=== PATIENT | male | born 1935 | race Caucasian/White ===

== ENCOUNTER → 2017-10-02 15:36 | Outpatient (CLI) | payer MEDICARE, BC, SELFPAY ==
[2017-10-02 16:16] LABS: Basophils # 0.1 K/mm3 (0-0.2); Basophils % 0.9 % (0.1-2.0); Eosinophils # 0.2 K/mm3 (0.0-0.4); Eosinophils % 2.6 % (0.1-12.0); Hematocrit 37.6 % (42.0-52.0); Hemoglobin 11.9 g/dL (14.1-18.0); Lymphocytes % 23.9 K/mm3 (10-50); Mean Corpuscular HGB Conc 31.6 g/dL (31.8-35.4); Mean Corpuscular Hemoglobin 29.7 pg (27.0-31.2); Mean Corpuscular Volume 94.1 fl (80-94); Mean Platelet Volume 7.2 fl (7.4-10.4); Monocytes # 0.5 K/mm3 (0.1-1.0); Monocytes % 6.1 % (1.7-9.3); Neutrophils # 5.5 K/mm3 (1.8-7.8); Neutrophils % 66.5 % (37.0-80.0); Platelet Count 372 K/mm3 (142-424); White Blood Count 8.3 K/mm3 (4.8-10.8)
[2017-10-02 17:17] LABS: Alanine Aminotransferase 16 U/L (12-78); Albumin Level 3.4 gm/dL (3.4-5.0); Albumin/Globulin Ratio 0.9 (1.1-1.8); Alkaline Phosphatase 58 U/L (46-116); Anion Gap 13.6 mEq/L (5-15); Aspartate Amino Transferase 18 U/L (15-37); Bilirubin,Total 0.3 mg/dL (0.2-1.0); Blood Urea Nitrogen 13 mg/dL (7-18); Calcium 8.7 mg/dL (8.5-10.1); Carbon Dioxide 26 mmol/L (21.0-32.0); Chloride 108 mmol/L (98-107); Chol/HDL Ratio 4.5 (1-3.5); Cholesterol 197 mg/dL (140-200); Creatinine,Serum 1.09 mg/dL (0.70-1.30); Estimated Glomerular Filt Rate 65 ml/min (>60); GFR (African American) 79 ML/MIN (>60); Globulin 3.7 gm/dl (1.3-3.2); Glucose 94 mg/dL (74-106); HDL Cholesterol 44 mg/dL (27-67); LDL Cholesterol 138 mg/dL (0-130); Potassium 4.6 mmoL/L (3.5-5.1); Sodium 143 mmol/L (136-145); Thyroid Stimulating Hormone 21.11 uIU/ml (0.358-3.740); Total Protein,Serum 7.1 gm/dL (6.4-8.2); Triglycerides 76 mg/dL (30-200); VLDL Cholesterol 15 mg/dL (0-40); Valproic Acid, (Depakene) 24.3 ug/mL (50-100)
== END ==
PROVIDERS: PCP Nurse Practitioner Family; Visit Provider Nurse Practitioner Family
DX: I10 Essential (primary) hypertension (principal); E78.5 Hyperlipidemia, unspecified; E03.9 Hypothyroidism, unspecified; J41.1 Mucopurulent chronic bronchitis; R51 Headache
CPT/HCPCS: 36415; 80053; 80061; 80164; 84443; 85025

== ENCOUNTER 2017-10-11 20:04 | Emergency (ER) | payer MEDICARE, BC, SELFPAY ==
[2017-10-11 20:11] VITALS: BP 148/75; PULSE 71; RESP 12; TEMP 36.9; O2SAT 95; BMI 30.9
--- NOTE | 2017-10-11 20:25 | CT_ITS ---
CT head/brain wo con Ordering Physician: Orlin Parks MD Patient Age: 82 years: Male HISTORY: ITS.REASON: altered mental status change in mental status since last night 82 TECHNIQUE: Routine CT head without contrast. Brain and bone windows performed and submitted to PACS. COMPARISON : Previous September 05, [address] & March 2015 FINDINGS No acute intracranial findings. No hemorrhage. No mass. No territorial infarct Chronic small vessel deep white matter ischemic changes are again noted and gives rise to the patchy periventricular low-density white matter regions, most evident surrounding the anterior horns of lateral ventricles. Small old appearing routine at right head of caudate nucleus yields small porencephalic defect along the right margin of right anterior fourth axial image 23. This is seen previously . The ventricles appear satisfactory and basal cisterns clear. Posterior fossa is unremarkable and stable. Near complete opacification of the left maxillary sinus. With lifting of the left maxillary sinus. This likely reflects long-standing inflammatory mucosal thickening but seems to progressed over time since 2012 MR. May benefit from a sinus CT study particularly if symptoms here. Mild mucosal thickening ethmoid air cells bilaterally. Frontal & sphenoid sinus clear. Right maxillary sinus clear . IMPRESSION .. No acute intracranial findings Diffuse cerebral atrophy. Chronic small vessel deep white matter ischemic changes again seen bilateral cerebral hemispheres & similar to previous studies. It Near complete opacification left maxillary sinus. With bony wall thickening-these features suggesting long-standing chronic inflammation here.
--- NOTE | 2017-10-11 20:25 | XR_ITS ---
XR chest 2V Ordering Physician: Orlin Parks MD Patient Age: 82 years: Male HISTORY: ITS.REASON: cough, wheeze, recent bronchitis TECHNIQUE: PA and lateral chest COMPARISON : 12/20/2015 CXR & 12/19/2015 & 08/24/2015 CXR FINDINGS Focal small focal patchy area of density right midlung just lateral to the right suprahilar region. Roughly 18 mm transverse x 12 mm height in This setting this may reflect a small inflammatory focus, patchy infiltrate but will benefit from follow-up to exclude any other pathology. Given the slightly nodular character. Lateral film also suggests slight additional markings towards the inferior right lower lobe. Most likely this reflects infiltrate at the medial right lung base Left lung clear. No focal pneumonia. Pelvis the central airways upper normal thickness could reflect mild central airway inflammation/bronchitis.. Heart mildly enlarged but stable with left ventricular configuration. Diffuse calcification aortic knob similar to previous studies. The mediastinal structures appear stable. Mild elevation right hemidiaphragm again noted. Chest unremarkable. T-spine. Mild kyphosis mild degenerative changes. Stable. IMPRESSION: ========= 1. Focal density just lateral to the right hilum. In this setting it could reflect a small patchy area of infiltrate although follow-up studies would be important to exclude developing nodular density here 2. Also question minimal infiltrate medial right lung base, posterior to the right heart border . 3. Mild cardiomegaly Normal pulmonary vascularity Shanita/Zulma Please fax or sent this report to ER
[2017-10-11 20:57] LABS: Basophils # 0.1 K/mm3 (0-0.2); Basophils % 1.4 % (0.1-2.0); Eosinophils # 0.4 K/mm3 (0.0-0.4); Eosinophils % 4.6 % (0.1-12.0); Hematocrit 39.3 % (42.0-52.0); Lymphocytes % 26.3 K/mm3 (10-50); Mean Corpuscular HGB Conc 30.7 g/dL (31.8-35.4); Mean Corpuscular Hemoglobin 29.7 pg (27.0-31.2); Mean Corpuscular Volume 96.8 fl (80-94); Mean Platelet Volume 7.1 fl (7.4-10.4); Monocytes # 0.7 K/mm3 (0.1-1.0); Monocytes % 8.7 % (1.7-9.3); Neutrophils # 4.6 K/mm3 (1.8-7.8); Neutrophils % 59.1 % (37.0-80.0); Platelet Count 341 K/mm3 (142-424); Red Blood Count 4.05 M/mm3 (4.60-6.20); White Blood Count 7.8 K/mm3 (4.8-10.8)
[2017-10-11 21:17] LABS: Alanine Aminotransferase 16 U/L (12-78); Albumin Level 3.4 gm/dL (3.4-5.0); Albumin/Globulin Ratio 0.8 (1.1-1.8); Alkaline Phosphatase 63 U/L (46-116); Anion Gap 9.3 mEq/L (5-15); Aspartate Amino Transferase 16 U/L (15-37); Bilirubin,Total 0.2 mg/dL (0.2-1.0); Blood Urea Nitrogen 16 mg/dL (7-18); Calcium 8.6 mg/dL (8.5-10.1); Carbon Dioxide 29 mmol/L (21.0-32.0); Chloride 105 mmol/L (98-107); Creatinine Clearance Estimated 56 mL/min (0-300); Creatinine,Serum 1.24 mg/dL (0.70-1.30); Estimated Glomerular Filt Rate 56 ml/min (>60); Free T4 (Free Thyroxine) 0.89 ng/dl (0.76-1.46); GFR (African American) 68 ML/MIN (>60); Globulin 4.5 gm/dl (1.3-3.2); Glucose 101 mg/dL (74-106); Potassium 4.3 mmoL/L (3.5-5.1); Sodium 139 mmol/L (136-145); Thyroid Stimulating Hormone 6.14 uIU/ml (0.358-3.740); Total Protein,Serum 7.9 gm/dL (6.4-8.2)
[2017-10-11 21:19] LABS: Microscopic, Urine URINE MICROSCOPIC (MICROSCOPIC)
[2017-10-11 21:22] LABS: Appearance,Urine CLEAR (Clear); Bilirubin,Urine Negative (Negative); Blood, Urine Negative (Negative); Color,Urine YELLOW (Yellow); Glucose,Urine (UA) Negative (Negative); Ketones,Urine Negative (Negative); Leukocyte Esterase,Urine Negative (Negative); Nitrate,Urine Negative (Negative); Protein,Urine Negative (Negative); Specific Gravity, Urine 1.025 (1.005-1.030); Urobilinogen,Urine 0.2 EU/dl (0.2)
--- NOTE | 2017-10-11 21:24 | HMH.EDGENADL ---
ED Disposition Clinical Impression: Behavioral change Dementia Qualifiers: Dementia type: unspecified type Dementia behavioral disturbance: with behavioral disturbance Qualified Code(s): F03.91 - Unspecified dementia with behavioral disturbance Disposition: Home, Self-Care Condition on Discharge: Fair Instructions: DI for Altered Mental Status Additional Instructions: See Dr. Schulz in the office, call Friday for appointment. Additional instructions for CONTROLLED SUBSTANCES: You have been prescribed a medication that is a controlled substance. Controlled substances include pain medications known as opiates and sedative nerve medications known as benzodiazepines. Some common opiates include: Codeine (such as Tylenol #3) Hydrocodone (Vicodin, Lortab, Lorcet, [place]) Oxycodone (Percocet, Percodan, Oxycodone, Oxy IR) Some common benzodiazepines include: Diazepam (Valium) Lorazepam (Ativan) Alprazolam (Xanax) Clonazepam (Klonopin) Oxazepam (Serax) All of these controlled substances are highly addictive and frequently abused. Misuse can and frequently does lead to addiction as well as overdose and . Medication should be stored in a locked cabinet or other secure storage unit. Do not store the medication in a motor vehicle. Short term supplies, 3 days or less, are prescribed because of the highly addictive nature of the medication. Any of the controlled substance medication NOT taken should be disposed of properly and NOT SAVED. The recommended method of disposing of unused medications is: Place the medicines in a sealable plastic bag. If the medicine is a solid, crush it or add water to dissolve it. Add something undesirable (cat litter, coffee grounds, etc.) Dispose of sealed bag in household trash Do not flush or pour unused medicines down a sink or drain. Controlled substances should not be shared, given away or sold. Because of the addictive nature and frequent abuse, these medications are sometimes stolen. These medications should be kept in a safe place where they cannot be stolen. Do not keep them in your car or purse. Lost or stolen prescriptions for controlled substances WILL NOT BE REFILLED in this emergency department, regardless of whether a police report was filed. Prescriptions: diazePAM [Valium] 5 mg PO HSP PRN #4 tab PRN Reason: Sleep Referrals: Anastasiia Murillo APRN [Primary Care Provider] - - Critical Care Critical Care Time: No Attestation: On 10/11/17, the high probability of a clinically significant, sudden or life threatening deterioration of the following system(s) required my full and direct attention, intervention and personal management. The time I documented below is in addition to time spent performing reported procedures but includes the following listed in this critical care notation. Medical Decision Making Vital Signs: 10/11/17 20:11 Temperature 98.5 F Temperature Source Oral Pulse Rate [Right Radial] 71 Respiratory Rate 12 Blood Pressure [Right Arm] 148/75 Blood Pressure Mean [Right Arm] 99 Blood Pressure Source [Right Arm] Automatic Cuff Blood Pressure Position [Right Arm] Supine 02 Sat by Pulse Oximetry 95 Oxygen Delivery Method Room Air - Lab Data Lab Results 10/11/17 20:30: WBC 7.8, RBC 4.05 L, Hgb 12.0 L, Hct 39.3 L, MCV 96.8 H, MCH 29.7, MCHC 30.7 L, RDW 14.0, Plt Count 341, MPV 7.1 L, Neut % (Auto) 59.1, Lymph % (Auto) 26.3, [place] % (Auto) 8.7, Eos % (Auto) 4.6, Baso % (Auto) 1.4, Neut # (Auto) 4.6, Lymph # (Auto) 2.0, [place] # (Auto) 0.7, Eos # (Auto) 0.4, Baso # (Auto) 0.1 10/11/17 20:30: Sodium 139, Potassium 4.3, Chloride 105, Carbon Dioxide 29, Anion Gap 9.3, BUN 16, Creatinine 1.24, Estimated Creat Clear 56, Estimated GFR 56 L, Est GFR ( Amer) 68, Glucose 101, Calcium 8.6, Total Bilirubin 0.2, AST 16, ALT 16, Alkaline Phosphatase 63, Total Protein 7.9, Albumin 3.4, Globulin 4.5 H, Albumin/Globulin Ratio 0.8 L, TSH 6.14 H D, Eyal
[2017-10-11 22:06] LABS: Valproic Acid, (Depakene) 19.2 ug/mL (50-100)
[2017-10-11 22:10] LABS: Ammonia 14 umol/L (19-54)
--- NOTE | 2017-10-11 22:42 | PC.NURSE ---
CASE DISCUSSED WITH DR ARANGO.
[2017-10-12 00:09] VITALS: BP 157/78; PULSE 72; RESP 16; TEMP 37.1
== END 2017-10-12 00:12 | disposition home or self-care (01) ==
PROVIDERS: Emergency Provider Emergency Medicine; Family Provider Internal Medicine Adolescent Medicine; PCP Nurse Practitioner Family
DX: F03.91 Unspecified dementia, unspecified severity, with behavioral disturbance (principal); Z87.891 Personal history of nicotine dependence
CPT/HCPCS: 70450; 71046; 80053; 80164; 81001; 82140; 84439; 84443; 85025; 87040; 99284

== ENCOUNTER 2017-10-13 16:29 | Inpatient (IN) | payer MEDICARE, BC, SELFPAY ==
[2017-10-13 16:38] VITALS: BMI 30.6
[2017-10-13 17:03] VITALS: BMI 30.6
[2017-10-13 17:11] VITALS: BP 152/62; PULSE 72; RESP 18; TEMP 36.7; O2SAT 91
[2017-10-13 17:27] VITALS: O2SAT 86
[2017-10-13 18:14] LABS: ABG Base Excess -0.5 mmol/L (-2.4-2.3); ABG HCO3 25.3 mmhg (22.0-26.0); ABG Oxygen Saturation 86 % (90-100); ABG PCO2 47.7 mmhg (35.0-45.0); ABG PH 7.34 mmol/L (7.35-7.45); ABG PO2 54.3 mmhg (80-100); ABG TCO2 26.7 mmhg (23-27)
[2017-10-13 18:35] VITALS: PULSE 67; PULSE 68
[2017-10-13 18:51] LABS: Alanine Aminotransferase 18 U/L (12-78); Albumin Level 3.2 gm/dL (3.4-5.0); Albumin/Globulin Ratio 0.7 (1.1-1.8); Alkaline Phosphatase 64 U/L (46-116); Anion Gap 10.9 mEq/L (5-15); Aspartate Amino Transferase 23 U/L (15-37); Bilirubin,Total 0.4 mg/dL (0.2-1.0); Blood Urea Nitrogen 14 mg/dL (7-18); Calcium 8.7 mg/dL (8.5-10.1); Carbon Dioxide 29 mmol/L (21.0-32.0); Chloride 103 mmol/L (98-107); Creatinine Clearance Estimated 58 mL/min (0-300); Creatinine,Serum 1.14 mg/dL (0.70-1.30); Estimated Glomerular Filt Rate 62 ml/min (>60); GFR (African American) 75 ML/MIN (>60); Globulin 4.5 gm/dl (1.3-3.2); Glucose 97 mg/dL (74-106); Potassium 3.9 mmoL/L (3.5-5.1); Sodium 139 mmol/L (136-145); Total Protein,Serum 7.7 gm/dL (6.4-8.2)
--- NOTE | 2017-10-13 19:10 | PC.NURSE ---
REPORT HANDED OFF TO NARA RAZO RN
--- NOTE | 2017-10-13 19:11 | PC.NURSE ---
AT 1800 RAMILA IN PHARMACY NOTIFIED OVER [facility] CONSULT. LOADING DOSE ORDERED OF 1500MG IN 250 NS BAG. TO RUN AT 125ML/HR. VERIFIED AND MIXED.
[2017-10-13 20:00] VITALS: O2SAT 99
[2017-10-13 20:20] VITALS: BP 141/56; PULSE 66; RESP 20; TEMP 36.8; O2SAT 99
--- NOTE | 2017-10-13 21:50 | HMH.HP ---
*Admission Date: 10/13/17 *Chief complaint: Confusion, falls *History of present illness: 82 yr old male presented today with his daughter to FU on recent ED visit. He has a history of asthma/COPD, past tobacco use, and dementia and was seen in the ED over the past weekend due to recurring falls at home and confusion above baseline. Daughter reports that she has noticed poor PO intake over several days, weakness with walking and he suffered the falls while trying to ambulate at home. He has a had a cough for several months, not responding to multiple anti-infectives, anti-allergy interventions or stopping ACEI. ED did labs and imaging but did not change any treatment. Today in clinic he appears rather disheveled and is much less interactive than usual. ED records revealed no change in CT head imaging but possible infiltrate right lung base and right hilar lesion. His weight is down 6 pounds over the past 10 days, was felt to be dehydrated on exam and was admitted for hydration, further chest imaging and IV antibiotics. He does have a history of MRSA pneumonia so coverage with vancomycin will be added. [facility] History I have reviewed the patient's past medical history: Yes Medical History: Reports:: Anxiety, Chronic Obstructive Pulmonary Disease (COPD), Dementia, Depression, Gastroesophageal Reflux Disease(GERD), Hyperlipidemia, Hypertension, MRSA Denies:: Cancer, Diabetes Mellitus Type 1, Diabetes Mellitus Type 2 Other Medical History: Reports: Hypothyroidism Comment: chronic headaches, sinus disease, dementia with behavior disturbance Other Surgeries: Yes: Sinus Surgery, Other (cholecystemctomy) Amputation: No Fractures: Yes (arm and wrist) - *Social History Smoking Status: Former smoker Smoking End Date: 35 years Alcohol Intake: former Occupational Status: retired, disabled Housing: house Household Members: children - Psychiatric History Expresses thoughts of harming self/others: None Suicide Plan Description: No Plan *Family Hx:: No significant family history Review of Systems - Review of Systems Review of systems:: pertinent systems reviewed and negative unless documented below - Constitutional Reports anorexia, Reports daytime sleepiness, Reports fatigue, Reports weakness - ENT Reports poor balance, Reports dry mouth, Reports headache(s), Reports nasal discharge, Reports post nasal drip - *Cardiovascular Reports shortness of breath with activity, Denies chest pain - *Respiratory Reports cough - *Gastrointestinal Denies abdominal pain - *Genitourinary Denies difficulty urinating - *Musculoskeletal Reports back pain - *Neurologic Reports behavioral changes, Reports confusion, Reports unsteadiness, Reports headache(s), Reports memory loss Meds Home Medications Medication Instructions Recorded Confirmed Type Benzonatate [Benzonatate 100mg 100 mg PO TIDP PRN 10/11/17 10/13/17 History cap] Desvenlafaxine [Desvenlafaxine ER] 50 mg PO DAILY 10/11/17 10/13/17 History Divalproex Sodium 250 mg PO BID 10/11/17 10/13/17 History Donepezil HCl [Aricept 10mg tablet] 10 mg PO HS 10/11/17 10/13/17 History Doxazosin Mesylate [Doxazosin 8mg 4 mg PO DAILY 10/11/17 10/13/17 History Tab] Esomeprazole Magnesium 40 mg PO DAILY 10/11/17 10/13/17 History Furosemide [Furosemide 20mg Tab] 20 mg PO DAILYP PRN 10/11/17 10/13/17 History Levocetirizine Dihydrochloride 5 mg PO HS 10/11/17 10/13/17 History Levothyroxine Sodium 88 mcg PO DAILY 10/11/17 10/13/17 History [Levothyroxine 88mcg (0.088mg) Tab] Lisinopril [Lisinopril 10mg Tab] 10 mg PO DAILY 10/11/17 10/13/17 History Montelukast Sodium [Montelukast 10 mg PO HS 10/11/17 10/13/17 History 10mg Tab] Quetiapine Fumarate [Seroquel] 200 mg PO HS 10/11/17 10/13/17 History Trazodone HCl [Desyrel 50mg tablet] 200 mg PO HS 10/11/17 10/13/17 History Allergies Allergy/AdvReac Type Severity Reaction Status Date / Time erythromycin base Allergy Severe I-HIVES, Verified
--- NOTE | 2017-10-13 21:59 | P.HP_ITS ---
*Admission Date: 10/13/17 *Chief complaint: Confusion, falls *History of present illness: 82 yr old male presented today with his daughter to FU on recent ED visit. He has a history of asthma/COPD, past tobacco use, and dementia and was seen in the ED over the past weekend due to recurring falls at home and confusion above baseline. Daughter reports that she has noticed poor PO intake over several days , weakness with walking and he suffered the falls while trying to ambulate at home. He has a had a cough for several months, not responding to multiple anti- infectives, anti-allergy interventions or stopping ACEI. ED did labs and imaging but did not change any treatment. Today in clinic he appears rather disheveled and is much less interactive than usual. ED records revealed no change in CT head imaging but possible infiltrate right lung base and right hilar lesion. His weight is down 6 pounds over the past 10 days, was felt to be dehydrated on exam and was admitted for hydration, further chest imaging and IV antibiotics. He does have a history of MRSA pneumonia so coverage with vancomycin will be added. [facility] History I have reviewed the patient's past medical history: Yes Medical History: Reports:: Anxiety, Chronic Obstructive Pulmonary Disease (COPD) , Dementia, Depression, Gastroesophageal Reflux Disease(GERD), Hyperlipidemia, Hypertension, MRSA Denies:: Cancer, Diabetes Mellitus Type 1, Diabetes Mellitus Type 2 Other Medical History: Reports: Hypothyroidism Comment: chronic headaches, sinus disease, dementia with behavior disturbance Other Surgeries: Yes: Sinus Surgery, Other (cholecystemctomy) Amputation: No Fractures: Yes (arm and wrist) - *Social History Smoking Status: Former smoker Smoking End Date: 35 years Alcohol Intake: former Occupational Status: retired, disabled Housing: house Household Members: children - Psychiatric History Expresses thoughts of harming self/others: None Suicide Plan Description: No Plan *Family Hx:: No significant family history Review of Systems - Review of Systems Review of systems:: pertinent systems reviewed and negative unless documented below - Constitutional Reports anorexia, Reports daytime sleepiness, Reports fatigue, Reports weakness - ENT Reports poor balance, Reports dry mouth, Reports headache(s), Reports nasal discharge, Reports post nasal drip - *Cardiovascular Reports shortness of breath with activity, Denies chest pain - *Respiratory Reports cough - *Gastrointestinal Denies abdominal pain - *Genitourinary Denies difficulty urinating - *Musculoskeletal Reports back pain - *Neurologic Reports behavioral changes, Reports confusion, Reports unsteadiness, Reports headache(s), Reports memory loss Meds Home Medications Medication Instructions Recorded Confirmed Type Benzonatate [Benzonatate 100mg 100 mg PO TIDP PRN 10/11/17 10/13/17 History cap] Desvenlafaxine [Desvenlafaxine ER] 50 mg PO DAILY 10/11/17 10/13/17 History Divalproex Sodium 250 mg PO BID 10/11/17 10/13/17 History Donepezil HCl [Aricept 10mg tablet] 10 mg PO HS 10/11/17 10/13/17 History Doxazosin Mesylate [Doxazosin 8mg 4 mg PO DAILY 10/11/17 10/13/17 History Tab] Esomeprazole Magnesium 40 mg PO DAILY 10/11/17 10/13/17 History Furosemide [Furosemide 20mg Tab] 20 mg PO DAILYP PRN 10/11/17 10/13/17 History Levocetirizine Dihydrochloride 5 mg PO HS 10/11/17 10/13/17 History Levothyroxine Sodium 88 mcg PO DAILY 10/11/17 10/13/17 History [Levothy
[2017-10-13 22:33] LABS: Mycoplasma Pneumo IGM (Rapid) Non-Reactive (Non-Reactiv)
[2017-10-13 23:22] VITALS: PULSE 67; PULSE 68
[2017-10-14] VITALS (12 sets, daily range): BP systolic 129–166; BP diastolic 50–76; PULSE 68–83; RESP 18; TEMP 36.2–37.4; O2SAT 93–99
--- NOTE | 2017-10-14 04:45 | CT_ITS ---
CT chest wo con HISTORY: Cough, wheezing, abnormal chest x-ray, pulmonary nodule ITS.REASON: ABNORMAL CXR ORDERING PHYSICIAN: Lc Mcginnis MD PATIENT AGE: 82 years TECHNIQUE: Axial images obtained. Sagittal and coronal reformatted images are also generated and reviewed. CONTRAST: None COMPARISON: Radiograph of 10/11/2017, CT scan 06/20/2014 FINDINGS: Atherosclerotic calcification involving the aorta and coronary arteries. There are few small lymph nodes in the mediastinum measuring up to 1.3 x 1.2 cm in the precarinal area. There are atelectatic changes in the right upper lobe. A 5 mm nodular opacity is present in the right upper lobe medially probably unchanged. Granulomas are present in the right upper lobe. There is a subpleural 5 mm nodular density in the right middle lobe laterally. There are mild atelectatic changes in the lung bases. There is trace right pleural effusion. Upper abdominal images are unremarkable. No acute bony anomalies IMPRESSION: 1. Bibasilar subsegmental atelectatic changes and/or scarring. 2. Atelectasis versus consolidation/scarring in the posterior right upper lobe likely candidate for the radiographic abdomen only. 3. Small right-sided pulmonary nodules which appear stable
--- NOTE | 2017-10-14 06:48 | PC.NURSE ---
PATIENT IS OFF CENSUS. ADMITTED FOR PNA AND DEHYDRATION.VITAL SIGNS AND O2 SATS HAVE REMAINED STABLE. SOME CRACKLES HEARD T/O AND DIMINISHED IN BASES, NONPRODUCTIVE COUGH. HAS BEEN TOLERATING IV ATB TREATMENT WELL AND DRINKS ADEQUATE FLUIDS. PATIENT IS CONFUSED AND PLEASANT. O2 @2L PER NC. NO ACUTE CHANGES. CALL LIGHT IN REACH. WILL CONTINUE TO MONITOR.
[2017-10-14 07:27] LABS: Basophils # 0.1 K/mm3 (0-0.2); Basophils % 0.8 % (0.1-2.0); Eosinophils # 0.2 K/mm3 (0.0-0.4); Eosinophils % 3.7 % (0.1-12.0); Hematocrit 36.5 % (42.0-52.0); Hemoglobin 11.5 g/dL (14.1-18.0); Lymphocytes # 2.1 K/mm3 (0.7-4.5); Lymphocytes % 32.5 K/mm3 (10-50); Mean Corpuscular HGB Conc 31.6 g/dL (31.8-35.4); Mean Corpuscular Volume 94.9 fl (80-94); Mean Platelet Volume 7.2 fl (7.4-10.4); Monocytes # 0.6 K/mm3 (0.1-1.0); Monocytes % 8.6 % (1.7-9.3); Neutrophils # 3.5 K/mm3 (1.8-7.8); Neutrophils % 54.4 % (37.0-80.0); Platelet Count 292 K/mm3 (142-424); Red Blood Count 3.85 M/mm3 (4.60-6.20); Red Cell Distribution Width 13.9 % (11.5-17.5); White Blood Count 6.4 K/mm3 (4.8-10.8)
[2017-10-14 07:35] LABS: Blood Urea Nitrogen 12 mg/dL (7-18); Carbon Dioxide 29 mmol/L (21.0-32.0); Chloride 106 mmol/L (98-107); Creatinine Clearance Estimated 65 mL/min (0-300); Creatinine,Serum 1.02 mg/dL (0.70-1.30); Estimated Glomerular Filt Rate 70 ml/min (>60); GFR (African American) 85 ML/MIN (>60); Glucose 122 mg/dL (74-106); Sodium 142 mmol/L (136-145); Valproic Acid, (Depakene) 8.5 ug/mL (50-100)
--- NOTE | 2017-10-14 08:06 | HMH.PHAVTE ---
[facility] Pharmacy VTE Monitoring - Patient Demographics Admission date: 10/13/17 Report Date: 10/14/17 Time: 08:06 Allergies/Adverse Reactions: Patient Allergies erythromycin base Allergy (Severe, Verified 10/11/17 20:24) I-HIVES, RASH Cephalosporins Allergy (Intermediate, Verified 10/11/17 20:24) I-RASH doxycycline Allergy (Intermediate, Verified 10/11/17 20:24) I-RASH Penicillins Allergy (Intermediate, Verified 10/11/17 20:24) T-EEIJCO-AKPI/THROAT Sulfa (Sulfonamide Antibiotics) Allergy (Intermediate, Verified 10/11/17 20:24) I-RASH clindamycin Allergy (Unknown, Verified 10/11/17 20:24) niacin Allergy (Unknown, Verified 10/11/17 20:24) I-RASH Height: 1.63 m Weight: 80.96 kg Patient Problems: Current Active Problems Behavioral change (Acute) CAP (community acquired pneumonia) (Acute) History of MRSA infection of lungs (Acute) Dehydration (Acute) Abnormal CXR (Acute) - VTE Risk Labs: VTE Related Lab Results Hgb 11.5 g/dL (14.1-18.0) L 10/14/17 06:49 Hct 36.5 % (42.0-52.0) L 10/14/17 06:49 Plt Count 292 K/mm3 (142-424) 10/14/17 06:49 BUN 12 mg/dL (7-18) 10/14/17 06:49 Creatinine 1.02 mg/dL (0.70-1.30) 10/14/17 06:49 Estimated Creat Clear 65 mL/min (0-300) 10/14/17 06:49 Was VTE Risk Assessment Performed: Yes VTE Score: 4 VTE Risk Level: Low Risk Clinical Trial Participant: No - Prophylaxis VTE Prophylaxis Ordered?: Yes Types of VTE Prophylaxis: TEDS Knee High Location of Applied Device: Bilateral Lower Extremeties
--- NOTE | 2017-10-14 09:09 | P.PN_ITS ---
Internal Medicine - PN: Subj *Date: 10/14/17 *Time: 09:07 Interval history: Patient states he feels weak. Mental status has improved; however he continues to have some hallucinations. Exam Vital signs and Labs for Last 24 Hours: Temp Pulse Resp BP Pulse Ox 98.0 F 81 18 148/58 95 10/14/17 07:57 10/14/17 07:57 10/14/17 07:57 10/14/17 07:57 10/14/17 07:57 Laboratory Results - last 24 hr 10/13/17 17:54: ABG pH 7.34 L, ABG pCO2 47.7 H, ABG pO2 54.3 L, ABG HCO3 25.3, ABG Total CO2 26.7, ABG O2 Saturation 86 L*, ABG Base Excess -0.5 10/13/17 18:20: Sodium 139, Potassium 3.9, Chloride 103, Carbon Dioxide 29, Anion Gap 10.9, BUN 14, Creatinine 1.14, Estimated Creat Clear 58, Estimated GFR 62, Est GFR ( Amer) 75, Glucose 97, Calcium 8.7, Total Bilirubin 0.4 , AST 23 D, ALT 18, Alkaline Phosphatase 64, Total Protein 7.7, Albumin 3.2 L, Globulin 4.5 H, Albumin/Globulin Ratio 0.7 L 10/13/17 18:20: Mycoplasma pneumon IgM Non-reactive 10/14/17 06:49: WBC 6.4, RBC 3.85 L, Hgb 11.5 L, Hct 36.5 L, MCV 94.9 H, MCH 30.0, MCHC 31.6 L, RDW 13.9, Plt Count 292, MPV 7.2 L, Neut % (Auto) 54.4, Lymph % (Auto) 32.5, [place] % (Auto) 8.6, Eos % (Auto) 3.7, Baso % (Auto) 0.8, Neut # (Auto) 3.5, Lymph # (Auto) 2.1, [place] # (Auto) 0.6, Eos # (Auto) 0.2, Baso # (Auto) 0.1 10/14/17 06:49: Sodium 142, Potassium 4.0, Chloride 106, Carbon Dioxide 29, Anion Gap 11.0, BUN 12, Creatinine 1.02, Estimated Creat Clear 65, Estimated GFR 70, Est GFR ( Amer) 85, Glucose 122 H D, Total Valproic Acid 8.5 L I & O for Last 24 hours: Intake & Output 10/11/17 10/12/17 10/13/17 10/14/17 11:59 11:59 11:59 11:59 Intake Total 903 / 903 Balance 903 / 903 Weight 178 lb 7.78 oz Narrative: Alert and oriented x2. Rate and rhythm regular. Trace LE edema. Lung sounds with rhonchi/crackles RUL. Abdomen soft and nontender. Normoactive Bowel sounds. Assessment and Plan (1) CAP (community acquired pneumonia) Current visit: Yes Status: Acute Category: Medical Code(s): J18.9 - Pneumonia, unspecified organism (2) History of MRSA infection of lungs Current visit: Yes Status: Acute Category: Medical Code(s): Z86.14 - Personal history of Methicillin resistant Staphylococcus aureus infection (3) Dehydration Current visit: Yes Status: Acute Category: Medical Code(s): E86.0 - Dehydration (4) Abnormal CXR Current visit: Yes Status: Acute Category: Medical Code(s): R93.8 - Abnormal findings on diagnostic imaging of other specified body structures (5) Behavioral change Current visit: Yes Status: Acute Category: Medical Code(s): R46.89 - Other symptoms and signs involving appearance and behavior - Assessment and plan all Dx Assessment and Plan for all problems:: Continue IV antibiotics. PT consult today.
--- NOTE | 2017-10-14 11:30 | HMH.PHACONS ---
- Pharmacy Consult Date: 10/14/17 Time: 11:30 Referring provider: DR. ARANGO Reason for Consult:: VANCOMYCIN DOSING Allergies and ADEs:: Allergies Allergy/AdvReac Type Severity Reaction Status Date / Time erythromycin base Allergy Severe I-HIVES, Verified 10/11/17 20:24 RASH Cephalosporins Allergy Intermediate I-RASH Verified 10/11/17 20:24 doxycycline Allergy Intermediate I-RASH Verified 10/11/17 20:24 Penicillins Allergy Intermediate S-SWELLS-OR Verified 10/11/17 20:24 AL/THROAT Sulfa (Sulfonamide Allergy Intermediate I-RASH Verified 10/11/17 20:24 Antibiotics) clindamycin Allergy Unknown Verified 10/11/17 20:24 niacin Allergy Unknown I-RASH Verified 10/11/17 20:24 Home Medications:: Home Medications Medication Instructions Recorded Confirmed Type Benzonatate [Benzonatate 100mg 100 mg PO TIDP PRN 10/11/17 10/13/17 History cap] Desvenlafaxine [Desvenlafaxine ER] 50 mg PO DAILY 10/11/17 10/13/17 History Divalproex Sodium 250 mg PO BID 10/11/17 10/13/17 History Donepezil HCl [Aricept 10mg tablet] 10 mg PO HS 10/11/17 10/13/17 History Doxazosin Mesylate [Doxazosin 8mg 4 mg PO DAILY 10/11/17 10/13/17 History Tab] Esomeprazole Magnesium 40 mg PO DAILY 10/11/17 10/13/17 History Furosemide [Furosemide 20mg Tab] 20 mg PO DAILYP PRN 10/11/17 10/13/17 History Levocetirizine Dihydrochloride 5 mg PO HS 10/11/17 10/13/17 History Levothyroxine Sodium 88 mcg PO DAILY 10/11/17 10/13/17 History [Levothyroxine 88mcg (0.088mg) Tab] Lisinopril [Lisinopril 10mg Tab] 10 mg PO DAILY 10/11/17 10/13/17 History Montelukast Sodium [Montelukast 10 mg PO HS 10/11/17 10/13/17 History 10mg Tab] Quetiapine Fumarate [Seroquel] 200 mg PO HS 10/11/17 10/13/17 History Trazodone HCl [Desyrel 50mg tablet] 200 mg PO HS 10/11/17 10/13/17 History Height: 1.63 m Weight: 80.96 kg Laboratory Results:: Laboratory Results - last 24 hr 10/13/17 17:54: ABG pH 7.34 L, ABG pCO2 47.7 H, ABG pO2 54.3 L, ABG HCO3 25.3, ABG Total CO2 26.7, ABG O2 Saturation 86 L*, ABG Base Excess -0.5 10/13/17 18:20: Sodium 139, Potassium 3.9, Chloride 103, Carbon Dioxide 29, Anion Gap 10.9, BUN 14, Creatinine 1.14, Estimated Creat Clear 58, Estimated GFR 62, Est GFR ( Amer) 75, Glucose 97, Calcium 8.7, Total Bilirubin 0.4, AST 23 D, ALT 18, Alkaline Phosphatase 64, Total Protein 7.7, Albumin 3.2 L, Globulin 4.5 H, Albumin/Globulin Ratio 0.7 L 10/13/17 18:20: Mycoplasma pneumon IgM Non-reactive 10/14/17 06:49: WBC 6.4, RBC 3.85 L, Hgb 11.5 L, Hct 36.5 L, MCV 94.9 H, MCH 30.0, MCHC 31.6 L, RDW 13.9, Plt Count 292, MPV 7.2 L, Neut % (Auto) 54.4, Lymph % (Auto) 32.5, [place] % (Auto) 8.6, Eos % (Auto) 3.7, Baso % (Auto) 0.8, Neut # (Auto) 3.5, Lymph # (Auto) 2.1, [place] # (Auto) 0.6, Eos # (Auto) 0.2, Baso # (Auto) 0.1 10/14/17 06:49: Sodium 142, Potassium 4.0, Chloride 106, Carbon Dioxide 29, Anion Gap 11.0, BUN 12, Creatinine 1.02, Estimated Creat Clear 65, Estimated GFR 70, Est GFR ( Amer) 85, Glucose 122 H D, Total Valproic Acid 8.5 L Medical History: Reports:: Anxiety, Chronic Obstructive Pulmonary Disease (COPD), Dementia, Depression, Gastroesophageal Reflux Disease(GERD), Hyperlipidemia, Hypertension, MRSA Denies:: Cancer, Diabetes Mellitus Type 1, Diabetes Mellitus Type 2 Assessment and Plan (1) CAP (community acquired pneumonia) Current visit: Yes Status: Acute Category: Medical Code(s): J18.9 - Pneumonia, unspecified organism (2) History of MRSA infection of lungs Current visit: Yes Status: Acute Category: Medical Code(s): Z86.14 - Personal history of Methicillin resistant Staphylococcus aureus infection (3) Dehydration Current visit: Yes Status: Acute Category: Medical Code(s): E86.0 - Dehydration (4) Abnormal CXR Current visit: Yes Status: Acute Category: Medical Code(s): R93.8 - Abnormal findings on diagnostic imaging of other specified body structures (5) Behavioral change Current visit: Yes
--- NOTE | 2017-10-14 11:37 | P.CONPHA_ITS ---
- Pharmacy Consult Date: 10/14/17 Time: 11:30 Referring provider: DR. ARANGO Reason for Consult:: VANCOMYCIN DOSING Allergies and ADEs:: Allergies Allergy/AdvReac Type Severity Reaction Status Date / Time erythromycin base Allergy Severe I-HIVES, Verified 10/11/17 20:24 RASH Cephalosporins Allergy Intermediate I-RASH Verified 10/11/17 20:24 doxycycline Allergy Intermediate I-RASH Verified 10/11/17 20:24 Penicillins Allergy Intermediate S-SWELLS-OR Verified 10/11/17 20:24 AL/THROAT Sulfa (Sulfonamide Allergy Intermediate I-RASH Verified 10/11/17 20:24 Antibiotics) clindamycin Allergy Unknown Verified 10/11/17 20:24 niacin Allergy Unknown I-RASH Verified 10/11/17 20:24 Home Medications:: Home Medications Medication Instructions Recorded Confirmed Type Benzonatate [Benzonatate 100mg 100 mg PO TIDP PRN 10/11/17 10/13/17 History cap] Desvenlafaxine [Desvenlafaxine ER] 50 mg PO DAILY 10/11/17 10/13/17 History Divalproex Sodium 250 mg PO BID 10/11/17 10/13/17 History Donepezil HCl [Aricept 10mg tablet] 10 mg PO HS 10/11/17 10/13/17 History Doxazosin Mesylate [Doxazosin 8mg 4 mg PO DAILY 10/11/17 10/13/17 History Tab] Esomeprazole Magnesium 40 mg PO DAILY 10/11/17 10/13/17 History Furosemide [Furosemide 20mg Tab] 20 mg PO DAILYP PRN 10/11/17 10/13/17 History Levocetirizine Dihydrochloride 5 mg PO HS 10/11/17 10/13/17 History Levothyroxine Sodium 88 mcg PO DAILY 10/11/17 10/13/17 History [Levothyroxine 88mcg (0.088mg) Tab] Lisinopril [Lisinopril 10mg Tab] 10 mg PO DAILY 10/11/17 10/13/17 History Montelukast Sodium [Montelukast 10 mg PO HS 10/11/17 10/13/17 History 10mg Tab] Quetiapine Fumarate [Seroquel] 200 mg PO HS 10/11/17 10/13/17 History Trazodone HCl [Desyrel 50mg tablet] 200 mg PO HS 10/11/17 10/13/17 History Height: 1.63 m Weight: 80.96 kg Laboratory Results:: Laboratory Results - last 24 hr 10/13/17 17:54: ABG pH 7.34 L, ABG pCO2 47.7 H, ABG pO2 54.3 L, ABG HCO3 25.3, ABG Total CO2 26.7, ABG O2 Saturation 86 L*, ABG Base Excess -0.5 10/13/17 18:20: Sodium 139, Potassium 3.9, Chloride 103, Carbon Dioxide 29, Anion Gap 10.9, BUN 14, Creatinine 1.14, Estimated Creat Clear 58, Estimated GFR 62, Est GFR ( Amer) 75, Glucose 97, Calcium 8.7, Total Bilirubin 0.4 , AST 23 D, ALT 18, Alkaline Phosphatase 64, Total Protein 7.7, Albumin 3.2 L, Globulin 4.5 H, Albumin/Globulin Ratio 0.7 L 10/13/17 18:20: Mycoplasma pneumon IgM Non-reactive 10/14/17 06:49: WBC 6.4, RBC 3.85 L, Hgb 11.5 L, Hct 36.5 L, MCV 94.9 H, MCH 30.0, MCHC 31.6 L, RDW 13.9, Plt Count 292, MPV 7.2 L, Neut % (Auto) 54.4, Lymph % (Auto) 32.5, [place] % (Auto) 8.6, Eos % (Auto) 3.7, Baso % (Auto) 0.8, Neut # (Auto) 3.5, Lymph # (Auto) 2.1, [place] # (Auto) 0.6, Eos # (Auto) 0.2, Baso # (Auto) 0.1 10/14/17 06:49: Sodium 142, Potassium 4.0, Chloride 106, Carbon Dioxide 29, Anion Gap 11.0, BUN 12, Creatinine 1.02, Estimated Creat Clear 65, Estimated GFR 70, Est GFR ( Amer) 85, Glucose 122 H D, Total Valproic Acid 8.5 L Medical History: Reports:: Anxiety, Chronic Obstructive Pulmonary Disease (COPD) , Dementia, Depression, Gastroesophageal Reflux Disease(GERD), Hyperlipidemia, Hypertension, MRSA Denies:: Cancer, Diabetes Mellitus Type 1, Diabetes Mellitus Type 2 Assessment and Plan (1) CAP (community acquired pneumonia) Current visit: Yes Status: Acute Category: Medical Code(s): J18.9 - Pneumonia, unspecified orga
--- NOTE | 2017-10-14 16:26 | SW/DCPLANNER ---
NOBODY WAS IN THE ROOM WITH MR DEAN THIS AFTERNOON SO I MADE A CALL TO HIS DAUGHTER, FLORA AND HAD TO LEAVE A VOICE MESSAGE ASKING HER WHAT THE PLAN WAS FOR HER FATHER POST HOSPITAL DISCHARGE: I TOLD HER THAT OUT PHYSICALTHERAPIST DID NOT THINK HE WAS SKILLABLE ENOUGH TO PICK HIM UP WHILE HE WAS IN THE HOSPITAL STATING HE IS WEAK BUT BASICALLY AT BASELINE.. STATING HE PROBABLY NEEDS PLACEMENT BUT DIDN'T KNOW IF SKILLED CARE WAS COMPLETELY NECESSARY MORE [facility] CARE. I HAVE ASKED HER TO CALL ME AND LET HER KNOW MY HOURS. WAITING ON A CALL TO DECIDE WHAT PLAN I NEED TO WORK TOWARD PRIOR TO HIS DISCHARGE FROM [facility].
--- NOTE | 2017-10-14 19:13 | PC.NURSE ---
Pt resting in bed with no complaints, was without o2 t/o shift and tolerated while in chair, pt c/o of feeling soa while in bed and 02 put back on nc for discomfort. patient remains at baseline. bed safety in place, call light in reach. will continue to monitor
[2017-10-15] VITALS (10 sets, daily range): BP systolic 123–180; BP diastolic 65–86; PULSE 78–100; RESP 18–22; TEMP 36.1–37.1; O2SAT 90–98
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
--- NOTE | 2017-10-15 08:33 | HMH.ACPN2 ---
Internal Medicine - PN: Subj *Date: 10/15/17 *Time: 08:33 Interval history: Overnight patient improved, eating well, his daughter continues to be concerned about ongoing insomnia. Exam Vital signs and Labs for Last 24 Hours: Temp Pulse Resp BP Pulse Ox 98.1 F 82 18 168/71 98 10/15/17 03:59 10/15/17 06:09 10/15/17 03:59 10/15/17 03:59 10/15/17 06:09 I & O for Last 24 hours: Intake & Output 10/12/17 10/13/17 10/14/17 10/15/17 11:59 11:59 11:59 11:59 Intake Total 1023 / 1023 840 / 840 Output Total 1300 / 1300 Balance 1023 / 1023 -460 / -460 Weight 178 lb 7.78 oz 180 lb 8 oz Microbiology Reports for the Last 24 Hours: Microbiology 10/13/17 18:20 Blood Blood Culture - Preliminary NO GROWTH AFTER 24 HOURS 10/13/17 18:20 Blood Blood Culture - Preliminary NO GROWTH AFTER 24 HOURS Narrative: Lungs have rhonchi bilaterally, improved air movement. Heart rate regular. Abdomen soft. Patient continues to be weak and unstable. CT were reviewed and PT evaluation noted. Assessment and Plan (1) CAP (community acquired pneumonia) Current visit: Yes Status: Acute Category: Medical Code(s): J18.9 - Pneumonia, unspecified organism (2) History of MRSA infection of lungs Current visit: Yes Status: Acute Category: Medical Code(s): Z86.14 - Personal history of Methicillin resistant Staphylococcus aureus infection (3) Dehydration Current visit: Yes Status: Acute Category: Medical Code(s): E86.0 - Dehydration (4) Abnormal CXR Current visit: Yes Status: Acute Category: Medical Code(s): R93.8 - Abnormal findings on diagnostic imaging of other specified body structures (5) Behavioral change Current visit: Yes Status: Acute Category: Medical Code(s): R46.89 - Other symptoms and signs involving appearance and behavior - Assessment and plan all Dx Assessment and Plan for all problems:: Overall patient improving. Continue current antibiotics. Patient needs skilled care evaluation for PT and continued antibiotics.
--- NOTE | 2017-10-15 10:10 | SW/DCPLANNER ---
RECEIVED REFERRAL FOR THIS PATIENT FOR SKILLED CARE FOR THIS PATIENT: MR DEAN PRESENTED INTO THE HOSPITAL WITH PNEUMONIA: HE HAS BEEN AT HOME WITH DAUGHTER CARING FOR HIM AND SHE FEELS HE NEEDS TO GO SOMEWHERE FOR SHORT TERM REHAB AND USE HIS MEDICARE BENEFIT, SHE HAS REQUESTED I SENT IT TO [facility]... WAITING ON [facility] TO CALL ME TO WHETHER THEY CAN ACCEPT HIM OR NOT..IF ACCEPTED HE WILL BE READY FOR A DISPOSITION ON ..
--- NOTE | 2017-10-15 10:47 | HMH.PTEV ---
Physical Therapy Evaluation Rehab PT IP Evaluation Start: 10/14/17 07:59 Freq: ONCE Status: Complete Protocol: Document 10/14/17 10:24 FAMILIA (Rec: 10/14/17 10:44 PHORTIANNA [id number]) Subjective/History History History 82 yom adm to [facility] with weakness and CAP. Pt has dementia at baseline. Subjective Subjective Pt reports no c/o pain or discomfort this am. Rehab PT IP Eval Objective Appearance Patient Behavior Cooperative Confused Patient Baseline Patient Orientation Person Place Difficulty following instructions none Speech Pattern Clear Appropriate Ambulation Patient Able to Ambulate Yes Ambulation Observation IP General Gait Pattern Observation Wide Based Gait Ambulation Distance (feet) 200 Ambulation Assistive Device None Balance Ability to Arise Able, w/o using arms Sitting Balance Steady, safe Standing Balance Steady, wide stance Dynamic Sitting Balance Ability Normal Dynamic Standing Balance Ability Good Transfers Bed Transfer Ability Supervision/Stand by Chair Transfer Ability Supervision/Stand by Sit to Stand Bed Transfer Ability Supervision/Stand by Sit to Stand Chair Transfer Ability Supervision/Stand by ROM All Extremities PT ROM Status WFL MMT All Extremities PT MMT WFL Rehab PT IP prob,goals,plan Problems Date of Evaluation: 10/14/17 Rehab Potential Rehab Potential Good Equipment Needs Assistive Devices None / NA Discharge Plan PT Discharge Plan Pt is appropriate to return home once medically stable with assist due to dementia. G -code Required Yes Eval Complexity Eval Charge Codes 22494 - Moderate Complexity G Codes PT Current Status Mobility PT Current Status Modifier CI-At least 1% but less than 20% impaired, limited or restricted PT Goal Status Mobility PT Goal Status Modifer CI-At least 1% but less than 20% impaired, limited or restricted PHYSICIAN CERTIFICATION: I certify the specified therapy services for Terell Jimenez are required, authorized, and reviewed every 30 days.
--- NOTE | 2017-10-15 13:53 | PC.NURSE ---
1346 - Pt has removed IV from (L) AC. Found IV on floor. Call Dr Mcginnis and notified that pt repetitively pulls out IV and is a difficult stick. Dr Mcginnis instructed this nurse to leave IV out until just prior to next IV antibiotic dose.
--- NOTE | 2017-10-15 14:38 | HMH.PTEV ---
Physical Therapy Evaluation Rehab PT IP Evaluation Start: 10/14/17 07:59 Freq: ONCE Status: Complete Protocol: Document 10/14/17 10:24 FAMILIA (Rec: 10/14/17 10:44 PHORTIANNA [id number]) Subjective/History History History 82 yom adm to [facility] with weakness and CAP. Pt has dementia at baseline. Subjective Subjective Pt reports no c/o pain or discomfort this am. Rehab PT IP Eval Objective Appearance Patient Behavior Cooperative Confused Patient Baseline Patient Orientation Person Place Difficulty following instructions none Speech Pattern Clear Appropriate Ambulation Patient Able to Ambulate Yes Ambulation Observation IP General Gait Pattern Observation Wide Based Gait Ambulation Distance (feet) 200 Ambulation Assistive Device None Balance Ability to Arise Able, w/o using arms Sitting Balance Steady, safe Standing Balance Steady, wide stance Dynamic Sitting Balance Ability Normal Dynamic Standing Balance Ability Good Transfers Bed Transfer Ability Supervision/Stand by Chair Transfer Ability Supervision/Stand by Sit to Stand Bed Transfer Ability Supervision/Stand by Sit to Stand Chair Transfer Ability Supervision/Stand by ROM All Extremities PT ROM Status WFL MMT All Extremities PT MMT WFL Rehab PT IP prob,goals,plan Problems Date of Evaluation: 10/14/17 Rehab Potential Rehab Potential Good Equipment Needs Assistive Devices None / NA Discharge Plan PT Discharge Plan Pt is appropriate to return home once medically stable with assist due to dementia. G -code Required Yes Eval Complexity Eval Charge Codes 13447 - Moderate Complexity G Codes PT Current Status Mobility PT Current Status Modifier CI-At least 1% but less than 20% impaired, limited or restricted PT Goal Status Mobility PT Goal Status Modifer CI-At least 1% but less than 20% impaired, limited or restricted PHYSICIAN CERTIFICATION: I certify the specified therapy services for Terell Jimenez are required, authorized, and reviewed every 30 days.
--- NOTE | 2017-10-15 15:33 | PC.NURSE ---
Pt is A&Ox2 and pleasantly confused. VSS. Afebrile. Heart rate reg. Crackles noted throughout lung gama bilaterally. Abd soft and nontender /c active bowel sounds x4 quads. Pt ambulates /c standby assistance to BR. No difficulty /c bowel/bladder. Pt has voided qs and had a BM normal color and consistency this shift. BLE knee high ELISSA hose in place. Pt pulled out his IV this shift. Pt has required 1:1 supervision this shift for safety measures. Family has been called and informed that pt cannot stay alone due to increased fall risk and pt pulling out IV multiple times since admission. Family reported to be sending someone in to sit with pt.
--- NOTE | 2017-10-15 16:36 | SW/DCPLANNER ---
RECEIVED A MESSAGE FROM [facility] STATING THEY WERE NOT GOING TO TAKE THIS PATIENT: ALL SHE SAID WAS THEY COULDN'T MEET HIS NEEDS...I CALLED THE DAUGHTER, FLORA AND SHE WANTED INFORMATION SENT TO [facility] BUT THEY DID NOT HAVE ANY BEDS SO I ASKED ABOUT [facility] AND SHE AGREED. I HAVE SENT PATIENT INFORMATION THERE AND SPOKE WITH THE DON, SARA NAVA AND SHE WANTED TO KNOW IF HIS PNEUMONIA WAS MRSA... IT LOOKS LIKE HIS CULTURES ARE STILL PENDING, SHE WANTS ME TO CALL HER ABOUT HIS CULTURES ONCE WE GET THE FINAL..SHE ACTED INTERESTED BUT WE HAVE TO KNOW IF HE HAS AN ACTIVE MRSA...
--- NOTE | 2017-10-15 19:34 | PC.NURSE ---
Bedside report given to Yokasta Samson RN
[2017-10-16] VITALS: BP 190/91; PULSE 83; RESP 18; TEMP 36.8; O2SAT 95
[2017-10-16 00:35] VITALS: PULSE 83; PULSE 85
[2017-10-16 01:11] VITALS: O2SAT 95
[2017-10-16 04:00] VITALS: BP 186/84; PULSE 95; RESP 18; TEMP 36.7; O2SAT 90
--- NOTE | 2017-10-16 05:50 | PC.NURSE ---
teds are off at this time
[2017-10-16 06:26] VITALS: PULSE 88; O2SAT 91
--- NOTE | 2017-10-16 07:36 | PC.NURSE ---
REPORT GIVEN TO Jill COFFMAN W/C
--- NOTE | 2017-10-16 08:14 | PC.NURSE ---
AGITATION NOTED THIS SHIFT, MEDICATED PER NOV. A&OX2. FAMILY AT BEDSIDE WITH PT T/O SHIFT. LUNG SOUNDS CLEAR T/O AUSCULTATION. TOLERATING RA WELL. VSS. WILL CONTINUE TO MONITOR.
--- NOTE | 2017-10-16 08:24 | HMH.DCSUM ---
General - General Admission date: 10/13/17 Discharge date: 10/16/17 HPI HPI: 82 yr old male presented today with his daughter to FU on recent ED visit. He has a history of asthma/COPD, past tobacco use, and dementia and was seen in the ED over the past weekend due to recurring falls at home and confusion above baseline. Daughter reports that she has noticed poor PO intake over several days, weakness with walking and he suffered the falls while trying to ambulate at home. He has a had a cough for several months, not responding to multiple anti-infectives, anti-allergy interventions or stopping ACEI. ED did labs and imaging but did not change any treatment. Today in clinic he appears rather disheveled and is much less interactive than usual. ED records revealed no change in CT head imaging but possible infiltrate right lung base and right hilar lesion. His weight is down 6 pounds over the past 10 days, was felt to be dehydrated on exam and was admitted for hydration, further chest imaging and IV antibiotics. He does have a history of MRSA pneumonia so coverage with vancomycin will be added. Objective Vital signs: Temp Pulse Resp BP Pulse Ox 98.1 F 88 18 186/84 91 L 10/16/17 04:00 10/16/17 06:26 10/16/17 04:00 10/16/17 04:00 10/16/17 06:26 Narrative: This morning patient is somnolent after Valium last night. His lungs are well expanded, minimal rhonchi the right lower lung field. Heart rate regular. Abdomen soft, good distal perfusion. No symmetric deficiencies of facial movement or peripheral motor strength. Hospital Course Hospital Course: Patient was admitted, IV antibiotics were given. Found to have pneumonia on CT scan. This was treated with levofloxacin. Patient was found to be in need of ongoing skilled rehab given his weakness, ataxia and fall risk. Blood cultures are negative. Exam improved. This morning he will be transferred to the [facility] for ongoing PT/OT/speech therapy evaluation. Antibiotics will be continued and medications will be noted on the document below. Results Labs on day of discharge: Preliminary micro results at discharge 10/13/17 18:20 Blood Culture - Preliminary Blood NO GROWTH AFTER 48 HOURS 10/13/17 18:20 Blood Culture - Preliminary Blood NO GROWTH AFTER 48 HOURS DS: Diagnosis - Discharge Diagnosis (1) CAP (community acquired pneumonia) Status: Acute (2) History of MRSA infection of lungs Status: Resolved (3) Dehydration Status: Resolved (4) Abnormal CXR Status: Acute (5) Behavioral change Status: Chronic (6) Ataxia Status: Acute Meds Home Medications Medication Instructions Recorded Confirmed Type Benzonatate [Benzonatate 100mg 100 mg PO TIDP PRN 10/11/17 10/13/17 History cap] Desvenlafaxine [Desvenlafaxine ER] 50 mg PO DAILY 10/11/17 10/13/17 History Divalproex Sodium 250 mg PO BID 10/11/17 10/13/17 History Donepezil HCl [Aricept 10mg tablet] 10 mg PO HS 10/11/17 10/13/17 History Doxazosin Mesylate [Doxazosin 8mg 4 mg PO DAILY 10/11/17 10/13/17 History Tab] Esomeprazole Magnesium 40 mg PO DAILY 10/11/17 10/13/17 History Furosemide [Furosemide 20mg Tab] 20 mg PO DAILYP PRN 10/11/17 10/13/17 History Levocetirizine Dihydrochloride 5 mg PO HS 10/11/17 10/13/17 History Levothyroxine Sodium 88 mcg PO DAILY 10/11/17 10/13/17 History [Levothyroxine 88mcg (0.088mg) Tab] Lisinopril [Lisinopril 10mg Tab] 10 mg PO DAILY 10/11/17 10/13/17 History Montelukast Sodium [Montelukast 10 mg PO HS 10/11/17 10/13/17 History 10mg Tab] Quetiapine Fumarate [Seroquel] 200 mg PO HS 10/11/17 10/13/17 History Trazodone HCl [Desyrel 50mg tablet] 200 mg PO HS 10/11/17 10/13/17 History Allergies Allergy/AdvReac Type Severity Reaction Status Date / Time erythromycin base Allergy Severe I-HIVES, Verified 10/11/17 20:24 RASH Cephalosporins Allergy Intermediate I-RASH
--- NOTE | 2017-10-16 08:27 | P.DS_ITS ---
General - General Admission date: 10/13/17 Discharge date: 10/16/17 HPI HPI: 82 yr old male presented today with his daughter to FU on recent ED visit. He has a history of asthma/COPD, past tobacco use, and dementia and was seen in the ED over the past weekend due to recurring falls at home and confusion above baseline. Daughter reports that she has noticed poor PO intake over several days , weakness with walking and he suffered the falls while trying to ambulate at home. He has a had a cough for several months, not responding to multiple anti- infectives, anti-allergy interventions or stopping ACEI. ED did labs and imaging but did not change any treatment. Today in clinic he appears rather disheveled and is much less interactive than usual. ED records revealed no change in CT head imaging but possible infiltrate right lung base and right hilar lesion. His weight is down 6 pounds over the past 10 days, was felt to be dehydrated on exam and was admitted for hydration, further chest imaging and IV antibiotics. He does have a history of MRSA pneumonia so coverage with vancomycin will be added. Objective Vital signs: Temp Pulse Resp BP Pulse Ox 98.1 F 88 18 186/84 91 L 10/16/17 04:00 10/16/17 06:26 10/16/17 04:00 10/16/17 04:00 10/16/17 06:26 Narrative: This morning patient is somnolent after Valium last night. His lungs are well expanded, minimal rhonchi the right lower lung field. Heart rate regular. Abdomen soft, good distal perfusion. No symmetric deficiencies of facial movement or peripheral motor strength. Hospital Course Hospital Course: Patient was admitted, IV antibiotics were given. Found to have pneumonia on CT scan. This was treated with levofloxacin. Patient was found to be in need of ongoing skilled rehab given his weakness, ataxia and fall risk. Blood cultures are negative. Exam improved. This morning he will be transferred to the [facility] for ongoing PT/OT/speech therapy evaluation. Antibiotics will be continued and medications will be noted on the document below. Results Labs on day of discharge: Preliminary micro results at discharge 10/13/17 18:20 Blood Culture - Preliminary Blood NO GROWTH AFTER 48 HOURS 10/13/17 18:20 Blood Culture - Preliminary Blood NO GROWTH AFTER 48 HOURS DS: Diagnosis - Discharge Diagnosis (1) CAP (community acquired pneumonia) Status: Acute (2) History of MRSA infection of lungs Status: Resolved (3) Dehydration Status: Resolved (4) Abnormal CXR Status: Acute (5) Behavioral change Status: Chronic (6) Ataxia Status: Acute Meds Home Medications Medication Instructions Recorded Confirmed Type Benzonatate [Benzonatate 100mg 100 mg PO TIDP PRN 10/11/17 10/13/17 History cap] Desvenlafaxine [Desvenlafaxine ER] 50 mg PO DAILY 10/11/17 10/13/17 History Divalproex Sodium 250 mg PO BID 10/11/17 10/13/17 History Donepezil HCl [Aricept 10mg tablet] 10 mg PO HS 10/11/17 10/13/17 History Doxazosin Mesylate [Doxazosin 8mg 4 mg PO DAILY 10/11/17 10/13/17 History Tab] Esomeprazole Magnesium 40 mg PO DAILY 10/11/17 10/13/17 History Furosemide [Furosemide 20mg Tab] 20 mg PO DAILYP PRN 10/11/17 10/13/17 History Levocetirizine Dihydrochloride 5 mg PO HS 10/11/17 10/13/17 History Levo
[2017-10-16 08:38] VITALS: BP 158/74; PULSE 80; RESP 20; TEMP 36.6; O2SAT 91
--- NOTE | 2017-10-16 09:46 | SW/DCPLANNER ---
RECEIVED A PHONE CALL FROM [facility] AND STATED BY ARMANDO MR DEAN HAS BEEN ACCEPTED FOR PLACEMENT THERE AND WILL USE HIS MEDICARE SKILLED DAYS..I SPOKE WITH HIS CAREGIVER, FLROA AND SHE IS IN AGREEMENT OF THE PLAN AND WILL TRANSPORT HIM VIA CAR...HE IS DISCHARGING TODAY...
--- NOTE | 2017-10-16 10:46 | PC.NURSE ---
CALLED REPORT TO [facility] AT [id number]
== END 2017-10-16 10:47 | DRG 195 ==
PROVIDERS: Nurse Practitioner Family; Admitting Provider Internal Medicine Adolescent Medicine; PCP Internal Medicine Adolescent Medicine; Visit Provider Internal Medicine Adolescent Medicine
DX: J18.9 Pneumonia, unspecified organism (principal); E86.0 Dehydration; Z86.14 Personal history of Methicillin resistant Staphylococcus aureus infection
CPT/HCPCS: 36415; 70450; 71046; 71250; 80048; 80053; 80164; 81001; 82140; 82803; 84439; 84443; 85025; 86738; 87040; 94640; 94760; 94761; 97162; 99284; J1956; J3370

== ENCOUNTER 2018-01-03 21:08 | Inpatient (IN) ==
--- NOTE | 2018-01-03 21:25 | Emergency Department Note ---
ED Disposition Clinical Impression: Hypoxia Community acquired pneumonia Qualifiers: Laterality: left Lung location: lower lobe of lung Qualified Code(s): J18.1 - Lobar pneumonia, unspecified organism Disposition: Still a Patient Condition on Discharge: Serious - Critical Care Critical Care Time: No Attestation: On 01/03/18, the high probability of a clinically significant, sudden or life threatening deterioration of the following system(s) required my full and direct attention, intervention and personal management. The time I documented below is in addition to time spent performing reported procedures but includes the following listed in this critical care notation. Medical Decision Making - Curtis Inquiry Pt receiving controlled substance: No Vital Signs: 01/03/18 21:11 01/03/18 21:16 01/03/18 22:51 Temperature 101 F H Temperature Source Oral Pulse Rate [Right Brachial] 116 H 115 H Respiratory Rate 16 16 Blood Pressure [Right Arm] 158/73 128/48 Blood Pressure Mean [Right Arm] 101 74 02 Sat by Pulse Oximetry 95 84 L 94 L Oxygen Delivery Method Nasal Cannula Room Air Nasal Cannula Oxygen Flow Rate (LPM) 3 3 - Lab Data Lab Results 01/03/18 21:30: WBC 20.7 H*, RBC 4.09 L, Hgb 12.5 L, Hct 38.8 L, MCV 94.8 H, MCH 30.6, MCHC 32.3, RDW 14.2, Plt Count 300, MPV 8.4, Neut % (Auto) 90.1 H, Lymph % (Auto) 5.8 L, Cross % (Auto) 3.4, Eos % (Auto) 0.3, Baso % (Auto) 0.4, Neut # (Auto) 18.6 H, Lymph # (Auto) 1.2, Cross # (Auto) 0.7, Eos # (Auto) 0.1, Baso # (Auto) 0.1, Total Counted 100, Neutrophils % (Manual) 72, Band Neutrophils % 19.0 H, Lymphocytes % (Manual) 7 L, Monocytes % (Manual) 2, Platelet Estimate Normal, RBC Morphology Not Reportable, Rouleaux 1+ 01/03/18 21:30: Sodium 149 H, Potassium 4.1, Chloride 113 H, Carbon Dioxide 21, Anion Gap 19.1 H, BUN 35 H, Creatinine 1.43 H, Estimated Creat Clear 45, Estimated GFR 47 L, Est GFR ( Amer) 57 L, Glucose 124 H, Calcium 8.9, Total Bilirubin 0.5, AST 32, ALT 22, Alkaline Phosphatase 65, Total Protein 6.7 , Albumin 2.6 L, Globulin 4.1 H, Albumin/Globulin Ratio 0.6 L 01/03/18 21:30: Lactic Acid 3.9 H 01/03/18 21:30: Total Creatine Kinase 277, CK-MB (CK-2) 2.9, CK-MB (CK-2) Rel Index 1.0, Troponin I 0.03 01/03/18 22:00: Influenza Type A Ag Negative, Influenza Type B Ag Negative Result diagrams: 01/03/18 21:30 01/03/18 21:30 Orders (Tests/Meds): ED MEDICATIONS Generic Name Dose Route Start Last Admin Trade Name Freq PRN Reason Stop Dose Admin Levofloxacin/Dextrose 750 mg in 150 mls @ 100 mls/hr 01/03/18 22:45 01/03/18 22:46 Levofloxacin 750mg/150ml Premix IV 01/17/18 22:44 100 mls/hr Q24H GARIMA Administration Protocol Discontinued Medications Generic Name Dose Route Start Last Admin Trade Name Freq PRN Reason Stop Dose Admin Acetaminophen 650 mg 01/03/18 23:07 01/03/18 23:15 Acetaminophen 325mg Tab PO 01/03/18 23:08 650 mg ONCE ONE Administration Sodium Chloride 1,000 ml 01/03/18 22:20 01/03/18 22:46 Sod Chlor 0.9% 1000ml Bag IV 01/03/18 22:21 1,000 ml BOLUS ONE Administration ORDERS Category Date Time Status Chest XR -- portable [XR chest portable] Stat Exams 01/03/18 21:35 Taken Upper Respiratory Panel, PCR Stat Lab 01/03/18 22:02 Ordered Urinalysis and Microscopic Stat Lab 01/03/18 22:52 Ordered Blood Culture Stat Micro 01/03/18 21:30 Received ECG Request by /Edda Stat Y 01/03/18 21:35 Ordered - ECG Data Tracing #1 EKG interpreted by Orlin Parks MD: Rhythm: sinus tachycardia Rate: 117 Campbell: normal Ectopy: none Conduction: normal ST Segment Changes: none T Wave Changes: none Q Waves: Inferior, anterior-septal No evidence of acute ischemia or injury Prior electrocardiagrams reviewed. No change from prior tracings. Medical Decision Narrative: 10:45 PM: I have discussed the case with Dr. Ivory for Dr. Menchaca who agrees to admit the patient to the hospital. We discussed the patient's clinical information, including history, exam, laboratory and radiology results and ED course. Per hospital procedure, I will write temporary bridge inpatient orders on the patient. Specific orders requested by the admitting physician: Levaquin, normal saline at 100 cc/h, nebulizer treatments. General Adult HPI - General Stated complaint: SOB,fever Time Seen by Provider: 01/03/18 21:40 - History of Present Illness HPI narrative: The patient is poor historian. History supplemented by family. He has had fever, trouble breathing, difficulty walking, and twitching for couple of days. Admitted here for pneumonia in September. Currently denies any pain. - Related Data Home Medications Medication Instructions Recorded Confirmed Divalproex Sodium 250 mg PO BID 10/11/17 01/03/18 Donepezil HCl [Aricept 10mg tablet] 10 mg PO HS 10/11/17 01/03/18 Doxazosin Mesylate [Doxazosin 8mg 4 mg PO DAILY 10/11/17 01/03/18 Tab] Esomeprazole Magnesium 40 mg PO DAILY 10/11/17 01/03/18 Furosemide [Furosemide 20mg Tab] 20 mg PO DAILYP PRN 10/11/17 01/03/18 Levothyroxine Sodium 88 mcg PO DAILY 10/11/17 01/03/18 [Levothyroxine 88mcg (0.088mg) Tab] Lisinopril [Lisinopril 10mg Tab] 10 mg PO DAILY 10/11/17 10/13/17 Montelukast Sodium [Montelukast 10 mg PO HS 10/11/17 01/03/18 10mg Tab] Quetiapine Fumarate [Seroquel] 200 mg PO HS 10/11/17 01/03/18 Trazodone HCl [Desyrel 50mg tablet] 200 mg PO HS 10/11/17 01/03/18 Allergies Allergy/AdvReac Type Severity Reaction Status Date / Time erythromycin base Allergy Severe I-HIVES, Verified 01/03/18 22:16 RASH Cephalosporins Allergy Intermediate I-RASH Verified 01/03/18 22:16 doxycycline Allergy Intermediate I-RASH Verified 01/03/18 22:16 Penicillins Allergy Intermediate S-SWELLS-OR Verified 01/03/18 22:16 AL/THROAT Sulfa (Sulfonamide Allergy Intermediate I-RASH Verified 01/03/18 22:16 Antibiotics) clindamycin Allergy Unknown Verified 01/03/18 22:16 niacin Allergy Unknown I-RASH Verified 01/03/18 22:16 [facility] History I have reviewed the patient's past medical history: Yes Medical History: Reports:: Anxiety, Chronic Obstructive Pulmonary Disease (COPD) , Dementia, Depression, Gastroesophageal Reflux Disease(GERD), Hyperlipidemia, Hypertension, MRSA Denies:: Cancer, Diabetes Mellitus Type 1, Diabetes Mellitus Type 2 Other Medical History: Reports: Hypothyroidism Comment: chronic headaches, sinus disease, dementia with behavior disturbance Other Surgeries: Yes: Sinus Surgery, Other (cholecystemctomy) Amputation: No Fractures: Yes (arm and wrist) - Social History Smoking Status: Former smoker Alcohol Intake: former Occupational Status: retired, disabled Housing: house Household Members: children - Psychiatric History Pschychiatric History:: Reports:: Anxiety, Depression Family Hx:: No significant family history ROS Obtained: Yes unobtainable due to mental status (dementia) - Constitutional Constitutional: Reports fever(s) - Respiratory Respiratory: Yes dyspnea - Gastrointestinal Gastrointestingal: Denies: diarrhea, vomiting Physical Exam - General General appearance: alert, in no apparent distress - Head Head exam: atraumatic, normocephalic - Eye Eye exam: Present: normal appearance - ENT ENT exam: Present: normal exam - Neck Neck exam: Present: full ROM - Chest Chest inspection: Present: normal inspection, symmetric chest wall rise - Respiratory Respiratory exam: Present: normal lung sounds bilaterally - Cardiovascular Cardiovascular exam: Present: regular rate, normal rhythm - Abdominal Exam Abdominal exam: Present: soft. Absent: tenderness - Extremities Exam Extremities exam: Absent: tenderness, pedal edema, calf tenderness - Neurological Exam Neurological exam: Present: alert, other (hard of hearing) - Psychiatric Psychiatric exam: Present: normal affect
[2018-01-03 21:58] LABS: Basophils # 0.1 K/mm3 (0-0.2); Basophils % 0.4 % (0.1-2.0); Eosinophils # 0.1 K/mm3 (0.0-0.4); Eosinophils % 0.3 % (0.1-12.0); Hematocrit 38.8 % (42.0-52.0); Hemoglobin 12.5 g/dL (14.1-18.0); Lymphocytes # 1.2 K/mm3 (0.7-4.5); Lymphocytes % 5.8 K/mm3 (10-50); Mean Corpuscular HGB Conc 32.3 g/dL (31.8-35.4); Mean Corpuscular Hemoglobin 30.6 pg (27.0-31.2); Mean Corpuscular Volume 94.8 fl (80-94); Mean Platelet Volume 8.4 fl (7.4-10.4); Monocytes # 0.7 K/mm3 (0.1-1.0); Monocytes % 3.4 % (1.7-9.3); Neutrophils # 18.6 K/mm3 (1.8-7.8); Neutrophils % 90.1 % (37.0-80.0); Platelet Count 300 K/mm3 (142-424); Red Blood Count 4.09 M/mm3 (4.60-6.20); Red Cell Distribution Width 14.2 % (11.5-17.5)
[2018-01-03 22:10] LABS: White Blood Count 20.7 K/mm3 (4.8-10.8)
[2018-01-03 22:12] LABS: Albumin Level 2.6 gm/dL (3.4-5.0); Albumin/Globulin Ratio 0.6 (1.1-1.8); Anion Gap 19.1 mEq/L (5-15); Bilirubin,Total 0.5 mg/dL (0.2-1.0); Calcium 8.9 mg/dL (8.5-10.1); Globulin 4.1 gm/dl (1.3-3.2); Potassium 4.1 mmoL/L (3.5-5.1); Total Protein,Serum 6.7 gm/dL (6.4-8.2)
[2018-01-03 23:09] LABS: Lymphocytes % 7 % (10-50); Monocytes % 2 % (2-9); Neutrophils % 72 % (42-76); Rouleaux 1+; Total Cells Counted 100
[2018-01-04 04:37] LABS: Basophils # 0.1 K/mm3 (0-0.2); Basophils % 0.3 % (0.1-2.0); Eosinophils # 0.2 K/mm3 (0.0-0.4); Eosinophils % 1.2 % (0.1-12.0); Hematocrit 32.9 % (42.0-52.0); Lymphocytes # 1.5 K/mm3 (0.7-4.5); Lymphocytes % 7.4 K/mm3 (10-50); Mean Corpuscular HGB Conc 32.2 g/dL (31.8-35.4); Mean Corpuscular Hemoglobin 30.4 pg (27.0-31.2); Mean Corpuscular Volume 94.5 fl (80-94); Mean Platelet Volume 7.9 fl (7.4-10.4); Monocytes # 0.5 K/mm3 (0.1-1.0); Monocytes % 2.7 % (1.7-9.3); Neutrophils # 17.3 K/mm3 (1.8-7.8); Neutrophils % 88.4 % (37.0-80.0); Platelet Count 242 K/mm3 (142-424); Red Blood Count 3.48 M/mm3 (4.60-6.20); Red Cell Distribution Width 14.1 % (11.5-17.5); White Blood Count 19.6 K/mm3 (4.8-10.8)
[2018-01-04 04:39] LABS: Hemoglobin 10.6 g/dL (14.1-18.0)
[2018-01-04 04:43] LABS: Anion Gap 13.4 mEq/L (5-15); Potassium 4.4 mmoL/L (3.5-5.1)
--- NOTE | 2018-01-04 07:23 | History & Physical Report ---
*Admission Date: 01/03/18 *Chief complaint: Cough and shortness of breath *History of present illness: 82-year-old male brought to the emergency department by family due to several days of fever, cough, shortness of breath. Patient himself this morning cannot provide much additional history due to associated dementia. Patient had previously mentioned symptoms and upon evaluation in the emergency department was diagnosed with pneumonia. Patient has been admitted and placed on Levaquin due to multiple drug allergies. This morning his only complaint is a sore throat. [facility] History I have reviewed the patient's past medical history: Yes Medical History: Reports:: Anxiety, Chronic Obstructive Pulmonary Disease (COPD) , Dementia, Depression, Gastroesophageal Reflux Disease(GERD), Hyperlipidemia, Hypertension, MRSA Denies:: Cancer, Diabetes Mellitus Type 1, Diabetes Mellitus Type 2 Other Medical History: Reports: Hypothyroidism Other Surgeries: Yes: Sinus Surgery, Other (cholecystemctomy) Amputation: No Fractures: Yes (arm and wrist) - *Social History Educational Level: Completed GED/General Educational Development Smoking Status: Former smoker Alcohol Intake: former Occupational Status: retired, disabled Housing: house Household Members: children - Psychiatric History Expresses thoughts of harming self/others: None Suicide Plan Description: No Plan Pschychiatric History:: Reports:: Anxiety, Depression *Family Hx:: No significant family history Review of Systems - Constitutional Reports anorexia - *Cardiovascular Denies chest pain - *Respiratory Reports cough, Denies shortness of breath Meds Home Medications Medication Instructions Recorded Confirmed Type Divalproex Sodium 250 mg PO BID 10/11/17 01/04/18 History Donepezil HCl [Aricept 10mg tablet] 10 mg PO HS 10/11/17 01/04/18 History Doxazosin Mesylate [Doxazosin 8mg 4 mg PO DAILY 10/11/17 01/04/18 History Tab] Esomeprazole Magnesium 40 mg PO DAILY 10/11/17 01/04/18 History Furosemide [Furosemide 20mg Tab] 20 mg PO DAILYP PRN 10/11/17 01/04/18 History Levothyroxine Sodium 88 mcg PO DAILY 10/11/17 01/04/18 History [Levothyroxine 88mcg (0.088mg) Tab] Lisinopril [Lisinopril 10mg Tab] 10 mg PO DAILY 10/11/17 01/04/18 History Quetiapine Fumarate [Seroquel] 200 mg PO HS 10/11/17 01/04/18 History Trazodone HCl [Desyrel 50mg tablet] 200 mg PO HS 10/11/17 01/04/18 History Albuterol Sulfate [Proair Hfa 2 puffs IH BID 01/04/18 01/04/18 History 90mcg/puff Inh] Fluticasone Propionate 2 puffs NOSTRIL-B DAILY 01/04/18 01/04/18 History [Fluticasone Hfa 220mcg Inhaler] Olopatadine HCl [Patanol] 2 drops OP DAILY 01/04/18 01/04/18 History Travoprost [Travatan 0.004% opth 2 drops EYE-BOTH HS 01/04/18 01/04/18 History soln 2.5mL] Allergies Allergy/AdvReac Type Severity Reaction Status Date / Time erythromycin base Allergy Severe I-HIVES, Verified 01/03/18 22:16 RASH Cephalosporins Allergy Intermediate I-RASH Verified 01/03/18 22:16 doxycycline Allergy Intermediate I-RASH Verified 01/03/18 22:16 Penicillins Allergy Intermediate S-SWELLS-OR Verified 01/03/18 22:16 AL/THROAT Sulfa (Sulfonamide Allergy Intermediate I-RASH Verified 01/03/18 22:16 Antibiotics) clindamycin Allergy Unknown Verified 01/03/18 22:16 niacin Allergy Unknown I-RASH Verified 01/03/18 22:16 Exam Vital signs and Labs for Last 24 Hours: Temp Pulse Resp BP Pulse Ox 98.8 F 86 20 122/59 92 L 01/04/18 04:32 01/04/18 06:25 01/04/18 04:32 01/04/18 04:32 01/04/18 06:25 Laboratory Results - last 24 hr 01/04/18 02:00: Lactic Acid Fup @ 4Hr 2.4 H 01/04/18 04:30: WBC 19.6 H, RBC 3.48 L, Hgb 10.6 L D, Hct 32.9 L, MCV 94.5 H, MCH 30.4, MCHC 32.2, RDW 14.1, Plt Count 242, MPV 7.9, Neut % (Auto) 88.4 H, Lymph % (Auto) 7.4 L, Thomas % (Auto) 2.7, Eos % (Auto) 1.2, Baso % (Auto) 0.3, Neut # (Auto) 17.3 H, Lymph # (Auto) 1.5, Thomas # (Auto) 0.5, Eos # (Auto) 0.2, Baso # (Auto) 0.1 01/04/18 04:30: Sodium 146 H, Potassium 4.4, Chloride 113 H, Carbon Dioxide 24, Anion Gap 13.4, BUN 33 H, Creatinine 1.25, Estimated Creat Clear 51, Estimated GFR 55 L, Est GFR ( Amer) 67, Glucose 79 D 01/04/18 04:30: Lactic Acid Fup @ 2Hr 2.4 H I & O for Last 24 hours: Intake & Output 01/01/18 01/02/18 01/03/18 01/04/18 11:59 11:59 11:59 11:59 Intake Total 495 / 495 Balance 495 / 495 Narrative: Patient appears comfortable laying in bed. Nasal cannula is in place. Oropharynx is moist and noninflamed. Neck is without carotid bruits or lymphadenopathy. Lungs have some rales heard in the left anterior chest as well as right posterior base. Heart has a regular rate and rhythm. Abdomen is soft and nontender. Extremities are warm to the touch and without edema. H&P: Result - Labs Labs: Short CBC 01/04/18 Range/Units 04:30 WBC 19.6 H (4.8-10.8) K/mm3 Hgb 10.6 L D (14.1-18.0) g/dL Hct 32.9 L (42.0-52.0) % Plt Count 242 (142-424) K/mm3 [facility] 01/04/18 04:30 Sodium 146 H Potassium 4.4 Chloride 113 H Carbon Dioxide 24 BUN 33 H Creatinine 1.25 Glucose 79 D Assessment and Plan (1) CAP (community acquired pneumonia) Current visit: Yes Status: Acute Qualifiers: Laterality: left Lung location: lower lobe of lung Qualified Code(s): J18.1 - Lobar pneumonia, unspecified organism Category: Medical Code(s): J18.9 - Pneumonia, unspecified organism (2) Hypoxia Current visit: Yes Status: Acute Category: Medical Code(s): R09.02 - Hypoxemia (3) Dementia Current visit: No Status: Acute Category: Medical Code(s): F03.90 - Unspecified dementia without behavioral disturbance - Assessment and plan all Dx Assessment and Plan for all problems:: Patient has been admitted and placed on Levaquin per community-acquired pneumonia protocol. Continue IV fluids. Continue home medications. Repeat CBC in a.m.
--- NOTE | 2018-01-04 11:40 | Pharmacy Consult Notes ---
[facility] Pharmacy VTE Monitoring - Patient Demographics Admission date: 01/03/18 Report Date: 01/04/18 Time: 11:40 Allergies/Adverse Reactions: Patient Allergies erythromycin base Allergy (Severe, Verified 01/03/18 22:16) I-HIVES, RASH Cephalosporins Allergy (Intermediate, Verified 01/03/18 22:16) I-RASH doxycycline Allergy (Intermediate, Verified 01/03/18 22:16) I-RASH Penicillins Allergy (Intermediate, Verified 01/03/18 22:16) [id number]/THROAT Sulfa (Sulfonamide Antibiotics) Allergy (Intermediate, Verified 01/03/18 22:16) I-RASH clindamycin Allergy (Unknown, Verified 01/03/18 22:16) niacin Allergy (Unknown, Verified 01/03/18 22:16) I-RASH Height: 1.65 m Weight: 77.366 kg Patient Problems: Current Active Problems CAP (community acquired pneumonia) (Acute) Hypoxia (Acute) - VTE Risk Labs: VTE Related Lab Results Hgb 10.6 g/dL (14.1-18.0) L D 01/04/18 04:30 Hct 32.9 % (42.0-52.0) L 01/04/18 04:30 Plt Count 242 K/mm3 (142-424) 01/04/18 04:30 BUN 33 mg/dL (7-18) H 01/04/18 04:30 Creatinine 1.25 mg/dL (0.70-1.30) 01/04/18 04:30 Estimated Creat Clear 51 mL/min (0-300) 01/04/18 04:30 Was VTE Risk Assessment Performed: Yes VTE Score: 5 VTE Risk Level: Low Risk - Prophylaxis VTE Prophylaxis Ordered?: Yes Types of VTE Prophylaxis: TEDS Knee High Location of Applied Device: Bilateral Lower Extremeties - VTE Diagnosis Confirmed Treatment or plan recommended: Continue Current Treatment
[2018-01-04 17:50] LABS: Coronavirus 229E Not Detected (NotDetected); Coronavirus NL63 Not Detected (NotDetected); Coronavirus OC43 Not Detected (NotDetected); Coronovirus HKU1,PCR Not Detected (NotDetected)
[2018-01-05 04:50] LABS: Blood Urea Nitrogen 15 mg/dL (7-18); Carbon Dioxide 24 mmol/L (21.0-32.0); Glucose 88 mg/dL (74-106)
[2018-01-05 04:59] LABS: Chloride 108 mmol/L (98-107); Potassium 3.2 mmoL/L (3.5-5.1); Sodium 141 mmol/L (136-145)
[2018-01-05 05:12] LABS: Basophils # 0.1 K/mm3 (0-0.2); Basophils % 0.3 % (0.1-2.0); Eosinophils # 0.4 K/mm3 (0.0-0.4); Eosinophils % 1.8 % (0.1-12.0); Lymphocytes # 1.9 K/mm3 (0.7-4.5); Lymphocytes % 9.6 K/mm3 (10-50); Mean Corpuscular HGB Conc 31.8 g/dL (31.8-35.4); Mean Corpuscular Volume 94.4 fl (80-94); Mean Platelet Volume 8.8 fl (7.4-10.4); Monocytes # 0.6 K/mm3 (0.1-1.0); Monocytes % 3.1 % (1.7-9.3); Neutrophils % 85.1 % (37.0-80.0); Platelet Count 215 K/mm3 (142-424); Red Cell Distribution Width 14.3 % (11.5-17.5)
[2018-01-05 05:14] LABS: Hematocrit 29.3 % (42.0-52.0); Hemoglobin 9.3 g/dL (14.1-18.0)
[2018-01-05 05:35] LABS: Eosinophils % 1 % (0-3); Lymphocytes % 13 % (10-50); Neutrophils % 77 % (42-76); Total Cells Counted 100
[2018-01-05 05:37] LABS: Polychromasia 1+; Rouleaux 2+
--- NOTE | 2018-01-05 08:02 | Progress Note ---
Internal Medicine - PN: Subj *Date: 01/05/18 *Time: 08:01 Interval history: Patient looks pretty good, does not wish to eat breakfast because "I am not hungry." Exam Vital signs and Labs for Last 24 Hours: Temp Pulse Resp BP Pulse Ox 98.7 F 64 20 116/63 96 01/05/18 07:17 01/05/18 07:17 01/05/18 07:17 01/05/18 07:17 01/05/18 07:17 Laboratory Results - last 24 hr 01/04/18 17:40: Chlamy pneumoniae PCR Not detected, Adenovirus (PCR) Not detected, B.parapertussis DNA PCR Not detected, Coronavirus OC43 (PCR) Not detected, Coronavirus HKU1 (PCR) Not detected, Coronavirus 229E (PCR) Not detected, Coronavirus NL63 (PCR) Not detected, Human Metapneumovir PCR Not detected, Influenza A (H1) PCR Not detected, Influ A (H1N1/09) PCR Not detected , Influenza A (H3) PCR Not detected, Influenza Type A (PCR) Not detected, Influenza Type B (PCR) Not detected, M. pneumoniae (PCR) Not detected, Parainfluenza 1 (PCR) Not detected, Parainfluenza 2 (PCR) Not detected, Parainfluenza 3 (PCR) Not detected, Parainfluenza 4 (PCR) Not detected, RSV (PCR ) Not detected, Entero/Rhino (PCR) Not detected 01/05/18 04:30: WBC 20.0 H, RBC 3.10 L, Hgb 9.3 L D, Hct 29.3 L, MCV 94.4 H, MCH 30.0, MCHC 31.8, RDW 14.3, Plt Count 215, MPV 8.8, Neut % (Auto) 85.1 H, Lymph % (Auto) 9.6 L, Eddy % (Auto) 3.1, Eos % (Auto) 1.8, Baso % (Auto) 0.3, Neut # (Auto) 17.0 H, Lymph # (Auto) 1.9, Eddy # (Auto) 0.6, Eos # (Auto) 0.4, Baso # (Auto) 0.1, Total Counted 100, Neutrophils % (Manual) 77 H, Band Neutrophils % 8.0, Lymphocytes % (Manual) 13, Eosinophils % (Manual) 1, Basophils % (Manual) 1.0, Platelet Estimate Normal, Polychromasia 1+, Poikilocytosis 1+, Rouleaux 2+ 01/05/18 04:30: Sodium 141, Potassium 3.2 L D, Chloride 108 H, Carbon Dioxide 24 , Anion Gap Not Reportable, BUN 15 D, Creatinine 0.91 D, Estimated Creat Clear 63, Estimated GFR 80, Est GFR ( Amer) 97 D, Glucose 88 I & O for Last 24 hours: Intake & Output 01/02/18 01/03/18 01/04/18 01/05/18 11:59 11:59 11:59 11:59 Intake Total 735 / 735 1834 / 1834 Output Total 250 / 250 1050 / 1050 Balance 485 / 485 784 / 784 Weight 170 lb 9 oz Narrative: Good air movement in the anterior gama, minimal rhonchi in the bases. Heart rate regular, abdomen soft, no edema, wearing ELISSA hose. Assessment and Plan (1) CAP (community acquired pneumonia) Current visit: Yes Status: Acute Qualifiers: Laterality: left Lung location: lower lobe of lung Qualified Code(s): J18.1 - Lobar pneumonia, unspecified organism Category: Medical Code(s): J18.9 - Pneumonia, unspecified organism (2) Hypoxia Current visit: Yes Status: Acute Category: Medical Code(s): R09.02 - Hypoxemia (3) Dementia Current visit: No Status: Acute Category: Medical Code(s): F03.90 - Unspecified dementia without behavioral disturbance - Assessment and plan all Dx Assessment and Plan for all problems:: Continue current therapy, await cultures, given patient's weakness will get PT evaluation to assess for skilled care needed.
[2018-01-06 06:56] LABS: Basophils # 0.1 K/mm3 (0-0.2); Basophils % 0.4 % (0.1-2.0); Eosinophils # 0.4 K/mm3 (0.0-0.4); Eosinophils % 3.5 % (0.1-12.0); Hematocrit 31.9 % (42.0-52.0); Hemoglobin 10.1 g/dL (14.1-18.0); Lymphocytes # 1.7 K/mm3 (0.7-4.5); Lymphocytes % 14.4 K/mm3 (10-50); Mean Corpuscular HGB Conc 31.6 g/dL (31.8-35.4); Mean Corpuscular Hemoglobin 29.8 pg (27.0-31.2); Mean Corpuscular Volume 94.3 fl (80-94); Mean Platelet Volume 8.1 fl (7.4-10.4); Monocytes # 0.9 K/mm3 (0.1-1.0); Monocytes % 7.2 % (1.7-9.3); Neutrophils # 8.9 K/mm3 (1.8-7.8); Neutrophils % 74.6 % (37.0-80.0); Platelet Count 220 K/mm3 (142-424); Red Blood Count 3.39 M/mm3 (4.60-6.20); Red Cell Distribution Width 14.2 % (11.5-17.5); White Blood Count 11.9 K/mm3 (4.8-10.8)
--- NOTE | 2018-01-06 08:15 | Progress Note ---
Internal Medicine - PN: Subj *Date: 01/06/18 *Time: 07:50 Interval history: Resting in bed without complaints. Alert and oriented at baseline. LS with scattered rhonchi/faint wheezes anteriorly, good air movement. Rate and rhythm regular. Trace LE edema. 1+ BUE edema. Abdomen soft and nontender Exam Vital signs and Labs for Last 24 Hours: Temp Pulse Resp BP Pulse Ox 98.5 F 92 H 20 118/61 92 L 01/06/18 07:54 01/06/18 07:54 01/06/18 07:54 01/06/18 07:54 01/06/18 07:54 Laboratory Results - last 24 hr 01/06/18 06:15: WBC 11.9 H D, RBC 3.39 L, Hgb 10.1 L, Hct 31.9 L, MCV 94.3 H, MCH 29.8, MCHC 31.6 L, RDW 14.2, Plt Count 220, MPV 8.1, Neut % (Auto) 74.6, Lymph % (Auto) 14.4, [place] % (Auto) 7.2, Eos % (Auto) 3.5, Baso % (Auto) 0.4, Neut # (Auto) 8.9 H, Lymph # (Auto) 1.7, [place] # (Auto) 0.9, Eos # (Auto) 0.4, Baso # (Auto) 0.1 I & O for Last 24 hours: Intake & Output 01/03/18 01/04/18 01/05/18 01/06/18 11:59 11:59 11:59 11:59 Intake Total 735 / 735 1983 / 1983 2936 / 2936 Output Total 250 / 250 1050 / 1050 Balance 485 / 485 934 / 934 2936 / 2936 Weight 170 lb 9 oz 170 lb 9.005 oz Microbiology Reports for the Last 24 Hours: Microbiology 01/05/18 18:09 Sputum - Expectorated Sputum Gram Stain - Final 01/05/18 18:09 Sputum - Expectorated Sputum Sputum Culture - Preliminary Assessment and Plan (1) CAP (community acquired pneumonia) Current visit: Yes Status: Acute Qualifiers: Laterality: left Lung location: lower lobe of lung Qualified Code(s): J18.1 - Lobar pneumonia, unspecified organism Category: Medical Code(s): J18.9 - Pneumonia, unspecified organism (2) Hypoxia Current visit: Yes Status: Acute Category: Medical Code(s): R09.02 - Hypoxemia (3) Dementia Current visit: No Status: Acute Category: Medical Code(s): F03.90 - Unspecified dementia without behavioral disturbance - Assessment and plan all Dx Assessment and Plan for all problems:: Continue IV antibiotics and neb treatments. Stop IVF's. Care management consulted for LTC placement for short term rehab.
[2018-01-06 11:19] LABS: Microscopic, Urine URINE MICROSCOPIC (MICROSCOPIC)
[2018-01-06 11:34] LABS: Appearance,Urine CLEAR (Clear); Bilirubin,Urine Negative (Negative); Blood, Urine Negative (Negative); Color,Urine YELLOW (Yellow); Glucose,Urine (UA) Negative (Negative); Ketones,Urine Negative (Negative); Leukocyte Esterase,Urine Negative (Negative); Protein,Urine TRACE (Negative); Specific Gravity, Urine 1.025 (1.005-1.030); Urobilinogen,Urine 0.2 EU/dl (0.2)
[2018-01-06 11:56] LABS: Bacteria,Urine 1+ /lpf; RBC,Urine Occasional #/hpf (0-3)
[2018-01-07 06:41] LABS: Basophils % 0.3 % (0.1-2.0); Eosinophils # 0.4 K/mm3 (0.0-0.4); Eosinophils % 3.7 % (0.1-12.0); Hematocrit 30.5 % (42.0-52.0); Hemoglobin 9.8 g/dL (14.1-18.0); Lymphocytes # 1.8 K/mm3 (0.7-4.5); Lymphocytes % 18.5 K/mm3 (10-50); Mean Corpuscular HGB Conc 32.1 g/dL (31.8-35.4); Mean Corpuscular Hemoglobin 29.9 pg (27.0-31.2); Mean Corpuscular Volume 93.1 fl (80-94); Mean Platelet Volume 8.1 fl (7.4-10.4); Monocytes # 1.1 K/mm3 (0.1-1.0); Monocytes % 10.9 % (1.7-9.3); Neutrophils # 6.4 K/mm3 (1.8-7.8); Neutrophils % 66.7 % (37.0-80.0); Platelet Count 224 K/mm3 (142-424); Red Blood Count 3.28 M/mm3 (4.60-6.20); White Blood Count 9.6 K/mm3 (4.8-10.8)
[2018-01-07 07:21] VITALS: BP 159/70
--- NOTE | 2018-01-07 07:54 | Discharge Summary ---
General - General Admission date: 01/03/18 Discharge date: 01/07/18 HPI HPI: 82-year-old male brought to the emergency department by family due to several days of fever, cough, shortness of breath. Patient himself this morning cannot provide much additional history due to associated dementia. Patient had previously mentioned symptoms and upon evaluation in the emergency department was diagnosed with pneumonia. Patient has been admitted and placed on Levaquin due to multiple drug allergies. This morning his only complaint is a sore throat. Hospital Course Hospital Course: Patient was admitted, chest x-ray did reveal right lower lobe infiltrate. Blood cultures were negative, Gram stain from sputum showed gram-positive diplococci, final culture is pending at the time of this dictation. Patient improved in a stepwise fashion, defervesced, continue to have an oxygen requirement, and continued to require potassium supplementation. This morning he was afebrile. Tolerating p.o. therapy well. Plan will be to transfer him to the [facility], he will need PT/OT for weakness/ataxia/balance issues and frequent falls. He will also need to finish up p.o. antibiotics as noted below. He will also need speech therapy evaluation for recurrent pneumonia and possible aspiration issues. Please note the patient was prescribed diazepam in the hospital for sleep issues. He has a long history of dementia with chronic/recurrent insomnia. Diazepam is been effective for him on a as needed basis. This will be continued for chronic insomnia, 5 mg nightly as needed insomnia. The patient will also need a CBC, BMP and valproic acid level in 1 week. Objective Vital signs: Temp Pulse Resp BP Pulse Ox 98.1 F 84 20 159/70 94 L 01/07/18 07:20 01/07/18 07:20 01/07/18 07:20 01/07/18 07:20 01/07/18 07:20 Narrative: Patient's pleasant, oriented 2, eating breakfast well. Lungs are clear in the anterior gama, minimal rhonchi in the right base. Abdomen soft, no edema noted. Moving all extremities well. Heart rate regular without murmurs. Results Labs on day of discharge: Labs from last 24 hours 01/07/18 01/06/18 06:05 11:05 WBC 9.6 RBC 3.28 L Hgb 9.8 L Hct 30.5 L MCV 93.1 MCH 29.9 MCHC 32.1 RDW 14.0 Plt Count 224 MPV 8.1 Neut % (Auto) 66.7 Lymph % (Auto) 18.5 [place] % (Auto) 10.9 H Eos % (Auto) 3.7 Baso % (Auto) 0.3 Neut # (Auto) 6.4 Lymph # (Auto) 1.8 [place] # (Auto) 1.1 H Eos # (Auto) 0.4 Baso # (Auto) 0.0 Urine Color Yellow Urine Appearance Clear Urine pH 6.0 Ur Specific [place] 1.025 Urine Protein Trace Urine Glucose (UA) Negative Urine Ketones Negative Urine Blood Negative Urine Nitrate Negative Urine Bilirubin Negative Urine Urobilinogen 0.2 Ur Leukocyte Esterase Negative Urine RBC Occasional Urine WBC 3-5 Ur Squamous Epith Cells None Urine Bacteria 1+ Preliminary micro results at discharge 01/05/18 18:09 Sputum Culture - Preliminary Sputum - Expectorated Sputum Gram Negative Rods DS: Diagnosis - Discharge Diagnosis (1) CAP (community acquired pneumonia) Status: Acute (2) Hypoxia Status: Acute (3) Dementia Status: Acute Discharge Plan - Patient Discharge Instructions ACTIVITY: Continue current activity DIET: continue same diet - Follow up Plan Follow up with: Lc Mcginnis MD [Primary Care Provider] - Disposition: Xfer [facility] Home Medications: Home Medications Medication Instructions Recorded Confirmed Type Divalproex Sodium 250 mg PO BID 10/11/17 01/04/18 History Donepezil HCl [Aricept 10mg tablet] 10 mg PO HS 10/11/17 01/04/18 History Doxazosin Mesylate [Doxazosin 8mg 4 mg PO DAILY 10/11/17 01/04/18 History Tab] Esomeprazole Magnesium 40 mg PO DAILY 10/11/17 01/04/18 History Furosemide [Furosemide 20mg Tab] 20 mg PO DAILYP PRN 10/11/17 01/04/18 History Levothyroxine Sodium 88 mcg PO DAILY 10/11/17 01/04/18 History [Levothyroxine 88mcg (0.088mg) Tab] Lisinopril [Lisinopril 10mg Tab] 10 mg PO DAILY 10/11/17 01/04/18 History Quetiapine Fumarate [Seroquel] 200 mg PO HS 10/11/17 01/04/18 History Trazodone HCl [Desyrel 50mg tablet] 200 mg PO HS 10/11/17 01/04/18 History Albuterol Sulfate [Proair Hfa 2 puffs IH BID 01/04/18 01/04/18 History 90mcg/puff Inh] Fluticasone Propionate 2 puffs NOSTRIL-B DAILY 01/04/18 01/04/18 History [Fluticasone Hfa 220mcg Inhaler] Montelukast Sodium [Montelukast 10 mg PO HS 01/04/18 01/04/18 History 10mg Tab] Olopatadine HCl [Patanol] 2 drops OP DAILY 01/04/18 01/04/18 History Travoprost [Travatan 0.004% opth 2 drops EYE-BOTH HS 01/04/18 01/04/18 History soln 2.5mL] Prescriptions/Medication Reconciliation: New levoFLOXacin [Levaquin 500mg tab] 500 mg PO DAILY #7 tab diazePAM [diazePAM 5mg Tablet] 0 mg PO HSP PRN #25 tab PRN Reason: Recurrent insomnia Continue Furosemide [Furosemide 20mg Tab] 20 mg PO DAILYP PRN PRN Reason: fluid Levothyroxine Sodium [Levothyroxine 88mcg (0.088mg) Tab] 88 mcg PO DAILY Lisinopril [Lisinopril 10mg Tab] 10 mg PO DAILY Donepezil HCl [Aricept 10mg tablet] 10 mg PO HS Trazodone HCl [Desyrel 50mg tablet] 200 mg PO HS Quetiapine Fumarate [Seroquel] 200 mg PO HS Esomeprazole Magnesium 40 mg PO DAILY Doxazosin Mesylate [Doxazosin 8mg Tab] 4 mg PO DAILY Travoprost [Travatan 0.004% opth soln 2.5mL] 2 drops EYE-BOTH HS Fluticasone Propionate [Fluticasone Hfa 220mcg Inhaler] 2 puffs NOSTRIL-B DAILY Montelukast Sodium [Montelukast 10mg Tab] 10 mg PO HS Divalproex Sodium 250 mg PO BID Olopatadine HCl [Patanol] 2 drops OP DAILY Albuterol Sulfate [Proair Hfa 90mcg/puff Inh] 2 puffs IH BID
== END 2018-01-07 11:45 ==
LOC: ER 21:08 → 2ND 23:17
PROVIDERS: ADMIT Family Medicine; ATTEND Internal Medicine Adolescent Medicine

== ENCOUNTER → 2018-01-09 13:22 | Outpatient (CLI) | payer MEDICARE, SELFPAY ==
[2018-01-09 13:29] VITALS: BMI 33.9
--- NOTE | 2018-01-09 13:32 | XR_ITS ---
XR chest portable COMPARISON: Portable semiupright chest 01/03/2018 HISTORY: PICC line placement, preop TECHNIQUE: Portable upright chest FINDINGS: This is a somewhat poor inspiration. The PICC line is seen ascending the right axillary vein and the tip is in the SVC well above the right atrium. Coarse bronchovascular markings are again seen in the left perihilar region extending into the left upper lobe. There is minimal similar findings in the right suprahilar region. Cardiac size is borderline. IMPRESSION: 1. Satisfactory position of PICC line, there is no pneumothorax 2. Probable bilateral perihilar pneumonic infiltrates though there could be some degree of underlying post inflammatory scarring as well
== END ==
PROVIDERS: PCP Internal Medicine Adolescent Medicine; Visit Provider Internal Medicine Adolescent Medicine
DX: J18.1 Lobar pneumonia, unspecified organism (principal); R09.02 Hypoxemia
CPT/HCPCS: 36569; 71045; C1751

== ENCOUNTER → 2018-01-11 09:16 | Outpatient (REF) | payer MEDICARE, SELFPAY ==
[2018-01-11 09:35] LABS: Anion Gap 7.1 mEq/L (5-15); Blood Urea Nitrogen 9 mg/dL (7-18); Carbon Dioxide 29 mmol/L (21.0-32.0); Chloride 105 mmol/L (98-107); Creatinine,Serum 0.84 mg/dL (0.70-1.30); Estimated Glomerular Filt Rate 88 ml/min (>60); GFR (African American) 106 ML/MIN (>60); Glucose 100 mg/dL (74-106); Potassium 3.2 mmoL/L (3.5-5.1); Sodium 141 mmol/L (136-145)
[2018-01-11 11:58] LABS: Tobramycin,Peak 3.9 ug/mL (4.0-10.0)
[2018-01-11 12:30] LABS: Tobramycin,Trough 1.1 ug/ml (0-2.0)
== END ==
LOC: LAB 09:16
PROVIDERS: Visit Provider Internal Medicine Adolescent Medicine
DX: J18.9 Pneumonia, unspecified organism (principal)
CPT/HCPCS: 80048; 80200; 80202

== ENCOUNTER → 2018-07-09 16:03 | Outpatient (CLI) | payer MEDICARE, SELFPAY ==
--- NOTE | 2018-07-09 | XR_ITS ---
XR chest 2V HISTORY: Cough, chest pain, injury with pain ORDERING PHYSICIAN: Anastasiia Murillo PATIENT AGE: 82 years COMPARISON: 03/31/2018 FINDINGS: The cardiomediastinal silhouette and pulmonary vascularity are within normal limits. Chronic pleural thickening is present in the left lower chest with fibrotic changes in the left mid and lower lung zone.. There is some increased pleural parenchymal opacity in the left mid to lower lung zone. The right lung is clear. No evidence of pneumothorax. No acute bony anomalies. IMPRESSION: Chronic changes with some increased pleural thickening in the left mid to lower lung zone laterally. No acute finding
--- NOTE | 2018-07-09 | XR_ITS ---
XR ribs LT 2V HISTORY: Left-sided rib pain following injury, cough ORDERING PHYSICIAN: Anastasiia Murillo PATIENT AGE: 82 2 Comparison: None FINDINGS: No displaced fractures are evident. Pleural thickening is noted along the left lower hemithorax. There is mild lumbar scoliosis convex right. IMPRESSION: No acute fracture apparent
[2018-07-09 17:14] LABS: Alanine Aminotransferase 12 U/L (12-78); Albumin/Globulin Ratio 0.7 (1.1-1.8); Alkaline Phosphatase 64 U/L (46-116); Anion Gap 16.3 mEq/L (5-15); Aspartate Amino Transferase 14 U/L (15-37); Bilirubin,Total 0.2 mg/dL (0.2-1.0); Blood Urea Nitrogen 28 mg/dL (7-18); Calcium 8.4 mg/dL (8.5-10.1); Carbon Dioxide 22 mmol/L (21.0-32.0); Chloride 106 mmol/L (98-107); Cholesterol 198 mg/dL (140-200); Creatinine,Serum 1.59 mg/dL (0.70-1.30); Estimated Glomerular Filt Rate 42 ml/min (>60); GFR (African American) 51 ML/MIN (>60); Globulin 4.4 gm/dl (1.3-3.2); Glucose 121 mg/dL (74-106); HDL Cholesterol 33 mg/dL (27-67); LDL Cholesterol 139 mg/dL (0-130); Potassium 5.3 mmoL/L (3.5-5.1); Sodium 139 mmol/L (136-145); Thyroid Stimulating Hormone 18.93 uIU/ml (0.358-3.740); Total Protein,Serum 7.4 gm/dL (6.4-8.2); Triglycerides 128 mg/dL (30-200); VLDL Cholesterol 26 mg/dL (0-40); Valproic Acid, (Depakene) 2.1 ug/mL (50-100)
[2018-07-09 19:20] LABS: Basophils # 0.1 K/mm3 (0-0.2); Basophils % 1.1 % (0.1-2.0); Eosinophils # 0.4 K/mm3 (0.0-0.4); Eosinophils % 6.4 % (0.1-12.0); Hematocrit 35.5 % (42.0-52.0); Lymphocytes # 1.4 K/mm3 (0.7-4.5); Lymphocytes % 21.8 K/mm3 (10-50); Mean Corpuscular HGB Conc 30.8 g/dL (31.8-35.4); Mean Corpuscular Volume 94.3 fl (80-94); Mean Platelet Volume 7.7 fl (7.4-10.4); Monocytes # 0.6 K/mm3 (0.1-1.0); Monocytes % 8.7 % (1.7-9.3); Neutrophils # 3.9 K/mm3 (1.8-7.8); Platelet Count 536 K/mm3 (142-424); Red Blood Count 3.77 M/mm3 (4.60-6.20); Red Cell Distribution Width 14.8 % (11.5-17.5); White Blood Count 6.3 K/mm3 (4.8-10.8)
[2018-07-13 18:29] LABS: Ferritin 58 ng/mL (8-388)
[2018-07-15 09:19] LABS: Iron 52 ug/dL (38-169); UIBC 214 ug/dL (111-343)
[2018-07-15 15:56] LABS: Iron Saturation 20 % (15-55); Vitamin B12 515 pg/mL (232-1245)
== END ==
PROVIDERS: PCP Nurse Practitioner Family; Visit Provider Nurse Practitioner Family
DX: I10 Essential (primary) hypertension (principal); R51 Headache; E03.9 Hypothyroidism, unspecified; Z51.81 Encounter for therapeutic drug level monitoring; D64.9 Anemia, unspecified
CPT/HCPCS: 36415; 71046; 71100; 80053; 80061; 80164; 82607; 82728; 83540; 83550; 84443; 85025

== ENCOUNTER → 2018-07-17 15:13 | Outpatient (CLI) | payer MEDICARE, SELFPAY ==
--- NOTE | 2018-07-17 15:18 | CT_ITS ---
CT chest wo con INDICATION: Persistent cough ITS.REASON: COUGH, ABN CXR ORDERING PHYSICIAN: Tess Zuleta PATIENT AGE: 82 years COMPARISON: CT Chest 10/14/2017 TECHNIQUE: Axial images obtained with sagittal and coronal reformats. All CT scans at the facility use one or more dose reduction, viz: automated exposure control, ma/kV adjustment per patient size (including targeted exams where dose is matched to indication, i.e. head), or iterative reconstruction technique. FINDINGS: The lung gama are well expanded and appear clear of active infiltrate. There is mild chronic pleural scarring left lower hemithorax and left costophrenic angle. There is minimal post inflammatory scarring in the lingula. There are couple normal-sized nodes in the pretracheal space of the screw mediastinum. There are calcified granulomata right middle lobe and a small calcified right hilar node. There is borderline cardiomegaly with left ventricular prominence. There is mild aortic tortuosity. The pulmonary vascularity is normal. IMPRESSION: Chronic pleural-parenchymal scarring left hemithorax as described along with evidence of old granulomatous disease, I see no acute chest pathology.
== END ==
PROVIDERS: PCP Nurse Practitioner Family; Visit Provider Nurse Practitioner Family
DX: R93.89 Abnormal findings on diagnostic imaging of other specified body structures (principal); R05 Cough
CPT/HCPCS: 71250

== ENCOUNTER → 2018-08-26 18:11 | Outpatient (CLI) | payer MEDICARE, SELFPAY ==
[2018-08-26 18:47] LABS: Basophils % 0.8 % (0.1-2.0); Eosinophils # 0.4 K/mm3 (0.0-0.4); Eosinophils % 7.4 % (0.1-12.0); Hematocrit 35.3 % (42.0-52.0); Hemoglobin 10.7 g/dL (14.1-18.0); Lymphocytes # 1.1 K/mm3 (0.7-4.5); Lymphocytes % 19.6 % (10-50); Mean Corpuscular HGB Conc 30.4 g/dL (31.8-35.4); Mean Corpuscular Hemoglobin 28.9 pg (27.0-31.2); Mean Corpuscular Volume 95.2 fl (80-94); Mean Platelet Volume 6.8 fl (7.4-10.4); Monocytes # 0.5 K/mm3 (0.1-1.0); Monocytes % 8.9 % (1.7-9.3); Neutrophils # 3.7 K/mm3 (1.8-7.8); Neutrophils % 63.3 % (37.0-80.0); Platelet Count 433 K/mm3 (142-424); Red Blood Count 3.71 M/mm3 (4.60-6.20); Red Cell Distribution Width 14.8 % (11.5-17.5); White Blood Count 5.8 K/mm3 (4.8-10.8)
[2018-08-26 21:23] LABS: Anion Gap 13.5 mEq/L (5-15); Blood Urea Nitrogen 9 mg/dL (7-18); Calcium 8.3 mg/dL (8.5-10.1); Carbon Dioxide 26 mmol/L (21.0-32.0); Chloride 107 mmol/L (98-107); Creatinine,Serum 1.13 mg/dL (0.70-1.30); Estimated Glomerular Filt Rate 62 ml/min (>60); GFR (African American) 75 ML/MIN (>60); Glucose 123 mg/dL (74-106); Potassium 4.5 mmoL/L (3.5-5.1); Sodium 142 mmol/L (136-145); Thyroid Stimulating Hormone 0.46 uIU/ml (0.358-3.740)
[2018-09-03 15:21] LABS: Folate >20.0 ng/mL (>3.0)
== END ==
PROVIDERS: Internal Medicine Adolescent Medicine; Visit Provider Nurse Practitioner Family
DX: R79.89 Other specified abnormal findings of blood chemistry (principal); E03.9 Hypothyroidism, unspecified; E87.5 Hyperkalemia
CPT/HCPCS: 36415; 80048; 82746; 84443; 85025

== ENCOUNTER → 2019-04-26 09:49 | Outpatient (CLI) | payer MEDICARE, SELFPAY ==
[2019-04-26 11:04] LABS: Basophils # 0.1 K/mm3 (0-0.2); Basophils % 1.4 % (0.1-2.0); Eosinophils # 0.4 K/mm3 (0.0-0.4); Eosinophils % 5.7 % (0.1-12.0); Hematocrit 37.3 % (42.0-52.0); Hemoglobin 11.5 g/dL (14.1-18.0); Lymphocytes # 1.8 K/mm3 (0.7-4.5); Lymphocytes % 29.1 % (10-50); Mean Corpuscular HGB Conc 30.9 g/dL (31.8-35.4); Mean Corpuscular Hemoglobin 29.4 pg (27.0-31.2); Mean Corpuscular Volume 95.2 fl (80-94); Monocytes # 0.5 K/mm3 (0.1-1.0); Monocytes % 8.4 % (1.7-9.3); Neutrophils # 3.4 K/mm3 (1.8-7.8); Neutrophils % 55.4 % (37.0-80.0); Platelet Count 462 K/mm3 (142-424); Red Blood Count 3.92 M/mm3 (4.60-6.20); Red Cell Distribution Width 14.2 % (11.5-17.5); White Blood Count 6.2 K/mm3 (4.8-10.8)
[2019-04-26 11:30] LABS: Alanine Aminotransferase 13 U/L (12-78); Albumin/Globulin Ratio 0.7 (1.1-1.8); Alkaline Phosphatase 71 U/L (46-116); Anion Gap 17.7 mEq/L (5-15); Aspartate Amino Transferase 11 U/L (15-37); Bilirubin,Total 0.2 mg/dL (0.2-1.0); Blood Urea Nitrogen 19 mg/dL (7-18); Calcium 8.8 mg/dL (8.5-10.1); Carbon Dioxide 23 mmol/L (21.0-32.0); Chloride 105 mmol/L (98-107); Chol/HDL Ratio 4.8 (1-3.5); Cholesterol 186 mg/dL (140-200); Creatinine,Serum 1.31 mg/dL (0.70-1.30); Estimated Glomerular Filt Rate 52 ml/min (>60); GFR (African American) 63 ML/MIN (>60); Globulin 4.4 gm/dl (1.3-3.2); Glucose 104 mg/dL (74-106); HDL Cholesterol 39 mg/dL (27-67); LDL Cholesterol 136 mg/dL (0-130); Potassium 3.7 mmoL/L (3.5-5.1); Sodium 142 mmol/L (136-145); Thyroid Stimulating Hormone 11.31 uIU/ml (0.358-3.740); Total Protein,Serum 7.4 gm/dL (6.4-8.2); Triglycerides 54 mg/dL (30-200); VLDL Cholesterol 11 mg/dL (0-40)
[2019-04-26 15:48] LABS: Amphetamine/Metha Screen,Urine Negative ng/mL (<1000); Barbiturates Screen,Urine Negative ng/mL (<200); Benzodiazepines Screen,Urine Negative ng/mL (<200); Cannabinoid Screen,Urine Negative ng/mL (<50); Cocaine Screen,Urine Negative ng/mL (<300); Methadone Screen,Urine Negative ng/mL (<300); Opiate Screen,Urine Negative ng/mL (<300); Phencyclidine Screen,Urine Negative ng/mL (<25)
== END ==
PROVIDERS: Visit Provider Internal Medicine Adolescent Medicine
DX: E78.5 Hyperlipidemia, unspecified (principal); E03.9 Hypothyroidism, unspecified; J44.9 Chronic obstructive pulmonary disease, unspecified; Z51.81 Encounter for therapeutic drug level monitoring
CPT/HCPCS: 36415; 80053; 80061; 80305; 84443; 85025

== ENCOUNTER → 2019-07-22 17:04 | Outpatient (CLI) | payer MEDICARE, SELFPAY ==
[2019-07-22 17:21] LABS: Basophils # 0.2 K/mm3 (0-0.2); Basophils % 1.8 % (0.1-2.0); Eosinophils # 0.4 K/mm3 (0.0-0.4); Eosinophils % 4.4 % (0.1-12.0); Hematocrit 37.3 % (42.0-52.0); Hemoglobin 11.5 g/dL (14.1-18.0); Lymphocytes # 1.8 K/mm3 (0.7-4.5); Lymphocytes % 21.7 % (10-50); Mean Corpuscular HGB Conc 30.7 g/dL (31.8-35.4); Mean Corpuscular Hemoglobin 28.8 pg (27.0-31.2); Mean Corpuscular Volume 93.8 fl (80-94); Mean Platelet Volume 7.4 fl (7.4-10.4); Monocytes # 0.4 K/mm3 (0.1-1.0); Monocytes % 5.1 % (1.7-9.3); Neutrophils # 5.6 K/mm3 (1.8-7.8); Neutrophils % 67.1 % (37.0-80.0); Platelet Count 498 K/mm3 (142-424); Red Blood Count 3.98 M/mm3 (4.60-6.20); Red Cell Distribution Width 14.6 % (11.5-17.5); White Blood Count 8.4 K/mm3 (4.8-10.8)
[2019-07-22 18:21] LABS: Alanine Aminotransferase 12 U/L (12-78); Albumin/Globulin Ratio 0.6 (1.1-1.8); Alkaline Phosphatase 76 U/L (46-116); Anion Gap 14.8 mEq/L (5-15); Aspartate Amino Transferase 12 U/L (15-37); Bilirubin,Total 0.2 mg/dL (0.2-1.0); Blood Urea Nitrogen 16 mg/dL (7-18); Calcium 8.4 mg/dL (8.5-10.1); Carbon Dioxide 21 mmol/L (21.0-32.0); Chloride 106 mmol/L (98-107); Creatinine,Serum 1.38 mg/dL (0.70-1.30); Estimated Glomerular Filt Rate 49 ml/min (>60); GFR (African American) 60 ML/MIN (>60); Globulin 4.7 gm/dl (1.3-3.2); Glucose 83 mg/dL (74-106); Potassium 3.8 mmoL/L (3.5-5.1); Sodium 138 mmol/L (136-145); Thyroid Stimulating Hormone 4.69 uIU/ml (0.358-3.740); Total Protein,Serum 7.7 gm/dL (6.4-8.2)
== END ==
PROVIDERS: Visit Provider Nurse Practitioner Family
DX: E03.9 Hypothyroidism, unspecified (principal); D50.9 Iron deficiency anemia, unspecified
CPT/HCPCS: 36415; 80053; 84443; 85025

== ENCOUNTER 2020-02-03 17:22 | Observation (INO) | payer MEDICARE, SELFPAY ==
--- NOTE | 2020-02-03 17:29 | XR_ITS ---
PROCEDURE: XR CHEST PORTABLE CLINICAL HISTORY: cough, hypoxia COMPARISON: CXR2 XR chest AP from 03/31/2018 CXR2V XR chest 2V from 07/09/[address] chest wo con from 07/17/2018 CXR2V XR chest 2V from 10/25/2018 FINDINGS: The cardiomediastinal silhouette and pulmonary vascularity are within normal limits. There are fibrotic changes in the left mid to lower lung zone. In addition, there is parenchymal opacity in the left lower lobe laterally not readily apparent on the previous exam and could be due to an area of infiltrate, developing fibrosis, or pulmonary nodule. Follow-up suggested to confirm stability or resolution No acute bony abnormalities. IMPRESSION: Parenchymal opacity in the left lower lobe laterally not readily apparent on the previous exam and could be due to an area of infiltrate, developing fibrosis, or pulmonary nodule. Follow-up suggested to confirm stability or resolution Left sided fibrotic changes Dictated by: Ben Omer MD 02/03/2020 18:45 Electronically signed by Ben Omer MD in [place] 02/03/2020 18:45
[2020-02-03 17:33] VITALS: BP 118/42; PULSE 65; RESP 22; TEMP 36.9; O2SAT 96; BMI 32.8
[2020-02-03 17:35] VITALS: O2SAT 91
[2020-02-03 18:02] LABS: Basophils # 0.1 K/mm3 (0-0.2); Basophils % 1.5 % (0.1-2.0); Eosinophils # 0.9 K/mm3 (0.0-0.4); Eosinophils % 10.2 % (0.1-12.0); Hematocrit 36.8 % (42.0-52.0); Hemoglobin 11.4 g/dL (14.1-18.0); Lymphocytes # 1.6 K/mm3 (0.7-4.5); Mean Corpuscular HGB Conc 30.9 g/dL (31.8-35.4); Mean Corpuscular Hemoglobin 30.9 pg (27.0-31.2); Mean Corpuscular Volume 99.8 fl (80-94); Mean Platelet Volume 7.5 fl (7.4-10.4); Monocytes # 0.6 K/mm3 (0.1-1.0); Monocytes % 6.7 % (1.7-9.3); Neutrophils # 5.2 K/mm3 (1.8-7.8); Neutrophils % 62.6 % (37.0-80.0); Platelet Count 404 K/mm3 (142-424); Red Blood Count 3.69 M/mm3 (4.60-6.20); Red Cell Distribution Width 14.8 % (11.5-17.5); White Blood Count 8.3 K/mm3 (4.8-10.8)
[2020-02-03 18:03] LABS: Lactic Acid 0.9 mmol/L (0.7-2.1)
[2020-02-03 18:08] LABS: Chloride 111 mmol/L (98-107); Potassium 4.5 mmoL/L (3.5-5.1); Sodium 139 mmol/L (136-145)
[2020-02-03 18:11] VITALS: PULSE 69; PULSE 70; O2SAT 99
[2020-02-03 18:11] LABS: Anion Gap 12.5 mEq/L (5-15); Blood Urea Nitrogen 17 mg/dl (9-20); Carbon Dioxide 20 mmol/L (22.0-30.0); Creatinine Clearance Estimated 46 mL/min (50-200); Estimated Glomerular Filt Rate 48 ml/min (>60); GFR (African American) 59 ML/MIN (>60)
[2020-02-03 18:12] LABS: Calcium 9.1 mg/dl (8.4-10.2); Glucose 95 mg/dl (74-100)
--- NOTE | 2020-02-03 18:13 | PC.NURSE ---
Pt BBS are clear but diminished t/o all lung gama. Pt does have audible expiratory wheeze in upper airways that clears when pt is instructed to cough. After neb pt is wheezing in all lung gama.
[2020-02-03 19:06] LABS: Mycoplasma Pneumo IGM (Rapid) Reactive (Non-Reactiv)
[2020-02-03 19:23] VITALS: BP 95/53; PULSE 66; RESP 18; TEMP 36.4; O2SAT 99
--- NOTE | 2020-02-03 21:56 | HMH.HP ---
*Admission Date: 02/03/20 <Anastasiia Murillo 02/03/20 22:12> *Chief complaint: cough and wheezing <Anastasiia Murillo 02/03/20 22:12> *History of present illness: 84 yr old male with known COPD and history of MRSA pneumonia presented to outpatient clinic with complaints of wheezing, cough and shortness of breath that started about 7 days ago. Has been using albuterol nebulizer at home with some relief but over the past 24 hours only gets relief of wheezing and shortness of breath for about 30 minutes. No noted fevers. Appetite and fluid intake have decreased some. No body aches, chills, gastrointestinal symptoms or rhinorrhea above baseline. He denies any known exposure to illness, does not drive or otherwise leave his home and has had minimal family in and out of his home over the past several weeks. Exam revealed rales in the left base, diffuse wheezing and pulse ox of 84% on room air and he was admitted for additional evaluation and treatment for suspected community acquired pneumonia and COPD exacerbation. <Anastasiia Murillo 02/03/20 22:12> [facility] History I have reviewed the patient's past medical history: Yes <Anastasiia Murillo 02/03/20 22:12> Medical History: Reports:: Anxiety, Chronic Obstructive Pulmonary Disease (COPD), Dementia, Depression, Gastroesophageal Reflux Disease(GERD), Hyperlipidemia, Hypertension, Renal Insufficiency Denies:: Cancer, Diabetes Mellitus Type 1, Diabetes Mellitus Type 2, MRSA <Anastasiia Murillo 02/03/20 22:12> *Have you ever received a pneumonia vaccine?: Yes <Anastasiia Murillo 02/03/20 22:12> *Have you received a flu vaccine this season?: Yes <Anastasiia Murillo 02/03/20 22:12> Other Medical History: Reports: Hypothyroidism <Anastasiia Murillo 02/03/20 22:12> Laterality Cases: Bilateral: Cataract <LidiaAnastasiia Plummer 02/03/20 22:12> Other Surgeries: Yes: Sinus Surgery, Other (cholecystemctomy) <LidiaAnastasiia Elian 02/03/20 22:12> Amputation: No <LidiaAnastasiia Elian 02/03/20 22:12> Fractures: Yes (arm and wrist) <Anastasiia Murillo 02/03/20 22:12> - *Social History Educational Level: Completed High School <Anastasiia Murillo 02/03/20 22:12> Smoking Status: Former smoker <Anastasiia Murillo 02/03/20 22:12> Alcohol Intake: former <Anastasiia Murillo 02/03/20 22:12> Alcohol Intake Frequency:: 3 or more drinks per day <Anastasiia Murillo 02/03/20 22:12> Substance Use Type: denies use <Anastasiia Murillo 02/03/20 22:12> *Occupational Status:: retired <Anastasiia Murillo 02/03/20 22:12> [facility] 02/03/20 22:12> Household Members: children <Anastasiia Murillo 02/03/20 22:12> *Travel in the last 8 weeks: None <LidiaChristosAnastasiia L 02/03/20 22:12> - Psychiatric History Pschychiatric History:: Reports:: Anxiety, Depression <[facility] 02/03/20 22:12> Family Hx:: Coronary Artery Disease, Alcoholism <Lidia,Anastasiia L 02/03/20 22:12> Review of Systems - Review of Systems Review of systems:: pertinent systems reviewed and negative unless documented below <Anastasiia Murillo 02/03/20 22:12> - Constitutional Reports fatigue, Reports malaise, Reports weakness <LidiaChristosAnastasiia L 02/03/20 22:12> - Eyes Denies change in vision <LidiaChristosAnastasiia L 02/03/20 22:12> - ENT Reports hearing loss (chronic), Reports nasal discharge (chronic rhinitis), Reports sinus pressure <LidiaChristosAnasatsiia L 02/03/20 22:12> - *Cardiovascular Reports shortness of breath, Denies chest pain, Denies leg swelling <LidiaChristosAnastasiia L 02/03/20 22:12> - *Respiratory Reports chest congestion, Reports cough, Reports shortness of breath, Reports wheezing <LidiaChristosAnastasiia L 02/03/20 22:12> - *Gastrointestinal Denies abdominal pain, Denies constipation, Denies nausea, Denies vomiting <Anastasiia Murillo 02/03/20 22:12> - *Genitourinary Denies difficulty urinating <Anastasiia Murillo 02/03/20 22:12> - *Musculoskeletal Reports back pain (chronic), Denies muscle cramps,
[2020-02-03 23:48] VITALS: PULSE 64; O2SAT 96
--- NOTE | 2020-02-03 23:54 | PC.NURSE ---
Pt given a specimen cup and neb tx given. He states he can't cough up any right now but would like to keep the cup in case he does soon.
[2020-02-04] VITALS (11 sets, daily range): BP systolic 121–168; BP diastolic 69–84; PULSE 58–87; RESP 17–20; TEMP 36.4–36.9; O2SAT 81–100; BMI 32.6
--- NOTE | 2020-02-04 04:59 | PC.NURSE ---
PT. EXPRESSES INTERMITTENT EPISODES OF CONFUSION; ON ONE OF THESE EPISODES PT. D/C IV; NEW IV LOCATED IN RFA, PATENT WITH NO S/S OF INFILTRATION. SAFETY MEASURES CONTINUED TO BE APPLIED. PT. HAS NOT C/O PAIN, N/V/D, OR DIZZINESS. PT. EXHIBITS SOA WITH EXPIRATORY WHEEZING ESPECIALLY WITH ACTIVITY.
[2020-02-04 06:25] LABS: Basophils # 0.1 K/mm3 (0-0.2); Basophils % 1.5 % (0.1-2.0); Eosinophils # 1.1 K/mm3 (0.0-0.4); Eosinophils % 12.6 % (0.1-12.0); Hematocrit 35.4 % (42.0-52.0); Hemoglobin 10.7 g/dL (14.1-18.0); Lymphocytes # 1.5 K/mm3 (0.7-4.5); Lymphocytes % 17.6 % (10-50); Mean Corpuscular HGB Conc 30.3 g/dL (31.8-35.4); Mean Corpuscular Hemoglobin 30.1 pg (27.0-31.2); Mean Corpuscular Volume 99.2 fl (80-94); Mean Platelet Volume 8.2 fl (7.4-10.4); Monocytes # 0.8 K/mm3 (0.1-1.0); Monocytes % 8.7 % (1.7-9.3); Neutrophils # 5.1 K/mm3 (1.8-7.8); Neutrophils % 59.5 % (37.0-80.0); Platelet Count 370 K/mm3 (142-424); Red Blood Count 3.57 M/mm3 (4.60-6.20); Red Cell Distribution Width 14.6 % (11.5-17.5); White Blood Count 8.6 K/mm3 (4.8-10.8)
[2020-02-04 06:28] LABS: Chloride 113 mmol/L (98-107)
[2020-02-04 06:29] LABS: Potassium 4.2 mmoL/L (3.5-5.1); Sodium 137 mmol/L (136-145)
[2020-02-04 06:32] LABS: Anion Gap 9.2 mEq/L (5-15); Blood Urea Nitrogen 18 mg/dl (9-20); Calcium 8.4 mg/dl (8.4-10.2); Carbon Dioxide 19 mmol/L (22.0-30.0); Creatinine Clearance Estimated 49 mL/min (50-200); Estimated Glomerular Filt Rate 53 ml/min (>60); GFR (African American) 64 ML/MIN (>60); Glucose 98 mg/dl (74-100)
--- NOTE | 2020-02-04 07:20 | HMH.PHAVTE ---
[facility] [place] Pharmacy VTE Monitoring - Patient Demographics Admission date: 02/03/20 Report Date: 02/04/20 Time: 07:21 Allergies/Adverse Reactions: Patient Allergies erythromycin base Allergy (Severe, Verified 02/03/20 17:27) I-HIVES, RASH Cephalosporins Allergy (Intermediate, Verified 02/03/20 17:27) I-RASH doxycycline Allergy (Intermediate, Verified 02/03/20 17:27) I-RASH Penicillins Allergy (Intermediate, Verified 02/03/20 17:27) [id number]/THROAT Sulfa (Sulfonamide Antibiotics) Allergy (Intermediate, Verified 02/03/20 17:27) I-RASH clindamycin Allergy (Unknown, Verified 02/03/20 17:27) niacin Allergy (Unknown, Verified 02/03/20 17:27) I-RASH Height: 1.57 m Weight: 80.484 kg Patient Problems: Current Active Problems Hypoxia (Acute) Stage 3 chronic kidney disease (Chronic) COPD exacerbation (Acute) - VTE Risk Labs: VTE Related Lab Results Hgb 10.7 g/dL (14.1-18.0) L 02/04/20 05:49 Hct 35.4 % (42.0-52.0) L 02/04/20 05:49 Plt Count 370 K/mm3 (142-424) 02/04/20 05:49 BUN 18 mg/dl (9-20) 02/04/20 05:49 Creatinine 1.30 mg/dl (0.66-1.25) H 02/04/20 05:49 Estimated Creat Clear 49 mL/min (50-200) 02/04/20 05:49 Was VTE Risk Assessment Performed: Yes VTE Score: 4 VTE Risk Level: Low Risk Clinical Trial Participant: No - Prophylaxis VTE Prophylaxis Ordered?: Yes Types of VTE Prophylaxis: TEDS Knee High Location of Applied Device: Bilateral Lower Extremeties
--- NOTE | 2020-02-04 08:21 | HMH.PHACONS ---
- Pharmacy Consult Date: 02/04/20 Time: 08:21 Referring provider: DR. ARANGO Reason for Consult:: VANCOMYCIN DOSING Allergies and ADEs:: Allergies Allergy/AdvReac Type Severity Reaction Status Date / Time erythromycin base Allergy Severe I-HIVES, Verified 02/03/20 17:27 RASH Cephalosporins Allergy Intermediate I-RASH Verified 02/03/20 17:27 doxycycline Allergy Intermediate I-RASH Verified 02/03/20 17:27 Penicillins Allergy Intermediate S-SWELLS-OR Verified 02/03/20 17:27 AL/THROAT Sulfa (Sulfonamide Allergy Intermediate I-RASH Verified 02/03/20 17:27 Antibiotics) clindamycin Allergy Unknown Verified 02/03/20 17:27 niacin Allergy Unknown I-RASH Verified 02/03/20 17:27 Home Medications:: Home Medications Medication Instructions Recorded Confirmed Type Donepezil HCl [Aricept 10mg 10 mg PO HS 10/11/17 02/03/20 History tablet] Doxazosin Mesylate [Doxazosin 8mg 4 mg PO HS 10/11/17 02/04/20 History Tab] Quetiapine Fumarate [Seroquel] 200 mg PO HS 10/11/17 02/03/20 History Trazodone HCl [Desyrel 50mg tablet] 200 mg PO HS 10/11/17 02/03/20 History lisinopriL [Lisinopril 10mg Tab] 10 mg PO DAILY 10/11/17 02/03/20 History Albuterol Sulfate [Proair Hfa 2 puffs IH BID 01/04/18 02/03/20 History 90mcg/puff Inh] Fluticasone Propionate 2 puffs NOSTRIL-B DAILY 01/04/18 02/03/20 History [Fluticasone Hfa 220mcg Inhaler] Montelukast Sodium [Montelukast 10 mg PO HS 01/04/18 02/03/20 History 10mg Tab] Ipratropium/Albuterol Sulfate 1 puff IH BID 02/03/20 02/03/20 History [Combivent Respimat Inh] Divalproex Sodium [Divalproex 250 mg PO BID 02/04/20 02/04/20 History Sodium ER] Levothyroxine Sodium 150 mcg PO DAILY 02/04/20 02/04/20 History [Levothyroxine 150mcg (0.15mg) Tab] Omeprazole [Omeprazole 20mg 20 mg PO HS 02/04/20 02/04/20 History Capsule] Venlafaxine HCl [Venlafaxine HCl 75 mg PO DAILY 02/04/20 02/04/20 History ER] Height: 1.57 m Weight: 80.484 kg Laboratory Results:: Laboratory Results - last 24 hr 02/03/20 17:44: Mycoplasma pneumon IgM Reactive A 02/03/20 17:44: WBC 8.3, RBC 3.69 L, Hgb 11.4 L, Hct 36.8 L, MCV 99.8 H, MCH 30.9, MCHC 30.9 L, RDW 14.8, Plt Count 404, MPV 7.5, Neut % (Auto) 62.6, Lymph % (Auto) 19.0, [place] % (Auto) 6.7, Eos % (Auto) 10.2, Baso % (Auto) 1.5, Neut # (Auto) 5.2, Lymph # (Auto) 1.6, [place] # (Auto) 0.6, Eos # (Auto) 0.9 H, Baso # (Auto) 0.1 02/03/20 17:44: Sodium 139, Potassium 4.5, Chloride 111 H, Carbon Dioxide 20 L, Anion Gap 12.5, BUN 17, Creatinine 1.40 H, Estimated Creat Clear 46, Estimated GFR 48 L, Est GFR ( Amer) 59, Glucose 95, Calcium 9.1 02/03/20 17:44: Lactate 0.9 02/03/20 19:20: Influenza Type A Ag Negative, Influenza Type B Ag Negative 02/04/20 05:49: WBC 8.6, RBC 3.57 L, Hgb 10.7 L, Hct 35.4 L, MCV 99.2 H, MCH 30.1, MCHC 30.3 L, RDW 14.6, Plt Count 370, MPV 8.2, Neut % (Auto) 59.5, Lymph % (Auto) 17.6, [place] % (Auto) 8.7, Eos % (Auto) 12.6 H, Baso % (Auto) 1.5, Neut # (Auto) 5.1, Lymph # (Auto) 1.5, [place] # (Auto) 0.8, Eos # (Auto) 1.1 H, Baso # (Auto) 0.1 02/04/20 05:49: Sodium 137, Potassium 4.2, Chloride 113 H, Carbon Dioxide 19 L, Anion Gap 9.2, BUN 18, Creatinine 1.30 H, Estimated Creat Clear 49, Estimated GFR 53 L, Est GFR ( Amer) 64, Glucose 98, Calcium 8.4 Medical History: Reports:: Anxiety, Chronic Obstructive Pulmonary Disease (COPD), Dementia, Depression, Gastroesophageal Reflux Disease(GERD), Hyperlipidemia, Hypertension, Renal Insufficiency Denies:: Cancer, Diabetes Mellitus Type 1, Diabetes Mellitus Type 2, MRSA Assessment and Plan (1) COPD exacerbation Current visit: Yes Status: Acute Category: Medical Code(s): J44.1 - Chronic obstructive pulmonary disease with (acute) exacerbation (2) CAP (community acquired pneumonia) Current visit: No Status: Acute Qualifiers: Laterality: left Lung location: lower lobe of lung Category: Medical Code(s): J18.9 - Pneumonia, unspecified organi
--- NOTE | 2020-02-04 08:31 | HMH.ACPN2 ---
Internal Medicine - PN: Subj *Date: 02/04/20 *Time: 08:31 Interval history: Overall patient seems to be better, however his affect is unusual as always. Continues to have a mild cough, has eaten 100% of his breakfast. Exam Vital signs and Labs for Last 24 Hours: Temp Pulse Resp BP Pulse Ox 98.4 F 58 L 18 123/71 99 02/04/20 03:35 02/04/20 06:39 02/04/20 03:35 02/04/20 03:35 02/04/20 06:39 Laboratory Results - last 24 hr 02/03/20 17:44: Mycoplasma pneumon IgM Reactive A 02/03/20 17:44: WBC 8.3, RBC 3.69 L, Hgb 11.4 L, Hct 36.8 L, MCV 99.8 H, MCH 30.9, MCHC 30.9 L, RDW 14.8, Plt Count 404, MPV 7.5, Neut % (Auto) 62.6, Lymph % (Auto) 19.0, [place] % (Auto) 6.7, Eos % (Auto) 10.2, Baso % (Auto) 1.5, Neut # (Auto) 5.2, Lymph # (Auto) 1.6, [place] # (Auto) 0.6, Eos # (Auto) 0.9 H, Baso # (Auto) 0.1 02/03/20 17:44: Sodium 139, Potassium 4.5, Chloride 111 H, Carbon Dioxide 20 L, Anion Gap 12.5, BUN 17, Creatinine 1.40 H, Estimated Creat Clear 46, Estimated GFR 48 L, Est GFR ( Amer) 59, Glucose 95, Calcium 9.1 02/03/20 17:44: Lactate 0.9 02/03/20 19:20: Influenza Type A Ag Negative, Influenza Type B Ag Negative 02/04/20 05:49: WBC 8.6, RBC 3.57 L, Hgb 10.7 L, Hct 35.4 L, MCV 99.2 H, MCH 30.1, MCHC 30.3 L, RDW 14.6, Plt Count 370, MPV 8.2, Neut % (Auto) 59.5, Lymph % (Auto) 17.6, [place] % (Auto) 8.7, Eos % (Auto) 12.6 H, Baso % (Auto) 1.5, Neut # (Auto) 5.1, Lymph # (Auto) 1.5, [place] # (Auto) 0.8, Eos # (Auto) 1.1 H, Baso # (Auto) 0.1 02/04/20 05:49: Sodium 137, Potassium 4.2, Chloride 113 H, Carbon Dioxide 19 L, Anion Gap 9.2, BUN 18, Creatinine 1.30 H, Estimated Creat Clear 49, Estimated GFR 53 L, Est GFR ( Amer) 64, Glucose 98, Calcium 8.4 I & O for Last 24 hours: Intake & Output 02/01/20 02/02/20 02/03/20 02/04/20 11:59 11:59 11:59 11:59 Intake Total 989 / 989 Balance 989 / 989 Weight 177 lb 7 oz Narrative: Patient is alert, somewhat disheveled and disoriented at baseline. Coughing but has not had sputum production. Lungs have good air movement but rhonchi in the bases. Abdomen soft. Heart rate regular. No edema noted. Neurologically stable and symmetric exam. ENT exam clear. Assessment and Plan (1) COPD exacerbation Current visit: Yes Status: Acute Category: Medical Code(s): J44.1 - Chronic obstructive pulmonary disease with (acute) exacerbation (2) CAP (community acquired pneumonia) Current visit: No Status: Acute Qualifiers: Laterality: left Lung location: lower lobe of lung Category: Medical Code(s): J18.9 - Pneumonia, unspecified organism (3) Stage 3 chronic kidney disease Current visit: Yes Status: Chronic Category: Medical Code(s): N18.3 - Chronic kidney disease, stage 3 (moderate) (4) Dementia Current visit: No Status: Chronic Qualifiers: Dementia type: vascular dementia Dementia behavioral disturbance: with behavioral disturbance Qualified Code(s): F01.51 - Vascular dementia with behavioral disturbance Category: Medical Code(s): F03.90 - Unspecified dementia without behavioral disturbance (5) Hypertension Current visit: No Status: Chronic Category: Medical Code(s): I10 - Essential (primary) hypertension (6) Hypoxia Current visit: Yes Status: Acute Category: Medical Code(s): R09.02 - Hypoxemia (7) History of MRSA infection of lungs Current visit: No Status: Resolved Category: Medical Code(s): Z86.14 - Personal history of Methicillin resistant Staphylococcus aureus infection - Assessment and plan all Dx Assessment and Plan for all problems:: Plan will be to try to collect a sputum culture today. 1 more day of IV antibiotics. Probable discharge tomorrow.
--- NOTE | 2020-02-04 09:06 | HMH.PHAINT ---
HOME MEDICATION RECONCILIATION COMPLETED USING LIST FROM PHARMACY AND DR GALEAS OFFICE.
--- NOTE | 2020-02-04 10:35 | PC.NURSE ---
pt given neb with saline at 10am. pt given a cup for sputum. Martín is now at bedside.
--- NOTE | 2020-02-04 15:54 | PC.NURSE ---
Lab called to notify me that sputum did not meet required specifications
--- NOTE | 2020-02-04 17:15 | PC.NURSE ---
Pt has been confused this shift. He pulled his IV out this morning and it was unable to be replaced after multiple attempts. Dr Mcginnis was notified and stated its OK to leave out. Pt at one point was in the hallway carrying his personal items and stated he was leaving. I tried to redirect his attention but was unsuccessful. I called his daughter who talked to the patient and eventually convinced him to stay in his room. His lungs have wheezes and rhonchi, he remains on 2L NC with O2 sats running in the 90's. He has had several episodes of diarrhea this shift. Scattered bruising noted to extremities. He is currently resting in his chair, will continue to monitor.
--- NOTE | 2020-02-04 19:06 | PC.NURSE ---
report given to yudy
[2020-02-05] VITALS: BP 154/60; PULSE 67; RESP 18; TEMP 36.8; O2SAT 99
[2020-02-05 04:00] VITALS: BP 132/55; PULSE 90; RESP 20; TEMP 37; O2SAT 95
[2020-02-05 05:00] VITALS: BMI 32.1
[2020-02-05 06:41] VITALS: PULSE 74; O2SAT 96
[2020-02-05 07:50] VITALS: BP 113/46; PULSE 69; RESP 16; TEMP 36.9; O2SAT 97
[2020-02-05 08:09] VITALS: PULSE 69; RESP 16; O2SAT 97
--- NOTE | 2020-02-05 08:19 | HMH.DCSUM ---
General - General Admission date:: 02/03/20 Discharge date: 02/05/20 HPI HPI: 84 yr old male with known COPD and history of MRSA pneumonia presented to outpatient clinic with complaints of wheezing, cough and shortness of breath that started about 7 days ago. Has been using albuterol nebulizer at home with some relief but over the past 24 hours only gets relief of wheezing and shortness of breath for about 30 minutes. No noted fevers. Appetite and fluid intake have decreased some. No body aches, chills, gastrointestinal symptoms or rhinorrhea above baseline. He denies any known exposure to illness, does not drive or otherwise leave his home and has had minimal family in and out of his home over the past several weeks. Exam revealed rales in the left base, diffuse wheezing and pulse ox of 84% on room air and he was admitted for additional evaluation and treatment for suspected community acquired pneumonia and COPD exacerbation. Hospital Course Hospital Course: Patient was started on broad-spectrum IV antibiotics including vancomycin because of his history of MRSA pneumonia. He responded very nicely to enhanced pulmonary toilet and antibiotics and quickly resolved his oxygen requirement. Unfortunately he was not able to produce an adequate sputum culture/sample until this morning, but fortunately had no evidence of leukocytosis, ongoing fever and chest x-ray showed some old fibrotic changes. This morning he is at baseline on room air, breathing comfortably with a mild cough which is his normal. Plan will be to discharge home. He does have a positive mycoplasma IgM titer and we will treat for mycoplasma pneumonia with azithromycin, as well as Bactrim twice daily for his history of MRSA pneumonia as we await formal sputum culture. He will be discharged home in the care of his daughter. We will make follow-up appointment in our office for next week to go over culture results and assess ongoing therapy. Objective Vital signs: Temp Pulse Resp BP Pulse Ox 98.4 F 69 16 113/46 L 97 02/05/20 07:50 02/05/20 08:09 02/05/20 08:09 02/05/20 07:50 02/05/20 08:09 Narrative: Constitutional mild distress, chronically ill appearing, disheveled <LidiaAnastasiia vargas L - 02/03/20 22:12> - *Routine HEENT Exam Head: Present: normocephalic <LidiaAnastasiia L - 05/14/20 22:12> Eye: Present: conjunctivae pink <[facility] 02/03/20 22:12> ENT: Present: mucous membranes dry, external ear normal, TM's clear bilaterally <[facility] 02/03/20 22:12> - *Routine Neck Exam Present: supple. Absent: lymphadenopathy, tenderness <[facility] 02/03/20 22:12> - *Routine Respiratory Exam Present: rales (left base and laterally), wheezes (expiratory, diffuse) but air movement vastly improved over admission <[facility] 02/03/20 22:12> - *Routine Cardiovascular Exam Present: RRR <[facility] 02/03/20 22:12> - *Routine Abdominal Exam Present: soft, normoactive bowel sounds. Absent: tenderness, distended <[facility] 02/03/20 22:12> - *Routine Extremities Exam Present: pulses intact, normal capillary refill. Absent: clubbing, edema <[facility] 02/03/20 22:12> - *Routine Skin Exam Present: intact, warm. Absent: rash <[facility] 02/03/20 22:12> - *Routine Neurological Exam Present: alert (oriented to self, DS: Diagnosis - Discharge Diagnosis (1) COPD exacerbation Status: Acute (2) CAP (community acquired pneumonia) Status: Acute (3) Stage 3 chronic kidney disease Status: Chronic (4) Dementia Status: Chronic (5) Hypertension Status: Chronic (6) Hypoxia Status: Resolved (7) History of MRSA infection of lungs Status: Resolved (8) Mycoplasma pneumonia Status: Acute Discharge Plan - Patient Discharge Instructions ACTIVITY: Continue current activity DIET: continue same diet Patient Instructions: Atypical Pneumo
[2020-02-05 12:00] VITALS: BP 147/66; PULSE 71; RESP 17; TEMP 36.7; O2SAT 98
--- NOTE | 2020-02-05 13:56 | HMH.PHAINT ---
DISCHARGE COUNSELING COMPLETED WITH PATIENT'S DAUGHTER.
== END 2020-02-05 12:48 | disposition home or self-care (01) ==
PROVIDERS: Nurse Practitioner Family; Admitting Provider Internal Medicine Adolescent Medicine; PCP Internal Medicine Adolescent Medicine; Visit Provider Internal Medicine Adolescent Medicine
DX: J44.1 Chronic obstructive pulmonary disease with (acute) exacerbation (principal); J44.0 Chronic obstructive pulmonary disease with (acute) lower respiratory infection; J15.7 Pneumonia due to Mycoplasma pneumoniae; Z87.891 Personal history of nicotine dependence; Z86.14 Personal history of Methicillin resistant Staphylococcus aureus infection; I12.9 Hypertensive chronic kidney disease with stage 1 through stage 4 chronic kidney disease, or unspecified chronic kidney disease; N18.3 Chronic kidney disease, stage 3 (moderate); E03.9 Hypothyroidism, unspecified; Z88.8 Allergy status to other drugs, medicaments and biological substances; Z88.1 Allergy status to other antibiotic agents; Z88.2 Allergy status to sulfonamides; Z79.899 Other long term (current) drug therapy; Z79.51 Long term (current) use of inhaled steroids
CPT/HCPCS: G0379; 36415; 71045; 80048; 83605; 85025; 86738; 87040; 87275; 87276; 94640; 94760; 94761; G0378; J1956; J3370

== ENCOUNTER → 2020-03-18 11:46 | Outpatient (CLI) | payer MEDICARE, SELFPAY ==
--- NOTE | 2020-03-18 11:55 | XR_ITS ---
PROCEDURE: XR CHEST 2V Patient Age:84Y CLINICAL HISTORY: ACUTE PNEUMOMIA Cough the the the the the the great toe about making old state the COMPARISON: CHESTWO CT chest wo con from 07/17/2018 XR CHEST PORTABLE from 02/03/2020 FINDINGS: AP portable upright chest performed today Left mid chest: Again see the linear areas scarring extending peripherally at left mid lung. Fairly diffuse pleural thickening along the lateral left chest noted with more focal area of pleural thickening just beneath the seventh rib but this is stable when compared to 02/03/2020. A scarring is been seen in this area dating back to June 2018 CT chest however it seems that the pleural scarring may be slightly more apparent on plain film versus 2018. Nonetheless I tend to favor this reflects some chronic pleural and parenchymal scarring here at the left chest but There is also upper normal markings at the left infrahilar region again suspect related to some scarring.. On the lateral view diffuse pleural thickening along the posterior aspect the left chest is similar to June 2019. However if anything it may have progressed slightly since June 2018. Patient may benefit from a follow-up CT particularly if progressive respiratory symptoms or left chest pain persist, to exclude any focal pleural lesion Right chest. Stable no significant acute findings. Only questions scant atelectasis just above right hemidiaphragm . Heart upper normal in size/borderline cardiomegaly. Calcified aortic knob. No hilar or mediastinal adenopathy. 2Calcified granulomas seen at the right middle lobe anteriorly, stable since 2018 The ribs and chest wall appear stable no erosive changes. T-spine intact but stable. Gas within loop of large bowel beneath right hemidiaphragm a noted on today's study.. IMPRESSION: Chronic pleural and parenchymal scarring at the left chest again noted . No appreciable change since january 2020 . Diffuse pleural thickening posteriorly and lateral left chest has been present and stable since 2018. Only suggestion slight progression of this pleural thickening when compared back to 2018 Dictated by: Alvin Alvares MD 03/19/2020 13:07 Electronically signed by Alvin Alvares MD in [place] 03/19/2020 13:07
== END ==
PROVIDERS: PCP Internal Medicine Adolescent Medicine; Visit Provider Internal Medicine Adolescent Medicine
DX: J18.9 Pneumonia, unspecified organism (principal)
CPT/HCPCS: 71046

== ENCOUNTER → 2020-04-14 14:06 | Outpatient (CLI) | payer MEDICARE, SELFPAY ==
[2020-04-14 14:34] LABS: Basophils # 0.1 K/mm3 (0-0.2); Basophils % 0.8 % (0.1-2.0); Eosinophils # 0.3 K/mm3 (0.0-0.4); Hematocrit 39.8 % (42.0-52.0); Hemoglobin 12.7 g/dL (14.1-18.0); Lymphocytes # 2.1 K/mm3 (0.7-4.5); Mean Corpuscular Hemoglobin 31.6 pg (27.0-31.2); Mean Platelet Volume 7.4 fl (7.4-10.4); Monocytes # 0.5 K/mm3 (0.1-1.0); Monocytes % 5.6 % (1.7-9.3); Neutrophils # 5.9 K/mm3 (1.8-7.8); Neutrophils % 66.5 % (37.0-80.0); Platelet Count 408 K/mm3 (142-424); Red Blood Count 4.02 M/mm3 (4.60-6.20); Red Cell Distribution Width 13.3 % (11.5-17.5); White Blood Count 8.9 K/mm3 (4.8-10.8)
[2020-04-14 15:15] LABS: Alanine Aminotransferase 10 U/L (12-78); Albumin Level 3.8 g/dl (3.5-5.0); Albumin/Globulin Ratio 1.1 (1.1-1.8); Alkaline Phosphatase 72 U/L (38-126); Anion Gap 15.9 mEq/L (5-15); Aspartate Amino Transferase 20 U/L (17-59); Bilirubin,Total 0.4 mg/dl (0.2-1.3); Blood Urea Nitrogen 16 mg/dl (9-20); Calcium 9.4 mg/dl (8.4-10.2); Carbon Dioxide 21 mmol/L (22.0-30.0); Chloride 107 mmol/L (98-107); Estimated Glomerular Filt Rate 41 ml/min (>60); GFR (African American) 50 ML/MIN (>60); Globulin 3.4 g/dL (1.3-3.2); Glucose 125 mg/dl (74-100); Potassium 3.9 mmoL/L (3.5-5.1); Sodium 140 mmol/L (136-145); Total Protein,Serum 7.2 g/dl (6.3-8.2)
== END ==
PROVIDERS: Visit Provider Internal Medicine Adolescent Medicine
DX: E03.9 Hypothyroidism, unspecified (principal)
CPT/HCPCS: 36415; 80053; 84443; 85025

== ENCOUNTER → 2020-04-17 13:45 | Outpatient (CLI) | payer MEDICARE, SELFPAY ==
--- NOTE | 2020-04-17 13:49 | CT_ITS ---
PROCEDURE: CT CHEST WO CON CLINICAL INDICATION: COUGH x 1 month. COMPARISON: CHESTWO CT chest wo con from 10/14/[address] chest wo con from 07/17/2018 TECHNIQUE: Axial images obtained with sagittal and coronal reformats. All CT scans at the facility use one or more dose reduction, viz: automated exposure control, ma/kV adjustment per patient size (including targeted exams where dose is matched to indication, i.e. head), or iterative reconstruction technique. FINDINGS: HEART AND MEDIASTINAL STRUCTURES: There is a borderline cardiomegaly. No pericardial effusion. Calcification of the coronary arteries. The aorta and great vessels: Atheromatous calcification with plaque formation of the aortic valve annulus, aortic arch, descending aorta and origin of the great vessels. Small calcified subcarinal and right hilar lymph nodes are seen. The trachea and mainstem bronchi are patent. The esophagus is normal in course and caliber. LUNGS AND PLEURAL SPACES: The lungs are somewhat hyperinflated, compatible with COPD/mild emphysema. Thin platelike areas of atelectasis is seen mostly in the lingula and left lower lobe. Small calcified nodules/granulomata in the right mid lung. No worrisome lung nodule, mass or infiltrates identified. Again noted bilateral pleural thickening with trace left pleural effusion, somewhat increased since the prior exam. There is no pneumothorax. BONY STRUCTURES: Moderate degenerative disc/endplate changes are seen of the lower thoracic spine. No acute bony pathology is evident. UPPER ABDOMEN: Scans through the upper abdomen shows diffuse fatty infiltration with mildly decreased attenuation of the liver. Prior cholecystectomy. Multiple tiny calcified granulomata of the spleen ADDITIONAL FINDINGS: Mild/moderate atrophy of the pancreas with decreased glandular tissue. IMPRESSION: 1. Chronic pleural parenchymal fibrotic atelectasis of the left lower hemithorax as described. 2. Calcified mediastinal/right hilar small lymph nodes and right lung nodules, sequela of chronic granulomatous disease. 3. Bilateral pleural thickening. Trace left pleural effusion, minimally increased since the prior exam. 4. No acute pathology is noted in the chest. Dictated by: Noam England 04/17/2020 14:49 Electronically signed by Noam England in [place] 04/17/2020 14:49
== END ==
PROVIDERS: PCP Internal Medicine Adolescent Medicine; Visit Provider Internal Medicine Adolescent Medicine
DX: R05 Cough (principal)
CPT/HCPCS: 71250

== ENCOUNTER → 2020-06-02 17:34 | Outpatient (CLI) | payer MEDICARE, SELFPAY ==
[2020-06-02 19:46] LABS: Alanine Aminotransferase 9 U/L (12-78); Albumin Level 3.6 g/dl (3.5-5.0); Albumin/Globulin Ratio 1.1 (1.1-1.8); Alkaline Phosphatase 93 U/L (38-126); Anion Gap 16.4 mEq/L (5-15); Aspartate Amino Transferase 20 U/L (17-59); Bilirubin,Total 0.3 mg/dl (0.2-1.3); Blood Urea Nitrogen 14 mg/dl (9-20); Calcium 9.2 mg/dl (8.4-10.2); Carbon Dioxide 20 mmol/L (22.0-30.0); Chloride 109 mmol/L (98-107); Estimated Glomerular Filt Rate 64 ml/min (>60); GFR (African American) 77 ML/MIN (>60); Globulin 3.4 g/dL (1.3-3.2); Glucose 93 mg/dl (74-100); Potassium 4.4 mmoL/L (3.5-5.1); Sodium 141 mmol/L (136-145)
[2020-06-02 20:17] LABS: Thyroid Stimulating Hormone < 0.02 uIU/mL (0.465-4.68)
== END ==
PROVIDERS: Visit Provider Internal Medicine Adolescent Medicine
DX: E03.9 Hypothyroidism, unspecified (principal)
CPT/HCPCS: 36415; 80053; 84443

== ENCOUNTER → 2020-07-05 15:51 | Outpatient (CLI) | payer MEDICARE, SELFPAY ==
[2020-07-07 14:03] LABS: Covid-19 Nasal PCR Sendout Lex NOT DETECTED
== END ==
PROVIDERS: PCP Internal Medicine Adolescent Medicine; Visit Provider Physician Assistant
DX: Z03.818 Encounter for observation for suspected exposure to other biological agents ruled out (principal)
CPT/HCPCS: 87581; 87633; 87798; U0004

== ENCOUNTER → 2020-11-17 17:06 | Outpatient (CLI) | payer MEDICARE, SELFPAY ==
[2020-11-17 17:54] LABS: Basophils # 0.1 K/mm3 (0-0.2); Basophils % 1.3 % (0.1-2.0); Eosinophils # 0.8 K/mm3 (0.0-0.4); Eosinophils % 10.1 % (0.1-12.0); Hematocrit 39.9 % (42.0-52.0); Hemoglobin 12.2 g/dL (14.1-18.0); Lymphocytes # 1.8 K/mm3 (0.7-4.5); Lymphocytes % 22.5 % (10-50); Mean Corpuscular HGB Conc 30.5 g/dL (31.8-35.4); Mean Corpuscular Hemoglobin 28.8 pg (27.0-31.2); Mean Corpuscular Volume 94.3 fl (80-94); Mean Platelet Volume 7.1 fl (7.4-10.4); Monocytes # 0.5 K/mm3 (0.1-1.0); Neutrophils # 4.8 K/mm3 (1.8-7.8); Platelet Count 410 K/mm3 (142-424); Red Blood Count 4.23 M/mm3 (4.60-6.20); Red Cell Distribution Width 14.5 % (11.5-17.5)
[2020-11-17 17:59] LABS: Hemoglobin A1C 5.3 % (4.0-6.0)
[2020-11-17 18:20] LABS: Chloride 108 mmol/L (98-107)
[2020-11-17 18:21] LABS: Potassium 4.9 mmoL/L (3.5-5.1); Sodium 139 mmol/L (136-145)
[2020-11-17 18:23] LABS: Alanine Aminotransferase 9 U/L (12-78); Alkaline Phosphatase 82 U/L (38-126); Anion Gap 11.9 mEq/L (5-15); Aspartate Amino Transferase 22 U/L (17-59); Bilirubin,Total 0.3 mg/dl (0.2-1.3); Blood Urea Nitrogen 11 mg/dl (9-20); Carbon Dioxide 24 mmol/L (22.0-30.0); Estimated Glomerular Filt Rate 71 ml/min (>60); GFR (African American) 86 ML/MIN (>60)
[2020-11-17 18:24] LABS: Albumin Level 3.9 g/dl (3.5-5.0); Calcium 9.4 mg/dl (8.4-10.2); Globulin 3.8 g/dL (1.3-3.2); Glucose 104 mg/dl (74-100); Total Protein,Serum 7.7 g/dl (6.3-8.2)
[2020-11-17 18:54] LABS: Thyroid Stimulating Hormone < 0.02 uIU/mL (0.465-4.68)
== END ==
PROVIDERS: Visit Provider Internal Medicine Adolescent Medicine
DX: I10 Essential (primary) hypertension (principal); E03.9 Hypothyroidism, unspecified; Z79.899 Other long term (current) drug therapy
CPT/HCPCS: 36415; 80053; 83036; 84443; 85025

== ENCOUNTER 2021-01-28 17:54 | Observation (INO) | payer MEDICARE, SELFPAY ==
[2021-01-28] VITALS (7 sets, daily range): BP systolic 175–207; BP diastolic 70–89; PULSE 67–86; RESP 13–36; TEMP 36.6–37.2; O2SAT 97–99; BMI 25.0; BMI 27.4
--- NOTE | 2021-01-28 18:21 | ECG_ITS ---
APPROVED REPORT Exam: Resting ECG HR:124 bpm ECG Measurements Heart Rate 124 AXES QRSd 90 QRS -8 QT 309 T 114 QTc 382 Conclusion SUPRAVENTRICULAR TACHYCARDIA POSSIBLE ANTERIOR MYOCARDIAL INFARCTION , OF INDETERMINATE AGE [30 ms Q WAVE IN V3/V4, OR R < 0.2 mV IN V4] INFERIOR MYOCARDIAL INFARCTION , PROBABLY OLD [40+ ms Q WAVE AND/OR ST/T ABNORMALITY IN II/aVF] ABNORMAL ECG UNCONFIRMED REPORT Electronically signed by : Lc Mcginnis MD 11/16/2021 19:24:58
--- NOTE | 2021-01-28 18:21 | XR_ITS ---
PROCEDURE INFORMATION: Exam: XR Chest Exam date and time: 01/28/2021 6:21 PM Age: 85 years old Clinical indication: Chest pain; Type not specified; Patient HX: Former smoker, no known chest surgeries. Severe headache, daughter said he has alzheimer's. ; Additional info: Confusion TECHNIQUE: Imaging protocol: XR of the chest. Views: 1 view. COMPARISON: CT CHEST WO CON 04/17/2020 1:56 PM FINDINGS: Lungs: No acute airspace consolidation. Pleural spaces: Chronic left-sided pleural thickening. Heart/Mediastinum: Unremarkable. No cardiomegaly. Vasculature: Mild atherosclerotic calcification of the thoracic aorta. Bones/joints: Unremarkable. IMPRESSION: No acute findings.
--- NOTE | 2021-01-28 18:21 | HMH.EDGENADL ---
ED Disposition Clinical Impression: Uncontrolled hypertension Altered mental status Qualifiers: Altered mental status type: delirium Qualified Code(s): R41.0 - Disorientation, unspecified Disposition: Admitted as Observation Condition on Discharge: Fair Referrals: Terell Manuel MD [Primary Care Provider] - - Critical Care Critical Care Time: No Attestation: On 01/28/21, the high probability of a clinically significant, sudden or life threatening deterioration of the following system(s) required my full and direct attention, intervention and personal management. The time I documented below is in addition to time spent performing reported procedures but includes the following listed in this critical care notation. Medical Decision Making - Curtis Inquiry Pt receiving controlled substance: No Vital Signs: 01/28/21 17:56 01/28/21 18:45 01/28/21 19:00 Temperature 99 F Temperature Source Oral Pulse Rate 77 67 Pulse Rate [Radial] 86 Respiratory Rate 36 H 27 H 27 H Blood Pressure 194/89 H 191/73 H Blood Pressure [Right Arm] 207/84 H Blood Pressure Mean 123 Blood Pressure Mean [Right Arm] 125 Blood Pressure Position [Right Arm] Sitting 02 Sat by Pulse Oximetry 98 97 99 Oxygen Delivery Method Room Air - Lab Data Lab Results 01/28/21 18:26: Urine Color Yellow, Urine Appearance Clear, Urine pH 6.5, Ur Specific [place] 1.015, Urine Protein Negative, Urine Glucose (UA) Negative, Urine Ketones 2+, Urine Blood Negative, Urine Nitrate Negative, Urine Bilirubin 2+ A, Urine Urobilinogen 2.0, Ur Leukocyte Esterase Negative, Urine RBC None, Urine WBC Occasional, Ur Squamous Epith Cells Occasional, Urine Bacteria Trace 01/28/21 18:44: Total Valproic Acid 17.0 L 01/28/21 18:45: WBC 8.6, RBC 4.10 L, Hgb 12.3 L, Hct 38.0 L, MCV 92.7, MCH 30.0, MCHC 32.4, RDW 14.2, Plt Count 408, MPV 8.0, Neut % (Auto) 64.8, Lymph % (Auto) 20.7, [place] % (Auto) 9.5 H, Eos % (Auto) 3.9, Baso % (Auto) 1.1, Neut # (Auto) 5.6, Lymph # (Auto) 1.8, [place] # (Auto) 0.8, Eos # (Auto) 0.3, Baso # (Auto) 0.1 01/28/21 18:45: Sodium 148 H, Potassium 3.6, Chloride 114 H, Carbon Dioxide 21 L, Anion Gap 16.6 H, BUN 20, Creatinine 1.00, Estimated Creat Clear 56, Estimated GFR 71, Est GFR ( Amer) 86, Glucose 136 H, Calcium 9.6, Total Bilirubin 0.4, AST 52, ALT 18, Alkaline Phosphatase 75, Total Protein 7.9, Albumin 4.2, Globulin 3.7 H, Albumin/Globulin Ratio 1.1 01/28/21 18:45: Lactate 1.2 Result diagrams: 01/28/21 18:45 01/28/21 18:45 Orders (Tests/Meds): ED MEDICATIONS Generic Name Dose Route Start Last Admin Trade Name Freq PRN Reason Stop Dose Admin Sodium Chloride 1,000 mls @ 999 mls/hr 01/28/21 18:30 01/28/21 19:19 Sod Chlor 0.9% 1000ml Bag IV 01/28/21 19:30 999 mls/hr .Q1H1M GARIMA Administration Discontinued Medications Generic Name Dose Route Start Last Admin Trade Name Freq PRN Reason Stop Dose Admin Vancomycin HCl 250 mg 01/28/21 18:30 01/28/21 18:52 Vancomycin 500mg Vial PO 01/28/21 18:31 Not Given ONCE ONE Protocol ORDERS Category Date Time Status Full Resp Panel w/COVID ([facility]) Routine Lab 01/28/21 19:42 Received TSH [Thyroid Stimulating Hormone] Stat Lab 01/28/21 19:45 Received Blood Culture Stat Micro 01/28/21 19:45 Received - Radiology Data #1 Image(s): Chest Image Reviewed: Yes I reviewed the patient's radiology image, Yes I have reviewed radiologist's interpretation PROCEDURE INFORMATION: Exam: XR Chest Exam date and time: 01/28/2021 6:21 PM Age: 85 years old Clinical indication: Chest pain; Type not specified; Patient HX: Former smoker, no known chest surgeries. Severe headache, daughter said he has alzheimer's. ; Additional info: Confusion TECHNIQUE: Imaging protocol: XR of the chest. Views: 1 view. COMPARISON: CT CHEST WO CON 04/17/2020 1:56 PM FINDINGS: Lungs: No acute airspace consolidation. Pleural spaces: Chronic left-sided p
--- NOTE | 2021-01-28 18:22 | CT_ITS ---
PROCEDURE INFORMATION: Exam: CT Head Without Contrast Exam date and time: 01/28/2021 6:22 PM Age: 85 years old Clinical indication: Pain; Headache not specified; Patient HX: Severe headache, history of alzheimer's per his daughter. TECHNIQUE: Imaging protocol: Computed tomography of the head without contrast. Radiation optimization: All CT scans at this facility use at least one of these dose optimization techniques: automated exposure control; mA and/or kV adjustment per patient size (includes targeted exams where dose is matched to clinical indication); or iterative reconstruction. COMPARISON: HEADWO CT head/brain wo con 03/31/2018 8:49 PM FINDINGS: Brain: There is age-appropriate cerebral atrophy. Moderate changes of chronic small vessel ischemia within the cerebral white matter regions bilaterally. No acute infarct or hemorrhage. Cerebral ventricles: No ventriculomegaly. Bones/joints: Unremarkable. No acute fracture. Paranasal sinuses: Chronic mucosal thickening within all visualized paranasal sinuses. Mastoid air cells: Visualized mastoid air cells are well aerated. Soft tissues: Unremarkable. IMPRESSION: 1. No acute intracranial abnormality. 2. Chronic sinus disease.
[2021-01-28 18:34] LABS: Microscopic, Urine URINE MICROSCOPIC (MICROSCOPIC)
[2021-01-28 18:37] LABS: Appearance,Urine CLEAR (Clear); Blood, Urine Negative (Negative); Color,Urine YELLOW (Yellow); Glucose,Urine (UA) Negative (Negative); Ketones,Urine 2+ (Negative); Leukocyte Esterase,Urine Negative (Negative); Nitrate,Urine Negative (Negative); PH,Urine 6.5 (5.0-8.5); Protein,Urine Negative (Negative); Specific Gravity, Urine 1.015 (1.005-1.030)
[2021-01-28 18:56] LABS: Bilirubin,Urine 2+ (Negative)
[2021-01-28 18:58] LABS: WBC,Urine Occasional #/hpf (0-3)
[2021-01-28 18:59] LABS: Bacteria,Urine Trace /lpf; Squamous Epithelial Cell,Urine Occasional #/hpf (0-5)
[2021-01-28 18:59] LABS: Basophils # 0.1 K/mm3 (0-0.2); Basophils % 1.1 % (0.1-2.0); Eosinophils # 0.3 K/mm3 (0.0-0.4); Eosinophils % 3.9 % (0.1-12.0); Hemoglobin 12.3 g/dL (14.1-18.0); Lymphocytes # 1.8 K/mm3 (0.7-4.5); Lymphocytes % 20.7 % (10-50); Mean Corpuscular HGB Conc 32.4 g/dL (31.8-35.4); Mean Corpuscular Volume 92.7 fl (80-94); Monocytes # 0.8 K/mm3 (0.1-1.0); Monocytes % 9.5 % (1.7-9.3); Neutrophils # 5.6 K/mm3 (1.8-7.8); Neutrophils % 64.8 % (37.0-80.0); Platelet Count 408 K/mm3 (142-424); Red Cell Distribution Width 14.2 % (11.5-17.5); White Blood Count 8.6 K/mm3 (4.8-10.8)
[2021-01-28 19:04] LABS: Chloride 114 mmol/L (98-107)
[2021-01-28 19:05] LABS: Potassium 3.6 mmoL/L (3.5-5.1); Sodium 148 mmol/L (136-145)
[2021-01-28 19:07] LABS: Alanine Aminotransferase 18 U/L (12-78); Albumin Level 4.2 g/dl (3.5-5.0); Albumin/Globulin Ratio 1.1 (1.1-1.8); Alkaline Phosphatase 75 U/L (38-126); Anion Gap 16.6 mEq/L (5-15); Aspartate Amino Transferase 52 U/L (17-59); Bilirubin,Total 0.4 mg/dl (0.2-1.3); Blood Urea Nitrogen 20 mg/dl (9-20); Carbon Dioxide 21 mmol/L (22.0-30.0); Creatinine Clearance Estimated 56 mL/min (50-200); Estimated Glomerular Filt Rate 71 ml/min (>60); GFR (African American) 86 ML/MIN (>60); Globulin 3.7 g/dL (1.3-3.2); Lactic Acid 1.2 mmol/L (0.7-2.1); Total Protein,Serum 7.9 g/dl (6.3-8.2)
[2021-01-28 19:08] LABS: Calcium 9.6 mg/dl (8.4-10.2); Glucose 136 mg/dl (74-100)
[2021-01-28 19:56] LABS: Adenovirus,PCR Not Detected (NotDetected); Bordetella Pertussis Not Detected (NotDetected); Chlamydophila Pneumoniae, PCR Not Detected (NotDetected); Coronavirus 19, PCR Not Detected (NotDetected); Coronavirus 229E Not Detected (NotDetected); Coronavirus NL63 Not Detected (NotDetected); Coronavirus OC43 Not Detected (NotDetected); Coronovirus HKU1,PCR Not Detected (NotDetected); Human Metapneumovirus Not Detected (NotDetected); Influenza A, PCR Not Detected (NotDetected); Influenza AH1, 2009 Not Detected (NotDetected); Influenza AH1, PCR Not Detected (NotDetected); Influenza AH3,PCR Not Detected (NotDetected); Influenza B, PCR Not Detected (NotDetected); Mycoplasma Pneumoniae, PCR Not Detected (NotDetected); Parainfluenza 1, PCR Not Detected (NotDetected); Parainfluenza 2, PCR Not Detected (NotDetected); Parainfluenza 3, PCR Not Detected (NotDetected); Parainfluenza 4, PCR Not Detected (NotDetected); Respiratory Syncytial Virus Not Detected (NotDetected); Rhinovirus/Enterovirus Not Detected (NotDetected)
--- NOTE | 2021-01-28 20:42 | PC.NURSE ---
contacted senior housekeeper for bed assignment. info given : kelly, uncontrolled htn, ams, observation. spoke with catia
[2021-01-28 21:25] LABS: Thyroid Stimulating Hormone < 0.02 uIU/mL (0.465-4.68)
--- NOTE | 2021-01-28 22:22 | PC.NURSE ---
pt arrived to floor via wheel chair
[2021-01-28 22:29] LABS: Chloride 116 mmol/L (98-107); Potassium 3.6 mmoL/L (3.5-5.1); Sodium 146 mmol/L (136-145)
[2021-01-28 22:32] LABS: Blood Urea Nitrogen 18 mg/dl (9-20); Creatinine Clearance Estimated 56 mL/min (50-200); Estimated Glomerular Filt Rate 80 ml/min (>60); GFR (African American) 97 ML/MIN (>60)
[2021-01-28 22:33] LABS: Anion Gap 10.6 mEq/L (5-15); Calcium 8.9 mg/dl (8.4-10.2); Carbon Dioxide 23 mmol/L (22.0-30.0); Glucose 114 mg/dl (74-100)
[2021-01-29 04:00] VITALS: BP 157/51; PULSE 63; RESP 19; TEMP 36.6; O2SAT 96
--- NOTE | 2021-01-29 04:00 | PC.NURSE ---
late entry: pt had no complaints. was alert to self, place, and time. bed alarm on. ambulates with standby assist. remains hypertensive. all other vss. call light in reach. will continue to monitor
--- NOTE | 2021-01-29 07:32 | P.CONPHA_ITS ---
[facility] Pharmacy VTE Monitoring - Patient Demographics Admission date: 01/29/21 Report Date: 01/29/21 Time: 07:32 Allergies/Adverse Reactions: Patient Allergies erythromycin base Allergy (Severe, Verified 02/03/20 17:27) I-HIVES, RASH Cephalosporins Allergy (Intermediate, Verified 02/03/20 17:27) I-RASH doxycycline Allergy (Intermediate, Verified 02/03/20 17:27) I-RASH Penicillins Allergy (Intermediate, Verified 02/03/20 17:27) [id number]/THROAT Sulfa (Sulfonamide Antibiotics) Allergy (Intermediate, Verified 02/03/20 17:27) I-RASH clindamycin Allergy (Unknown, Verified 02/03/20 17:) niacin Allergy (Unknown, Verified 02/03/20 17:) I-RASH Height: 1.65 m Weight: 74.928 kg Patient Problems: Current Active Problems Altered mental status (Acute) Uncontrolled hypertension (Acute) - VTE Risk Labs: VTE Related Lab Results Hgb 12.3 g/dL (14.1-18.0) L 01/28/21 18:45 Hct 38.0 % (42.0-52.0) L 01/28/21 18:45 Plt Count 408 K/mm3 (142-424) 01/28/21 18:45 BUN 18 mg/dl (9-20) 01/28/21 22:15 Creatinine 0.90 mg/dl (0.66-1.25) 01/28/21 22:15 Estimated Creat Clear 56 mL/min (50-200) 01/28/21 22:15 Was VTE Risk Assessment Performed: Yes VTE Score: 2 VTE Risk Level: Very Low Risk Clinical Trial Participant: No - Prophylaxis VTE Prophylaxis Ordered?: Yes Types of VTE Prophylaxis: TEDS Knee High
[2021-01-29 08:00] VITALS: BP 135/88; PULSE 72; RESP 18; TEMP 36.6; O2SAT 95
--- NOTE | 2021-01-29 08:10 | HMH.HPDC ---
General - General Admission date:: 01/28/21 Discharge date: 01/29/21 *Admission Date: 01/29/21 *Chief complaint: Dehydration/headache/mental status change *History of present illness: 85-year-old white male with long history of chronic dementia, chronic psychosis and chronic depression with chronic insomnia with history of opiate use in the past who has been off of these for several months, who came to the emergency department with headache, mental status changes and was found to have hypertension, with significant elevation of blood pressure. He has been seen in the office multiple times over the past couple of months and has done well with losartan after lisinopril was found to cause a cough. In talking with his son this morning it sounds like there is been some missed medication, possibly secondary to mild confusion issues and the son notes that this seemed to cause the blood pressure elevation. Patient was admitted overnight for further observation. [facility] History I have reviewed the patient's past medical history: Yes Medical History: Reports:: Anxiety, Chronic Obstructive Pulmonary Disease (COPD), Dementia, Depression, Gastroesophageal Reflux Disease(GERD), Hyperlipidemia, Hypertension, Renal Insufficiency Denies:: Cancer, Diabetes Mellitus Type 1, Diabetes Mellitus Type 2, MRSA *Have you ever received a pneumonia vaccine?: Yes *Have you received a flu vaccine this season?: Yes Other Medical History: Reports: Hypothyroidism Other Surgeries: Yes: Cholecystectomy, Sinus Surgery, Other (cholecystemctomy) Amputation: No Fractures: Yes (arm and wrist) - *Social History Last grade of school completed: GED Smoking Status: Former smoker Alcohol Intake: former Alcohol Intake Frequency:: 3 or more drinks per day Substance Use Type: denies use *Occupational Status:: retired Housing: house Household Members: children *Travel in the last 8 weeks: None - Psychiatric History Pschychiatric History:: Reports:: Anxiety, Depression Family Hx:: Cancer Review of Systems - Review of Systems Review of systems:: unable to obtain, pertinent systems reviewed and negative unless documented below Exam Vital signs and Labs for Last 24 Hours: Temp Pulse Resp BP Pulse Ox 97.9 F 63 19 157/51 H 96 01/29/21 04:00 01/29/21 04:00 01/29/21 04:00 01/29/21 04:00 01/29/21 04:00 Laboratory Results - last 24 hr 01/28/21 18:26: Urine Color Yellow, Urine Appearance Clear, Urine pH 6.5, Ur Specific [place] 1.015, Urine Protein Negative, Urine Glucose (UA) Negative, Urine Ketones 2+, Urine Blood Negative, Urine Nitrate Negative, Urine Bilirubin 2+ A, Urine Urobilinogen 2.0, Ur Leukocyte Esterase Negative, Urine RBC None, Urine WBC Occasional, Ur Squamous Epith Cells Occasional, Urine Bacteria Trace 01/28/21 18:44: Total Valproic Acid 17.0 L 01/28/21 18:45: WBC 8.6, RBC 4.10 L, Hgb 12.3 L, Hct 38.0 L, MCV 92.7, MCH 30.0, MCHC 32.4, RDW 14.2, Plt Count 408, MPV 8.0, Neut % (Auto) 64.8, Lymph % (Auto) 20.7, [place] % (Auto) 9.5 H, Eos % (Auto) 3.9, Baso % (Auto) 1.1, Neut # (Auto) 5.6, Lymph # (Auto) 1.8, [place] # (Auto) 0.8, Eos # (Auto) 0.3, Baso # (Auto) 0.1 01/28/21 18:45: Sodium 148 H, Potassium 3.6, Chloride 114 H, Carbon Dioxide 21 L, Anion Gap 16.6 H, BUN 20, Creatinine 1.00, Estimated Creat Clear 56, Estimated GFR 71, Est GFR ( Amer) 86, Glucose 136 H, Calcium 9.6, Total Bilirubin 0.4, AST 52, ALT 18, Alkaline Phosphatase 75, Total Protein 7.9, Albumin 4.2, Globulin 3.7 H, Albumin/Globulin Ratio 1.1 01/28/21 18:45: Lactate 1.2 01/28/21 19:42: Chlamy pneumoniae PCR Not detected, Adenovirus (PCR) Not detected, B. pertussis DNA (PCR) Not detected, Coronavirus OC43 (PCR) Not detected, Coronavirus HKU1 (PCR) Not detected, Coronavirus 229E (PCR) Not detected, SARS-CoV-2 (PCR) Not detected, Coronavirus NL63 (PCR) Not detected, Human Metapneumovir PCR Not detected, Influenza A (H1) PCR Not detected, Influ A (H1N1/09) PCR Not detected, Influenza A (H3) PCR N
--- NOTE | 2021-01-29 10:40 | HMH.PHAINT ---
DISCHARGE COUNSELING GIVEN TO PT AND HIS SON. INCREASED DOSE OF LOSARTAN COMMUNICATED WITH SON.
== END 2021-01-29 09:50 | disposition home or self-care (01) ==
LOC: ER 20:37 → 2ND 21:01
PROVIDERS: Admitting Provider Internal Medicine Adolescent Medicine; Emergency Provider Emergency Medicine; PCP Internal Medicine Adolescent Medicine; Visit Provider Internal Medicine Adolescent Medicine
DX: I10 Essential (primary) hypertension (principal); F03.90 Unspecified dementia, unspecified severity, without behavioral disturbance, psychotic disturbance, mood disturbance, and anxiety; J44.9 Chronic obstructive pulmonary disease, unspecified; E03.9 Hypothyroidism, unspecified; Z88.0 Allergy status to penicillin; Z88.2 Allergy status to sulfonamides; Z79.899 Other long term (current) drug therapy; Z79.51 Long term (current) use of inhaled steroids; E86.0 Dehydration
CPT/HCPCS: 70450; 71045; 80048; 80053; 80164; 81001; 83605; 84443; 85025; 87040; 87581; 87633; 87798; 93005; 94640; 96365; 99284; G0378

== ENCOUNTER → 2021-08-15 12:04 | Outpatient (CLI) | payer MEDICARE, SELFPAY ==
[2021-08-15 12:32] LABS: Basophils # 0.1 K/mm3 (0-0.2); Basophils % 1.5 % (0.1-2.0); Eosinophils # 0.7 K/mm3 (0.0-0.4); Hematocrit 37.4 % (42.0-52.0); Hemoglobin 11.9 g/dL (14.1-18.0); Lymphocytes # 1.9 K/mm3 (0.7-4.5); Lymphocytes % 23.3 % (10-50); Mean Corpuscular HGB Conc 31.7 g/dL (31.8-35.4); Mean Corpuscular Volume 94.9 fl (80-94); Mean Platelet Volume 8.1 fl (7.4-10.4); Monocytes # 0.5 K/mm3 (0.1-1.0); Monocytes % 6.6 % (1.7-9.3); Neutrophils # 4.8 K/mm3 (1.8-7.8); Neutrophils % 59.6 % (37.0-80.0); Platelet Count 428 K/mm3 (142-424); Red Blood Count 3.95 M/mm3 (4.60-6.20); Red Cell Distribution Width 13.8 % (11.5-17.5); White Blood Count 8.1 K/mm3 (4.8-10.8)
[2021-08-15 13:32] LABS: Alanine Aminotransferase 5 U/L (12-78); Albumin Level 3.7 g/dl (3.5-5.0); Albumin/Globulin Ratio 1.2 (1.1-1.8); Alkaline Phosphatase 64 U/L (38-126); Anion Gap 12.8 mEq/L (5-15); Aspartate Amino Transferase 21 U/L (17-59); Blood Urea Nitrogen 16 mg/dl (9-20); Calcium 8.8 mg/dl (8.4-10.2); Carbon Dioxide 24 mmol/L (22.0-30.0); Chloride 108 mmol/L (98-107); Estimated Glomerular Filt Rate 58 ml/min (>60); GFR (African American) 70 ML/MIN (>60); Globulin 3.2 g/dL (1.3-3.2); Glucose 86 mg/dl (74-100); Potassium 4.8 mmoL/L (3.5-5.1); Sodium 140 mmol/L (136-145); Total Protein,Serum 6.9 g/dl (6.3-8.2)
[2021-08-15 13:38] LABS: Bilirubin,Total 0.1 mg/dl (0.2-1.3); Valproic Acid, (Depakene) 31.8 ug/ml (50-100)
[2021-08-15 14:49] LABS: Thyroid Stimulating Hormone < 0.02 uIU/mL (0.465-4.68)
== END ==
PROVIDERS: Visit Provider Nurse Practitioner Family
DX: I10 Essential (primary) hypertension (principal); E03.9 Hypothyroidism, unspecified; J44.9 Chronic obstructive pulmonary disease, unspecified; Z51.81 Encounter for therapeutic drug level monitoring
CPT/HCPCS: 36415; 80053; 80164; 84443; 85025

== ENCOUNTER → 2022-09-04 12:53 | Outpatient (CLI) | payer MEDICARE, SELFPAY ==
[2022-09-04 13:31] LABS: Basophils # 0.1 K/mm3 (0-0.2); Basophils % 1.1 % (0.1-2.0); Eosinophils # 0.8 K/mm3 (0.0-0.4); Eosinophils % 11.5 % (0.1-12.0); Hematocrit 37.8 % (42.0-52.0); Hemoglobin 11.7 g/dL (14.1-18.0); Lymphocytes # 1.9 K/mm3 (0.7-4.5); Lymphocytes % 27.7 % (10-50); Mean Corpuscular Hemoglobin 29.5 pg (27.0-31.2); Mean Corpuscular Volume 94.9 fl (80-94); Mean Platelet Volume 7.7 fl (7.4-10.4); Monocytes # 0.5 K/mm3 (0.1-1.0); Monocytes % 6.6 % (1.7-9.3); Neutrophils # 3.6 K/mm3 (1.8-7.8); Neutrophils % 53.1 % (37.0-80.0); Platelet Count 388 K/mm3 (142-424); Red Blood Count 3.98 M/mm3 (4.60-6.20); Red Cell Distribution Width 14.7 % (11.5-17.5); White Blood Count 6.8 K/mm3 (4.8-10.8)
[2022-09-04 13:51] LABS: Hemoglobin A1C 5.5 % (4.0-6.0)
[2022-09-04 13:57] LABS: Chloride 113 mmol/L (98-107)
[2022-09-04 13:58] LABS: Sodium 143 mmol/L (136-145)
[2022-09-04 14:00] LABS: Alanine Aminotransferase 11 U/L (12-78); Alkaline Phosphatase 69 U/L (38-126); Aspartate Amino Transferase 20 U/L (17-59); Blood Urea Nitrogen 13 mg/dl (9-20); Estimated Glomerular Filt Rate 64 ml/min (>60); GFR (African American) 77 ML/MIN (>60)
[2022-09-04 14:01] LABS: Albumin Level 3.5 g/dl (3.5-5.0); Albumin/Globulin Ratio 1.3 (1.1-1.8); Bilirubin,Total 0.1 mg/dl (0.2-1.3); Calcium 8.7 mg/dl (8.4-10.2); Carbon Dioxide 19 mmol/L (22.0-30.0); Cholesterol 229 mg/dl (140-200); Globulin 2.8 g/dL (1.3-3.2); Glucose 104 mg/dl (74-100); HDL Cholesterol 38 mg/dl (40-60); Total Protein,Serum 6.3 g/dl (6.3-8.2); Triglycerides 101 mg/dl (30-150); VLDL Cholesterol 20 mg/dL (0-40)
[2022-09-04 14:12] LABS: Direct LDL Cholesterol 140.01 mg/dL (100-129)
[2022-09-04 14:31] LABS: Thyroid Stimulating Hormone < 0.02 uIU/mL (0.465-4.68)
== END ==
PROVIDERS: PCP Internal Medicine Adolescent Medicine; Visit Provider Internal Medicine Adolescent Medicine
DX: Z00.00 Encounter for general adult medical examination without abnormal findings (principal); E03.9 Hypothyroidism, unspecified; E78.5 Hyperlipidemia, unspecified; Z79.899 Other long term (current) drug therapy
CPT/HCPCS: 36415; 80053; 80061; 83036; 84443; 85025

== ENCOUNTER → 2022-12-31 17:06 | Outpatient (CLI) | payer MEDICARE, SELFPAY ==
--- NOTE | 2022-12-31 17:25 | XR_ITS ---
PROCEDURE INFORMATION: Exam: XR Chest Exam date and time: 12/31/2022 5:34 PM Age: 87 years old Clinical indication: Cough and shortness of breath TECHNIQUE: Imaging protocol: Radiologic exam of the chest. Views: 2 views. COMPARISON: CR XR CHEST PORTABLE 01/28/2021 7:17 PM FINDINGS: Lungs: Lingular subsegmental atelectasis. Pleural spaces: Unremarkable. No pleural effusion. No pneumothorax. Heart/Mediastinum: Unremarkable. No cardiomegaly. Bones/joints: Unremarkable. IMPRESSION: Lingular subsegmental atelectasis.
[2022-12-31 17:50] LABS: Basophils # 0.1 K/mm3 (0-0.2); Basophils % 0.9 % (0.1-2.0); Eosinophils # 0.6 K/mm3 (0.0-0.4); Eosinophils % 8.8 % (0.1-12.0); Hemoglobin 11.4 g/dL (14.1-18.0); Lymphocytes # 2.7 K/mm3 (0.7-4.5); Lymphocytes % 39.5 % (10-50); Mean Corpuscular HGB Conc 31.7 g/dL (31.8-35.4); Mean Corpuscular Hemoglobin 30.3 pg (27.0-31.2); Mean Corpuscular Volume 95.5 fl (80-94); Mean Platelet Volume 8.4 fl (7.4-10.4); Monocytes # 0.5 K/mm3 (0.1-1.0); Monocytes % 7.8 % (1.7-9.3); Platelet Count 324 K/mm3 (142-424); Red Blood Count 3.77 M/mm3 (4.60-6.20); Red Cell Distribution Width 15.3 % (11.5-17.5); White Blood Count 6.9 K/mm3 (4.8-10.8)
[2022-12-31 17:56] LABS: Alanine Aminotransferase 11 U/L (12-78); Albumin Level 3.5 g/dl (3.5-5.0); Albumin/Globulin Ratio 1.1 (1.1-1.8); Alkaline Phosphatase 51 U/L (38-126); Anion Gap 11.5 mEq/L (5-15); Aspartate Amino Transferase 25 U/L (17-59); Bilirubin,Total 0.3 mg/dl (0.2-1.3); Blood Urea Nitrogen 17 mg/dl (9-20); Calcium 7.9 mg/dl (8.4-10.2); Carbon Dioxide 17 mmol/L (22.0-30.0); Chloride 110 mmol/L (98-107); Estimated Glomerular Filt Rate 63 ml/min (>60); GFR (African American) 77 ML/MIN (>60); Globulin 3.1 g/dL (1.3-3.2); Glucose 97 mg/dl (74-100); Potassium 3.5 mmoL/L (3.5-5.1); Sodium 135 mmol/L (136-145); Total Protein,Serum 6.6 g/dl (6.3-8.2)
== END ==
PROVIDERS: PCP Internal Medicine Adolescent Medicine; Visit Provider Nurse Practitioner Family
DX: R05.9 Cough, unspecified (principal); E03.9 Hypothyroidism, unspecified; E78.5 Hyperlipidemia, unspecified; R53.83 Other fatigue
CPT/HCPCS: 36415; 71046; 80053; 84443; 85025

== ENCOUNTER → 2023-01-27 16:07 | Outpatient (CLI) | payer MEDICARE, SELFPAY ==
[2023-01-27 17:00] LABS: Microscopic, Urine URINE MICROSCOPIC (MICROSCOPIC)
[2023-01-27 17:41] LABS: Appearance,Urine CLEAR (Clear); Bilirubin,Urine Negative (Negative); Blood, Urine Negative (Negative); Color,Urine YELLOW (Yellow); Glucose,Urine (UA) Negative (Negative); Ketones,Urine Negative (Negative); Leukocyte Esterase,Urine Negative (Negative); Nitrate,Urine Negative (Negative); PH,Urine 6.5 (5.0-8.5); Protein,Urine Negative (Negative); Urobilinogen,Urine 0.2 EU/dl (0.2)
== END ==
PROVIDERS: PCP Internal Medicine Adolescent Medicine; Visit Provider Internal Medicine Adolescent Medicine
DX: R29.6 Repeated falls (principal)
CPT/HCPCS: 81001

== ENCOUNTER 2023-01-28 17:43 | Observation (INO) | payer MEDICARE, SELFPAY ==
[2023-01-28] VITALS (7 sets, daily range): BP systolic 126–185; BP diastolic 57–95; PULSE 60–77; RESP 16–18; TEMP 36.8–36.9; O2SAT 94–100; BMI 29.9
--- NOTE | 2023-01-28 17:54 | ECG_ITS ---
APPROVED REPORT Exam: Resting ECG HR:71 bpm ECG Measurements Heart Rate 71 AXES MT 153 P 36 QRSd 86 QRS -14 QT 376 T 48 QTc 398 Conclusion SINUS RHYTHM LEFT VENTRICULAR HYPERTROPHY AND ST-T CHANGE [VOLTAGE CRITERIA PLUS ST/T ABNORMALITY] ABNORMAL ECG UNCONFIRMED REPORT Electronically signed by : Lc Mcginnis MD 01/29/2023 21:18:27
[2023-01-28 18:28] LABS: Basophils % 0.5 % (0.1-2.0); Eosinophils # 0.3 K/mm3 (0.0-0.4); Eosinophils % 3.6 % (0.1-12.0); Lymphocytes # 1.3 K/mm3 (0.7-4.5); Lymphocytes % 19.8 % (10-50); Mean Corpuscular HGB Conc 30.1 g/dL (31.8-35.4); Mean Corpuscular Hemoglobin 29.2 pg (27.0-31.2); Mean Corpuscular Volume 97.2 fl (80-94); Mean Platelet Volume 7.9 fl (7.4-10.4); Monocytes # 0.5 K/mm3 (0.1-1.0); Monocytes % 7.8 % (1.7-9.3); Neutrophils # 4.6 K/mm3 (1.8-7.8); Neutrophils % 68.2 % (37.0-80.0); Platelet Count 334 K/mm3 (142-424); Red Blood Count 4.12 M/mm3 (4.60-6.20); Red Cell Distribution Width 14.5 % (11.5-17.5); White Blood Count 6.8 K/mm3 (4.8-10.8)
[2023-01-28 18:31] LABS: Chloride 105 mmol/L (98-107); Sodium 140 mmol/L (136-145)
[2023-01-28 18:33] LABS: Blood Urea Nitrogen 9 mg/dl (9-20)
[2023-01-28 18:34] LABS: Alanine Aminotransferase 22 U/L (12-78); Albumin Level 3.7 g/dl (3.5-5.0); Albumin/Globulin Ratio 1.1 (1.1-1.8); Alkaline Phosphatase 50 U/L (38-126); Anion Gap 19.9 mEq/L (5-15); Aspartate Amino Transferase 34 U/L (17-59); Bilirubin,Total 0.3 mg/dl (0.2-1.3); Calcium 8.2 mg/dl (8.4-10.2); Carbon Dioxide 18 mmol/L (22.0-30.0); Creatinine Clearance Estimated 51 mL/min (50-200); Estimated Glomerular Filt Rate 57 ml/min (>60); GFR (African American) 69 ML/MIN (>60); Globulin 3.4 g/dL (1.3-3.2); Glucose 160 mg/dl (74-100); Total Protein,Serum 7.1 g/dl (6.3-8.2)
--- NOTE | 2023-01-28 18:36 | HMH.EDGENADL ---
Discharge Plan Disposition Patient Disposition: Admitted As Inpatient Condition: Good Clinical Impressions Clinical Impression: Acute hypokalemia, General weakness Discharge ED Provider: Citlaly Mauricio General Adult HPI General Chief complaint: Fall Stated complaint: [id number]/28@[id number] fall, weak disorientated Time Seen by Provider: 01/28/23 17:45 Mode of Arrival: Wheelchair Source of Information: Patient and Relative Limitations: No Limitations Description of Symptoms (Recalled from ER Triage Doc. by RN): pt brought in by daughter via wheelchair. pts daughter reports that pts has been having multiple falls over the past few weeks. pt does have hx of dementia. pt was seen by pcp 01/27 and dozasozin, quenriapine were d/c due to low blood pressure. pts daugter reports that pt had urinary test done and pt did not have UTI. History of Present Illness HPI narrative: This patient is an 87-year-old male with a history of dementia, COPD, hypertension, and previous pneumonia presented to the emergency department for evaluation after multiple falls. According to the patient's daughter, he has had multiple medication changes as of late. He has been having multiple falls over the last several weeks, and they felt this could be due to low blood pressure. He saw his primary care provider yesterday and his medications were adjusted again. He has been more confused than usual, and they are having difficulty taking care of him at home given his falls and confusion. No other acute concerns noted, such as fevers, chills, cough, congestion, abdominal pain, nausea, vomiting, changes bowel movements, acute traumatic injuries, or other issues noted. History is limited from patient given his history of dementia. Related Data Home Medications Medication Instructions Recorded Confirmed doxazosin 8 mg tablet 4 mg PO HS urinary symptoms 10/11/17 01/28/21 divalproex 250 mg tablet,extended 250 mg PO BID Tremors 02/04/20 01/28/21 release 24 hr omeprazole 20 mg capsule,delayed 20 mg PO HS acid reflux 02/04/20 01/28/21 release trazodone 100 mg tablet 200 mg PO HS Insomnia 02/04/20 01/29/21 venlafaxine 75 mg tablet,extended 75 mg PO DAILY Depression 02/04/20 01/28/21 release 24 hr memantine 5 mg tablet 5 mg PO BID Dementia 01/28/21 01/29/21 albuterol sulfate 90 mcg/actuation 2 puffs IH Q6HP PRN SOA 01/29/21 01/29/21 aerosol inhaler budesonide 160 mcg-glycopyr 9 2 puffs inhalation BID COPD 01/29/21 01/29/21 mcg-formot 4.8 mcg/actuation HFA inhaler levothyroxine 137 mcg tablet 137 mcg PO DAILY hypothyroidism 01/29/21 01/29/21 montelukast 10 mg tablet 10 mg PO HS ALLERGIES 01/29/21 01/29/21 quetiapine 300 mg tablet 300 mg PO HS mood 01/29/21 01/29/21 tiotropium 2.5 mcg-olodaterol 2.5 2 spr IH DAILY COPD 01/29/21 01/29/21 mcg/actuation mist for inhalation Previous Rx's Medication Instructions Recorded losartan 25 mg tablet 25 mg PO DAILY High blood pressure 01/29/21 #30 tabs Allergies Allergy/AdvReac Type Severity Reaction Status Date / Time erythromycin base Allergy Severe I-HIVES, Verified 02/03/20 17:27 RASH Cephalosporins Allergy Intermediate I-RASH Verified 02/03/20 17:27 doxycycline Allergy Intermediate I-RASH Verified 02/03/20 17:27 Penicillins Allergy Intermediate S-SWELLS-OR Verified 02/03/20 17:27 AL/THROAT Sulfa (Sulfonamide Allergy Intermediate I-RASH Verified 02/03/20 17:27 Antibiotics) clindamycin Allergy Unknown Verified 02/03/20 17:27 niacin Allergy Unknown I-RASH Verified 02/03/20 17:27 PFSH [facility] Disclaimer: The information contained in this section may have been updated after the patient was seen, as this information can be updated by other users. Social History Smoking Status: Former smoker alcohol intake: former substance use type: denies use current occupational status: retired Travel in the last 8 weeks: None household members:
[2023-01-28 18:40] LABS: Potassium 2.9 mmoL/L (3.5-5.1)
--- NOTE | 2023-01-28 18:42 | XR_ITS ---
PROCEDURE INFORMATION: Exam: XR Chest Exam date and time: 01/28/2023 7:01 PM Age: 87 years old Clinical indication: Injury or trauma; Fall; Blunt trauma (contusions or hematomas); Additional info: Falls TECHNIQUE: Imaging protocol: Radiologic exam of the chest. Views: 1 view. COMPARISON: CR XR CHEST 2V 12/31/2022 5:34 PM FINDINGS: Tubes, catheters and devices: Surgical clips overlie the gallbladder fossa. Lungs: Unremarkable. No consolidation. Left lung band atelectasis unchanged from prior exam. Pleural spaces: Unremarkable. No pleural effusion. No pneumothorax. Heart/Mediastinum: Unremarkable. No cardiomegaly. Bones/joints: Cortical irregularity at the anterolateral right 4th rib may represent nondisplaced fracture line. IMPRESSION: Cortical irregularity at the anterolateral right 4th rib may represent nondisplaced fracture line. Correlate with physical exam findings.
--- NOTE | 2023-01-28 18:42 | CT_ITS ---
PROCEDURE INFORMATION: Exam: CT Head Without Contrast Exam date and time: 01/28/2023 6:53 PM Age: 87 years old Clinical indication: Injury or trauma; Fall; Blunt trauma (contusions or hematomas); Additional info: Falls TECHNIQUE: Imaging protocol: Computed tomography of the head without contrast. Radiation optimization: All CT scans at this facility use at least one of these dose optimization techniques: automated exposure control; mA and/or kV adjustment per patient size (includes targeted exams where dose is matched to clinical indication); or iterative reconstruction. REPORTING DATA: Count of CT and Cardiac NM exams in prior 12 months: This patient has received 0 known CTs and 0 known cardiac nuclear medicine studies in the 12 months prior to the current study. COMPARISON: CT HEAD/BRAIN WO CON 01/28/2021 7:24 PM FINDINGS: Brain: There is parenchymal atrophy. Old lacunar infarction within the right caudate head nucleus. No intracranial mass, acute hemorrhage, or acute infarction. Cerebral ventricles: No ventriculomegaly. Paranasal sinuses: Chronic-appearing left maxillary sinus disease. Mastoid air cells: Normal as visualized. Bones/joints: Normal. Soft tissues: Unremarkable. Vasculature: Atherosclerotic vascular disease. IMPRESSION: No acute intracranial abnormality.
--- NOTE | 2023-01-28 18:42 | CT_ITS ---
PROCEDURE INFORMATION: Exam: CT Cervical Spine Without Contrast Exam date and time: 01/28/2023 6:55 PM Age: 87 years old Clinical indication: Injury or trauma; Fall; Blunt trauma; Additional info: Falls TECHNIQUE: Imaging protocol: Computed tomography of the cervical spine without contrast. Radiation optimization: All CT scans at this facility use at least one of these dose optimization techniques: automated exposure control; mA and/or kV adjustment per patient size (includes targeted exams where dose is matched to clinical indication); or iterative reconstruction. REPORTING DATA: Count of CT and Cardiac NM exams in prior 12 months: This patient has received 0 known CTs and 0 known cardiac nuclear medicine studies in the 12 months prior to the current study. COMPARISON: [facility] CT cervical spine wo con 03/31/2018 8:53 PM FINDINGS: Bones/joints: Degenerative changes of the atlantoaxial articulation. Grade 1 degenerative retrolisthesis of C2 on C3. Grade 1 degenerative anterolisthesis of C3 on C4. Moderate C4-C5 and C6-C7 degenerative disc disease, with disc space narrowing and osteophyte formation, causing minimal ventral thecal sac indentation. Mild multilevel bilateral facet and uncovertebral arthropathy, left worse than right. No acute fracture. Left C3-C4, left C4-C5, left C5-C6, and left C6-C7 neural foraminal narrowing. Paranasal sinuses: Chronic-appearing left maxillary sinus disease. Mastoid air cells: Small amount of fluid within the left inferior mastoid air cells. Lungs: Lung apices are normal. Vasculature: Atherosclerotic vascular disease. Soft tissues: Normal. IMPRESSION: No acute fracture.
--- NOTE | 2023-01-28 18:42 | XR_ITS ---
PROCEDURE INFORMATION: Exam: XR Pelvis Exam date and time: 01/28/2023 7:01 PM Age: 87 years old Clinical indication: Injury or trauma; Fall; Blunt trauma (contusions or hematomas); Bilateral; Hip; Additional info: Falls TECHNIQUE: Imaging protocol: Radiologic exam of the pelvis. Views: 1 or 2 view. COMPARISON: CR HIPCMLT XR hip LT 2-3V w/pelvis 03/31/2018 9:08 PM FINDINGS: Bones/joints: Unremarkable. No acute fracture. Soft tissues: Unremarkable. Vasculature: Moderate calcific atherosclerotic disease of the lower extremity arterial structures. IMPRESSION: No acute findings.
[2023-01-28 18:55] LABS: Troponin I < 0.01 ng/ml (0.00-0.034)
--- NOTE | 2023-01-28 20:41 | PC.NURSE ---
paged dr cummings
[2023-01-28 20:49] LABS: Coronavirus 19, PCR Not Detected (NotDetected); Influenza A, PCR Not Detected (NotDetected); Influenza B, PCR Not Detected (NotDetected)
--- NOTE | 2023-01-28 21:46 | PC.NURSE ---
pt arrived to floor at this time
[2023-01-28 21:51] LABS: Troponin I < 0.01 ng/ml (0.00-0.034)
[2023-01-28 23:03] LABS: Microscopic, Urine URINE MICROSCOPIC (MICROSCOPIC)
[2023-01-28 23:16] LABS: Appearance,Urine CLEAR (Clear); Bilirubin,Urine Negative (Negative); Blood, Urine Negative (Negative); Color,Urine YELLOW (Yellow); Glucose,Urine (UA) Negative (Negative); Ketones,Urine TRACE (Negative); Leukocyte Esterase,Urine Negative (Negative); Nitrate,Urine Negative (Negative); PH,Urine 6.5 (5.0-8.5); Protein,Urine TRACE (Negative); Urobilinogen,Urine 0.2 EU/dl (0.2)
[2023-01-28 23:45] LABS: WBC,Urine Occasional #/hpf (0-3)
[2023-01-29] VITALS (11 sets, daily range): BP systolic 148–210; BP diastolic 60–106; PULSE 50–65; RESP 16–18; TEMP 36.4–36.7; O2SAT 93–100; BMI 28.3
--- NOTE | 2023-01-29 00:21 | PC.NURSE ---
MANUAL B/P 210/100. PT IS ASYMPTOMATIC. MD ARANGO NOTIFIED. NEW ORDER RECEIVED.
[2023-01-29 00:44] LABS: Troponin I < 0.01 ng/ml (0.00-0.034)
--- NOTE | 2023-01-29 02:40 | PC.NURSE ---
PT WALKED TO THE BATHROOM WITH X1 ASSISTANCE. PT HAS WALKED TO THE BATHROOM WITH X1 ASSISTANCE MULTIPLE TIMES WITH NO ISSUE. PT WALKING BACK TO BED WITH STAFF AND LEFT SIDE GOT WEAK. PT UNABLE TO STAND, GOT LOWERED TO THE GROUND. STAFF ASSISTED PT OFF GROUND TO BED. LACQUER SPRAYER EQUAL, PT ABLE TO MOVE ALL EXTREMITIES EQUALLY. ABLE TO ANSWER ALL QUESTIONS APPROPRIATELY. VSS. PT IS C/O NO PAIN. MD NOTIFIED. BED ALARM REMAINS IN PLACE. RED STAR PLACED ON OUTSIDE OF DOOR.
[2023-01-29 06:11] LABS: Anion Gap 16.7 mEq/L (5-15); Blood Urea Nitrogen 9 mg/dl (9-20); Calcium 7.8 mg/dl (8.4-10.2); Carbon Dioxide 21 mmol/L (22.0-30.0); Chloride 107 mmol/L (98-107); Creatinine Clearance Estimated 58 mL/min (50-200); Estimated Glomerular Filt Rate 71 ml/min (>60); GFR (African American) 86 ML/MIN (>60); Glucose 95 mg/dl (74-100); Sodium 142 mmol/L (136-145)
--- NOTE | 2023-01-29 06:11 | PC.NURSE ---
A&OX4, BUT HAS INTERMITTENT BOUTS OF CONFUSION. PT HAS DONE WELL AND HAD NO C/O SINCE FALL. PT HAS BEEN AWAKE THIS SHIFT, WATCHING TV. BED SAFETY REMAINS ON. PT HAS HAD NO NEEDS OR C/O NOTED. USING URINAL WITH X2 ASSISTANCE. B/P REMAINS STABLE SINCE MED ADMINISTRATION.
[2023-01-29 06:42] LABS: Potassium 2.7 mmoL/L (3.5-5.1)
--- NOTE | 2023-01-29 07:15 | PC.NURSE ---
A&OX4, BUT IS HOWEVER INTERMITTENTLY CONFUSED. PT HAS BEEN USING URINAL TO VOID WITH X2 ASSIST. HAS BEEN AWAKE WHOLE SHIFT WATCHING TV. NO NEEDS OR C/O NOTED THUS FAR, VSS.
--- NOTE | 2023-01-29 07:35 | HMH.PHAINT1 ---
Pharmacy Intervention Comments: home medication list verified using list from outpatient pharmacy
--- NOTE | 2023-01-29 07:56 | EXP.HP ---
History of Present Illness *Admission Date: 01/28/23 *Reason for visit:: Frequent falls and weakness *History of present illness: 87-year-old white male with history of dementia and chronic debility who has been living at home with his son and [id number] and is doing very well. I saw him Friday because of falls and weakness. He was relatively hypotensive and we checked a urinalysis because of a history of UTI which was clear and stopped doxazosin but unfortunately this did not help the situation and they brought him to the ER late last night. Very weak, electrolytes noted to be abnormal with a potassium less than 3. Admitted to hospital for further evaluation, electrolyte replacement and PT evaluation. [facility] Disclaimer: The information contained in this section may have been updated after the patient was seen, as this information can be updated by other users. Social History Smoking Status: Former smoker alcohol intake: former substance use type: denies use current occupational status: retired Travel in the last 8 weeks: None household members: children housing: house caffeine: No Review of Systems Review of Systems Review of systems:: unable to obtain Meds Home Medications and Allergies Home Medications Medication Instructions Recorded Confirmed Type divalproex 250 mg tablet,extended 250 mg PO BID Tremors 02/04/20 01/28/23 History release 24 hr omeprazole 20 mg capsule,delayed 20 mg PO HS acid reflux 02/04/20 01/28/23 History release trazodone 100 mg tablet 200 mg PO HS Insomnia 02/04/20 01/28/23 History venlafaxine 75 mg tablet,extended 75 mg PO DAILY Depression 02/04/20 01/28/23 History release 24 hr memantine 5 mg tablet 5 mg PO BID Dementia 01/28/21 01/28/23 History albuterol sulfate 90 mcg/actuation 2 puffs IH Q6HP PRN Shortness Of 01/29/21 01/28/23 History aerosol inhaler Breath budesonide 160 mcg-glycopyr 9 2 puffs inhalation BID COPD 01/29/21 01/28/23 History mcg-formot 4.8 mcg/actuation HFA inhaler montelukast 10 mg tablet 10 mg PO HS Allergy symptoms 01/29/21 01/28/23 History tiotropium 2.5 mcg-olodaterol 2.5 2 spr IH DAILY COPD 01/29/21 01/28/23 History mcg/actuation mist for inhalation donepezil 10 mg tablet 10 mg PO HS dementia 01/28/23 01/28/23 History levothyroxine 88 mcg tablet 88 mcg PO DAILY hypothyroidism 01/29/23 01/29/23 History New Prescriptions to Start Prescriptions: Allergies Allergy/AdvReac Type Severity Reaction Status Date / Time erythromycin base Allergy Severe I-HIVES, Verified 02/03/20 17:27 RASH Cephalosporins Allergy Intermediate I-RASH Verified 02/03/20 17:27 doxycycline Allergy Intermediate I-RASH Verified 02/03/20 17:27 Penicillins Allergy Intermediate S-SWELLS-OR Verified 02/03/20 17:27 AL/THROAT Sulfa (Sulfonamide Allergy Intermediate I-RASH Verified 02/03/20 17:27 Antibiotics) clindamycin Allergy Unknown Verified 02/03/20 17:27 niacin Allergy Unknown I-RASH Verified 02/03/20 17:27 Exam Data for Last 24 hours Vital signs and Labs for Last 24 Hours: Temp Pulse Resp BP Pulse Ox 98.1 F 65 18 148/60 H 98 01/29/23 07:46 01/29/23 07:46 01/29/23 07:46 01/29/23 07:46 01/29/23 07:46 Laboratory Results - last 24 hr 01/28/23 17:53: WBC 6.8, RBC 4.12 L, Hgb 12.0 L, Hct 40.0 L, MCV 97.2 H, MCH 29.2, MCHC 30.1 L, RDW 14.5, Plt Count 334, MPV 7.9, Neut % (Auto) 68.2, Lymph % (Auto) 19.8, [place] % (Auto) 7.8, Eos % (Auto) 3.6, Baso % (Auto) 0.5, Neut # (Auto) 4.6, Lymph # (Auto) 1.3, [place] # (Auto) 0.5, Eos # (Auto) 0.3, Baso # (Auto) 0.0 01/28/23 17:53: Sodium 140, Potassium 2.9 L*, Chloride 105, Carbon Dioxide 18 L, Anion Gap 19.9 H, BUN 9, Creatinine 1.20, Estimated Creat Clear 51, Estimated GFR 57 L, Est GFR ( Amer) 69, Glucose 160 H, Calcium 8.2 L, Total Bilirubin 0.3, AST 34, ALT 22, Alkaline Phosphatase 50, Troponin I < 0.01, Total Protein
[2023-01-29 08:28] LABS: Magnesium 1.9 mg/dl (1.6-2.3)
[2023-01-29 08:59] LABS: Thyroid Stimulating Hormone 2.17 uIU/mL (0.465-4.68)
--- NOTE | 2023-01-29 09:59 | HMH.OTEV ---
OT Inpatient Evaluation Rehab OT IP Evaluation Start: 01/29/23 07:55 Freq: ONCE Status: Active Protocol: Document 01/29/23 09:55 NARESH (Rec: 01/29/23 09:59 [id number] Rehab OT IP Assessment Subjective History Pt oriented x 3 on arrival. Pt agreeable to engage in therapy evaluation. Pt was admitted on 01/28/23 due to Frequent falls and weakness. Pt is an 87-year-old white male with history of dementia and chronic debility who has been living at home with his son and [id number] and is doing very well. Pt reports prior to being in the hosptial he was independent with all ADLs. He was dependent upon family to complete all IADLs. Pt does not require any type of AE during functional transfers. Subjective My just a week ago. Objective Patient Orientation Person,Place,Birthday Upper Extremity Gross ROM WFL Bed Mobility bed mobility-scooting,bed mobility - supine/sit,bed mobility - rolling Assist Level Supervision/Stand by Transfer Training Sit/Stand Transfer Assist Level Supervision/Stand by Chair Transfer Ability Supervision/Stand by Chair Transfer Technique Sit to/from Ambulatory Chair Transfer Assistive Devices None Lower Body Dressing Ability Standby Assistance Performing Toilet Hygiene Ability Standby Assistance Overall Commode/Toilet Transfer Ability Standby Assistance Commode/Toilet Transfer Technique Sit to/from Ambulatory Rehab OT IP prob,goals,plan Problems Date of Evaluation: 01/29/23 Rehab Potential Rehab Potential Innapropriate for Skilled Therapy Discharge Plan OT Discharge Plan Pt appears to be at his baseline with all functional transfers and ADL independence . Pt can return home with family once he is medically stable per physician. Eval Complexity Eval Charge Codes 04606 - Low Complexity G Codes G -code Required No PHYSICIAN CERTIFICATION:
--- NOTE | 2023-01-29 10:12 | HMH.PTEV ---
Physical Therapy Evaluation Rehab PT IP Evaluation Start: 01/29/23 07:55 Freq: ONCE Status: Active Protocol: Document 01/29/23 09:00 FAMILIA (Rec: 01/29/23 10:12 PHOAYDE [id number]) Subjective/History History History 87 yowm adm to [facility] with general weakness and hypokalemia, he has hx of dementia. He reports he lives with his son, but he is generally independent with all mobility and gait without an AD. He reports 1 step to enter the home. Subjective Subjective Pt with no c/o this am, pleasant, mildly confused, perseverating on his late 's passing this am. Rehab PT IP Eval Objective Appearance Patient Behavior Appropriate,Confused,Patient Baseline Patient Orientation Person Difficulty following instructions none Speech Pattern Clear,Patient Baseline Ambulation Patient Able to Ambulate Yes Ambulation Observation IP General Gait Pattern Observation No Deviations/Normal Ambulation Distance (feet) 75 Ambulation Assistive Device None Ambulation Ability Independent Balance Ability to Arise Able, uses arms to help Sitting Balance Steady, safe Standing Balance Narrow stance w/o support Dynamic Sitting Balance Ability Good Dynamic Standing Balance Ability Good Transfers Bed Transfer Ability Independent Chair Transfer Ability Independent Sit to Stand Bed Transfer Ability Independent Sit to Stand Chair Transfer Ability Independent ROM All Extremities PT ROM Status WFL MMT All Extremities PT MMT WFL Rehab PT IP prob,goals,plan Problems Date of Evaluation: 01/29/23 Discharge Plan PT Discharge Plan Pt is currently at baseline for all mobility and is appropriate to return home once medically stable for d/c. Recommend Home Health therapy as appropriate. G -code Required No Eval Complexity Eval Charge Codes 34828 - Moderate Complexity PHYSICIAN CERTIFICATION: I certify the specified therapy services for Terell Jimenez are required, authorized, and reviewed every 30 days.
--- NOTE | 2023-01-29 10:41 | SW/DCPLANNER ---
Addendum entered by Roseanna [place] 01/30/23 13:49: Patient is currently established with [facility]: I have called and updated Alison Moser. Patient information/order has been faxed to [facility] to resume home health services. Addendum entered by Roseanna [place] 01/30/23 12:54: Alison Moser stated that information/order is reviewed and services will begin tomorrow. Addendum entered by Roseanna [place] 01/30/23 09:30: Patient information/order has been faxed to [facility]. Patient will discharge home today. Original Note: Patient currently resides at home with his son in [place]. PT/OT evaluated patient this AM and recommended home health services at time of discharge. Per patient's family he does not currently have home health services but they are agreeable. I will set up home health services for this patient at time of discharge. Patient could discharge home later today or tomorrow.
[2023-01-29 16:48] LABS: Chloride 105 mmol/L (98-107); Sodium 141 mmol/L (136-145)
[2023-01-29 16:51] LABS: Blood Urea Nitrogen 10 mg/dl (9-20); Creatinine Clearance Estimated 53 mL/min (50-200); Estimated Glomerular Filt Rate 63 ml/min (>60); GFR (African American) 77 ML/MIN (>60)
[2023-01-29 16:52] LABS: Calcium 8.5 mg/dl (8.4-10.2); Carbon Dioxide 25 mmol/L (22.0-30.0); Glucose 102 mg/dl (74-100)
--- NOTE | 2023-01-29 18:49 | PC.NURSE ---
on initial assessment pt was A&Ox3, shortly after pt became more confused and became inappropriate with staff, tried to get up on on his own, several attempts at redirection attempted but failed, Dr. Mcginnis contact, new orders received and pt was treated per MAR, remains on room air
[2023-01-30] VITALS: BP 180/79; PULSE 68; RESP 18; TEMP 36.6; O2SAT 97
[2023-01-30 04:00] VITALS: BP 154/115; PULSE 79; RESP 18; TEMP 36.8; O2SAT 98; BMI 28.3
--- NOTE | 2023-01-30 05:41 | PC.NURSE ---
pt refused to have morning labs drawn, this RN and laborer [employer] Katia attempted to draw am labs but pt very adamant about not having labs drawn
--- NOTE | 2023-01-30 07:48 | EXP.DC.SUM ---
General Admission date:: 01/28/23 Discharge date: 01/30/23 HPI HPI HPI: 87-year-old white male with history of dementia and chronic debility who has been living at home with his son and [id number] and is doing very well. I saw him Friday because of falls and weakness. He was relatively hypotensive and we checked a urinalysis because of a history of UTI which was clear and stopped doxazosin but unfortunately this did not help the situation and they brought him to the ER late last night. Very weak, electrolytes noted to be abnormal with a potassium less than 3. Admitted to hospital for further evaluation, electrolyte replacement and PT evaluation. Hospital Course Hospital Course Hospital Course: Patient was admitted, potassium was replaced orally and increased to 4.0. He had another urinalysis done which was clear. Family was concerned about his ability to go home again. PT evaluated him and felt that he was basically independent. He did have a couple of weak spells and in talking with his son he was concerned about some spells he has at home where he has a couple of yawning episodes and then passes out. He was concerned about possible seizures. Has never been diagnosis with seizures before. I did an EEG yesterday which is pending in regards to the final report but the patient exhibited none of this activity here in the hospital. Certainly reasonable that with his dementia and associated cerebral atrophy on CT scans this could be a possibility. Discussed case with son this morning. They are willing to go home with home health. Plan will be to start low-dose Keppra, I will see him back in 7 to 10 days in the office. Exam Data for Last 24 hours Vital signs and Labs for Last 24 Hours: Temp Pulse Resp BP Pulse Ox 98.2 F 79 18 154/115 H 98 01/30/23 04:00 01/30/23 04:00 01/30/23 04:00 01/30/23 04:00 01/30/23 04:00 Laboratory Results - last 24 hr 01/29/23 05:35: Magnesium 1.9, TSH 2.17 01/29/23 15:27: Sodium 141, Potassium 4.0 D, Chloride 105, Carbon Dioxide 25, Anion Gap 15.0, BUN 10, Creatinine 1.10, Estimated Creat Clear 53, Estimated GFR 63, Est GFR ( Amer) 77, Glucose 102 H, Calcium 8.5 I & O for Last 24 hours: Intake & Output 01/27/23 01/28/23 01/29/23 01/30/23 11:59 11:59 11:59 11:59 Intake Total 480 / 480 680 / 680 Output Total 300 / 300 800 / 800 Balance 180 / 180 -120 / -120 Weight 170 lb 6.4 oz 170 lb 6.324 oz *Routine Neurological Exam Neurological: Present alert and CN II-XII intact Comments: Oriented x2. Globally weak. Results Data Completed and Pending Labs on day of discharge: Labs from last 24 hours 01/29/23 01/29/23 15:27 05:35 Sodium 141 Potassium 4.0 D Chloride 105 Carbon Dioxide 25 Anion Gap 15.0 BUN 10 Creatinine 1.10 Estimated Creat Clear 53 Estimated GFR 63 Est GFR ( Amer) 77 Glucose 102 H Calcium 8.5 Magnesium 1.9 TSH 2.17 DS: Diagnosis Discharge Diagnosis (1) Ataxia: Status: Acute (2) Hypertension: Status: Chronic (3) Acute hypokalemia: Status: Acute (4) General weakness: Status: Acute (5) Hypothyroidism: Status: Acute (6) Hypocalcemia: Status: Acute Meds Home Medications and Allergies Home Medications Medication Instructions Recorded Confirmed Type divalproex 250 mg tablet,extended 250 mg PO BID Tremors 02/04/20 01/28/23 History release 24 hr omeprazole 20 mg capsule,delayed 20 mg PO HS acid reflux 02/04/20 01/28/23 History release trazodone 100 mg tablet 200 mg PO HS Insomnia 02/04/20 01/28/23 History venlafaxine 75 mg tablet,extended 75 mg PO DAILY Depression 02/04/20 01/28/23 History release 24 hr memantine 5 mg tablet 5 mg PO BID Dementia 01/28/21 01/28/23 History albuterol sulfate 90 mcg/actuation 2 puffs IH Q6HP PRN Shortness Of 01/29/21 01/28/23 History aerosol inhaler Breath montelukast 10 mg tablet 10 mg
[2023-01-30 07:55] VITALS: BP 138/86; PULSE 57; RESP 17; TEMP 36.7; O2SAT 97
--- NOTE | 2023-01-30 08:37 | HMH.PHAINT1 ---
Pharmacy Intervention Comments: DISCHARGE MEDICATION COUNSELING COMPLETED. NEW MEDICATION: LEVETIRACETAM (TOLD PATIENT OF POTENTIAL SIDE EFFECTS INCLUDING DROWSINESS, DIZZINESS, OR MOOD CHANGES AND TO INFORM HIS PHYSICIAN IF ANY OF THESE EFFECTS PERSISTED OR WERE SEVERE). PATIENT NODDED WHEN ASKED IF HE UNDERSTOOD, BUT SEEMED DROWSY THROUGHOUT DISCUSSION AND HAD NO QUESTIONS. LEFT MED LIST IN PATIENT ROOM.
--- NOTE | 2023-01-30 08:54 | PC.NURSE ---
PT REFUSED MEDICATION AND EEG THIS MORNING. DR ARANGO AWARE.
--- NOTE | 2023-01-30 09:13 | PC.NURSE ---
PATIENT BECAME COMBATIVE AND REFUSED TO LET ME DO EEG TESTING.
--- NOTE | 2023-01-30 09:17 | PC.NURSE ---
PT BECAME COMBATIVE THIS MORNING. CALLED SON TO LET HIM KNOW AND LET HIM KNOW HE IS UP FOR DISCHARGE. SON STATED HE WOULD BE HERE SHORTLY. CALL LIGHT WITHIN REACH. BED IN LOWEST POSITION. BED ALARM ON.
--- NOTE | 2023-01-31 12:57 | CARE MANAGER ---
Spoke with patient son. He is doing well and home health started. EDUIN Lozano
== END 2023-01-30 10:23 | disposition home health service (06) ==
LOC: ER 20:48 → 2ND 21:01
PROVIDERS: Admitting Provider Internal Medicine Adolescent Medicine; Emergency Provider Emergency Medicine; PCP Internal Medicine Adolescent Medicine; Visit Provider Internal Medicine Adolescent Medicine
DX: E87.6 Hypokalemia (principal); R29.6 Repeated falls; I10 Essential (primary) hypertension; R27.0 Ataxia, unspecified; R53.1 Weakness; E03.9 Hypothyroidism, unspecified; E83.51 Hypocalcemia; Z79.899 Other long term (current) drug therapy; Z20.822 Contact with and (suspected) exposure to COVID-19
CPT/HCPCS: G0378; 36415; 70450; 71045; 72125; 72170; 80048; 80053; 81001; 83735; 84443; 84484; 85025; 93005; 97162; 97165; 99285; C9803; U0003; U0005

== ENCOUNTER 2023-08-30 18:13 | Observation (INO) | payer MEDICARE, SELFPAY ==
[2023-08-30] VITALS (37 sets, daily range): BP systolic 158–199; BP diastolic 63–78; PULSE 51–67; RESP 12–24; TEMP 36.7; O2SAT 91–100; BMI 26.6
--- NOTE | 2023-08-30 18:25 | HMH.EDGENADL ---
Discharge Plan Disposition Patient Disposition: Admitted Clinical Impressions Clinical Impression: Acute hypokalemia, Generalized weakness, Hyperthyroidism, Elevated troponin, HTN (hypertension) Discharge ED Provider: Austin Andrade General Adult HPI <Austin Andrade MD - Last Filed: 08/30/23 23:05> General Chief complaint: Weakness Stated complaint: weak, possible dehydration Time Seen by Provider: 08/30/23 18:17 History of Present Illness HPI narrative: 87-year-old male, history of dementia, hypertension, CKD, prior UTIs presents with generalized weakness. Family at bedside provides most of the history as patient is hard of hearing and has memory difficulties. They report that he has been generally weak over the last couple weeks and has not been eating or drinking as much. He has also been wetting the bed which has been an indicator of UTIs in the past. He has not had any fever that they are aware of. He has not had any significant weight loss that they are aware of. He does not have any specific complaints. When I asked him if anything was wrong, he said that he feels like he does not have any power but denies specific chest pain abdominal pain shortness of breath etc. Related Data Home Medications Medication Instructions Recorded Confirmed divalproex 250 mg tablet,extended 250 mg PO BID Tremors 02/04/20 08/30/23 release 24 hr omeprazole 20 mg capsule,delayed 20 mg PO HS acid reflux 02/04/20 08/30/23 release trazodone 100 mg tablet 200 mg PO HS Insomnia 02/04/20 08/30/23 venlafaxine 75 mg tablet,extended 75 mg PO DAILY Depression 02/04/20 08/30/23 release 24 hr memantine 5 mg tablet 5 mg PO BID Dementia 01/28/21 08/30/23 albuterol sulfate 90 mcg/actuation 2 puffs IH Q6HP PRN Shortness Of 01/29/21 08/30/23 aerosol inhaler Breath montelukast 10 mg tablet 10 mg PO HS Allergy symptoms 01/29/21 08/30/23 tiotropium 2.5 mcg-olodaterol 2.5 2 spr IH DAILY COPD 01/29/21 08/30/23 mcg/actuation mist for inhalation donepezil 10 mg tablet 10 mg PO HS dementia 01/28/23 08/30/23 levothyroxine 88 mcg tablet 88 mcg PO DAILY hypothyroidism 01/29/23 08/30/23 Previous Rx's Medication Instructions Recorded levetiracetam 500 mg tablet 500 mg PO BID #60 tabs 01/30/23 (Keppra) amlodipine 5 mg tablet 5 mg PO DAILY #30 tabs 08/30/23 Allergies Allergy/AdvReac Type Severity Reaction Status Date / Time erythromycin base Allergy Severe I-HIVES, Verified 02/03/20 17:27 RASH Cephalosporins Allergy Intermediate I-RASH Verified 02/03/20 17:27 doxycycline Allergy Intermediate I-RASH Verified 02/03/20 17:27 Penicillins Allergy Intermediate S-SWELLS-OR Verified 02/03/20 17:27 AL/THROAT Sulfa (Sulfonamide Allergy Intermediate I-RASH Verified 02/03/20 17:27 Antibiotics) clindamycin Allergy Unknown Verified 02/03/20 17:27 niacin Allergy Unknown I-RASH Verified 02/03/20 17:27 PFSH <Austin Andrade MD - Last Filed: 08/30/23 23:05> [facility], [facility] Disclaimer: The information contained in this section may have been updated after the patient was seen, as this information can be updated by other users. Social History Smoking Status: Former smoker alcohol intake: former substance use type: denies use current occupational status: retired Travel in the last 8 weeks: None household members: children housing: house caffeine: No <Austin Andrade MD - Last Filed: 08/30/23 23:05> ROS Obtained: Yes All systems reviewed & no additional complaints except as documented Physical Exam <Austin Andrade MD - Last Filed: 08/30/23 23:05> General General appearance: alert and in no apparent distress Head Head exam: atraumatic and normocephalic Eye Eye exam: Present normal appearance, PERRL and EOMI ENT ENT exam: Present normal oropharynx and normal external ear exam Neck Neck exam: Present normal inspection and full ROM Chest Chest inspection: Present normal ins
--- NOTE | 2023-08-30 18:31 | XR_ITS ---
PROCEDURE INFORMATION: Exam: XR Chest Exam date and time: 08/30/2023 6:39 PM Age: 87 years old Clinical indication: Other: Weakness; Additional info: Generalized weakness TECHNIQUE: Imaging protocol: Radiologic exam of the chest. Views: 1 view. COMPARISON: CR XR CHEST PORTABLE 01/28/2023 7:01 PM FINDINGS: Lungs: Left mid lung subsegmental atelectasis versus scarring. Pleural spaces: Unremarkable. No pleural effusion. No pneumothorax. Heart/Mediastinum: Unremarkable. No cardiomegaly. Bones/joints: Unremarkable. IMPRESSION: Left mid lung subsegmental atelectasis versus scarring.
[2023-08-30 18:48] LABS: Basophils % 0.5 % (0.1-2.0); Eosinophils # 0.5 K/mm3 (0.0-0.4); Eosinophils % 6.2 % (0.1-12.0); Hematocrit 41.7 % (42.0-52.0); Hemoglobin 13.9 g/dL (14.1-18.0); Lymphocytes # 2.3 K/mm3 (0.7-4.5); Lymphocytes % 26.8 % (10-50); Mean Corpuscular HGB Conc 33.3 g/dL (31.8-35.4); Mean Corpuscular Hemoglobin 31.5 pg (27.0-31.2); Mean Corpuscular Volume 94.5 fl (80-94); Mean Platelet Volume 8.7 fl (7.4-10.4); Monocytes # 0.7 K/mm3 (0.1-1.0); Monocytes % 7.9 % (1.7-9.3); Neutrophils # 5.1 K/mm3 (1.8-7.8); Neutrophils % 58.6 % (37.0-80.0); Platelet Count 318 K/mm3 (142-424); Red Blood Count 4.41 M/mm3 (4.60-6.20); Red Cell Distribution Width 14.8 % (11.5-17.5); White Blood Count 8.7 K/mm3 (4.8-10.8)
--- NOTE | 2023-08-30 18:53 | ECG_ITS ---
APPROVED REPORT Exam: Resting ECG HR:65 bpm ECG Measurements Heart Rate 65 AXES IL 188 P 51 QRSd 101 QRS -14 QT 430 T 39 QTc 441 Conclusion SINUS RHYTHM NORMAL ECG UNCONFIRMED REPORT Electronically signed by : Lc Mcginnis MD 08/31/2023 14:17:27
[2023-08-30 18:54] LABS: Alanine Aminotransferase 19 U/L (12-78); Alkaline Phosphatase 43 U/L (38-126); Aspartate Amino Transferase 38 U/L (17-59); Bilirubin,Total 0.6 mg/dl (0.2-1.3); Blood Urea Nitrogen 16 mg/dl (9-20); Calcium 8.2 mg/dl (8.4-10.2); Carbon Dioxide 24 mmol/L (22.0-30.0); Chloride 107 mmol/L (98-107); Creatinine Clearance Estimated 49 mL/min (50-200); Estimated Glomerular Filt Rate 63 ml/min (>60); GFR (African American) 77 ML/MIN (>60); Glucose 97 mg/dl (74-100); Magnesium 1.9 mg/dl (1.6-2.3); Total Protein,Serum 7.7 g/dl (6.3-8.2)
[2023-08-30 19:06] LABS: Albumin Level 3.7 g/dl (3.5-5.0); Albumin/Globulin Ratio 0.9 (1.1-1.8); Anion Gap 10.9 mEq/L (5-15); NT Pro Brain Natriuretic Pep. 2540 pg/mL (0-450); Sodium 139 mmol/L (136-145); Troponin I 0.04 ng/ml (0.00-0.034)
[2023-08-30 19:07] LABS: Potassium 2.9 mmoL/L (3.5-5.1)
[2023-08-30 19:11] LABS: T4 (Thyroxine) 12.7 ug/dl (5.53-11.0)
[2023-08-30 19:11] LABS: VBG Base Excess -2.7 mmol/L (-2.4-2.3); VBG HCO3 23.6 mmol/L (23-30); VBG Oxygen Saturation 72.3 % (50-70); VBG PCO2 48.7 mmol/L (35-51); VBG PO2 40.7 mmol/L (28-40); VBG Total CO2 25.1 mmol/L (23-27)
[2023-08-30 19:24] LABS: Thyroid Stimulating Hormone 0.05 uIU/mL (0.465-4.68)
--- NOTE | 2023-08-30 19:31 | PC.NURSE ---
collected labs from patients L AC and provided patient with warm blanket at 1928
--- NOTE | 2023-08-30 19:32 | PC.NURSE ---
took critical lab phone call from lab @7138hrs
--- NOTE | 2023-08-30 19:37 | PC.NURSE ---
in room talking with patient at this time.
[2023-08-30 19:57] LABS: Microscopic, Urine URINE MICROSCOPIC (MICROSCOPIC)
[2023-08-30 20:02] LABS: Appearance,Urine CLEAR (Clear); Bilirubin,Urine Negative (Negative); Blood, Urine Negative (Negative); Color,Urine YELLOW (Yellow); Glucose,Urine (UA) Negative (Negative); Ketones,Urine Negative (Negative); Leukocyte Esterase,Urine Negative (Negative); Nitrate,Urine Negative (Negative); PH,Urine 6.5 (5.0-8.5); Protein,Urine TRACE (Negative)
[2023-08-30 20:05] LABS: Squamous Epithelial Cell,Urine Occasional #/hpf (0-5)
[2023-08-30 22:18] LABS: Troponin I 0.04 ng/ml (0.00-0.034)
--- NOTE | 2023-08-30 22:46 | PC.NURSE ---
in room talking with patient at this time.
[2023-08-30 23:25] LABS: Potassium 2.7 mmoL/L (3.5-5.1)
--- NOTE | 2023-08-30 23:40 | PC.NURSE ---
on phone with hospitalist
--- NOTE | 2023-08-30 23:45 | PC.NURSE ---
notified warehouse picker of admission
--- NOTE | 2023-08-30 23:48 | PC.NURSE ---
OBSERVATION ADMISSION TO 201 WITH DX OF HYPOKALEMIA AND ELEVATED TROP TO SERVICE OF HOSPITALIST.
[2023-08-30 23:55] LABS: Blood Urea Nitrogen 12 mg/dl (9-20); Calcium 6.2 mg/dl (8.4-10.2); Carbon Dioxide 17 mmol/L (22.0-30.0); Chloride 115 mmol/L (98-107); Creatinine Clearance Estimated 54 mL/min (50-200); Estimated Glomerular Filt Rate 92 ml/min (>60); GFR (African American) 111 ML/MIN (>60); Glucose 84 mg/dl (74-100); Phosphorous 2.1 mg/dl (2.5-4.5); Sodium 138 mmol/L (136-145)
[2023-08-30 23:57] LABS: Anion Gap 8.7 mEq/L (5-15); Potassium 2.7 mmoL/L (3.5-5.1)
[2023-08-31 00:01] VITALS: BP 158/67; PULSE 54; RESP 16; TEMP 36.6; O2SAT 97
--- NOTE | 2023-08-31 00:13 | PC.NURSE ---
pt arrived to floor via stretcher @2016
[2023-08-31 00:30] VITALS: BP 171/66; PULSE 56; RESP 15; TEMP 36.7; O2SAT 98; BMI 25.9
--- NOTE | 2023-08-31 00:58 | EXP.HP ---
History of Present Illness *Admission Date: 08/30/23 *Reason for visit:: Generalized weakness *History of present illness: This is an 87-year-old male with past medical history of hypothyroidism, hypertension, dementia, CKD who presents emergency department today with complaints of generalized malaise and fatigue. Family at bedside provides collateral and states that he has had a downswing and energy over the last several weeks. The patient reports a loss of appetite and states that he is felt generally rundown. Denies any specific complaints. Denies cough, fever, congestion, abdominal pain, chest pain. Family cannot pinpoint any 1 specific thing that seemed to cause the ER visit today other than continued generalized weakness. Son at the bedside states they thought he would snap out of it but it has progressed over the last several weeks. They normally attribute this behavior to urinary tract infection but he has had no dysuria or incontinence. Emergency department workup mostly unremarkable except for hypokalemia. Patient was noted to have a potassium of 2.9 on emergency department evaluation. He was also made the hypertensive. Attempts were made in the emergency department to rectify his hypokalemia and his hypertension. After 40 mill equivalents p.o. potassium and 30 mEq IV repeat potassium still 2.7. Given prolonged ER stay, it was felt the patient would benefit from hospitalization overnight. He is admitted to hospital service for further evaluation management. [facility] Disclaimer: The information contained in this section may have been updated after the patient was seen, as this information can be updated by other users. Social History Smoking Status: Former smoker alcohol intake: former substance use type: denies use current occupational status: retired Travel in the last 8 weeks: None household members: children housing: house caffeine: No Review of Systems Constitutional Constitutional: Reports system reviewed and no additional complaints, except as documented and Reports fatigue Eyes Eyes: Reports system reviewed and no additional complaints, except as documented ENT Ears, Nose, Mouth, and Throat: Reports system reviewed and no additional complaints, except as documented *Cardiovascular Cardiovascular: Reports system reviewed and no additional complaints, except as documented *Respiratory Respiratory: Reports system reviewed and no additional complaints, except as documented *Gastrointestinal Gastrointestinal: Reports system reviewed and no additional complaints, except as documented *Genitourinary Genitourinary: Reports system reviewed and no additional complaints, except as documented *Musculoskeletal Musculoskeletal: Reports system reviewed and no additional complaints, except as documented *Neurologic Neurologic: Reports system reviewed and no additional complaints, except as documented Psychiatric Psychiatric: Reports system reviewed and no additional complaints, except as documented Endocrine Endocrine: Reports fatigue Meds Home Medications and Allergies Home Medications Medication Instructions Recorded Confirmed Type divalproex 250 mg tablet,extended 250 mg PO BID Tremors 02/04/20 08/30/23 History release 24 hr omeprazole 20 mg capsule,delayed 20 mg PO HS acid reflux 02/04/20 08/30/23 History release trazodone 100 mg tablet 200 mg PO HS Insomnia 02/04/20 08/30/23 History venlafaxine 75 mg tablet,extended 75 mg PO DAILY Depression 02/04/20 08/30/23 History release 24 hr memantine 5 mg tablet 5 mg PO BID Dementia 01/28/21 08/30/23 History albuterol sulfate 90 mcg/actuation 2 puffs IH Q6HP PRN Shortness Of 01/29/21 08/30/23 History aerosol inhaler Breath montelukast 10 mg tablet 10 mg PO HS Allergy symptoms 01/29/21 08/30/23 History tiotropium 2.5 mcg-olodaterol 2.5 2 spr IH DAILY COPD 01/29/21 08/30/23 History mcg/actuation m
[2023-08-31 01:21] LABS: Coronavirus 19, PCR Not Detected (NotDetected); Influenza A, PCR Not Detected (NotDetected); Influenza B, PCR Not Detected (NotDetected)
[2023-08-31 04:00] VITALS: BP 134/53; PULSE 60; RESP 16; TEMP 36.6; O2SAT 94; BMI 25.9
[2023-08-31 07:42] VITALS: BP 156/69; PULSE 66; RESP 18; TEMP 36.7; O2SAT 91
[2023-08-31 11:33] LABS: Chloride 114 mmol/L (98-107); Sodium 141 mmol/L (136-145)
[2023-08-31 11:35] LABS: Blood Urea Nitrogen 13 mg/dl (9-20); Creatinine Clearance Estimated 53 mL/min (50-200); Estimated Glomerular Filt Rate 71 ml/min (>60); GFR (African American) 86 ML/MIN (>60)
[2023-08-31 11:36] LABS: Anion Gap 9.6 mEq/L (5-15); Calcium 7.9 mg/dl (8.4-10.2); Carbon Dioxide 20 mmol/L (22.0-30.0); Cholesterol 178 mg/dl (140-200); Glucose 107 mg/dl (74-100); Phosphorous 2.6 mg/dl (2.5-4.5); Triglycerides 86 mg/dl (30-150); VLDL Cholesterol 17 mg/dL (0-40)
[2023-08-31 11:37] LABS: Chol/HDL Ratio 6.4 (1-3.5); HDL Cholesterol 28 mg/dl (40-60); Magnesium 1.8 mg/dl (1.6-2.3)
[2023-08-31 11:42] LABS: Potassium 2.6 mmoL/L (3.5-5.1)
[2023-08-31 11:48] LABS: Direct LDL Cholesterol 113.32 mg/dL (100-129); Troponin I 0.02 ng/ml (0.00-0.034)
--- NOTE | 2023-08-31 18:46 | PC.NURSE ---
PT IS RESTING IN BED. ALERT BUT ONLY ORIENTED TO SELF. PT WILL OCCASIONALLY MAKE INAPPROPRIATE COMMENTS TO STAFF. TOLERATED SITTING UP IN THE CHAIR FOR SEVERAL HOURS THIS SHIFT. EATING AND DRINKING FAIR. LUNG SOUNDS CLEAR. ABDOMEN SOFT/NON TENDER WITH ACTIVE BOWEL SOUNDS. AMBULATED TO THE BATHROOM WITH STAFF. WILL CONTINUE TO MONITOR.
[2023-08-31 20:00] VITALS: BP 179/82; PULSE 60; PULSE 63; RESP 18; TEMP 36.6; O2SAT 98
[2023-09-01] VITALS: BP 169/88; PULSE 61; PULSE 66; RESP 18; TEMP 36.6; O2SAT 98
[2023-09-01 04:00] VITALS: BP 162/79; PULSE 64; PULSE 67; RESP 17; TEMP 36.6; O2SAT 94; BMI 25.9
--- NOTE | 2023-09-01 05:16 | PC.NURSE ---
Patient has had a good night. Patient has been able to rest more than the pervious shift. He took his night medications great. He has been appropriate and made appropriate comments so far through the shift. No issues through the shift were noted
--- NOTE | 2023-09-01 06:49 | PC.NURSE ---
Patient is refusing labs this morning. Stated to get out of the room and to not touch him. RN tried to educated patient the importance for labs, patient kept yelling to get out of the room. This RN will pass along to Dayshift RN to try and attempt morning labs at a later date
[2023-09-01 08:00] VITALS: PULSE 60
[2023-09-01 09:27] VITALS: BMI 25.9
[2023-09-01 11:16] LABS: Basophils % 0.4 % (0.1-2.0); Eosinophils # 0.4 K/mm3 (0.0-0.4); Eosinophils % 5.1 % (0.1-12.0); Hematocrit 37.7 % (42.0-52.0); Hemoglobin 12.3 g/dL (14.1-18.0); Lymphocytes # 1.6 K/mm3 (0.7-4.5); Lymphocytes % 22.4 % (10-50); Mean Corpuscular HGB Conc 32.5 g/dL (31.8-35.4); Mean Corpuscular Hemoglobin 31.7 pg (27.0-31.2); Mean Corpuscular Volume 97.6 fl (80-94); Mean Platelet Volume 8.7 fl (7.4-10.4); Monocytes # 0.4 K/mm3 (0.1-1.0); Monocytes % 5.5 % (1.7-9.3); Neutrophils # 4.7 K/mm3 (1.8-7.8); Neutrophils % 66.7 % (37.0-80.0); Platelet Count 285 K/mm3 (142-424); Red Blood Count 3.86 M/mm3 (4.60-6.20); Red Cell Distribution Width 14.9 % (11.5-17.5); White Blood Count 7.1 K/mm3 (4.8-10.8)
--- NOTE | 2023-09-01 11:20 | EXP.DC.SUM ---
General Admission date:: 08/31/23 Discharge date: 09/01/23 HPI HPI HPI: This is an 87-year-old male with past medical history of hypothyroidism, hypertension, dementia, CKD who presents emergency department today with complaints of generalized malaise and fatigue. Family at bedside provides collateral and states that he has had a downswing and energy over the last several weeks. The patient reports a loss of appetite and states that he is felt generally rundown. Denies any specific complaints. Denies cough, fever, congestion, abdominal pain, chest pain. Family cannot pinpoint any 1 specific thing that seemed to cause the ER visit today other than continued generalized weakness. Son at the bedside states they thought he would snap out of it but it has progressed over the last several weeks. They normally attribute this behavior to urinary tract infection but he has had no dysuria or incontinence. Emergency department workup mostly unremarkable except for hypokalemia. Patient was noted to have a potassium of 2.9 on emergency department evaluation. He was also made the hypertensive. Attempts were made in the emergency department to rectify his hypokalemia and his hypertension. After 40 mill equivalents p.o. potassium and 30 mEq IV repeat potassium still 2.7. Given prolonged ER stay, it was felt the patient would benefit from hospitalization overnight. He is admitted to hospital service for further evaluation management. Hospital Course Hospital Course Hospital Course: Patient was seen and evaluated at the bedside on the day of discharge. Patient is stable for discharge. Patient wishes to be discharged. All patient questions were answered and patient was given time to ask questions. Patient was discharged in stable condition. Patient understands that she can return to ER in case of any sudden changes in health. Total time spent on DC - 38 mins Hypokalemia - improved, however patient has not been compliant with staff during the treatment due to agitational dementia Hypocalcemia - monitor Hyperthyroidism TSH 0.05 with a T4 of 12 History of hypothyroidism with levothyroxine use Patient has had prior episodes of waxing and waning TSH levels with some levels being as low as less than 0.02 and as high as 60 Could be contributing to patient's overall generalized weakness Will hold levothyroxine at this time and instruct patient to hold at discharge and follow-up with Dr. Mcginnis Elevated troponin - no complains of Chest pain Hypertension Received multiple agents in the emergency department with reduction of blood pressure from 190 systolic to 150s Will continue patient's home medication regimen DVT PPx Lovenox Exam Data for Last 24 hours Vital signs and Labs for Last 24 Hours: Temp Pulse Resp BP Pulse Ox O2 Del Method 97.9 F 60 17 162/79 H 94 L Room Air 09/01/23 04:00 09/01/23 08:00 09/01/23 04:00 09/01/23 04:00 09/01/23 04:00 09/01/23 11:00 Laboratory Results - last 24 hr 08/31/23 11:06: Sodium 141, Potassium 2.6 L*, Chloride 114 H, Carbon Dioxide 20 L, Anion Gap 9.6, BUN 13, Creatinine 1.00 D, Estimated Creat Clear 53, Estimated GFR 71, Est GFR ( Amer) 86 D, Glucose 107 H D, Calcium 7.9 L, Phosphorus 2.6, Magnesium 1.8, Troponin I 0.02, Triglycerides 86, Cholesterol 178, LDL Cholesterol Direct 113.32, VLDL Cholesterol 17, HDL Cholesterol 28 L, Cholesterol/HDL Ratio 6.4 H 09/01/23 10:54: WBC 7.1, RBC 3.86 L, Hgb 12.3 L, Hct 37.7 L, MCV 97.6 H, MCH 31.7 H, MCHC 32.5, RDW 14.9, Plt Count 285, MPV 8.7, Neut % (Auto) 66.7, Lymph % (Auto) 22.4, [place] % (Auto) 5.5, Eos % (Auto) 5.1, Baso % (Auto) 0.4, Neut # (Auto) 4.7, Lymph # (Auto) 1.6, [place] # (Auto) 0.4, Eos # (Auto) 0.4, Baso # (Auto) 0.0 I & O for Last 24 hours: Intake & Output 08/29/23 08/30/23 08/31/23 09/01/23 23:59 23:59 23:59 23:59 Intake Total 920 / 920 1476 / 1476 Output Total 0 / 0 100 / 100 Balance 920 / 920 1376 / 1376 W
[2023-09-01 11:27] LABS: Chloride 116 mmol/L (98-107); Potassium 3.6 mmoL/L (3.5-5.1); Sodium 145 mmol/L (136-145)
[2023-09-01 11:30] LABS: Anion Gap 10.6 mEq/L (5-15); Blood Urea Nitrogen 5 mg/dl (9-20); Calcium 8.1 mg/dl (8.4-10.2); Carbon Dioxide 22 mmol/L (22.0-30.0); Creatinine Clearance Estimated 53 mL/min (50-200); Estimated Glomerular Filt Rate 92 ml/min (>60); GFR (African American) 111 ML/MIN (>60); Glucose 106 mg/dl (74-100)
--- NOTE | 2023-09-01 11:35 | SW/DCPLANNER ---
Addendum entered by Roseanna Beard 09/01/23 15:46: Lolis leigh/ [facility] stated that services will begin this week for this patient. Original Note: I spoke w/ this patient's son (Sanket) due to patient being confused regarding discharge plans. Patient did refuse PT/OT evaluation today but MD has suggested that patient discharge home w/ home health services. Patient's son is agreeable to home health and agrees to use [facility]. Patient information/order will be faxed to [facility] today. Patient will discharge home later today.
[2023-09-01 12:00] VITALS: BP 152/71; PULSE 60; PULSE 61; RESP 19; TEMP 37.1; O2SAT 99
[2023-09-02 12:11] LABS: Calcium, Ionized 4.9 mg/dL (4.5-5.6)
--- NOTE | 2023-09-02 14:20 | CARE MANAGER ---
Called and spoke with patient's son, Sanket in regards to recent discharge. He states that patient is doing well, no questions or concerns at time of call. He has started new medication and is aware of scheduled f/u appt.
== END 2023-09-01 12:51 | disposition home health service (06) ==
LOC: ER 23:41 → 2ND 08-31 00:17
PROVIDERS: Emergency Medicine; Nurse Practitioner Acute Care; Admitting Provider Internal Medicine; Emergency Provider Emergency Medicine; PCP Internal Medicine Adolescent Medicine; Visit Provider Internal Medicine
DX: E87.6 Hypokalemia (principal); R53.1 Weakness; E05.90 Thyrotoxicosis, unspecified without thyrotoxic crisis or storm; R79.89 Other specified abnormal findings of blood chemistry; I12.9 Hypertensive chronic kidney disease with stage 1 through stage 4 chronic kidney disease, or unspecified chronic kidney disease; N18.9 Chronic kidney disease, unspecified; Z79.899 Other long term (current) drug therapy; Z87.891 Personal history of nicotine dependence; R06.9 Unspecified abnormalities of breathing
CPT/HCPCS: 36415; 71045; 80048; 80053; 80061; 81001; 82330; 82803; 83735; 83880; 84100; 84132; 84436; 84443; 84484; 85025; 87040; 87636; 93005; 94640; 99291; G0378

== ENCOUNTER 2025-08-21 02:53 | Emergency (ER) | payer MEDICARE, SELFPAY ==
--- OUTSIDE RECORDS SUMMARY | 2024-06-24 07:00 | XMS_ITS ---
Author Organization [facility] Address [address] [facility] [address] [place] [address] Care Team Providers Care Director Of Sustainable Design Name Role Phone Lc Mcginnis Primary Care Provider [phone] REASON FOR VISIT labs Encounters Encounter Location Date Provider Diagnosis [facility] [address] [place] [address] 06/24/2024 Lc Mcginnis Plan Of Treatment Next Appt Details Provider Name:Lc Mcginnis, 09/08/2025 03:30:00 PM, [address] [place] [address], [phone], Progress Notes * Terell JIMENEZ WDOB: 6 (89 yo M)Acc No.[id number]:06/24/2024 LABS Patient: Yoav WORTHYTerell Provider: Susanne Mcginnis MD :1935 A ge:88 Y S ex:Male Date:06/24/2024 Address:[id number] Subjective: * Chief Complaints: * 1 . Labs. * Medical History: Objective: * Vitals: Assessment: Plan: * Treatment: * * Electronic signature of Kevin Mcginnis MD FAAP on 08/21/2025 at 03:16 AM EST Sign off status: Pending * Provider: Susanne Mcginnis MD Date: Generated for Lola atkinson/Tia/Perla on: 10/21/2024 03:16 AM EST
--- OUTSIDE RECORDS SUMMARY | 2024-09-28 11:30 | XMS_ITS ---
Author Organization [facility] D ADA Address [address] [place] [address] Care Team Providers Care Horse Race Starter Name Role Phone Lc Mcginnis Primary Care Provider REASON FOR VISIT med ck Encounters Encounter Location Date Provider Diagnosis [address] [address] 09/28/2024 Lc Mcginnis Plan Of Treatment Next Appt Details Provider Name:Lc Mcginnis, 09/08/2025 03:30:00 PM, [address] [place] [address], [phone], Progress Notes * Terell JIMENEZ WDOB: (89 yo M)Acc No.[id number]:09/28/2024 Progress Notes Patient: Terell CHAPPELL Provider: Susanne Mcginnis MD :1935 A ge:89 Y S ex:Male Date:09/28/2024 Address:[id number] Subjective: * Chief Complaints: * 1 . Med ck. * Medical History: Objective: * Vitals: Assessment: Plan: * Treatment: * * Electronic signature of Kevin Mcginnis MD FAAP on 08/21/2025 at 03:14 AM EST Sign off status: Pending * Provider: Susanne Mcginnis MD Date: 0 09/28/2024 Generated for Lola atkinson/Tia/Perla on: 1 10/21/2024 03:14 AM EST
--- OUTSIDE RECORDS SUMMARY | 2024-11-24 11:15 | XMS_ITS ---
Author Organization [facility] Address [address] [place] [address] Care Team Providers Care Agricultural Economist Name Role Phone Lc Mcginnis Primary Care Provider Anastasiia Murillo Unavailable [phone] REASON FOR VISIT follow up Encounters Encounter Location Date Provider Diagnosis [place] [address] [address] 11/24/2024 Anastasiia Murillo Plan Of Treatment Next Appt Details Provider Name:Lc Mcginnis, 09/08/2025 03:30:00 PM, [address] [place] [address], [address], Progress Notes * Terell JIMENEZ WDOB: [birth year] (89 yo M)Acc No.[id number]:11/24/2024 Progress Notes Patient: Yoav WORTHY Terell Walls Provider: CORINNA Diaz :1935 A ge:89 Y S ex:Male Date:11/24/2024 Address:[id number] Pcp:Lc Mcginnis Subjective: * Chief Complaints: * 1 . Follow up. * Medical History: Objective: * Vitals: Assessment: Plan: * Treatment: * * Electronic signature of Gaye Murillo APRN on 08/21/2025 at 03:14 AM EST Sign off status: Pending * Provider: CORINNA Diaz Date: 0 11/24/2024 Generated for Lola atkinson/Tia/Perla on: 1 10/21/2024 03:14 AM EST
--- OUTSIDE RECORDS SUMMARY | 2024-12-25 16:30 | XMS_ITS ---
Author Organization [facility] Address [address] [place] [address] Care Team Providers Care Director Of Public Relations Name Role Phone Lc Mcginnis Primary Care Provider Migration, Provider Unavailable Unavailable Allergies Allergen (clinical drug ingredient) Drug/Non Drug Allergy documented on EMR Reaction Allergy Type Onset Date Status Information temporarily unavailable NIASPAN (uncoded) Unknown Allergy Active Information temporarily unavailable SULFA (uncoded) Unknown Allergy Active Information temporarily unavailable Doxycycline Unknown Drug Allergy Active Information temporarily unavailable Cephalosporins Unknown Drug Allergy Active Information temporarily unavailable Penicillin Unknown Drug Allergy Active Information temporarily unavailable Streptomycin Unknown Drug Allergy Active [facility] Conversion Encounter Medications Medication SIG (Take, Route, [...] review and pick correct strength-formulati on from [facility] options. If intended option is not shown, [...] review and pick correct strength-formulati on from [employer]Care options. If intended option is not shown, [...] Active Encounters Encounter Location Date Provider Diagnosis [facility] [address] [facility] [address] [place] [address] 12/25/2024 Provider Migration Plan Of Treatment Medication [...] ti mes a day; Duration: 90 days Next Appt Details Provider Name:Lc Mcginnis, 09/08/2025 03:30:00 PM, [address] [facility] [address], [place], [address], Progress Notes * Terell JIMENEZ WDOB: [birth year] (89 yo M)Acc No.[id number]:12/25/2024 Patient: Terell CHAPPELL Provider: Cathy manzano Migration :1935 A ge:89 Y S ex:Male Date:12/25/2024 Address:[facility] [place], [id number] Pcp:Lc Mcginnis Subjective: * Chief Complaints: * [...] *Please review and pick correct strength-formulation from Tizarospan options. If intended option is not shown, [...] Electronic signature of Prov ider Migration on 08/21/2025 at 03:15 AM EST Sign off status: Pending * Provider: Cathy manzano Migration Date: 0 12/25/2024 Generated for Lola atkinson/Tia/Perla on: 1 10/21/2024 03:15 AM EST
--- OUTSIDE RECORDS SUMMARY | 2025-07-21 11:30 | XMS_ITS ---
Author Organization [facility] Address [address] [place] [address] Care Team Providers Care Educational Administrator Name Role Phone Lc Mcginnis Primary Care [...] Unknown Drug Allergy Active REASON FOR VISIT F/U and Labs, swelling [...] 07/21/2025 Encounters Encounter Location Date Provider Diagnosis [address] [address] 07/21/2025 Lc Mcginnis HTN (hypertension), benign I10 [...] Reason: Provider Name:Lc Mcginnis, 09/08/2025 03:30:00 PM, [address] [place] [address], [address], Progress Notes * TONY Terell WDOB: [birth year] (89 yo M)Acc No.[id number]:07/21/2025 Progress Notes Patient: Terell CHAPPELL Provider: Susanne Mcginnis MD :1935 A ge:89 Y S ex:Male Date:07/21/2025 Address[id number] Subjective: * Chief Complaints: * 1 . [...] stones , pneumonia 10/2014, psychological reasons 09/2015, [facility] 12/2017, [facility]- AMS and dehydration 01/2021, H 01/2023, Low potassium 08/2023. * Family History: F ather: , [place]. M other: . P aternal Grand Father: . P aternal Grand Mother: . M aternal Grand Father: , [place]. M aternal Grand Mother: . P aternal [...] no. Travel outside [place]: no. 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 * Medications: T aking AERO CHAMBER DIRECTED [...] Susanne Mcginnis MD Date: Generated for Lola atkinson/Tia/eTterrancesmitting on: 10/21/2024 03:15 AM EST History and Physical Notes * HPI [...]
--- OUTSIDE RECORDS SUMMARY | 2025-08-04 11:00 | XMS_ITS ---
Author Organization [facility] Address [address] [place] [address] Care Team Providers Care Hairspring Studder Name Role Phone Lc Mcginnis Primary Care Provider [phone] Allergies Allergen (clinical drug ingredient) Drug/Non Drug [...] temporarily unavailable Streptomycin Unknown Drug Allergy Active Results Component Value Reference Range Notes Urinalysis Reviewed date:08/07/2025 07:38:59 PM Interpretation: Performing Lab: Notes/Report: Color/Clarity yellow Leuk neg Nitrite neg Urobili 2.0 Protein trace pH 7.0 Blood neg Sp. Gr. 1.020 Ketone trace Bili neg Glucose neg COMPREHENSIVE METABOLIC PANE L ([id number]) Reviewed date:08/05/2025 12:08:47 PM Interpretation: Performing Lab:CB, [facility] [address], [place] [place] Notes/Report: NON-FASTING; NON-FASTING; NON-FASTING PATIENT [...] Reviewed date:08/05/2025 12:08:47 PM Interpretation: Performing Lab:KHUSHI, [facility] [facility], [facility] CenterHurqAK[address] [place] Notes/Report: NON-FASTING; NON-FASTING; NON-FASTING PATIENT [...] MPV 10.0 7.5-12.5 fL ABSOLUTE NEUTROPHILS 2844 8855-9225 cells/uL ABSOLUTE LYMPHOCYTES 4052 922-3844 cells/uL ABSOLUTE MONOCYTES 677 200-950 cells/uL ABSOLUTE [...] Problem Status W/U Status Risk Notes Problem Information temporarily unavailable Falls frequently (R29.6) Active confirmed Problem Information temporarily unavailable Urinary incontinence, unspecified type (R32) Active confirmed Vital Signs Temperature 97.3 degrees Fahrenheit 08/04/20 25 Blood pressure systolic 130 mm Hg 08/04/20 25 Blood pressure diastolic 82 mm Hg 025 Heart Rate 78 /min 08/04/2025 Height 65 in 08/04/2025 Weight 160 lbs 08/04/2025 BMI 26.62 kg/m2 08/04/2025 Encounters Encounter Location Date Provider Diagnosis Cristine Mcnally [facility] [address] [facility] [address] [place] [address] 08/04/2025 Lc Mcginnis Falls frequently R29.6 ; Weakness R53.1 and Urinary incontinence, unspecified type R32 Assessments Encounter Date Diagnosis (ICD Code) Assessment Notes Treatment Notes Treatment Clinical Notes Section Notes 08/04/2025 Falls frequently (ICD-10 - R29.6) Labs ordered. Anticipate that they will not be actionable, and I had a long discussion with son, yblhssrh-lc-zmq and daughter about options. He is not [...] I had a long discussion with son, qjtlhavo-yj-cxg and daughter about options. He is not [...] Reason: Provider Name:Lc Mcginnis, 09/08/2025 03:30:00 PM, [address] [facility] [address], [place], [address], Progress Notes * Terell DEAN WDOB: [birth year] (89 yo M)Acc No.[id number]:08/04/2025 Progress Notes Patient: Terell CHAPPELL Provider: Susanne Mcginnis MD :1935 A ge:89 Y S ex:Male Date:08/04/2025 Address:[facility] [address] [place], [id number] Subjective: * Chief Complaints: * 1 . Fell 6-8 times. 2. Bilateral leg swelling. 3. Incontinence with urine and bowels. 4. Would like to check on lab work. * HPI: g en: Presents with an urgent visit with his son and bbhnmqzn-yi-nmn, and his daughter joined us later in [...] He and his family have been discussing care home placement. * Medical History: H ypercholestrolemia, Reflux, [...] URINE, ROUTINE (395) ?LAB: COMPREHENSIVE METABOLIC PANEL (51135) (Collection Date & Time - 08/04/2025 04:38 PM)* Value Reference Range G LUCOSE 97 65-99 - mg/dL * U SHADI NITROGEN (BUN) 8 7-25 - mg/dL * C REATININE 0.95 0.70-1.22 - mg/dL * B UN/CREATININE RATIO SEE NOTE: 03-13 - (calc) * S ODIUM 141 135-146 [...] - mL/min/1 .73m2 ?LAB: CBC (INCLUDES DIFF/PLT) (1924) (Collection Date & Time - 08/04/2025 04:38 [...] - % * A BSOLUTE NEUTROPHILS 2844 1904-1979 - cells/uL * L YMPHOCYTES 26.9 - % * A BSOLUTE LYMPHOCYTES 8280 431-4771 - cells/uL * M ONOCYTES 12.3 - [...] I had a long discussion with son, guaegsau-lm-iwe and daughter about options. He is not [...] URINE, ROUTINE (395) ?LAB: COMPREHENSIVE METABOLIC PANEL (93087) (Collection Date & Time - 08/04/2025 04:38 PM)* Value Reference Range G LUCOSE 97 65-99 - mg/dL * U SHADI NITROGEN (BUN) 8 7-25 - mg/dL * C REATININE 0.95 0.70-1.22 - mg/dL * B UN/CREATININE RATIO SEE NOTE: 03-13 - (calc) * S ODIUM 141 135-146 [...] - % * A BSOLUTE NEUTROPHILS 2844 8533-0120 - cells/uL * L YMPHOCYTES 26.9 - % * A BSOLUTE LYMPHOCYTES [phone] - cells/uL * M ONOCYTES 12.3 - [...] URINE, ROUTINE (395) ?LAB: COMPREHENSIVE METABOLIC PANEL ([id number]) (Collection Date & Time - 08/04/2025 04:38 [...] - % * A BSOLUTE NEUTROPHILS 2844 3131-6334 - cells/uL * L YMPHOCYTES 26.9 - % * A BSOLUTE LYMPHOCYTES 2120 601-2848 - cells/uL * M ONOCYTES 12.3 - [...] Susanne Mcginnis MD Date: 10/04/2024 Generated for Lola atkinson/Tia/eTterrancesmitting on: 10/21/2024 03:16 AM EST History and Physical Notes * HPI (History of Present Illness) Category Sub-Category Detail Notes Category Not es gen Presents with an urgent visit with his son and lviimine-hz-mhu, and his daughter joined us later in [...] He and his family have been discussing care home placement. Examination Category Sub-Category Detail Notes Category [...]
[2025-08-21 03:04] VITALS: BP 163/74; PULSE 69; RESP 16; TEMP 36.6; O2SAT 96; BMI 25.8
[2025-08-21 03:10] LABS: Microscopic, Urine URINE MICROSCOPIC (MICROSCOPIC)
[2025-08-21 03:11] LABS: Color,Urine YELLOW (Yellow); Glucose,Urine (UA) Negative (Negative); Hematocrit 37.9 % (42.0-52.0); Hemoglobin 12.2 g/dL (14.1-18.0); Immature Granulocytes % 0.1 %; Ketones,Urine 2+ (Negative); Leukocyte Esterase,Urine 2+ (Negative); Mean Corpuscular HGB Conc 32.2 g/dL (31.8-35.4); Mean Corpuscular Hemoglobin 30.7 pg (27.0-31.2); Mean Corpuscular Volume 95.5 fl (80-94); Nucleated Red Blood Cells % 0 %; PH,Urine 7.0 (5.0-8.5); Platelet Count 219 K/mm3 (142-424); Protein,Urine Negative (Negative); Red Blood Count 3.97 M/mm3 (4.60-6.20); Red Cell Distribution Width-SD 45.7 fL; Specific Gravity, Urine 1.020 (1.005-1.030); Urobilinogen,Urine 4.0 EU/dl (0.2); White Blood Count 7.0 K/mm3 (4.8-10.8)
--- NOTE | 2025-08-21 03:15 | ED_ITS ---
Discharge Plan Disposition Patient Disposition: Xfer [facility] Hospital Prescriptions Prescriptions: New levofloxacin 750 mg tablet 750 mg PO DAILY 7 Days Qty: 7 0RF No Action memantine 5 MG tablet 5 mg PO BID tiotropium-olodaterol 4 GM mist 2 spr IH DAILY montelukast 10 MG tablet 10 mg PO HS albuterol sulfate 8.5 GM HFA aerosol inhaler 2 puffs IH Q6HP PRN (Reason: Shortness Of Breath) donepezil 10 mg tablet 10 mg PO HS levothyroxine 88 mcg tablet 88 mcg PO DAILY omeprazole 20 MG capsule,delayed release(DR/EC) 20 mg PO HS divalproex 250 MG tablet extended release 24 hr 250 mg PO BID venlafaxine 75 MG tablet extended release 24hr 75 mg PO DAILY trazodone 100 MG tablet 200 mg PO HS cholecalciferol (vitamin D3) 1,250 mcg (50,000 unit) capsule 50,000 unit PO WEEKLY levetiracetam 500 mg tablet 500 mg PO BID Referrals Follow up/Referrals: Lc Mcginnis MD [Primary Care Provider, Internal Medicine] - See instructions Activity Restrictions/Add. Instructions Additional Instructions/Restrictions: Please take antibiotics as prescribed for treatment of urinary tract infection. The labs also showed mild hypokalemia. We gave him 1 dose of oral replacement. Consider recheck. Please follow-up with your primary care provider. Please return to the emergency department if you develop any new or worsening symptoms or become concerned for your health. Clinical Impressions Clinical Impression: Dementia, Acute UTI, Hypokalemia Instructions Patient Instructions: DI for Altered Mental Status Print Language Print Language: Albanian Discharge ED Provider: Austin Andrade General Adult HPI General Chief complaint: Altered Mental Status Stated complaint: Pysch Eval Time Seen by Provider: 08/21/25 03:00 Mode of Arrival: EMS Source of Information: EMS Description of Symptoms (Recalled from ER Triage Doc. by RN): Pt brought from [facility] via EMS with complaints of increased altered mental status and being combative with their staff. Pt is a/o to self and time, confused about current situation of being brought to hospital. Pt has no concerns or complaints of pain at this time, has agreed to allow us to do a medical workup at this time. History of Present Illness HPI narrative: 89-year-old male with history of Alzheimer's dementia, recently placed in [facility] 1 week ago, presents for combativeness. Patient is oriented to self. He is confused why he is at the hospital. Nursing facility reports that he has been more physically and verbally aggressive including grabbing women's press and scratching people. Patient denies any chest pain abdominal pain shortness of breath or any other symptoms. He denies acting aggressively towards anyone, though he was speaking quite aggressively as he said that. Related Data Home Medications ?Medication ?Instructions ?Recorded ?Confirmed divalproex 250 mg tablet,extended 250 mg PO BID Tremor s 02/04/20 08/30/23 release 24 hr omeprazole 20 mg capsule,delayed 20 mg PO HS acid refl ux 02/04/20 08/30/23 release trazodone 100 mg tablet 200 mg PO HS Insomnia 08/30/23 venlafaxine 75 mg tablet,extended 75 mg PO DAILY Depre ssion 02/04/20 08/30/23 release 24 hr memantine 5 mg tablet 5 mg PO BID Dementia 1 08/30/23 albuterol sulfate 90 mcg/actuation 2 puffs IH Q6HP PRN Shortness Of 01/29/21 08/30/23 aerosol inhaler Breath montelukast 10 mg tablet 10 mg PO HS Allergy symptoms 01/29/21 08/30/23 tiotropium 2.5 mcg-olodaterol 2.5 2 spr IH DAILY COPD 01/29/21 08/30/23 mcg/actuation mist for inhalation donepezil 10 mg tablet 10 mg PO HS dementia 3 08/30/23 levothyroxine 88 mcg tablet 88 mcg PO DAILY hypothyroi dism 01/29/23 08/30/23 cholecalciferol (vitamin D3) 1,250 50,000 unit PO WEEK LY VITAMIN D 08/31/23 08/31/23 mcg (50,000 unit) capsule SUPPLEMENT levetiracetam 500 mg tablet 500 mg PO BID SEIZURES 07/1408/31/23 Previous Rx's ?Medication ?Instructions ?Recorded levofloxacin 750 mg tablet 750 mg PO DAILY 7 days #7 t abs 08/21/25 Allergies Allergy/AdvReac Type Severity Reaction Status Date / Time erythromycin base Allergy Severe I-HIVES, Verified 02/03/20 17:27 RASH Cephalosporins Allergy Intermediate I-RASH Verified 02/03/20 17:27 doxycycline Allergy Intermediate I-RASH Verified 02/03/20 17:27 Penicillins Allergy Intermediate S-SWELLS-OR Verified 02/03/20 17:27 AL/THROAT Sulfa (Sulfonamide Allergy Intermediate I-RASH Verified 02/03/20 17:27 Antibiotics) clindamycin Allergy Unknown Verified 02/03/20 17:27 niacin Allergy Unknown I-RASH Verified 02/03/20 17:27 [facility] Disclaimer: The information contained in this section may have been updated after the patient was seen, as this information can be updated by other users. Medical History (Updated 08/21/25 @ 03:44 by Austin Andrade MD) HTN (hypertension) Elevated troponin Hyperthyroidism Generalized weakness Acute hypokalemia General weakness Altered mental status Stage 3 chronic kidney disease Hypertension Ataxia Dementia Behavioral change Social History Smoking Status: Never smoker alcohol intake: former substance use type: denies use current occupational status: retired Travel in the last 8 weeks?: None household members: children housing: house caffeine: No Other Medical History Have you received the Flu Vaccine for this season: No Have you received the Pneumonia Vaccine: No ROS Obtained: Yes All systems reviewed & no additional complaints except as documented Physical Exam General General appearance: alert Comment: Interactive, mildly confused Head Head exam: atraumatic and normocephalic Eye Eye exam: Present normal appearance, PERRL and EOMI ENT ENT exam: Present normal oropharynx and normal external ear exam Neck Neck exam: Present normal inspection and full ROM Chest Chest inspection: Present normal inspection and symmetric chest wall rise; Absent tenderness Respiratory Respiratory exam: Present normal lung sounds bilaterally; Absent respiratory distress Cardiovascular Cardiovascular exam: Present regular rate and normal rhythm Abdominal Exam Abdominal exam: Present soft; Absent distention, tenderness or guarding Extremities Exam Extremities exam: Present normal inspection; Absent edema or joint swelling Back Exam Back exam: Present normal inspection; Absent tenderness Neurological Exam Neurological exam: Present alert; Absent oriented X3 (Oriented x 1) or motor sensory deficit Psychiatric Psychiatric exam: Present agitated Skin Skin exam: Present warm, dry and normal color Lymphatic Lymphatic Findings: no adenopathy Medical Decision Making Medical Records Medical records reviewed: Yes I reviewed the patient's medical records. Screening: Per USPSTF and CDC recommendations, given the prevalence of disease in our region, it is our hospital?s policy to screen for HIV and viral Hepatitis for all patients aged 18 and over and those with ongoing risk factors. Curtis Inquiry Pt receiving controlled substance: No Curtis was queried for this patient: No Vital Signs: 08/21/25 03:04 08/21/25 03:56 Temperature 98 F 98 F Temperature Source Oral Oral Pulse Rate 71 Pulse Rate [Left] 69 Respiratory Rate 16 16 Blood Pressure 131/84 Blood Pressure [Right Arm] 163/74 H Blood Pressure Mean [Right Arm] 103 Blood Pressure Source Automatic Cuff Blood Pressure Source [Right Arm] Automatic Cuff Blood Pressure Position Supine Blood Pressure Position [Right Arm] Supine 02 Sat by Pulse Oximetry 96 Oxygen Delivery Method Room Air Room Air Lab Data Lab results reviewed: Yes I reviewed the patient's lab results. Lab Results 08/21/25 03:00: WBC 7.0, RBC 3.97 L, Hgb 12.2 L, Hct 37.9 L, MCV 95.5 H, MCH 30.7, MCHC 32.2, RDW 12.9, Plt Count 219, MPV 9.2, Neut % (Auto) 54.9, Lymph % (Auto) 28.0, [place] % (Auto) 13.7 H, Eos % (Auto) 2.3, Baso % (Auto) 1.0, Neut # (Auto) 3.8, Lymph # (Auto) 2.0, [place] # (Auto) 1.0, Eos # (Auto) 0.2, Baso # (Auto) 0.1, Sodium 149 H, Potassium 3.0 L, Chloride 105, Carbon Dioxide 34 H, Anion Gap 13.0, BUN 10, Creatinine 1.00, Estimated Creat Clear 52, Estimated GFR 71, Est GFR ( Amer) 85, Glucose 94, Calcium 8.2 L, Total Bilirubin 0.4, AST 31, ALT 18, Alkaline Phosphatase 66, Total Protein 6.7, Albumin 3.1 L, G lobulin 3.6 H, Albumin/Globulin Ratio 0.9 L, Urine Color Yellow, Urine Appearance Clear, Urine pH 7.0, Ur Specific [place] 1.020, Urine Protein Negative, Urine Glucose (UA) Negative, Urine Ketones 2+, Urine Blood Negative, Urine Nitrate Negative, Urine Bilirubin 1+ A, Urine Urobilinogen 4.0, Ur Leukocyte Esterase 2+ A, Urine RBC None, Urine WBC 20-50, Ur Squamous Epith Cells None, Urine Bacteria 1+ 08/21/25 03:00 08/21/25 03:00 Orders (Tests/Meds): ED MEDICATIONS Discontinued Medications Generic Name Dose Route Start Last Admin Trade Name Eyalq PRN Reason Stop Dose Admin Levofloxacin 750 mg 08/21/25 03:41 08/21/25 03:46 Levofloxacin 750 Mg Tablet PO 08/21/25 03:42 750 mg ONCE ONE Administration Potassium Chloride 40 meq 08/21/25 03:36 08/21/25 03:46 Potassium Chloride 10meq Capsule.Er PO 08/21/25 03:37 40 meq ONCE ONE Administration ORDERS Category Date Time Status CBC w/Auto Diff [Complete Blood Count Auto Diff] Stat Lab 08/21/25 03:00 Completed CMP [Comprehensive Metabolic Panel] Stat Lab 08/21/25 03:00 Completed UA [Urinalysis and Microscopic] Stat Lab 08/21/25 03:00 Completed Urine Culture Stat Micro 08/21/25 03:00 Received Medical Decision Narrative: 81-year-old male with history of dementia, COPD, [facility], presents from the penitentiary for increased combativeness, being verbally and physically aggressive. History was obtained via interactive discussion with patient, EMS, daughter, chart review. On arrival, patient is [afebrile, hemodynamically stable, satting appropriately, alert, oriented x2, GCS 15], moving all extremities spontaneously. Full physical exam performed and significant for no significant physical exam abnormalities. Differential includes but is not limited to dementia, delirium, UTI, electrolyte. Workup initiated including CBC CMP UA. On re-evaluation, patient [remains afebrile, HD stable.] Laboratory workup independently interpreted by me and significant for urinalysis consistent with UTI. No significant leukocytosis, mild hypokalemia noted.. Given patient history, exam and workup, patient's presentation most likely represents UTI and mild hypokalemia in the setting of dementia. His behavioral changes have likely worsened due to his recent change in living arrangements as well. These findings were communicated with patient's daughter and he was discharged back to the nursing facility. Procedures Risk/Benefits of Procedure(s) Were Explained: Yes Critical Care Critical Care Time Critical Care Time: No
--- OUTSIDE RECORDS SUMMARY | 2025-08-21 03:16 | XMS_ITS ---
Author Organization [facility] Care Team Providers Care Can Reconditioner Name Role Phone Lc Mcginnis Unavailable Unavailable Care Team Name Role Address Phone Organization Dates Lc Mcginnis PCP [address] , [place], [address], [place] (Office): : [facility] 10/16/2017 - 11/01/2017 Mental Status Section Date Assessment Total Score Description 11/01/2017 BIMS 15 cognitively int act CAM 0 No delirium ind icated PHQ-9 01 minimal depress ion 10/30/2017 BIMS 15 cognitively int act CAM 0 No delirium ind icated PHQ-9 01 minimal depress ion Insurance Providers Coverage Status Coverage Type Relationship to Subscriber Member Identifier Subscriber Identifier Group Identifier Payer Identifier and Other information 2017 Code: 51 Code System OID:[id number] .[id number]. 5 Code System Name: Source of Payment Typology (PHDSC) Display: Managed Care (Private) Translation: Code: HM Code System: OID:[id number] .[id number]. 1336 Code System Name: Insurance Type Code ([id number]) Display Name: Health Maintenance Organization (HMO) Plan Code: SELF Code System Name: HL7 RoleCode Code System OID:[id number] .[id number] Display Name: Self [id number] Root: [id number] Payer Identifier: Root: [id number] Extension: [id number] Address: [address] [place] [address] City: [place] State: [place] Country: [place] Code: 81 Code System OID:[id number] .[id number]. 5 Code System Name: Source of Payment Typology (PHDSC) Display: Self Pay Translation: Code: 09 Code System: OID:[id number] .[id number]. 1336 Code System Name: Insurance Type Code ([id number]) Display Name: Self-pay Problems Problem # Description Date of onset Resolved Date Code CodeSystem Concern Status 1 ANXIETY DISORDER, UNSPECIFIED [address] active 2 ATAXIA, UNSPECIFIED [address] active 3 ESSENTIAL (PRIMARY) HYPERTENSION [address] active 4 GASTRO-ESOPHAGEAL REFLUX DISEASE WITHOUT ESOPHAGITIS [address] active 5 HALLUCINATIONS, UNSPECIFIED [address] active 6 HISTORY OF FALLING [address] active 7 HYPOTHYROIDISM, UNSPECIFIED [address] active 8 INSOMNIA DUE TO OTHER MENTAL DISORDER [address] active 9 OTHER CHRONIC ALLERGIC CONJUNCTIVITIS [address] active 10 OTHER RECURRENT DEPRESSIVE DISORDERS [address] active 11 PNEUMONIA, UNSPECIFIED ORGANISM [address] active 12 UNSPECIFIED DEMENTIA WITH BEHAVIORAL DISTURBANCE [address] active Reason for Referral No Reasons for Referral Entered Social History Social History Observation Description Start Date End Date Code Code System Current Smoking Status Tobacco smoking consumption unknown 181994279 SNOMED CT Sex Assigned At Male 1935 00097-3 [facility] Gender Identity Sexual Orientation Vital Signs Code Code System Vitals Name Values and Units Timing Information 90457-3 INC Weight [place]=232.6 Units=Lbs 03/2018
[2025-08-21 03:19] LABS: Albumin Level 3.1 g/dl (3.5-5.0); Bacteria,Urine 1+ /lpf; Bilirubin,Urine 1+ (Negative); Chloride 105 mmol/L (98-107); WBC,Urine 20-50 #/hpf (0-3)
[2025-08-21 03:20] LABS: Sodium 149 mmol/L (136-145)
[2025-08-21 03:22] LABS: Alanine Aminotransferase 18 U/L (12-78); Blood Urea Nitrogen 10 mg/dl (9-20); Creatinine Clearance Estimated 52 mL/min (50-200); Creatinine,Serum 1.00 mg/dl (0.66-1.25); Estimated Glomerular Filt Rate 71 ml/min (>60); GFR (African American) 85 ML/MIN (>60)
[2025-08-21 03:23] LABS: Alkaline Phosphatase 66 U/L (38-126); Aspartate Amino Transferase 31 U/L (17-59); Bilirubin,Total 0.4 mg/dl (0.2-1.3); Calcium 8.2 mg/dl (8.4-10.2); Carbon Dioxide 34 mmol/L (22.0-30.0); Glucose 94 mg/dl (74-100); Total Protein,Serum 6.7 g/dl (6.3-8.2)
[2025-08-21 03:35] LABS: Albumin/Globulin Ratio 0.9 (1.1-1.8); Anion Gap 13.0 mEq/L (5-15); Globulin 3.6 g/dL (1.3-3.2); Potassium 3.0 mmoL/L (3.5-5.1)
[2025-08-21] MEDS: POTASSIUM CHLORIDE 10MEQ CAPSULE.ER 40 MEQ PO (03:46)
[2025-08-21 03:56] VITALS: BP 131/84; PULSE 71; RESP 16; TEMP 36.6; O2SAT 97
== END 2025-08-21 04:14 ==
PROVIDERS: Emergency Provider Emergency Medicine; PCP Internal Medicine Adolescent Medicine
DX: R45.6 Violent behavior (principal); F02.818 Dementia in other diseases classified elsewhere, unspecified severity, with other behavioral disturbance; E87.0 Hyperosmolality and hypernatremia; E87.6 Hypokalemia; N39.0 Urinary tract infection, site not specified; G30.9 Alzheimer's disease, unspecified
CPT/HCPCS: 80053; 81001; 85025; 87086; 99283

== ENCOUNTER 2025-09-06 14:51 | Observation (INO) | payer MEDICARE, SELFPAY ==
--- OUTSIDE RECORDS SUMMARY | 2024-06-24 07:00 | XMS_ITS ---
Author Organization [facility] Address [address] [facility] [address] [place] [address] Care Team Providers Care Reactor Operator Name Role Phone Lc Mcginnis Primary Care Provider REASON FOR VISIT labs Encounters Encounter Location Date Provider Diagnosis [facility] [place] [facility] [address] [place] [address] 06/24/2024 cL Mcginnis Plan Of Treatment Next Appt Details Provider Name:Lc Mcginnis, 09/08/2025 03:30:00 PM, [address] [place] [address], [phone], Progress Notes * Terell JIMENEZ WDOB: 6 (89 yo M)Acc No.[id number]:06/24/2024 LABS Patient: Yoav WORTHYTerell Provider: Susanne Mcginnis MD :1935 A ge:88 Y S ex:Male Date:06/24/2024 Address:[address] [id number] Subjective: * Chief Complaints: * 1 . Labs. * Medical History: Objective: * Vitals: Assessment: Plan: * Treatment: * * Electronic signature of Kevin Mcginnis MD FAAP on 09/06/2025 at 03:12 PM EST Sign off status: Pending * Provider: Susanne Mcginnis MD Date: 1 Generated for Lola atkinson/Tia/Perla on: 1 11/07/2024 03:12 PM EST
--- OUTSIDE RECORDS SUMMARY | 2024-09-28 11:30 | XMS_ITS ---
Author Organization [facility] D ADA Address [address] [place] [address] Care Team Providers Care Supreme Court Justice Name Role Phone Lc Mcginnis Primary Care Provider [phone] REASON FOR VISIT med ck Encounters Encounter Location Date Provider Diagnosis [address] [address] 09/28/2024 Lc Mcginnis Plan Of Treatment Next Appt Details Provider Name:Lc Mcginnis, 09/08/2025 03:30:00 PM, [address] [place] [address], [phone], Progress Notes * Terell JIMENEZ WDOB: (89 yo M)Acc No.[id number]:09/28/2024 Progress Notes Patient: Terell CHAPPELL Provider: Susanne Mcginnis MD :1935 A ge:89 Y S ex:Male Date:09/28/2024 Address:[id number] Subjective: * Chief Complaints: * 1 . Med ck. * Medical History: Objective: * Vitals: Assessment: Plan: * Treatment: * * Electronic signature of Kevin Mcginnis MD FAAP on 09/06/2025 at 03:10 PM EST Sign off status: Pending * Provider: Susanne Mcginnis MD Date: 0 09/28/2024 Generated for Lola atkinson/Tia/Perla on: 1 11/07/2024 03:10 PM EST
--- OUTSIDE RECORDS SUMMARY | 2024-11-24 11:15 | XMS_ITS ---
Author Organization [facility] Address [address] [place] [address] Care Team Providers Care Outreach Clinician Name Role Phone Lc Mcginnis Primary Care Provider Anastasiia Murillo Unavailable [phone] REASON FOR VISIT follow up Encounters Encounter Location Date Provider Diagnosis [facility] [address] [address] 11/24/2024 Anastasiia Murillo Plan Of Treatment Next Appt Details Provider Name:Lc Mcginnis, 09/08/2025 03:30:00 PM, [address] [place] [address], [address], Progress Notes * Terell JIMENEZ WDOB: 6 (89 yo M)Acc No.[id number]:11/24/2024 Progress Notes Patient: Yoav WORTHY Terell Walls Provider: CORINNA Diaz :1935 A ge:89 Y S ex:Male Date:11/24/2024 Address:[id number] Pcp:Lc Mcginnis Subjective: * Chief Complaints: * 1 . Follow up. * Medical History: Objective: * Vitals: Assessment: Plan: * Treatment: * * Electronic signature of Gaye Murillo APRN on 09/06/2025 at 03:10 PM EST Sign off status: Pending * Provider: CORINNA Diaz Date: 0 11/24/2024 Generated for Lola atkinson/Tia/Perla on: 1 11/07/2024 03:10 PM EST
--- OUTSIDE RECORDS SUMMARY | 2024-12-25 16:30 | XMS_ITS ---
Author Organization [facility] Address [address] [place] [address] Care Team Providers Care Telephone Lineworker Name Role Phone Lc Mcginnis Primary Care Provider [phone] Migration, Provider Unavailable Unavailable Allergies Allergen (clinical [...] Drug Allergy A ctive REASON FOR VISIT [facility] To [facility] Conversion Encounter Medications Medication SIG (Take, [...] review and pick correct strength-formulati on from JumpStart options. If intended option is not shown, [...] Active Encounters Encounter Location Date Provider Diagnosis [facility] [address] [facility] [address] [place] [address] 12/25/2024 Provider Migration Plan Of Treatment Medication [...] Provider Name:Lc Mcginnis, 09/08/2025 03:30:00 PM, [address] [address], [place], [address], Progress Notes * Terell JIMENEZ WDOB: [birth year] (89 yo M)Acc No.[id number]:12/25/2024 Patient: Terell CHAPPELL Provider: Cathy manzano Migration :1935 A ge:89 Y S ex:Male Date:12/25/2024 Address:[address] [place] [address], [place], [id number] Pcp:Lc Mcginnis Subjective: * Chief Complaints: * [...] Electronic signature of Prov ider Migration on 09/06/2025 at 03:12 PM EST Sign off status: Pending * Provider: Cathy manzano Migration Date: 0 12/25/2024 Generated for Lola atkinson/Tia/Perla on: 1 11/07/2024 03:12 PM EST
--- OUTSIDE RECORDS SUMMARY | 2025-07-21 11:30 | XMS_ITS ---
Author Organization [facility] Address [address] [place] [address] Care Team Providers Care Point Of Sale Associate Name Role Phone Lc Mcginnis Primary Care Provider Allergies Allergen (clinical drug ingredient) Drug/Non Drug [...] 07/21/2025 Encounters Encounter Location Date Provider Diagnosis [address] [address] 07/21/2025 Lc Mcginnis HTN (hypertension), benign I10 [...] Next Appt Details Follow Up: prn, Reason: Provider Name:Lc Mcginnis, 09/08/2025 03:30:00 PM, [address] [place] [address], [address], Progress Notes * TONY Terell WDOB: [birth year] (89 yo M)Acc No.[id number]:07/21/2025 Progress Notes Patient: Terell CHAPPELL Provider: Susanne Mcginnis MD :1935 A ge:89 Y S ex:Male Date:07/21/2025 [id number] Subjective: * Chief Complaints: * 1 . [...] pneumonia 10/2014, psychological reasons 09/2015, [facility] 12/2017, [facility]- AMS and dehydration 01/2021, H 01/2023, Low potassium 08/2023. * Family History: F ather: , [place]. M other: . P aternal Grand Father: . P aternal Grand Mother: . M aternal Grand Father: , [place]. M aternal Grand Mother: . P aternal [...] no. Travel outside [place]: no. 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 * Medications: T aking AERO CHAMBER DIRECTED [...] MD Date: Generated for Lola atkinson/Tia/Leahitting on: 11/07/2024 03:11 PM EST History and Physical Notes * [...]
--- OUTSIDE RECORDS SUMMARY | 2025-08-04 11:00 | XMS_ITS ---
Author Organization [facility] Address [address] [place] [address] Care Team Providers Care Elevator Serviceman Name Role Phone Lc Mcginnis Primary Care [...] neg Glucose neg COMPREHENSIVE METABOLIC PANE L (71097) Reviewed date:08/05/2025 12:08:47 PM Interpretation: Performing Lab:[facility], [facility] [place], [place] [place] Notes/Report: NON-FASTING; NON-FASTING; NON-FASTING PATIENT [...] Reviewed date:08/05/2025 12:08:47 PM Interpretation: Performing Lab:KHUSHI, [facility] Gkvx[address] [facility], [facility] [place] Notes/Report: NON-FASTING; NON-FASTING; NON-FASTING PATIENT [...] MPV 10.0 7.5-12.5 fL ABSOLUTE NEUTROPHILS 2844 [phone] cells/uL ABSOLUTE LYMPHOCYTES [phone] cells/uL ABSOLUTE MONOCYTES 677 200-950 cells/uL ABSOLUTE [...] W/U Status Risk Notes Problem Recurrent falls (864699044) Falls frequently (R29.6) Active confirmed Problem Urinary incontinence (042169053) Urinary incontinence, unspecified type (R32) Active confirmed Vital Signs Temperature 97.3 degrees Fahrenheit 08/04/20 25 Blood pressure systolic 130 mm Hg 08/04/20 25 Blood pressure diastolic 82 mm Hg 025 Heart Rate 78 /min 08/04/2025 Height 65 in 08/04/2025 Weight 160 lbs 08/04/2025 BMI 26.62 kg/m2 08/04/2025 Encounters Encounter Location Date Provider Diagnosis [facility] [address] [facility] [address] [place] [address] 08/04/2025 Lc Mcginnis Falls frequently R29.6 ; Weakness R53.1 and Urinary incontinence, unspecified type R32 Assessments Encounter Date Diagnosis (ICD Code) Assessment Notes Treatment Notes Treatment Clinical Notes Section Notes 08/04/2025 Falls frequently (ICD-10 - R29.6) Labs ordered. Anticipate that they will not be actionable, and I had a long discussion with son, nfplddlr-yp-ehx and daughter about options. He is not [...] I had a long discussion with son, ozgqftbe-sh-iev and daughter about options. He is not [...] Provider Name:Lc Mcginnis, 09/08/2025 03:30:00 PM, [address] [facility], [place], [address], Progress Notes * Terell DEAN WDOB: [birth year] (89 yo M)Acc No.[id number]:08/04/2025 Progress Notes Patient: Terell CHAPPELL Provider: Susanne Mcginnis MD :[id number] A ge:89 Y S ex:Male Date:08/04/2025 Address:[facility] [address] [place], [id number] Subjective: * Chief Complaints: * 1 . Fell 6-8 times. 2. Bilateral leg swelling. 3. Incontinence with urine and bowels. 4. Would like to check on lab work. * HPI: marce en: Presents with an urgent visit with his son and ajyfppxs-uq-bge, and his daughter joined us later in [...] He and his family have been discussing assisted placement. * Medical History: H ypercholestrolemia, Reflux, [...] * G lucose neg * Nohelia Friedman 08/05/20 25 03:44:21 PM EST >This lab was reviewed by Lc Mcginnis on 08/07/2025 at 19:38 PM EST ?LAB: CULTURE, URINE, ROUTINE (395) ?LAB: COMPREHENSIVE METABOLIC PANEL (74180) (Collection Date & Time - 08/04/2025 04:38 PM)* Value Reference Range G LUCOSE 97 65-99 - mg/dL * U SHADI NITROGEN (BUN) 8 7-25 - mg/dL * C REATININE 0.95 0.70-1.22 - mg/dL * B UN/CREATININE RATIO SEE NOTE: 6 - (calc) * S ODIUM 141 135-146 [...] - mL/min/1 .73m2 ?LAB: CBC (INCLUDES DIFF/PLT) (2463) (Collection Date & Time - 08/04/2025 04:38 [...] - % * A BSOLUTE NEUTROPHILS 2844 5275-3262 - cells/uL * L YMPHOCYTES 26.9 - % * A BSOLUTE LYMPHOCYTES 8244 850-0256 - cells/uL * M ONOCYTES 12.3 - [...] I had a long discussion with son, xvtpibqz-ex-lau and daughter about options. He is not [...] URINE, ROUTINE (395) ?LAB: COMPREHENSIVE METABOLIC PANEL (70248) (Collection Date & Time - 08/04/2025 04:38 [...] - mL/min/1 .73m2 ?LAB: CBC (INCLUDES DIFF/PLT) (9699) (Collection Date & Time - 08/04/2025 04:38 [...] - % * A BSOLUTE NEUTROPHILS 2844 9207-2930 - cells/uL * L YMPHOCYTES 26.9 - % * A BSOLUTE LYMPHOCYTES [phone] - cells/uL * M ONOCYTES 12.3 - [...] URINE, ROUTINE (395) ?LAB: COMPREHENSIVE METABOLIC PANEL (22261) (Collection Date & Time - 08/04/2025 04:38 [...] - % * A BSOLUTE NEUTROPHILS 2844 1638-7068 - cells/uL * L YMPHOCYTES 26.9 - % * A BSOLUTE LYMPHOCYTES 3723 339-1966 - cells/uL * M ONOCYTES 12.3 - [...] Mcginnis MD Date: 10/04/2024 Generated for Lola atkinson/Tia/eTransmitting on: 11/07/2024 03:12 PM EST History and Physical Notes * HPI (History of Present Illness) Category Sub-Category Detail Notes Category Not es gen Presents with an urgent visit with his son and szmbmtet-iw-hvn, and his daughter joined us later in [...] He and his family have been discussing assisted placement. Examination Category Sub-Category Detail Notes Category [...]
--- OUTSIDE RECORDS SUMMARY | 2025-08-23 12:00 | XMS_ITS ---
Author Organization [facility] Address [address] [place] [address] Care Team Providers Care Bulk Plant Agent Name Role Phone Lc Mcginnis Primary Care Provider Anastasiia Murillo [phone] Allergies Allergen (clinical drug ingredient) Drug/Non Drug [...] Drug Allergy A ctive REASON FOR VISIT [facility] Medications Medication SIG (Take, Route, Frequency, Duration) Notes Start Date End Date Status ALBUTEROL (EQV-PROAIR HFA) 9 0 MCG/INH INHALE 2 PUFFS BY MOUTH FOUR TIMES A DAY (EVERY 6 HOURS) NEEDED INHALED EVERY 6 HOURS; Duration: 30 DAYS Active Keppra 500 MG 1 tab(s) orally 2 ti mes a day; Duration: 90 days Active Divalproex Sodium 250 MG 1 tab(s) orally twice daily; Duration: 90 days Active Omeprazole 20 MG 1 cap(s) orally once a day; Duration: 90 days Active Synthroid 88 MCG 1 tab(s) orally once a day; Duration: 90 days Active Venlafaxine HCl ER 75 MG 1 cap(s) orally once a day; Duration: 90 days Active Donepezil HCl 10 MG 1 tab(s) orally once a day (at bedtime); Duration: 90 days Active Memantine HCl 10 MG 1 tab(s) orally 2 ti mes a day; Duration: 90 days Active Stiolto Respimat 2.5 MCG-2.5 MCG/INH INHALE 2 PUFFS BY MOUTH ONCE A DAY Active Cholecalciferol 250 MCG 1 CAP(S) ORALLY ONCE A WEEK; Duration: 90 DAYS 04/29/2023 Active Social History Tobacco Use: Social History Observation Description Date Details (start date - stop date) Never Smoker NA - NA Smoking: Question Answer Notes Are you a: nonsmoker Additional Findings: Tobacco Non-User Current no n-smoker Section Notes: history of alcohol abuse Problems Problem Type SNOMED Code ICD Code Onset Dates Problem Status W/U Status Risk Notes Problem Dementia with behavioral disturbance (0977424988777) Dementia with behavioral disturbance (F03.918) Active confirmed Problem Senile debility (11339313) Senile debility (R54) Active confirmed Problem Functional urinary incontinence (314071148) Urinary incontinence due to cognitive impairment (R39.81) Active confirmed Problem Insomnia (955097020) Other insomnia (G47.09) Active confirmed Vital Signs Temperature 98.7 degrees Fahrenheit 08/23/20 25 Blood pressure systolic 142 mm Hg 08/23/20 25 Blood pressure diastolic 61 mm Hg 025 Heart Rate 81 /min 08/23/2025 Height 65 in 08/23/2025 Weight 147.6 lbs 08/23/2025 BMI 24.56 kg/m2 08/23/2025 Encounters Encounter Location Date Provider Diagnosis [address] [address] 08/23/2025 Anastasiia Murillo Dementia with behavi oral disturbance F03.918 ; COPD (chronic obstructive pulmonary disease) J44.9 ; Senile debility R54 ; Hypothyroidism E03.9 ; Gastro-esophageal reflux disease without esophagitis K21.9 ; Vitamin D deficiency E55.9 ; Chronic respiratory failure with hypoxia J96.11 ; Falls frequently R29.6 ; Urinary incontinence due to cognitive impairment R39.81 and Other insomnia G47.09 Assessments Encounter Date Diagnosis (ICD Code) Assessment Notes Treatment Notes Treatment Clinical Notes Section Notes 08/23/2025 Dementia with behavioral disturbance (ICD-10 - F03.918) advancing...cont inue seroquel. risks/benefits and goals of therapy discussed with family and they are agreeable. depakote may benefit mood as well pharmacy has also recommended stopping singulair in case this is contributing to his mood symptoms 08/23/2025 COPD (chronic obstructive pulmonary disease) (ICD-10 - J44.9) Continue stiolto, albuterol as needed 08/23/2025 Senile debility (ICD-10 - R54) advanced, therapies as indicated if family desires 08/23/2025 Hypothyroidism (ICD-10 - E03.9) continue oral replacement 08/23/2025 Gastro-esophageal reflux disease without esophagitis (ICD-10 - K21.9) continue PPI 08/23/2025 Vitamin D deficiency (ICD-10 - E55.9) continue oral replacement 08/23/2025 Chronic respiratory failure with hypoxia (ICD-10 - J96.11) has required supplemental O2 previously but tubing/equipment seem to be exacerbating some of his agitation at time. discontinue use and monitor respiratory symptoms 08/23/2025 Falls frequently (ICD-10 - R29.6) high risk for falls due to age related weakness and poor safety awareness, therapies if desired 08/23/2025 Urinary incontinence due to cognitive impairment (ICD-10 - R39.81) nursing care as needed 08/23/2025 Other insomnia (ICD-10 - G47.09) trazodone stopped when quetiapine was initiated, monitor 08/23/2025 Other Plan Of Treatment Next Appt Details Follow Up: 1-2 weeks, Reason : Provider Name:Lc Mcginnis, 09/08/2025 03:30:00 PM, [address] [place] [address], [phone], Progress Notes * Terell DEAN WDOB: [birth year] (89 yo M)Acc No.[id number]:08/23/2025 Patient: Terell CHAPPELL Provider: CORINNA Diaz :1935 A ge:89 Y S ex:Male Date:08/23/2025 Address:[facility] [place], [id number] Pcp:Lc Mcginnis Subjective: * Chief Complaints: * 1 . [facility] Admission. * HPI: marce en: 89 yr old male seen today at [facility] for admission to facility. Admitted from home where he was living with family but with increasing physical debility and several falls over the past few weeks. Also with continued cognitive decline and some resistance to care but no aggressive behaviors in the home. He has a long history of dementia, chronic pain/headache syndrome treated with depakote and seizure-like episodes which resolved with keppra. Has also had decreased appetite and lost weight in the past several weeks. Since admission has had several issues with behavior including wandering, hyper-sexual verbalizations and some significant aggression with staff. Initially started on Rexulti which has indication for demetia with agitation but due to escalating nature of behaviors and aggression this was transitioned to quetiapine BID which he has just started. He also has sitters around the clock for his safety and that of other residents pending medication adjustments. He was sent to the ED for eval as well, diagnosed with possible UTI and discharged back here on oral antibiotics but final culture has since been negative for bacterial growth. * ROS: R ESPIRATORY: no S hortness of breath. n o C hest congestion.?no C ough. C ARDIOLOGY: no L eg edema. n o S hortness of breath. C ONSTITUTIONAL: Loss of appetite y es. n o F ever. W eakness?yes. D ERMATOLOGY: no R dennis. E NDOCRINOLOGY: no P olydypsia. n o P olyuria. G ASTROENTEROLOGY: no V omiting. n o D iarrhea. M USCULOSKELETAL: no b ack pain. N EUROLOGY: See HPI Y es. P SYCHOLOGY: See HPI Y es. U ROLOGY: no D ifficulty urinating. n o B lood in urine. * Medical History: H ypercholestrolemia, Reflux, CATARACTS, COPD, Past tobacco use, Hypertension, Spinal stenosis, Chronic headaches, chronic narcotic use in the past but now controlled on depakote, Sinus surgeries x2, MRSA, Hypothyroidism, Dementia with behavior disturbance, Seizure-like episodes. * Surgical History: c ataract removal 09/2005, cholecystectomy 10/2007, sinus surgeries . * Hospitalization/Major Diagno stic Procedure: G all stones , pneumonia 10/2014, psychological reasons 09/2015, H 12/2017, [facility]- AMS and dehydration 01/2021, H 01/2023, Low potassium 08/2023. * Family History: F ather: , [place]. M other: . P aternal Grand Father: . P aternal Grand Mother: . M aternal Grand Father: , [place]. M aternal Grand Mother: . P aternal uncle: . P aternal aunt: . M aternal uncle: .?Maternal aunt: alive, daughter . S iblings: , 1 brother mva, 1 Alzheimer. C hildren: alive, 1 daughter . 2 brother(s) , 1 sister(s) . 1 son(s) , 2 daughter(s) . . N on-Contributory. * Social History: S moking: no A re you a: n onsmoker, A dditional Findings: Tobacco Non-User C urrent non-smoker. R ecreational drug use: no. Exercise: no. Home smoke detector use: yes. Caffeine: yes, 2 diet coke daily. Living Will: Yes. Alcohol: no. Sexually active: no. Travel outside [place]: no. 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 history of alcohol abuse. * Medications: T aking Cholecalciferol 250 MCG CAPSULE 1 CAP(S) ORALLY ONCE A WEEK , Taking Stiolto Respimat 2.5 MCG-2.5 MCG/INH AEROSOL INHALE 2 PUFFS BY MOUTH ONCE A DAY , Taking Memantine HCl 10 MG Tablet [...] orally 2 times a day , Taking ALBUTEROL (EQV-PROAIR HFA) 90 MCG/INH AEROSOL INHALE 2 PUFFS BY MOUTH FOUR TIMES A DAY (EVERY 6 HOURS) NEEDED INHALED EVERY 6 HOURS , Discontinued AERO CHAMBER DIRECTED INHALED DIRECTED , Discontinued OXYGEN 2 LITERS NASAL CANNULA DIRECTED DAILY , Notes to Pharmacist: prn, Discontinued Aricept 10 MG Tablet TAKE ONE TABLET BY MOUTH EVERY EVENING AT BEDTIME orally , Discontinued Montelukast Sodium 10 mg Tablet TAKE ONE TABLET BY MOUTH AT BEDTIME , Discontinued traZODone HCl 100 mg Tablet TAKE 2 TABLETS BY MOUTH AT BEDTIME , Medication List reviewed and reconciled with the patient * Allergies: S ULFA, Streptomycin, Penicillin, NIASPAN, Cephalosporins, Doxycycline. Objective: * Vitals: P ain: 0, Temp: 98.7, RR: 20, HR: 81, BP: 142/61, Ht: 65, Wt: 147.6, BMI:24.56. * Examination: G eneral Examination: General a lert, frail appearing but conversant and being assisted with evening meal. Oral cavity: M oist membranes. Heart: R egular Rate and Rhythm,. Lungs: c lear to auscultation,. Abdomen: s oft, NT/ND, BS present. Neurologic Exam: A lert and oriented to person, partially to place. Skin: w ithout acute rashes. Peripheral pulses: n ormal (2+) bilaterally. Extremities: n o clubbing, no edema,. neck s upple,. Psych p leasant but also somewhat hyperactive. ? Assessment: * Assessment: 1. C OPD (chronic obstructive pulmonary disease) - J44.9 (Primary) 2 . D ementia with behavioral disturbance - F03.918 3 . S enile debility - R54 ? 4 . H ypothyroidism - E03.9 5 . G hattie-esophageal reflux disease without esophagitis - K21.9 6 . V itamin D deficiency - E55.9 7 .?Chronic respiratory failure with hypoxia - J96.11 8 . F alls frequently - R29.6 9 . U rinary incontinence due to cognitive impairment - R39.81 ?10. O ther insomnia - G47.09 Plan: * Treatment: 2. D ementia with behavioral disturbance Clinical Notes: advancing...continue seroquel. risks/benefits and goals of therapy discussed with family and they are agreeable. depakote may benefit mood as well pharmacy has also recommended stopping singulair in case this is contributing to his mood symptoms? 3. S enile debility Clinical Notes: advanced, therapies as indicated if family desires 4. H ypothyroidism Clinical Notes: continue oral replacement 5. G hattie-esophageal reflux disease without esophagitis Clinical Notes: continue PPI 6. V itamin D deficiency Clinical Notes: continue oral replacement 7. C hronic respiratory failure with hypoxia Clinical Notes: has required supplemental O2 previously but tubing/equipment seem to be exacerbating some of his agitation at time. discontinue use and monitor respiratory symptoms 8. F alls frequently Clinical Notes: high risk for falls due to age related weakness and poor safety awareness, therapies if desired 9. U rinary incontinence due to cognitive impairment Clinical Notes: nursing care as needed 10. O ther insomnia Clinical Notes: trazodone stopped when quetiapine was initiated, monitor * Follow Up: 1 -2 weeks * * Sign off status: Completed Addendum: * true * Provider: CORINNA Diaz Date: 10/24/2024 Generated for Lola atkinson/Tia/Leahitting on: 11/07/2024 03:11 PM EST History and Physical Notes * Examination Category Sub-Category Detail Notes Category Not es General Examination Heart: Regular Rate and Rhyt hm, Lungs: clear to auscultatio n, Abdomen: soft, NT/ND, BS pres ent Extremities: no clubbing, no david a, Skin: without acute rashes Neurologic Exam: Alert and oriented t o person, partially to place Oral cavity: Moist membranes Peripheral pulses: normal (2+) bilatera lly neck supple, General alert, frail appeari ng but conversant and being assisted with evening meal Psych pleasant but also so mewhat hyperactive
[2025-09-06] VITALS (18 sets, daily range): BP systolic 114–192; BP diastolic 54–84; PULSE 50–80; RESP 16; TEMP 36.7–37.1; O2SAT 91–100; BMI 24.2; BMI 23.6
--- NOTE | 2025-09-06 14:37 | CT_ITS ---
PROCEDURE INFORMATION: Exam: CT Head Without Contrast Exam date and time: 09/06/2025 2:52 PM Age: 89 years old Clinical indication: Altered mental status/memory loss; Additional info: Abnormal aggressive behavior TECHNIQUE: Imaging protocol: Computed tomography of the head without contrast. Radiation optimization: All CT scans at this facility use at least one of these dose optimization techniques: automated exposure control; mA and/or kV adjustment per patient size (includes targeted exams where dose is matched to clinical indication); or iterative reconstruction. COMPARISON: CT HEAD/BRAIN WO CON 01/28/2023 6:53 PM FINDINGS: Brain: There is moderate atrophy and extensive chronic white matter microangiopathic changes substantially more prominent than on the comparison study. Cerebral ventricles: There is compensatory ventricular dilation. The right temporal horn is more prominent than the left. 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 Paranasal sinuses: There is opacification of the contracted left maxillary sinus with thickened cole suggesting chronic inflammatory disease. There has been creation of a medial antrostomy. There is mucosal thickening of the left frontoethmoid recess and anterior right ethmoid air cells. There is mucosal thickening and mucoid debris in the small right sphenoid sinus and minimal fluid in the dependent larger left sphenoid sinus. Mastoid air cells: Visualized mastoid air cells are well aerated. Bones: Unremarkable. No acute fracture. Soft tissues: Unremarkable. Vasculature: The vasculature demonstrates diffuse moderate atherosclerotic calcification. IMPRESSION: 1. There is opacification of the contracted left maxillary sinus with thickened cole suggesting chronic inflammatory disease. There has been creation of a medial antrostomy. There is mucosal thickening of the left frontoethmoid recess and anterior right ethmoid air cells. There is mucosal thickening and mucoid debris in the small right sphenoid sinus and minimal fluid in the dependent larger left sphenoid sinus. 2. There is moderate atrophy and extensive chronic white matter microangiopathic changes substantially more prominent than on the comparison study. 3. There is compensatory ventricular dilation. The right temporal horn is more prominent than the left.
--- NOTE | 2025-09-06 14:37 | XR_ITS ---
PROCEDURE INFORMATION: Exam: XR Chest Exam date and time: 09/06/2025 2:54 PM Age: 89 years old Clinical indication: Other: AMS; Additional info: Abnormal aggressive behavior, pneumonia? TECHNIQUE: Imaging protocol: Radiologic exam of the chest. Views: 1 view. COMPARISON: CR XR CHEST PORTABLE 08/30/2023 6:39 PM FINDINGS: Lungs: Unremarkable. No consolidation. Pleural spaces: Unremarkable. No pleural effusion. No pneumothorax. Heart/Mediastinum: Unremarkable. No cardiomegaly. Vasculature: The vasculature demonstrates diffuse moderate atherosclerotic calcification. Bones/joints: Unremarkable. IMPRESSION: No evidence of an acute chest abnormality.
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
--- NOTE | 2025-09-06 15:08 | ECG_ITS ---
APPROVED REPORT Exam: Resting ECG HR:72 bpm ECG Measurements Heart Rate 72 AXES MO 189 P 246 QRSd 90 QRS 2 QT 411 T 43 QTc 435 Conclusion SINUS RHYTHM ANTEROSEPTAL MYOCARDIAL INFARCTION , PROBABLY OLD [40+ ms Q WAVE IN V1-V4] ABNORMAL ECG UNCONFIRMED REPORT Normal sinus rhythm. No STEMI Electronically signed by : JORDAN OSUNA, 09/07/2025 07:20:35
--- OUTSIDE RECORDS SUMMARY | 2025-09-06 15:11 | XMS_ITS | Clinical Summary ---
Author Organization [facility] Address [facility] [place] [address] Phone Care Team Providers Care Assembler Mechanical Ordnance Name Role Phone Lc Mcginnis MD Primary Care Provider [phone] Allergies Active Allergy Reactions Criticality Noted Date Comments Clindamycin 10/20/2015 Erythromycin 10/20/2015 Penicillins 10/20/2015 Sulfa (Sulfonamide Antibiotics) 09/23 Medications olopatadine (PATANOL) 0.1 % Opht Drops Place 1 Drop into both eyes daily. Active travoprost, benzalkonium, (TRAVATAN) 0.004 % Opht Drops Place 1 Drop into both eyes nightly. Active ezetimibe-simvas tatin (VYTORIN) 10-10 mg Oral Tablet Take by mouth every evening. Active QUEtiapine (SEROQUEL) 200 mg Oral Tablet Take 200 mg by mouth nightly. Active fUROsemide (LASIX) 20 mg Oral Tablet Take 20 mg by mouth daily. Active bisacodyl (DULCOLAX) 5 mg Oral Tablet, Delayed Release (E.C.) Take 5 mg by mouth daily as needed for Constipatio n. Active docusate sodium (COLACE) 250 mg Oral Capsule Take 250 mg by mouth 2 times daily. Active donepezil (ARICEPT) 10 mg Oral Tablet Take 10 mg by mouth nightly. Active doxazosin (CARDURA) 4 mg Oral Tablet Take 4 mg by mouth daily. Active esomeprazole (NEXIUM) 40 mg Oral Capsule, Delayed Release(E.C.) Take 40 mg by mouth daily. Active fluticasone (FLONASE) 50 mcg/actuation Nasl [place], Suspension 2 Sprays by Nasal route 2 times daily. Active levothyroxine (SYNTHROID) 100 mcg Oral Tablet Take 100 mcg by mouth daily. Active HYDROcodone-acet aminophen (NORCO) 5-325 mg Oral Tablet Take 1 Tab by mouth every 6 hours as needed. 30 Tab 0 11/10/2015 Active lisinopril (PRINIVIL;ZESTRI L) 10 mg Oral Tablet Take 1 Tab by mouth daily. 30 Tab 0 11/10/2015 Active docusate calcium (SURFAK) 240 mg Oral Capsule Take 1 Cap by mouth 2 times daily. 60 Cap 0 11/10/2015 Active estradiol (CLIMARA) 0.025 mg/[address] 1 Patch onto the skin once a week. 10 Patch 0 11/10/2015 Active desvenlafaxine succinate (PRISTIQ) 50 mg Oral Tablet Sustained Release 24 hr Take 1 Tab by mouth daily. 30 Tab 0 11/10/2015 Active haloperidol lactate (HALDOL) 5 mg/mL Inj Solution Inject 1 mL into the muscle every 6 hours as needed for Agitation. 10 mL 0 11/10/2015 Active QUEtiapine (SEROQUEL) 200 mg Oral TabletIndication s:am Take 1 Tab by mouth daily. Indications : am 30 Tab 11/10/2015 Active lisinopril (PRINIVIL;ZESTRI L) 40 mg Oral Tablet Take 1 Tab by mouth daily. 30 Tab 0 11/15/2015 Active Active Problems Problem Noted Date Diagnosed Date COPD (chronic obstructive pulmonary disease) Essential hypertension 10/22/2015 Primary hypothyroidism 10/22/2015 Metabolic encephalopathy 10/22/2015 Agitation 10/21/2015 Surgical History Surgery Date Site/Laterality Comments CHOLECYSTECTOMY EYE SURGERY cataracts SINUS SURGERY Medical History Medical History Date Comments COPD (chronic obstructive pulmonary disease) (HC C) CHF (congestive heart failure) (HCC) Hypothyroid HTN (hypertension) MRSA (methicillin resistant staph aureus) cultur e positive Pneumonia Aspiration of blood with pneumonia silent Alzheimer's dementia (HCC) Social History Tobacco Use Types Packs/Day Years Used Date Smoking Tobacco: Former Cigarettes Q uit: 10/21/1984 Smokeless Tobacco: Never Quit: 10/21/1984 Alcohol Use Standard Drinks/Week Comments No 0 (1 standard drink = 0.6 oz pur e alcohol) years ago, drank beer,liquor Sex and Gender Information Value Date Recorded Sex Assigned at Not on file Legal Sex Male 7:32 PM EST Gender Identity Not on file Sexual Orientation Not on file Last Filed Vital Signs Vital Sign Reading Time Taken Comments Blood Pressure 114/65 11/15/2015 9:24 AM EST Pulse 82 11/15/2015 9:24 AM EST Temperature 36.6 C (97.9 F) 11/15/2015 9:24 AM EST Respiratory Rate 18 11/15/2015 9:24 AM EST Oxygen Saturation 99% 11/15/2015 9:24 AM EST Inhaled Oxygen Concentration - - Weight 89.7 kg (197 lb 12.8 oz) 11/11/2015 8:47 AM EST Height 160 cm (5' 3 ) 10/20/2015 7:59 PM EST Body Mass Index 35.04 10/20/2015 7:59 PM EST Plan of Treatment Health Maintenance Due Date Last Done Comments Wellness Exam Medicare 1938 DTaP/TDaP/Td (1 - Tdap) 1955 Pneumococcal Vaccine 50+ (1 of 2 - PCV) 1955 Zoster (1 of 2) 1986 RSV or 60+ (1 - 1-d ose 75+ series) 2011 COVID-19 Vaccine ( - 2024-2 6 season) 2025 Influenza Vaccine (#1) 2025 Hepatitis B Vaccine Aged Out No longe r eligible based on patient's age to complete this topic Meningococcal B Vaccine Aged Out No l onger eligible based on patient's age to complete this topic Insurance [place]ARE [place] MEDICARE [place] PART A AND B ANTHEM Advance Directives For more information, please contact: [phone] Documents on File Type Date Recorded Patient Superintendent Overhead Distribution Expl anation Power of Mohs Surgeon 11/18/2015 5:11 PM Advance Directives/DNR 11/18/2015 5:11 PM * Full Code (Latest Code Status on File) Date Activated Date Inactivated Comments 10/21/2015 1:52 AM 11/15/2015 6:30 PM Care Teams Assembler Mechanical Ordnance Relationship Specialty Start Date End Date Lc Mcginnis MD [address] [place] [id number] PCP - General Internal Medicine-Adolescent Medicine 10/20/15
--- OUTSIDE RECORDS SUMMARY | 2025-09-06 15:13 | XMS_ITS ---
Author Organization [facility] Care Team Providers Care Computer Artist Name Role Phone Lc Mcginnis Unavailable Unavailable Care Team Name Role Address Phone Organization Dates Lc Mcginnis PCP [address] , [place], [address], [place] (Office): : [facility] 10/16/2017 - [...] information 2017 Code: 51 Code System OID:[id number] .[id number]. 5 Code System Name: Source of Payment Typology (PHDSC) Display: Managed Care (Private) Translation: Code: HM Code System: OID:2.16.840.1 .065688.6.255. 1336 Code System Name: Insurance Type Code ([id number]) Display Name: Health Maintenance Organization (HMO) Plan Code: SELF Code System Name: HL7 RoleCode Code System OID:[id number] .356490.5.111 Display Name: Self [id number] Root: [id number] Payer Identifier: Root: [id number] Extension: [id number] Address: [address] [place] [address] City: [place] State: [place] Country: [place] Code: 81 Code System OID:2.16.840.1 .[id number]. 5 Code System Name: Source of Payment Typology (PHDSC) Display: Self Pay Translation: Code: 09 Code System: OID:[id number] .[id number]. 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 [address] active 5 HALLUCINATIONS, UNSPECIFIED [address] active 6 HISTORY OF FALLING [address] active 7 HYPOTHYROIDISM, UNSPECIFIED [address] active 8 INSOMNIA DUE TO OTHER MENTAL DISORDER [address] active 9 OTHER CHRONIC ALLERGIC CONJUNCTIVITIS [address] active 10 OTHER RECURRENT DEPRESSIVE DISORDERS [address] active 11 PNEUMONIA, UNSPECIFIED ORGANISM [address] active 12 UNSPECIFIED DEMENTIA WITH BEHAVIORAL DISTURBANCE [address] active Reason for Referral No Reasons for Referral Entered Social History Social History Observation Description Start Date End Date Code Code System Current Smoking Status Tobacco smoking consumption unknown 080395125 SNOMED CT Sex Assigned At Male 1935 [address]-6 [facility] Gender Identity Sexual Orientation Vital Signs Code Code System Vitals Name Values and Units Timing Information 30496-3 INC Weight Ulbvv=430.6 Units=Lbs 03/2018
[2025-09-06 15:17] LABS: Coronavirus 19, PCR Not Detected (NotDetected); Influenza A, PCR Not Detected (NotDetected); Influenza B, PCR Not Detected (NotDetected)
[2025-09-06 15:27] LABS: VBG HCO3 23.0 mmol/L (23-30); VBG PCO2 41.2 mmol/L (35-51); VBG PH 7.36 mmol/L (7.31-7.41); VBG PO2 27.9 mmol/L (28-40)
[2025-09-06 15:29] LABS: Lactate Venous 3.1 mmol/L (0.4-2.0)
[2025-09-06 15:31] LABS: Hematocrit 38.2 % (42.0-52.0); Hemoglobin 12.2 g/dL (14.1-18.0); Immature Granulocytes % 0.3 %; Mean Corpuscular HGB Conc 31.9 g/dL (31.8-35.4); Mean Corpuscular Hemoglobin 30.6 pg (27.0-31.2); Mean Corpuscular Volume 95.7 fl (80-94); Nucleated Red Blood Cells % 0 %; Platelet Count 269 K/mm3 (142-424); Red Blood Count 3.99 M/mm3 (4.60-6.20); Red Cell Distribution Width-SD 48.3 fL; White Blood Count 6.6 K/mm3 (4.8-10.8)
[2025-09-06 15:46] LABS: INR 1.01 (0.9-1.1); Prothrombin Time 11.2 seconds (10.1-12.5)
[2025-09-06 16:13] LABS: Alanine Aminotransferase 16 U/L (12-78); Albumin Level 3.5 g/dl (3.5-5.0); Albumin/Globulin Ratio 0.9 (1.1-1.8); Alkaline Phosphatase 83 U/L (38-126); Anion Gap 16.9 mEq/L (5-15); Aspartate Amino Transferase 29 U/L (17-59); Bilirubin,Total 0.8 mg/dl (0.2-1.3); Blood Urea Nitrogen 16 mg/dl (9-20); Calcium 8.9 mg/dl (8.4-10.2); Carbon Dioxide 24 mmol/L (22.0-30.0); Chloride 111 mmol/L (98-107); Creatinine Clearance Estimated 45 mL/min (50-200); Creatinine,Serum 1.10 mg/dl (0.66-1.25); Estimated Glomerular Filt Rate 63 ml/min (>60); GFR (African American) 76 ML/MIN (>60); Globulin 4.0 g/dL (1.3-3.2); Glucose 93 mg/dl (74-100); Potassium 3.9 mmoL/L (3.5-5.1); Sodium 148 mmol/L (136-145); Total Protein,Serum 7.5 g/dl (6.3-8.2)
--- NOTE | 2025-09-06 16:25 | PC.NURSE ---
dr cummings called to let charge nurse and MD know that [facility] not going to take pt back at their facility. pt needs to be sent to a [facility] facility for possible treatment. due to aggressive behaviors, and hypersexual activity
[2025-09-06 16:30] LABS: Free T4 (Free Thyroxine) 3.36 ng/dl (0.78-2.19)
[2025-09-06 16:37] LABS: Microscopic, Urine URINE MICROSCOPIC (MICROSCOPIC)
[2025-09-06 16:46] LABS: Thyroid Stimulating Hormone < 0.02 uIU/mL (0.465-4.68)
[2025-09-06 16:47] LABS: Color,Urine YELLOW (Yellow); Glucose,Urine (UA) Negative (Negative); Ketones,Urine 1+ (Negative); Leukocyte Esterase,Urine Negative (Negative); PH,Urine 6.5 (5.0-8.5); Protein,Urine Negative (Negative); Specific Gravity, Urine 1.025 (1.005-1.030); Urobilinogen,Urine 1.0 EU/dl (0.2)
[2025-09-06 16:56] LABS: Bilirubin,Urine Negative (Negative)
[2025-09-06 17:01] LABS: Hepatitis C Ab Qual. W/ RFX NEGATIVE (Negative)
[2025-09-06 17:03] LABS: Troponin I 0.26 ng/ml (0.00-0.034)
[2025-09-06 18:58] LABS: Troponin I 0.20 ng/ml (0.00-0.034)
--- NOTE | 2025-09-06 19:02 | PC.NURSE ---
Lab called critical Trop of 0.[address] Ramon was notified.
--- NOTE | 2025-09-06 19:25 | PC.NURSE ---
Pt educated to keep central monitoring equipment on at this time. Pt keeps ripping monitoring equipment off. MD notified at this time. Plan of care ongoing
[2025-09-06 19:28] LABS: Reflex Lactic Add Lactic Reflex
--- NOTE | 2025-09-06 20:04 | PC.NURSE ---
Report called to Whit DENNY on [facility]
--- OUTSIDE RECORDS SUMMARY | 2025-09-06 20:35 | XMS_ITS | Clinical Summary ---
Author Organization [facility] Address [facility] [place] [address] Phone Care Team Providers Care Hat Block Bench Hand Name Role Phone Lc Mcginnis MD Primary Care Provider Allergies Active Allergy Reactions Criticality Noted Date [...] daily. Active fluticasone (FLONASE) 50 mcg/actuation Nasl [place], Suspension 2 Sprays by Nasal route 2 [...] age to complete this topic Insurance MEDICARE [place] PART A AND B ANTHE[place] MEDICARE [place] PART A AND B ANTHEM Advance Directives For more information, please contact: [phone] Documents on File Type Date Recorded Patient Records Analysis Manager Expl anation Power of Asp Net C Developer 11/18/2015 5:11 PM Advance Directives/DNR 11/18/2015 5:11 PM * Full Code (Latest Code Status on File) Date Activated Date Inactivated Comments 10/21/2015 1:52 AM 11/15/2015 6:30 PM Care Teams Hat Block Bench Hand Relationship Specialty Start Date End Date Lc Mcginnis MD [address] [place] [id number] PCP - General Internal Medicine-Adolescent Medicine 10/20/15
--- OUTSIDE RECORDS SUMMARY | 2025-09-06 20:35 | XMS_ITS | Patient Health Record ---
Author Organization [facility] Address [address] [place] [address] Care Team Providers Care Computer Project Manager Name Role Phone Lc Mcginnis Primary Care Provider Anastasiia Murillo Unavailable [phone] Migration, Provider Unavailable Unavailable Allergies Allergen (clinical [...] ctive Results Component Value Reference Range Notes CBC (INCLUDES DIFF/PLT) (639 9) Reviewed date:08/05/2025 12:08:47 PM Interpretation: Performing Lab:[facility], [facility], [facility] HospitalFwizAA[address] [place] Notes/Report: NON-FASTING; NON-FASTING; NON-FASTING PATIENT [...] MPV 10.0 7.5-12.5 fL ABSOLUTE NEUTROPHILS 2844 7812-2158 cells/uL ABSOLUTE LYMPHOCYTES 1601 323-5920 cells/uL ABSOLUTE MONOCYTES 677 200-950 cells/uL ABSOLUTE EOSINOPHILS 402 15-500 cells/uL ABSOLUTE BASOPHILS 99 0-200 cells/uL NEUTROPHILS 51.7 LYMPHOCYTES 26.9 MONOCYTES 12.3 EOSINOPHILS 7.3 BASOPHILS 1.8 COMPREHENSIVE METABOLIC PANE L (28390) Reviewed date:08/05/2025 12:08:47 PM Interpretation: Performing Lab:CB, [place] [address], [facility] CenterLekaSC[address] [place] Notes/Report: NON-FASTING; NON-FASTING; NON-FASTING PATIENT [...] 16 10-35 U/L ALT 9 9-46 U/L Urinalysis Reviewed date:08/07/2025 07:38:59 PM Interpretation: Performing Lab: Notes/Report: Color/Clarity yellow Leuk neg Nitrite neg Urobili 2.0 Protein trace pH 7.0 Blood neg Sp. Gr. 1.020 Ketone trace Bili neg Glucose neg CBC (INCLUDES DIFF/PLT) (639 9) Reviewed date:11/26/2024 02:42:52 PM Interpretation: Performing Lab:KHUSHI [place] [address] [facility], [facility] HospitalAwcrPM[address] [place] Notes/Report: NON-FASTING; NON-FASTING; NON-FASTING; NON-FASTING WHITE BLOOD CELL COUNT 6.9 3.8-10.8 Thousand/ uL RED BLOOD CELL COUNT 4.46 4.20-5.80 Million/uL HEMOGLOBIN 13.6 13.2-17.1 g/dL HEMATOCRIT 41.8 38.5-50.0 % MCV 93.7 80.0-100.0 fL MCH 30.5 27.0-33.0 pg MCHC 32.5 32.0-36.0 g/dL For adults, a slight decrease in the calculated MCHC value (in the range of 30 to 32 g/dL) is most likely not clinically significant; however, it should be interpreted with caution in correlation with other red cell parameters and the patient's clinical condition. RDW 12.2 11.0-15.0 % PLATELET COUNT 329 140-400 Thousand/uL MPV 10.0 7.5-12.5 fL ABSOLUTE NEUTROPHILS 3436 3024-8414 cells/uL ABSOLUTE LYMPHOCYTES 2215 850-3900 cells/uL ABSOLUTE MONOCYTES 856 200-950 cells/uL ABSOLUTE EOSINOPHILS 290 15-500 cells/uL ABSOLUTE BASOPHILS 104 0-200 cells/uL NEUTROPHILS 49.8 LYMPHOCYTES 32.1 MONOCYTES 12.4 EOSINOPHILS 4.2 BASOPHILS 1.5 MAGNESIUM (622) Reviewed date:11/26/2024 02:42:52 PM Interpretation: Performing Lab:KHUSHI [place] [address] [facility], [facility] Care HospitalBqgvSN[address] [place] Notes/Report: NON-FASTING; NON-FASTING; NON-FASTING; NON-FASTING MAGNESIUM 2.1 1.5-2.5 mg/dL COMPREHENSIVE METABOLIC PANE L (70737) Reviewed date:11/26/2024 02:42:52 PM Interpretation: Performing Lab:KHUSHI [place] [address] [facility], [facility] HospitalHfjhOC[address] [place] Notes/Report: NON-FASTING; NON-FASTING; NON-FASTING; NON-FASTING GLUCOSE 74 65-99 mg/dL Fasting reference interval UREA NITROGEN (BUN) 12 7-25 mg/dL CREATININE 1.10 0.70-1.22 mg/dL EGFR 65 > OR = 60 mL/min/1.73m2 BUN/CREATININE RATIO SEE NOTE: 6-22 (calc) Not Reported: BUN and Creatinine are within reference range. SODIUM 143 135-146 mmol/L POTASSIUM 3.5 3.5-5.3 mmol/L CHLORIDE 104 98-110 mmol/L CARBON DIOXIDE 25 20-32 mmol/L CALCIUM 8.9 8.6-10.3 mg/dL PROTEIN, TOTAL 7.2 6.1-8.1 g/dL ALBUMIN 3.7 3.6-5.1 g/dL GLOBULIN 3.5 1.9-3.7 g/dL (calc) ALBUMIN/GLOBULIN RATIO 1.1 1.0-2.5 (calc) BILIRUBIN, TOTAL 0.3 0.2-1.2 mg/dL ALKALINE PHOSPHATASE 64 35-144 U/L AST 14 10-35 U/L ALT 8 9-46 U/L THYROID PANEL WITH TSH (7444 ) Reviewed date:11/26/2024 02:42:52 PM Interpretation: Performing Lab:KHUSHI [place] [id number] [facility], [facility] HospitalTragME[address] [place] Notes/Report: NON-FASTING; NON-FASTING; NON-FASTING; NON-FASTING T3 UPTAKE 33 22-35 % T4 (THYROXINE), TOTAL 10.0 4.9-10.5 mcg/dL FREE T4 INDEX (T7) 3.3 1.4-3.8 TSH 0.29 0.40-4.50 mIU/L Medications Medication SIG (Take, Route, Frequency, Duration) Notes Start Date End Date Status Divalproex Sodium 250 MG 1 tab(s) orally twice daily; Duration: 90 days Active Memantine HCl 10 [...] mes a day; Duration: 90 days Active Omeprazole 20 MG 1 cap(s) orally once a day; Duration: 90 days Active Synthroid 88 MCG 1 tab(s) orally once a day; Duration: 90 days Active Venlafaxine HCl ER 75 MG 1 cap(s) orally once a day; Duration: 90 days Active Donepezil HCl 10 MG 1 tab(s) orally once a day (at bedtime); Duration: 90 days Active Immunizations Vaccine Route Administration Date Status Comme nts Prevnar PCV-20 (Pneumococcal conjugate 20) IM Intramuscular 06/22/2024 Administered Prevnar PCV-13 (Pneumococcal conjugate 13) IM Intramuscular 08/21/2017 Administered Pneumococcal Vaccine Unknown 11/09/2007 Administered Influenza (Fluzone)--Medicare only IM Intramuscular 06/28/2013 Administered Influenza (Fluzone)--Medicare only IM Intramuscular 08/21/2017 Administered Fluzone High Dose IM Intramuscular 06/15/2018 Administered Fluzone High Dose IM Intramuscular 07/22/2019 Administered Fluzone High Dose IM Intramuscular 08/15/2021 Administered Fluzone High Dose IM Intramuscular 07/07/2023 Administered Fluzone High Dose IM Intramuscular 06/22/2024 Administered Fluzone High Dose IM Intramuscular 07/21/2025 Administered Fluvirin--Influenza vaccine 3+ year Unknown 08/04/2007 Administered Fluvirin--Influenza vaccine 3+ year IM Intramuscular 09/01/2008 Administered Fluvirin--Influenza vaccine 3+ year IM Intramuscular 08/31/2009 Administered Fluvirin--Influenza vaccine 3+ year IM Intramuscular 07/19/2010 Administered Fluvirin (MEDICARE ONLY) IM Intramuscular 06/22/2015 Admin istered Arexvy ID Intradermal 10/08/2023 Administered Adacel (Tdap) IM Intramuscular 04/15/2016 Administered Social History Tobacco Use: Social History Observation Description Date Details (start date - stop date) Never Smoker NA - NA Smoking: Question Answer Notes Are you a: nonsmoker Additional Findings: Tobacco Non-User Current no n-smoker Section Notes: history of alcohol abuse Problems Problem Type SNOMED Code ICD Code Onset Dates Problem Status W/U Status Risk Notes Problem Hypocalcemia (5601491) Hypocalcemia (E83.51) Active confirmed Problem Anxiety disorder (985300699) Anxiety disorder, unspecified (F41.9) Active confirmed Problem Alzheimer's disease (28649064) Alzheimer's disease, unspecified (G30.9) Active confirmed Problem Insomnia (421087276) Other insomnia (G47.09) Active confirmed Problem Chronic respiratory failure (85091193) Chronic respiratory failure with hypoxia (J96.11) Active confirmed Problem Gastro-esophageal reflux disease without esophagitis (764125497) Gastro-esophageal reflux disease without esophagitis (K21.9) Active confirmed Problem Allergy to penicillin (90555626) Allergy status to penicillin (Z88.0) Active confirmed Problem Hyperlipidaemia (31413123) HLD (hyperlipidemia) (E78.5) Active confirmed Problem COPD - Chronic obstructive pulmonary disease (49941410) COPD (chronic obstructive pulmonary disease) (J44.9) Active confirmed Problem Hypothyroidism (61428339) Hypothyroidism (E03.9) Active confirmed Problem Vitamin D deficiency (76396402) Vitamin D deficiency (E55.9) Active confirmed Problem Essential hypertension (52147384) HTN (hypertension), benign (I10) Active confirmed Problem BMI 30+ - obesity (990077339) BMI 32.0-32.9,adult (Z68.32) Active confirmed Problem Senile debility (45128583) Senile debility (R54) Active confirmed Problem Recurrent falls (976858919) Falls frequently (R29.6) Active confirmed Problem Functional urinary incontinence (116429682) Urinary incontinence due to cognitive impairment (R39.81) Active confirmed Problem Urinary incontinence (502985592) Urinary incontinence, unspecified type (R32) Active confirmed Problem Allergy to sulfa drugs (61045063) Allergy to sulfa drugs (Z88.2) Active confirmed Problem Dementia with behavioral disturbance (7776304809755) Dementia with behavioral disturbance (F03.918) Active confirmed Vital Signs Heart Rate 81 /min 08/23/2025 Temperature 98.7 degrees Fahrenheit 08/23/2025 Blood pressure diastolic 61 mm Hg 08/23/2025 Height 65 in 08/23/2025 Blood pressure systolic 142 mm Hg 08/23/2025 Weight 147.6 lbs 08/23/2025 BMI 24.56 kg/m2 08/23/2025 Encounters Encounter Location Date [facility] [address] [address] 12/25/2024 Provider Migration [facility] [address] [address] 11/25/2024 Lcpamela Mcginnis HTN (hypertension), benign I10 ; Hypothyroidism E03.9 and Chronic renal failure, stage 3b N18.32 [facility] [address] [place] [facility] [address] [address] 04/27/2025 Lc Besson HTN (hypertension), benign I10 ; Hypothyroidism E03.9 ; HLD (hyperlipidemia) E78.5 ; Gastro-esophageal reflux disease without esophagitis K21.9 ; COPD (chronic obstructive pulmonary disease) J44.9 ; Chronic kidney disease (CKD), stage 2 N18.2 and Routine medical exam Z00.00 [facility] [address] [address] 07/21/2025 Lcpamela Mcginnis HTN (hypertension), benign I10 ; Alzheimer's disease, unspecified G30.9 ; Lower extremity edema R60.0 and Immunization(s) administered Z23 [facility] [address] [address] 08/04/2025 Lc Mcginnis Falls frequently R29 .6 ; Weakness R53.1 and Urinary incontinence, unspecified type R32 [address] [address] 08/23/2025 Anastasiia Lidia Dementia with behavioral disturbance F03.918 ; COPD (chronic obstructive pulmonary disease) J44.9 ; Senile debility R54 ; Hypothyroidism E03.9 ; Gastro-esophageal reflux disease without esophagitis K21.9 ; Vitamin D deficiency E55.9 ; Chronic respiratory failure with hypoxia J96.11 ; Falls frequently R29.6 ; Urinary incontinence due to cognitive impairment R39.81 and Other insomnia G47.09 [facility] [address] [place] [address] 03/31/2025 Lc Besson [facility] [address] [address] [place] [address] 08/10/2025 Lc Besson [facility] [address] [facility] [address] [place] [address] 08/15/2025 Lc Besson [facility] [address] [place] [address] [place] [address] 08/23/2025 Lcpamela Mcginnis Assessments Encounter Date Diagnosis (ICD Code) Assessment Notes Treatment Notes Treatment Clinical Notes Section Notes 11/25/2024 Hypothyroidism (ICD-10 - E03.9) 11/25/2024 HTN (hypertension), benign (ICD-10 - I10) 04/27/2025 Hypothyroidism (ICD-10 - E03.9) Clinically euthyroid. Labs reviewed from last visit. Will schedule flu shot in June and do labs at that visit 04/27/2025 HTN (hypertension), benign (ICD-10 - I10) Blood pressure under excellent control. No changes in plan 07/21/2025 Alzheimer's disease, unspecified (ICD-10 - G30.9) Stable home environment, no changes in plan 07/21/2025 HTN (hypertension), benign (ICD-10 - I10) Blood pressure well-controlled , no changes in plan. See notes below about edema. Follow-up in August for labs. Will get a flu shot today 08/04/2025 Weakness (ICD-10 - R53.1) See notes above, will check labs to make sure we do not have actionable issues. 08/04/2025 Falls frequently (ICD-10 - R29.6) Labs ordered. Anticipate that they will not be actionable, and I had a long discussion with son, [id number] and daughter about options. He is not really a candidate for hospital admission. They understand those and they were checked out private pay options for skilled care. I do think he is at this stage where he will need 24/ care. 08/23/2025 COPD (chronic obstructive pulmonary disease) (ICD-10 - J44.9) Continue stiolto, albuterol as needed 08/23/2025 Dementia with behavioral disturbance (ICD-10 - F03.918) advancing...con tinue seroquel. risks/benefits and goals of therapy discussed with family and they are agreeable. depakote may benefit mood as well pharmacy has also recommended stopping singulair in case this is contributing to his mood symptoms 08/23/2025 Senile debility (ICD-10 - R54) advanced, therapies as indicated if family desires 07/21/2025 Lower extremity edema (ICD-10 - R60.0) Edema does not seem to be pathologic, seems to be positional. Recommended elevation and continued watchful diet 08/04/2025 Urinary incontinence, unspecified type (ICD-10 - R32) Check UA. Patient unable to urinate in the office 04/27/2025 HLD (hyperlipidemia) (ICD-10 - E78.5) Tolerating meds well, no need for labs at this point, see lab schedule above 11/25/2024 Chronic renal failure, stage 3b (ICD-10 - N18.32) 04/27/2025 Gastro-esophageal reflux disease without esophagitis (ICD-10 - K21.9) Stable on PPI, eating well. 07/21/2025 Immunization(s) administered (ICD-10 - Z23) 08/23/2025 Hypothyroidism (ICD-10 - E03.9) continue oral replacement 08/23/2025 Gastro-esophageal reflux disease without esophagitis (ICD-10 - K21.9) continue PPI 04/27/2025 COPD (chronic obstructive pulmonary disease) (ICD-10 - J44.9) Uses inhalers. Does not use oxygen any longer. Has improved 04/27/2025 Chronic kidney disease (CKD), stage 2 (ICD-10 - N18.2) With better blood pressure control nutrition CKD has improved, previously stage IIIb now stage II. Continue good hydration and current medication 08/23/2025 Vitamin D deficiency (ICD-10 - E55.9) continue oral replacement 08/23/2025 Chronic respiratory failure with hypoxia (ICD-10 - J96.11) has required supplemental O2 previously but tubing/equipmen t seem to be exacerbating some of his agitation at time. discontinue use and monitor respiratory symptoms 04/27/2025 Routine medical exam (ICD-10 - Z00.00) HRA reviewed. Up-to-date with vaccines. Aged out of cancer screening. Normal non-smoker. No recent falls. Diminished functional status, family aware. Functional status plan in place. Son and his daughter are healthcare surrogates. Depression screening negative. Given his diagnosis of dementia, cognitive impairment not done 08/23/2025 Falls frequently (ICD-10 - R29.6) high risk for falls due to age related weakness and poor safety awareness, therapies if desired 08/23/2025 Urinary incontinence due to cognitive impairment (ICD-10 - R39.81) nursing care as needed 08/23/2025 Other insomnia (ICD-10 - G47.09) trazodone stopped when quetiapine was initiated, monitor 11/25/2024 Other Nutritional status seems good, weight is stable. Apparently he is not enjoying some of his food lately because he thinks it is too salty. He does seem to eat a lot of salty fast food but if he enjoys this time certainly not going to restrict his diet at this stage in his life. Will check labs to monitor renal function and his thyroid status. No recent falls. Up-to-date with healthcare maintenance, and a safe home environment. Continues to have significant cognitive impairment but is doing very nicely and seems to be stable 08/23/2025 Other Plan Of Treatment Pending Test Test Name Order Date N-CBC 03/16/2008 MRI : Lumbosacral Spine 03/26/2011 CT Scan : Head, without contrast 012 CT Scan : Head, without contrast 011 N-CMP 03/16/2008 N-Lipid Panel 03/16/2008 MRI : Head, With and Without Contrast Physical Therapy 12/11/2015 Physical Therapy 03/05/2012 Physical Therapy 11/16/2008 CT Scan : Chest with Contrast 04/04/2020 N-PSA Screening 03/16/2008 H-CBC with AUTO DIFF 10/02/2017 H-CBC with AUTO DIFF 11/14/2010 H-CBC with AUTO DIFF 04/29/2011 H-CBC with AUTO DIFF 05/30/2009 H-VITAMIN B12 06/05/2009 H-VITAMIN B12 11/15/2010 H-BMP 11/14/2010 H-BMP 04/29/2011 H-CMP 11/17/2013 H-CMP 05/30/2009 H-CMP 10/02/2017 H-LIPID PANEL 10/02/2017 H-LIPID PANEL 11/17/2013 H-LIPID PANEL 05/30/2009 H-PSA SCREEN 05/30/2009 H-TSH 11/17/2013 H-TSH 10/02/2017 H-VALPROIC ACID (DEPAKENE) 10/02/2017 H-SED RATE 11/14/2010 C-THYROGLOBULIN ANTIBODIES 01/01/2012 C-CBC 12/14/2012 C-CBC 08/29/2016 C-CMP 08/29/2016 C-CMP 06/22/2015 C-CMP 12/14/2012 C-CMP 01/22/2012 C-LIPID PANEL 12/14/2012 C-LIPID PANEL 06/22/2015 C-LIPID PANEL 08/29/2016 C-TSH 08/29/2016 C-TSH 06/22/2015 C-TSH 12/14/2012 C-TSH 01/22/2012 C-THYROID PEROXIDASE AB 01/01/2012 C-DEPAKOTE 12/14/2012 spirometry 07/19/2010 M-Complete Blood Count Auto Diff 020 M-Complete Blood Count Auto Diff 022 M-Complete Blood Count Auto Diff 018 M-Comprehensive Metabolic Panel 08/26/20 22 M-Comprehensive Metabolic Panel 04/04/20 M-Comprehensive Metabolic Panel 06/15/20 18 M-Hemoglobin A1C 08/26/2022 M-Ferritin 07/13/2018 M-Lipid Panel 06/15/2018 M-Lipid Panel 08/26/2022 M-Thyroid Stimulating Hormone 06/15/2018 M-Thyroid Stimulating Hormone 08/26/2022 M-Vitamin B12 07/13/2018 M-Vitamin B12 11/17/2020 M-Folate 09/02/2018 M-Valproic Acid Total 08/15/2021 M-Valproic Acid, (Depakene) 06/15/2018 M-Iron and TIBC 07/13/2018 CULTURE, URINE, ROUTINE (395) 08/04/2025 Next Appt Details Provider Name:Lc Mcginnis, 09/08/2025 03:30:00 PM, [address] [place] [address], [phone], Insurance Providers Payer Name Payer Address Payer Phone Subscriber Number Group Number Insured Name Patient Relationship to Insured Coverage Start Date Coverage End Date [employer] [address] [address] [place] [address] [id number] Terell Jimenez Self - patient is the insured Medications Administered Medication Instructions Date of Administration Dosage Notes Kenalog 12/28/2014 1 mL Kenalog 07/25/2015 1 mL Kenalog 06/10/2016 1 mL Medical (General) History Medical History History ICD Code hypercholestrolemia reflux CATARACTS COPD Past tobacco use Hypertension spinal stenosis chronic headaches, chronic n arcotic use in the past but now controlled on depakote sinus surgeries x2 MRSA Hypothyroidism Dementia with behavior disturbance Seizure-like episodes Surgical History Surgery Date(Month/Year) cataract removal 09/2005 cholecystectomy 10/2007 sinus surgeries Hospitalization History Reason Date(Month/Year) Low potassium 08/2023 [facility] 01/2023 [facility]- AMS and dehydration 01/2021 [facility] 12/2017 psychological reasons 09/2015 pneumonia 10/2014 Gall stones
--- OUTSIDE RECORDS SUMMARY | 2025-09-06 20:35 | XMS_ITS ---
Author Organization [facility] Care Team Providers Care Centrex Radio Operator Name Role Phone Lc Mcginnis Unavailable Unavailable Care Team Name Role Address Phone Organization Dates Lc Mcginnis PCP [address] , [place], [address], [place] (Office): : [facility] 10/16/2017 - [...] information 2017 Code: 51 Code System OID:[id number] .[id number]. 5 Code System Name: Source of Payment Typology (PHDSC) Display: Managed Care (Private) Translation: Code: HM Code System: OID:2.16.840.1 .[id number]. 1336 Code System Name: Insurance Type Code ([id number]) Display Name: Health Maintenance Organization (HMO) Plan Code: SELF Code System Name: HL7 RoleCode Code System OID:[id number] .[id number] Display Name: Self [id number] Root: [id number] Payer Identifier: Root: [id number] Extension: [id number] Address: [address] [place] [address] City: [place] State: [place] Country: [place] Code: 81 Code System OID:[id number] .[id number]. 5 Code System Name: Source of Payment Typology (PHDSC) Display: Self Pay Translation: Code: 09 Code System: OID:[id number] .[id number]. 1336 Code System Name: Insurance Type Code ([id number]) Display Name: Self-pay Problems Problem # Description Date of onset Resolved Date Code CodeSystem Concern Status 1 ANXIETY DISORDER, UNSPECIFIED [address] active 2 ATAXIA, UNSPECIFIED [address] active 3 ESSENTIAL (PRIMARY) HYPERTENSION [address] active 4 GASTRO-ESOPHAGEAL REFLUX DISEASE WITHOUT ESOPHAGITIS [address] active 5 HALLUCINATIONS, UNSPECIFIED [address] active 6 HISTORY OF FALLING [address] active 7 HYPOTHYROIDISM, UNSPECIFIED [address] active 8 INSOMNIA DUE TO OTHER MENTAL DISORDER [address] active 9 OTHER CHRONIC ALLERGIC CONJUNCTIVITIS [address] active 10 OTHER RECURRENT DEPRESSIVE DISORDERS [address] active 11 PNEUMONIA, UNSPECIFIED ORGANISM [address] active 12 UNSPECIFIED DEMENTIA WITH BEHAVIORAL DISTURBANCE [address] active Reason for Referral No Reasons for Referral Entered Social History Social History Observation Description Start Date End Date Code Code System Current Smoking Status Tobacco smoking consumption unknown 751031296 SNOMED CT Sex Assigned At Male 1935 [address]2 [facility] Gender Identity Sexual Orientation Vital Signs Code Code System Vitals Name Values and Units Timing Information 34577-6 INC Weight Ykeni=639.6 Units=Lbs 03/2018
[2025-09-06 21:22] LABS: Lactic Acid Follow Up (RFLX 1) 1.7 mmol/L (0.7-2.1)
[2025-09-06 21:35] LABS: Troponin I 0.18 ng/ml (0.00-0.034)
[2025-09-06] MEDS: QUETIAPINE 100MG TABLET 100 MG PO (22:22)
[2025-09-06] MEDS: DIVALPROEX 250MG (EXTENDED-RELEASE) TABLET 250 MG PO (22:24)
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
[2025-09-07] VITALS: BP 105/53; PULSE 71; PULSE 80; RESP 16; TEMP 36.7; O2SAT 92
[2025-09-07 00:01] LABS: Troponin I 0.17 ng/ml (0.00-0.034)
[2025-09-07 04:00] VITALS: PULSE 60; BMI 23.6
--- NOTE | 2025-09-07 07:42 | SW/DCPLANNER ---
Addendum entered by Roseanna Beard 09/07/25 10:50: Patient is currently I[facility] level of care at [facility]. Per MD patient is medically stable to return today. I have updated Albert w/ [facility]. Original Note: I did verify w/ Nidhi Admin at [facility] that patient could return to [facility] once medically stable for discharge. I did update patient's family last night regarding situation and being able to return. I did have several conversation w/ Cherie (Anai) last night regarding situation. Anai stated that there is a Care Plan meeting set up for tomorrow morning at [facility] w/ patient's family, Nidhi, Arden and Cherie. CM will continue to follow up. Discharge date is unknown at this time.
[2025-09-07 08:00] VITALS: PULSE 70
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
--- NOTE | 2025-09-07 10:13 | PC.NURSE ---
Patient refuses to take morning medications at this time.
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
[2025-09-07 12:00] VITALS: PULSE 60
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
== END 2025-09-07 16:50 ==
LOC: ER 15:17 → 2ND 20:10 → ER 20:33
PROVIDERS: Nurse Practitioner Acute Care; Admitting Provider Student in an Organized Health Care Education/Training Program; Emergency Provider Student in an Organized Health Care Education/Training Program; PCP Internal Medicine Adolescent Medicine; Visit Provider Student in an Organized Health Care Education/Training Program
DX: R79.89 Other specified abnormal findings of blood chemistry (principal); G30.9 Alzheimer's disease, unspecified; F02.80 Dementia in other diseases classified elsewhere, unspecified severity, without behavioral disturbance, psychotic disturbance, mood disturbance, and anxiety; E05.90 Thyrotoxicosis, unspecified without thyrotoxic crisis or storm; I12.9 Hypertensive chronic kidney disease with stage 1 through stage 4 chronic kidney disease, or unspecified chronic kidney disease; N18.30 Chronic kidney disease, stage 3 unspecified; F17.200 Nicotine dependence, unspecified, uncomplicated; Z88.1 Allergy status to other antibiotic agents; Z88.0 Allergy status to penicillin; Z88.2 Allergy status to sulfonamides; Z79.899 Other long term (current) drug therapy; Z79.890 Hormone replacement therapy; Z79.82 Long term (current) use of aspirin; R94.31 Abnormal electrocardiogram [ECG] [EKG]; J34.89 Other specified disorders of nose and nasal sinuses
CPT/HCPCS: 36415; 70450; 71045; 80053; 81001; 82803; 83605; 84439; 84443; 84484; 85025; 85610; 86803; 87389; 87636; 93005; 93306; 97163; 97165; 99285; G0378

== ENCOUNTER 2025-09-10 19:40 | Emergency (ER) | payer MEDICARE, SELFPAY ==
--- OUTSIDE RECORDS SUMMARY | 2024-06-24 07:00 | XMS_ITS ---
Author Organization [facility] Address [address] [place] [address] Care Team Providers Care Cloth Designer Name Role Phone Lc Mcginnis Primary Care Provider REASON FOR VISIT labs Encounters Encounter Location Date Provider Diagnosis [facility] [address] [place] [address] 06/24/2024 Lc Mcginnis Plan Of Treatment No Information Progress Notes * Terell JIMENEZ WDOB: [birth year] (89 yo M)Acc No.[id number]:06/24/2024 LABS Patient: Terell CHAPPELL Provider: Susanne Mcginnis MD :1935 A ge:88 Y S ex:Male Date:06/24/2024 Address:[address] [id number] Subjective: * Chief Complaints: * 1 . Labs. * Medical History: Objective: * Vitals: Assessment: Plan: * Treatment: * * Electronic signature of Kevin Mcginnis MD FAAP on 09/10/2025 at 07:47 PM EST Sign off status: Pending * Provider: Susanne Mcginnis MD Date: Generated for Printi ng/Faxing/eTransmitting on: 11/11/2024 07:47 PM EST
--- OUTSIDE RECORDS SUMMARY | 2024-09-28 11:30 | XMS_ITS ---
Author Organization [facility] D ADA Address [address] [place] [address] Care Team Providers Care Pipeline Welder Name Role Phone Lc Mcginnis Primary Care Provider REASON FOR VISIT med ck Encounters Encounter Location Date Provider Diagnosis [address] [address] 09/28/2024 Lc Mcginnis Plan Of Treatment No Information Progress Notes * Terell JIMENEZ WDOB: [birth year] (89 yo M)Acc No.[id number]:09/28/2024 Progress Notes Patient: Terell CHAPPELL Provider: Susanne Mcginnis MD :1935 A ge:89 Y S ex:Male Date:09/28/2024 Address[id number] Subjective: * Chief Complaints: * 1 . Med ck. * Medical History: Objective: * Vitals: Assessment: Plan: * Treatment: * * Electronic signature of Kevin Mcginnis MD FAAP on 09/10/2025 at 07:46 PM EST Sign off status: Pending * Provider: Susanne Mcginnis MD Date: 0 09/28/2024 Generated for Printi ng/Faxing/eTransmitting on: 1 11/11/2024 07:46 PM EST
--- OUTSIDE RECORDS SUMMARY | 2024-11-24 11:15 | XMS_ITS ---
Author Organization [facility] D ADA Address [address] [place] [address] Care Team Providers Care Procurement Representative Name Role Phone Lc Mcginnis Primary Care Provider [phone] Anastasiia Murillo Unavailable [phone] REASON FOR VISIT follow up Encounters Encounter Location Date Provider Diagnosis [facility] [address] [address] 11/24/2024 Anastasiia Murillo Plan Of Treatment No Information Progress Notes * Terell DEAN WDOB: 6 (89 yo M)Acc No.[id number]:11/24/2024 Progress Notes Patient: Terell CHAPPELL Provider: CORINNA Diaz :1935 A ge:89 Y S ex:Male Date:11/24/2024 Address[id number] Pcp:Lc Mcginnis Subjective: * Chief Complaints: * 1 . Follow up. * Medical History: Objective: * Vitals: Assessment: Plan: * Treatment: * * Electronic signature of Gaye Murillo APRN on 09/10/2025 at 07:46 PM EST Sign off status: Pending * Provider: CORINNA Diaz Date: 0 11/24/2024 Generated for Printi ng/Fasiva/eTransmitting on: 1 11/11/2024 07:46 PM EST
--- OUTSIDE RECORDS SUMMARY | 2024-12-25 16:30 | XMS_ITS ---
Author Organization [facility] Address [address] [place] [address] Care Team Providers Care Grounds Manager Name Role Phone Lc Mcginnis Primary Care Provider [phone] Migration, Provider Unavailable Unavailable Allergies Allergen (clinical drug ingredient) Drug/Non Drug Allergy documented on EMR Reaction Allergy Type Onset Date Status NIASPAN (uncoded) Unknown Allergy Ac tive SULFA (uncoded) Unknown Allergy Acti ve doxycycline Doxycycline Unknown Drug Allergy Act natalio Medicinal cephalosporin and acting as antibacterial agent (FN) Cephalosporins Unknown Drug Allergy Active Penicillin Unknown Drug Allergy Active streptomycin Streptomycin Unknown Drug Allergy A ctive REASON FOR VISIT [facility] To [facility] Conversion Encounter Medications Medication SIG (Take, Route, Frequency, Duration) Notes Start Date End Date Status Memantine HCl 10 MG 1 tab(s) orally 2 times a day; Duration: 90 days Active Divalproex Sodium 250 MG 1 tab(s) orally twice daily; Duration: 90 days Active Venlafaxine HCl ER 75 MG 1 cap(s) orally once a day; Duration: 90 days Active Donepezil HCl 10 MG 1 tab(s) orally once a day (at bedtime); Duration: 90 days Active Montelukast Sodium 10 MG TAKE ONE TABLET BY MOUTH AT BEDTIME; Duration: 30 days Active traZODone HCl 100 MG 2 tablets orally at bedtime; Duration: 30 days Active Cholecalciferol 250 MCG 1 CAP(S) ORALLY ONCE A WEEK; Duration: 90 DAYS *Please review and pick correct strength-formulati on from Medispan options. If intended option is not shown, discontinue and re-order from Quick Search* 04/29/2023 Active Omeprazole 20 MG 1 cap(s) orally once a day; Duration: 90 days Active Aricept 10 MG TAKE ONE TABLET BY MOUTH EVERY EVENING AT BEDTIME orally; Duration: 90 days Active Stiolto Respimat 2.5 MCG-2.5 MCG/INH INHALE 2 PUFFS BY MOUTH ONCE A DAY *Please review and pick correct strength-formulati on from Nerdies options. If intended option is not shown, discontinue and re-order from Quick Search* Active Synthroid 88 MCG 1 tab(s) orally once a day; Duration: 90 days Active OXYGEN 2 LITERS DIRECTED DAILY prn *Please re view for potential replacement for e-prescription and drug interaction check* 10/23/2022 Active ALBUTEROL (EQV-PROAIR HFA) 90 MCG/INH INHALE 2 PUFFS BY MOUTH FOUR TIMES A DAY (EVERY 6 HOURS) NEEDED INHALED EVERY 6 HOURS; Duration: 30 DAYS *Please review for potential replacement for e-prescription and drug interaction check* Active Keppra 500 MG 1 tab(s) orally 2 times a day; Duration: 90 days Active AERO CHAMBER DIRECTED INHALED DIRECTED; Duration: 1 DAY *Please review for potential replacement for e-prescription and drug interaction check* 11/17/2020 Active Encounters Encounter Location Date Provider Diagnosis [facility] [address] [facility] [address] [place] [address] 12/25/2024 Provider Migration Plan Of Treatment Medication Medication Name Sig Start Date Stop Date Notes Memantine HCl 10 MG 1 tab(s) orally 2 ti mes a day; Duration: 90 days Divalproex Sodium 250 MG 1 tab(s) orally twice daily; Duration: 90 days Venlafaxine HCl ER 75 MG 1 cap(s) orally once a day; Duration: 90 days Donepezil HCl 10 MG 1 tab(s) orally once a day (at bedtime); Duration: 90 days traZODone HCl 100 MG 2 tablets orally at bedtime; Duration: 30 days Omeprazole 20 MG 1 cap(s) orally once a day; Duration: 90 days Synthroid 88 MCG 1 tab(s) orally once a day; Duration: 90 days Keppra 500 MG 1 tab(s) orally 2 ti mes a day; Duration: 90 days Progress Notes * Terell JIMENEZ WDOB: 6 (89 yo M)Acc No.[id number]:12/25/2024 Patient: Terell CHAPPELL Provider: Cathy Lincoln :1935 A ge:89 Y S ex:Male Date:12/25/2024 Address:[facility] [id number] Pcp:Lc Mcginnis Subjective: * Chief Complaints: * 1 . [facility] To Medispan Conversion Encounter. * Medical History: * Medications: T aking AERO CHAMBER DIRECTED INHALED DIRECTED , Notes to Pharmacist: *Please review for potential replacement for e-prescription and drug interaction check*, Taking ALBUTEROL (EQV-PROAIR HFA) 90 MCG/INH AEROSOL INHALE 2 PUFFS BY MOUTH FOUR TIMES A DAY (EVERY 6 HOURS) NEEDED INHALED EVERY 6 HOURS , Notes to Pharmacist: *Please review for potential replacement for e-prescription and drug interaction check*, Taking OXYGEN 2 LITERS NASAL CANNULA DIRECTED DAILY , Notes to Pharmacist: prn *Please review for potential replacement for e-prescription and drug interaction check*, Taking Cholecalciferol 250 MCG CAPSULE 1 CAP(S) ORALLY ONCE A WEEK , Notes to Pharmacist: *Please review and pick correct strength-formulation from Medispan options. If intended option is not shown, discontinue and re-order from Quick Search*, Taking Stiolto Respimat 2.5 MCG-2.5 MCG/INH AEROSOL INHALE 2 PUFFS BY MOUTH ONCE A DAY , Notes to Pharmacist: *Please review and pick correct strength-formulation from Medispan options. If intended option is not shown, discontinue and re-order from Quick Search*, Taking Aricept 10 MG Tablet TAKE ONE TABLET BY MOUTH EVERY EVENING AT BEDTIME orally , Taking Montelukast Sodium 10 MG Tablet TAKE ONE TABLET BY MOUTH AT BEDTIME * Allergies: S ULFA, Streptomycin, Penicillin, NIASPAN, Cephalosporins, Doxycycline. Objective: * Vitals: Assessment: Plan: * Treatment: * * Electronic signature of Prov ider Migration on 09/10/2025 at 07:47 PM EST Sign off status: Pending * Provider: Cathy Lincoln Date: 0 12/25/2024 Generated for Lola atkinson/Tia/Leahitting on: 1 11/11/2024 07:47 PM EST
--- OUTSIDE RECORDS SUMMARY | 2025-07-21 11:30 | XMS_ITS ---
Author Organization [facility] Address [address] [place] [address] Care Team Providers Care Acquisitions Analyst Name Role Phone Lc Mcginnis Primary Care Provider [phone] Allergies Allergen (clinical drug ingredient) Drug/Non Drug [...] Drug Allergy A ctive REASON FOR VISIT F/U and Labs, swelling legs Medications Medication SIG (Take, Route, Frequency, Duration) Notes Start Date End Date Status Synthroid 88 MCG 1 tab(s) orally once a day; Duration: 90 days Active Omeprazole 20 MG 1 cap(s) orally once a day; Duration: 90 days Active Donepezil HCl 10 MG 1 tab(s) orally once a day (at bedtime); Duration: 90 days Active Venlafaxine HCl ER 75 MG 1 cap(s) orally once a day; Duration: 90 days Active Keppra 500 MG 1 tab(s) orally 2 ti mes a day; Duration: 90 days Active Memantine HCl 10 MG 1 tab(s) orally 2 ti mes a day; Duration: 90 days Active Divalproex Sodium 250 MG 1 tab(s) orally twice daily; Duration: 90 days Active Montelukast Sodium 10 mg TAKE ONE TABLET BY MOUTH AT BEDTIME; Duration: 30 Active traZODone HCl 100 mg TAKE 2 TABLETS BY M OUTH AT BEDTIME; Duration: 30 Active Aricept 10 MG TAKE ONE TABLET BY MOUTH EVERY EVENING AT BEDTIME orally; Duration: 90 days Active Cholecalciferol 250 MCG 1 CAP(S) ORALLY ONCE A WEEK; Duration: 90 DAYS 04/29/2023 Active ALBUTEROL (EQV-PROAIR HFA) 9 0 MCG/INH INHALE 2 PUFFS BY MOUTH FOUR TIMES A DAY (EVERY 6 HOURS) NEEDED INHALED EVERY 6 HOURS; Duration: 30 DAYS Active OXYGEN 2 LITERS DIRECTED DAILY prn 10/23/2022 Active AERO CHAMBER DIRECTED INHALED DIRECTED; Duration: 1 DAY 11/17/2020 Active Stiolto Respimat 2.5 MCG-2.5 MCG/INH INHALE 2 PUFFS BY MOUTH ONCE A DAY Active Immunizations Vaccine Route Administration Date Status Comme nts Fluzone High Dose IM Intramuscular 07/21/2025 Administered Social History Tobacco Use: Social History Observation Description Date Details (start date - stop date) Never Smoker NA - NA Smoking: Question Answer Notes Are you a: nonsmoker Additional Findings: Tobacco Non-User Current no n-smoker Vital Signs Temperature 98 degrees Fahrenheit 07/21/2025 Blood pressure systolic 125 mm Hg 07/21/20 25 Blood pressure diastolic 80 mm Hg 025 Heart Rate 80 /min 07/21/2025 Height 65 in 07/21/2025 Weight 168 lbs 07/21/2025 BMI 27.95 kg/m2 07/21/2025 Encounters Encounter Location Date Provider Diagnosis [address] [address] 07/21/2025 Lc Mcginnis HTN (hypertension), benign I10 ; Alzheimer's disease, unspecified G30.9 ; Lower extremity edema R60.0 and Immunization(s) administered Z23 Assessments Encounter Date Diagnosis (ICD Code) Assessment Notes Treatment Notes Treatment Clinical Notes Section Notes 07/21/2025 HTN (hypertension), benign (ICD-10 - I10) Blood pressure well-controlle d, no changes in plan. See notes below about edema. Follow-up in August for labs. Will get a flu shot today 07/21/2025 Alzheimer's disease, unspecified (ICD-10 - G30.9) Stable home environment, no changes in plan 07/21/2025 Lower extremity edema (ICD-10 - R60.0) Edema does not seem to be pathologic, seems to be positional. Recommended elevation and continued watchful diet 07/21/2025 Immunization(s) administered (ICD-10 - Z23) Plan Of Treatment Treatment Notes Assessment Notes HTN (hypertension), benign Blood pressure well-controlled, no changes in plan. See notes below about edema. Follow-up in August for labs. Will get a flu shot today Alzheimer's disease, unspecified Stable home environment, no changes in plan Lower extremity edema Edema does not seem to be pathologic, seems to be positional. Recommended elevation and continued watchful diet Next Appt Details Follow Up: prn, Reason: Progress Notes * TONY Terell WDOB: (89 yo M)Acc No.[id number]:07/21/2025 Progress Notes Patient: Terell CHAPPELL Provider: Susanne Mcginnis MD :1935 A ge:89 Y S ex:Male Date:07/21/2025 Address:[facility] [place], [id number] Subjective: * Chief Complaints: * 1 . F/U and Labs. 2. Swelling legs. * HPI: g en: Overall patient is doing well, continues to be in a fairly good social situation, son and other rest the family check on him time to time, he has good access to food, they noticed that his legs minimal swelling because he been sitting in his chair more often. He has no complaints. 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 * Surgical History: c ataract removal 09/2005, cholecystectomy 10/2007, sinus surgeries . * Hospitalization/Major Diagno stic Procedure: G all stones , pneumonia 10/2014, psychological reasons 09/2015, [facility] 12/2017, [facility]- AMS and dehydration 01/2021, [facility] 01/2023, Low potassium 08/2023. * Family History: F ather: , [place]. M other: . P aternal Grand Father: . P aternal Grand Mother: . M aternal Grand Father: , [place]. M aternal Grand Mother: . P aternal uncle: . P aternal aunt: . M aternal uncle: .?Maternal aunt: alive, daughter . S iblings: , 1 brother mva, 1 Alzheimer. C hildren: alive, 1 daughter . 2 brother(s) , 1 sister(s) . 1 son(s) , 2 daughter(s) - healthy. . * Social History: S moking: no A re you a: n onsmoker, A dditional Findings: Tobacco Non-User C urrent non-smoker. R ecreational drug use: no. Exercise: no. Home smoke detector use: yes. Caffeine: yes, 2 diet coke daily. Living Will: Yes. Alcohol: no. Sexually active: no. Travel outside [place]: no. 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 * Medications: T aking AERO CHAMBER DIRECTED INHALED DIRECTED , Taking ALBUTEROL (EQV- PROAIR HFA) 90 MCG/INH AEROSOL INHALE 2 PUFFS BY MOUTH FOUR TIMES A DAY (EVERY 6 HOURS) NEEDED INHALED EVERY 6 HOURS , Taking OXYGEN 2 LITERS NASAL CANNULA DIRECTED DAILY , Notes to Pharmacist: prn, Taking Cholecalciferol 250 MCG CAPSULE 1 CAP(S) ORALLY ONCE A WEEK , Taking Stiolto Respimat 2.5 MCG-2.5 MCG/INH AEROSOL INHALE 2 PUFFS BY MOUTH ONCE A DAY , Taking Aricept 10 MG Tablet TAKE ONE TABLET BY MOUTH EVERY EVENING AT BEDTIME orally , Taking Montelukast Sodium 10 mg Tablet TAKE ONE TABLET BY MOUTH AT BEDTIME , Taking traZODone HCl 100 mg Tablet TAKE 2 TABLETS BY MOUTH AT BEDTIME , Taking Memantine HCl 10 MG Tablet 1 tab(s) orally 2 times a day , Taking Divalproex Sodium 250 MG Tablet Delayed Release 1 tab(s) orally twice daily , Taking Donepezil HCl 10 MG Tablet 1 tab(s) orally once a day (at bedtime) , Taking Venlafaxine HCl ER 75 MG Capsule Extended Release 24 Hour 1 cap(s) orally once a day , Taking Synthroid 88 MCG Tablet 1 tab(s) orally once a day , Taking Omeprazole 20 MG Capsule Delayed Release 1 cap(s) orally once a day , Taking Keppra 500 MG Tablet 1 tab(s) orally 2 times a day , Medication List reviewed and reconciled with the patient * Allergies: S ULFA, Streptomycin, Penicillin, NIASPAN, Cephalosporins, Doxycycline. Objective: * Vitals: N urse: dw, Pain: 0, Temp: 98, RR: 20, HR: 80, BP: 125/80, Ht: 65 , Wt: 168, BMI:27.95. * Examination: G eneral Examination: T race ankle edema, lungs clear. No skin breakdown. Heart rate regular. Abdomen soft and nontender. Pleasant, demented. Responds to conversation and is able to walk well with his walker. Assessment: * Assessment: 1. H TN (hypertension), benign - I10 (Primary) 2 . A lzheimer's disease, unspecified - G30.9 3 . L ower extremity edema - R60.0 4 . I mmunization(s) administered - Z23 Plan: * Treatment: 2. A lzheimer's disease, unspecified Notes: Stable home environment, no changes in plan 3. L ower extremity edema Notes: Edema does not seem to be pathologic, seems to be positional. Recommended elevation and continued watchful diet * Immunizations: Fluzone High Dose : 0.7 mL (Route: Intramuscular) given by LORENZO Walker on Right Deltoid (Immunization(s) administered) * Procedure Codes: 9 0662 Influenza High Dose Vaccine >65 Years Old, Units: 1.40 , G0008 ADMINISTRATION-FLU VACCINE MEDICARE ONLY * Follow Up: p rn * * Sign off status: Completed true * Provider: Susanne Mcginnis MD Date: Generated for Lola atkinson/Tia/Leahitting on: 11/11/2024 07:46 PM EST History and Physical Notes * HPI (History of Present Illness) Category Sub-Category Detail Notes Category Not es gen Overall patient is doing well, continues to be in a fairly good social situation, son and other rest the family check on him time to time, he has good access to food, they noticed that his legs minimal swelling because he been sitting in his chair more often. He has no complaints. Examination Category Sub-Category Detail Notes Category Not es General Examination Trace ankle edema, lungs clear. No skin breakdown. Heart rate regular. Abdomen soft and nontender. Pleasant, demented. Responds to conversation and is able to walk well with his walker.
--- OUTSIDE RECORDS SUMMARY | 2025-08-04 11:00 | XMS_ITS ---
Author Organization [facility] Address [address] [place] [address] Care Team Providers Care Barrel Turner Name Role Phone Lc Mcginnis Primary Care [...] streptomycin Streptomycin Unknown Drug Allergy A ctive Results Component Value Reference Range Notes Urinalysis Reviewed date:08/07/2025 07:38:59 PM Interpretation: Performing Lab: Notes/Report: Color/Clarity yellow Leuk neg Nitrite neg Urobili 2.0 Protein trace pH 7.0 Blood neg Sp. Gr. 1.020 Ketone trace Bili neg Glucose neg COMPREHENSIVE METABOLIC PANE L (63737) Reviewed date:08/05/2025 12:08:47 PM Interpretation: Performing Lab:CB, [facility] [place], [place] [place] Notes/Report: NON-FASTING; NON-FASTING; NON-FASTING PATIENT UNABLE TO VOID; ADVISED TO RETURN FOR COLLECTION. GLUCOSE 97 65-99 mg/dL Fasting reference interval UREA NITROGEN (BUN) 8 7-25 mg/dL CREATININE 0.95 0.70-1.22 mg/dL EGFR 77 > OR = 60 mL/min/1.73m2 BUN/CREATININE RATIO SEE NOTE: 6-22 (calc) Not Reported: BUN and Creatinine are within reference range. SODIUM 141 135-146 mmol/L POTASSIUM 3.5 3.5-5.3 mmol/L CHLORIDE 103 98-110 mmol/L CARBON DIOXIDE 28 20-32 mmol/L CALCIUM 8.7 8.6-10.3 mg/dL PROTEIN, TOTAL 7.0 6.1-8.1 g/dL ALBUMIN 3.4 3.6-5.1 g/dL GLOBULIN 3.6 1.9-3.7 g/dL (calc) ALBUMIN/GLOBULIN RATIO 0.9 1.0-2.5 (calc) BILIRUBIN, TOTAL 0.3 0.2-1.2 mg/dL ALKALINE PHOSPHATASE 66 35-144 U/L AST 16 10-35 U/L ALT 9 9-46 U/L CBC (INCLUDES DIFF/PLT) (639 9) Reviewed date:08/05/2025 12:08:47 PM Interpretation: Performing Lab:KHUSHI, [facility] [address] [facility], [facility] InstituteIoawDB[address] [place] Notes/Report: NON-FASTING; NON-FASTING; NON-FASTING PATIENT UNABLE TO VOID; ADVISED TO RETURN FOR COLLECTION. WHITE BLOOD CELL COUNT 5.5 3.8-10.8 Thousand/ uL RED BLOOD CELL COUNT 4.23 4.20-5.80 Million/uL HEMOGLOBIN 13.1 13.2-17.1 g/dL HEMATOCRIT 39.9 38.5-50.0 % MCV 94.3 80.0-100.0 fL MCH 31.0 27.0-33.0 pg MCHC 32.8 32.0-36.0 g/dL For adults, a slight decrease in the calculated MCHC value (in the range of 30 to 32 g/dL) is most likely not clinically significant; however, it should be interpreted with caution in correlation with other red cell parameters and the patient's clinical condition. RDW 12.3 11.0-15.0 % PLATELET COUNT 271 140-400 Thousand/uL MPV 10.0 7.5-12.5 fL ABSOLUTE NEUTROPHILS 2844 3290-3050 cells/uL ABSOLUTE LYMPHOCYTES 9731 344-4210 cells/uL ABSOLUTE MONOCYTES 677 200-950 cells/uL ABSOLUTE EOSINOPHILS 402 15-500 cells/uL ABSOLUTE BASOPHILS 99 0-200 cells/uL NEUTROPHILS 51.7 LYMPHOCYTES 26.9 MONOCYTES 12.3 EOSINOPHILS 7.3 BASOPHILS 1.8 REASON FOR VISIT fell 6-8 times, bilateral leg swelling, incontinence with urine and bowels, would like to check on lab work Medications Medication SIG (Take, Route, Frequency, Duration) Notes Start Date End Date Status Divalproex Sodium 250 MG 1 tab(s) orally twice daily; Duration: 90 days Active Venlafaxine HCl ER 75 MG 1 cap(s) orally once a day; Duration: 90 days Active Donepezil HCl 10 MG 1 tab(s) orally once a day (at bedtime); Duration: 90 days Active Omeprazole 20 MG 1 cap(s) orally once a day; Duration: 90 days Active Synthroid 88 MCG 1 tab(s) orally once a day; Duration: 90 days Active traZODone HCl 100 mg TAKE 2 TABLETS BY M OUTH AT BEDTIME; Duration: 30 Active Montelukast Sodium 10 mg TAKE ONE TABLET BY MOUTH AT BEDTIME; Duration: 30 Active Memantine HCl 10 MG 1 tab(s) orally 2 ti mes a day; Duration: 90 days Active Stiolto Respimat 2.5 MCG-2.5 MCG/INH INHALE 2 PUFFS BY MOUTH ONCE A DAY Active Aricept 10 MG TAKE ONE TABLET BY MOUTH EVERY EVENING AT BEDTIME orally; Duration: 90 days Active Cholecalciferol 250 MCG 1 CAP(S) ORALLY ONCE A WEEK; Duration: 90 DAYS 04/29/2023 Active Keppra 500 MG 1 tab(s) orally 2 ti mes a day; Duration: 90 days Active AERO CHAMBER DIRECTED INHALED DIRECTED; Duration: 1 DAY 11/17/2020 Active OXYGEN 2 LITERS DIRECTED DAILY prn 10/23/2022 Active ALBUTEROL (EQV-PROAIR HFA) 9 0 MCG/INH INHALE 2 PUFFS BY MOUTH FOUR TIMES A DAY (EVERY 6 HOURS) NEEDED INHALED EVERY 6 HOURS; Duration: 30 DAYS Active Problems Problem Type SNOMED Code ICD Code Onset Dates Problem Status W/U Status Risk Notes Problem Recurrent falls (949425865) Falls frequently (R29.6) Active confirmed Problem Urinary incontinence (441775538) Urinary incontinence, unspecified type (R32) Active confirmed Vital Signs Temperature 97.3 degrees Fahrenheit 08/04/20 25 Blood pressure systolic 130 mm Hg 08/04/20 25 Blood pressure diastolic 82 mm Hg 025 Heart Rate 78 /min 08/04/2025 Height 65 in 08/04/2025 Weight 160 lbs 08/04/2025 BMI 26.62 kg/m2 08/04/2025 Encounters Encounter Location Date Provider Diagnosis [address] [address] 08/04/2025 Lc Mcginnis Falls frequently R29.6 ; Weakness R53.1 and Urinary incontinence, unspecified type R32 Assessments Encounter Date Diagnosis (ICD Code) Assessment Notes Treatment Notes Treatment Clinical Notes Section Notes 08/04/2025 Falls frequently (ICD-10 - R29.6) Labs ordered. Anticipate that they will not be actionable, and I had a long discussion with son, ezjwrqwa-ar-nff and daughter about options. He is not really a candidate for hospital admission. They understand those and they were checked out private pay options for skilled care. I do think he is at this stage where he will need 24/7 care. 08/04/2025 Weakness (ICD-10 - R53.1) See notes above, will check labs to make sure we do not have actionable issues. 08/04/2025 Urinary incontinence, unspecified type (ICD-10 - R32) Check UA. Patient unable to urinate in the office Plan Of Treatment Treatment Notes Assessment Notes Falls frequently Labs ordered. Antici hooker that they will not be actionable, and I had a long discussion with son, iujxqglw-bo-qal and daughter about options. He is not really a candidate for hospital admission. They understand those and they were checked out private pay options for skilled care. I do think he is at this stage where he will need 24/7 care. Weakness See notes above, constance l check labs to make sure we do not have actionable issues. Urinary incontinence, unspecified type C heck UA. Patient unable to urinate in the office Pending Test Test Name Order Date CULTURE, URINE, ROUTINE (395) 08/04/2025 Next Appt Details Follow Up: prn, Reason: Progress Notes * Terell DEAN WDOB: [birth year] (89 yo M)Acc No.[id number]:08/04/2025 Progress Notes Patient: Terell CHAPPELL Provider: Susanne Mcginnis MD :1935 A ge:89 Y S ex:Male Date:08/04/2025 Address:[place], [id number] Subjective: * Chief Complaints: * 1 . Fell 6-8 times. 2. Bilateral leg swelling. 3. Incontinence with urine and bowels. 4. Would like to check on lab work. * HPI: g en: Presents with an urgent visit with his son and zumbxnvo-eg-clk, and his daughter joined us later in the visit. Significant problems with walking, has really declined in regards to mental status, has been a little bit noncooperative with family members. No aggressive behaviors but has been very hard to move around, extremely weak, cannot walk on his own, frequent falls, takes a long time to get up. He and his family have been discussing chcf placement. 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 * Medications: T aking AERO CHAMBER DIRECTED [...] Cephalosporins, Doxycycline. Objective: * Vitals: N urse: sw, Pain: 0, Temp: 97.3, RR: 20, HR: 78, BP: 130/82, Ht: 65 , Wt: 160, BMI:26.62. * Examination: G eneral Examination: P atient is pleasant. He is clearly more weak than previous exams. He is able to walk with his walker and a lot of assistance. He is incontinent of urine. His lungs are clear, his heart rate is regular, previously noted murmur noted. Abdomen soft. He appears well-hydrated. He does not appear pale and has no jaundice or other stigmata of liver disease. Ankle edema is at baseline. Assessment: * Assessment: 1. F alls frequently - R29.6 (Primary) 2 . W eakness - R53.1 ?3. U rinary incontinence, unspecified type - R32 Plan: * Treatment: Value Reference Range C olor/Clarity yellow * L euk neg * N itrite neg * U robili 2.0 * P rotein trace * p H 7.0 * B lood neg * S p. Gr. 1.020 * K etone trace * B liza neg * G lucose neg * Nohelia Friedman N 08/05/20 25 03:44:21 PM EST >This lab was reviewed by Lc Mcginnis on 08/07/2025 at 19:38 PM EST ?LAB: CULTURE, URINE, ROUTINE (395) ?LAB: COMPREHENSIVE METABOLIC PANEL ([id number]) (Collection Date & Time - 08/04/2025 04:38 PM)* Value Reference Range G LUCOSE 97 65-99 - mg/dL * U SHADI NITROGEN (BUN) 8 7-25 - mg/dL * C REATININE 0.95 0.70-1.22 - mg/dL * B UN/CREATININE RATIO SEE NOTE: 6-22 - (calc) * S ODIUM 141 135-146 - mmol/L * P OTASSIUM 3.5 3.5-5.3 - mmol/L * C HLORIDE 103 98-110 - mmol/L * C ARBON DIOXIDE 28 20-32 - mmol/L * C ALCIUM 8.7 8.6-10.3 - mg/dL * P ROTEIN, TOTAL 7.0 6.1-8.1 - g/dL * A LBUMIN 3.4 L 3.6-5.1 - g/dL * G LOBULIN 3.6 1.9-3.7 - g/dL (calc ) * A LBUMIN/GLOBULIN RATIO 0.9 L 1.0-2.5 - (calc) * B ILIRUBIN, TOTAL 0.3 0.2-1.2 - mg/dL * A LKALINE PHOSPHATASE 66 35-144 - U/L * A ST 16 10-35 - U/L * A LT 9 9-46 - U/L * E GFR 77 > OR = 60 - mL/min/1 .73m2 ?LAB: CBC (INCLUDES DIFF/PLT) (6399) (Collection Date & Time - 08/04/2025 04:38 PM)* Value Reference Range W ALBERTO BLOOD CELL COUNT 5.5 3.8-10.8 - Thousan d/uL * R ED BLOOD CELL COUNT 4.23 4.20-5.80 - Million/ uL * H EMOGLOBIN 13.1 L 13.2-17.1 - g/dL * H EMATOCRIT 39.9 38.5-50.0 - % * M CV 94.3 80.0-100.0 - fL * M CH 31.0 27.0-33.0 - pg * M CHC 32.8 32.0-36.0 - g/dL * R DW 12.3 11.0-15.0 - % * P LATELET COUNT 271 140-400 - Thousand/u L * N EUTROPHILS 51.7 - % * A BSOLUTE NEUTROPHILS 2844 2393-5713 - cells/uL * L YMPHOCYTES 26.9 - % * A BSOLUTE LYMPHOCYTES 5392 854-6548 - cells/uL * M ONOCYTES 12.3 - % * A BSOLUTE MONOCYTES 677 200-950 - cells/uL * E OSINOPHILS 7.3 - % * A BSOLUTE EOSINOPHILS 402 15-500 - cells/uL * B ASOPHILS 1.8 - % * A BSOLUTE BASOPHILS 99 0-200 - cells/uL * M PV 10.0 7.5-12.5 - fL Notes: Labs ordered. Anticipate that they will not be actionable, and I had a long discussion with son, nmgojbgf-hs-knk and daughter about options. He is not really a candidate for hospital admission. They understand those and they were checked out private pay options for skilled care. I do think he is at this stage where he will need 24/7 care.??2.?Weakness?LAB: Urinalysis* Value Reference Range C olor/Clarity yellow * L euk neg * N itrite neg * U robili 2.0 * P rotein trace * p H 7.0 * B lood neg * S p. Gr. 1.020 * K etone trace * B liza neg * G lucose neg * RenitaChilo olverai N 08/05/20 03:44:21 PM EST >This lab was reviewed by Lc Mcginnis on 08/07/2025 at 19:38 PM EST ?LAB: CULTURE, URINE, ROUTINE (395) ?LAB: COMPREHENSIVE METABOLIC PANEL ([id number]) (Collection Date & Time - 08/04/2025 04:38 PM)* Value Reference Range G LUCOSE 97 65-99 - mg/dL * U SHADI NITROGEN (BUN) 8 7-25 - mg/dL * C REATININE 0.95 0.70-1.22 - mg/dL * B UN/CREATININE RATIO SEE NOTE: 6-22 - (calc) * S ODIUM 141 135-146 - mmol/L * P OTASSIUM 3.5 3.5-5.3 - mmol/L * C HLORIDE 103 98-110 - mmol/L * C ARBON DIOXIDE 28 20-32 - mmol/L * C ALCIUM 8.7 8.6-10.3 - mg/dL * P ROTEIN, TOTAL 7.0 6.1-8.1 - g/dL * A LBUMIN 3.4 L 3.6-5.1 - g/dL * G LOBULIN 3.6 1.9-3.7 - g/dL (calc ) * A LBUMIN/GLOBULIN RATIO 0.9 L 1.0-2.5 - (calc) * B ILIRUBIN, TOTAL 0.3 0.2-1.2 - mg/dL * A LKALINE PHOSPHATASE 66 35-144 - U/L * A ST 16 10-35 - U/L * A LT 9 9-46 - U/L * E GFR 77 > OR = 60 - mL/min/1 .73m2 ?LAB: CBC (INCLUDES DIFF/PLT) (6399) (Collection Date & Time - 08/04/2025 04:38 PM)* Value Reference Range W ALBERTO BLOOD CELL COUNT 5.5 3.8-10.8 - Thousan d/uL * R ED BLOOD CELL COUNT 4.23 4.20-5.80 - Million/ uL * H EMOGLOBIN 13.1 L 13.2-17.1 - g/dL * H EMATOCRIT 39.9 38.5-50.0 - % * M CV 94.3 80.0-100.0 - fL * M CH 31.0 27.0-33.0 - pg * M CHC 32.8 32.0-36.0 - g/dL * R DW 12.3 11.0-15.0 - % * P LATELET COUNT 271 140-400 - Thousand/u L * N EUTROPHILS 51.7 - % * A BSOLUTE NEUTROPHILS 2844 4311-4387 - cells/uL * L YMPHOCYTES 26.9 - % * A BSOLUTE LYMPHOCYTES 3612 177-7131 - cells/uL * M ONOCYTES 12.3 - % * A BSOLUTE MONOCYTES 677 200-950 - cells/uL * E OSINOPHILS 7.3 - % * A BSOLUTE EOSINOPHILS 402 15-500 - cells/uL * B ASOPHILS 1.8 - % * A BSOLUTE BASOPHILS 99 0-200 - cells/uL * M PV 10.0 7.5-12.5 - fL Notes: See notes above, will check labs to make sure we do not have actionable issues.??3.?Urinary incontinence, unspecified type?LAB: Urinalysis* Value Reference Range C olor/Clarity yellow * L euk neg * N itrite neg * U robili 2.0 * P rotein trace * p H 7.0 * B lood neg * S p. Gr. 1.020 * K etone trace * B liza neg * G lucose neg * Nohelia Friedman N 08/05/20 03:44:21 PM EST >This lab was reviewed by Lc Mcginnis on 08/07/2025 at 19:38 PM EST ?LAB: CULTURE, URINE, ROUTINE (395) ?LAB: COMPREHENSIVE METABOLIC PANEL ([id number]) (Collection Date & Time - 08/04/2025 04:38 PM)* Value Reference Range G LUCOSE 97 65-99 - mg/dL * U SHADI NITROGEN (BUN) 8 7-25 - mg/dL * C REATININE 0.95 0.70-1.22 - mg/dL * B UN/CREATININE RATIO SEE NOTE: 6-22 - (calc) * S ODIUM 141 135-146 - mmol/L * P OTASSIUM 3.5 3.5-5.3 - mmol/L * C HLORIDE 103 98-110 - mmol/L * C ARBON DIOXIDE 28 20-32 - mmol/L * C ALCIUM 8.7 8.6-10.3 - mg/dL * P ROTEIN, TOTAL 7.0 6.1-8.1 - g/dL * A LBUMIN 3.4 L 3.6-5.1 - g/dL * G LOBULIN 3.6 1.9-3.7 - g/dL (calc ) * A LBUMIN/GLOBULIN RATIO 0.9 L 1.0-2.5 - (calc) * B ILIRUBIN, TOTAL 0.3 0.2-1.2 - mg/dL * A LKALINE PHOSPHATASE 66 35-144 - U/L * A ST 16 10-35 - U/L * A LT 9 9-46 - U/L * E GFR 77 > OR = 60 - mL/min/1 .73m2 ?LAB: CBC (INCLUDES DIFF/PLT) (3493) (Collection Date & Time - 08/04/2025 04:38 PM)* Value Reference Range W ALBERTO BLOOD CELL COUNT 5.5 3.8-10.8 - Thousan d/uL * R ED BLOOD CELL COUNT 4.23 4.20-5.80 - Million/ uL * H EMOGLOBIN 13.1 L 13.2-17.1 - g/dL * H EMATOCRIT 39.9 38.5-50.0 - % * M CV 94.3 80.0-100.0 - fL * M CH 31.0 27.0-33.0 - pg * M CHC 32.8 32.0-36.0 - g/dL * R DW 12.3 11.0-15.0 - % * P LATELET COUNT 271 140-400 - Thousand/u L * N EUTROPHILS 51.7 - % * A BSOLUTE NEUTROPHILS 2844 5672-1649 - cells/uL * L YMPHOCYTES 26.9 - % * A BSOLUTE LYMPHOCYTES 2933 303-4131 - cells/uL * M ONOCYTES 12.3 - % * A BSOLUTE MONOCYTES 677 200-950 - cells/uL * E OSINOPHILS 7.3 - % * A BSOLUTE EOSINOPHILS 402 15-500 - cells/uL * B ASOPHILS 1.8 - % * A BSOLUTE BASOPHILS 99 0-200 - cells/uL * M PV 10.0 7.5-12.5 - fL Notes: Check UA. Patient unable to urinate in the office?? * Procedure Codes: 8 1002 URINALYSIS, Modifiers: QW , G2211 Complex e/m visit add on * Follow Up: p rn * * Sign off status: Completed Addendum: * true * Provider: Susanne Mcginnis MD Date: 10/04/2024 Generated for Halii ng/Tia/eTransmitting on: 11/11/2024 07:47 PM EST History and Physical Notes * HPI (History of Present Illness) Category Sub-Category Detail Notes Category Not es gen Presents with an urgent visit with his son and eitpdgte-oi-ugr, and his daughter joined us later in the visit. Significant problems with walking, has really declined in regards to mental status, has been a little bit noncooperative with family members. No aggressive behaviors but has been very hard to move around, extremely weak, cannot walk on his own, frequent falls, takes a long time to get up. He and his family have been discussing chcf placement. Examination Category Sub-Category Detail Notes Category Not es General Examination Patient is pleasant. He is clearly more weak than previous exams. He is able to walk with his walker and a lot of assistance. He is incontinent of urine. His lungs are clear, his heart rate is regular, previously noted murmur noted. Abdomen soft. He appears well-hydrated. He does not appear pale and has no jaundice or other stigmata of liver disease. Ankle edema is at baseline.
--- OUTSIDE RECORDS SUMMARY | 2025-08-23 12:00 | XMS_ITS ---
Author Organization [facility] Address [address] [place] [address] Care Team Providers Care Retail Field Supervisor Name Role Phone Lc Mcginnis Primary Care Provider Anastasiia Murillo [phone] Allergies Allergen (clinical drug ingredient) Drug/Non Drug [...] Drug Allergy A ctive REASON FOR VISIT [facility] Medications Medication SIG (Take, Route, Frequency, [...] Risk Notes Problem Dementia with behavioral disturbance (9373749616998) Dementia with behavioral disturbance (F03.918) Active confirmed Problem Senile debility (42327249) Senile debility (R54) Active confirmed Problem Functional urinary incontinence (615199542) Urinary incontinence due to cognitive impairment (R39.81) Active confirmed Problem Insomnia (113053995) Other insomnia (G47.09) Active confirmed Vital Signs Temperature 98.7 degrees Fahrenheit 08/23/20 25 Blood pressure systolic 142 mm Hg 08/23/20 25 Blood pressure diastolic 61 mm Hg 025 Heart Rate 81 /min 08/23/2025 Height 65 in 08/23/2025 Weight 147.6 lbs 08/23/2025 BMI 24.56 kg/m2 08/23/2025 Encounters Encounter Location Date Provider Diagnosis [address] [address] 08/23/2025 Anastasiia Murillo Dementia with behavi oral [...] Details Follow Up: 1-2 weeks, Reason : Progress Notes * Terell DEAN WDOB: [birth year] (89 yo M)Acc No.[id number]:08/23/2025 Patient: Terell CHAPPELL Provider: CORINNA Diaz :1935 A ge:89 Y S ex:Male Date:08/23/2025 Address:[place], [id number] Pcp:Lc Mcginnis Subjective: * Chief Complaints: * 1 . [facility] Admission. * HPI: g en: 89 yr old male seen today at [facility] for admission to facility. Admitted from home [...] pneumonia 10/2014, psychological reasons 09/2015, H 12/2017, [facility]- AMS and dehydration 01/2021, [facility] 01/2023, Low potassium 08/2023. * Family History: F ather: , [place]. M other: . P aternal Grand Father: . P aternal Grand Mother: . M aternal Grand Father: , [place]. M aternal Grand Mother: . P aternal [...] no. Travel outside [place]: no. 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 history of alcohol abuse. * Medications: T [...] CORINNA Diaz Date: 10/24/2024 Generated for Lola atkinson/Tia/Maria Luzsmitting on: 11/11/2024 07:46 PM EST History and [...]
--- OUTSIDE RECORDS SUMMARY | 2025-09-08 10:30 | XMS_ITS ---
Author Organization [facility] Address [address] [place] [address] Care Team Providers Care Environmental Health And Safety Intern Name Role Phone Lc Mcginnis Primary Care Provider REASON FOR VISIT med ck, [employer] PAF Encounters Encounter Location Date Provider Diagnosis [address] [address] 09/08/2025 Lc Mcginnis Plan Of Treatment No Information Progress Notes * TONY Terell WDOB: [birth year] (89 yo M)Acc No.[id number]:09/08/2025 Progress Notes Patient: Terell CHAPPELL Provider: Susanne Mcginnis MD :[id number] A ge:89 Y S ex:Male Date:09/08/2025 Address:[id number] Subjective: * Chief Complaints: * 1 . Med ck. 2. [employer] PAF. * Medical History: Objective: * Vitals: Assessment: Plan: * Treatment: * * Electronic signature of Kevin Mcginnis MD FAAP on 09/10/2025 at 07:47 PM EST Sign off status: Pending * Provider: Susanne Mcginnis MD Date: 11/09/2024 Generated for Printi ng/Faxing/eTransmitting on: 11/11/2024 07:47 PM EST
[2025-09-10 19:44] VITALS: BP 135/78; PULSE 84; RESP 18; TEMP 36.6; O2SAT 98; BMI 24.2
--- NOTE | 2025-09-10 19:44 | XR_ITS ---
PROCEDURE INFORMATION: Exam: XR Chest Exam date and time: 09/10/2025 8:00 PM Age: 89 years old Clinical indication: Shortness of breath; Additional info: Short of breath TECHNIQUE: Imaging protocol: Radiologic exam of the chest. Views: 1 view. COMPARISON: CR XR CHEST PORTABLE 09/06/2025 2:54 PM FINDINGS: Lungs: Unremarkable. No consolidation. Pleural spaces: Unremarkable. No pleural effusion. No pneumothorax. Heart/Mediastinum: Unremarkable. No cardiomegaly. Bones/joints: Unremarkable. IMPRESSION: No acute findings.
--- NOTE | 2025-09-10 19:44 | ECG_ITS ---
APPROVED REPORT Exam: Resting ECG HR:74 bpm ECG Measurements Heart Rate 74 AXES MI 194 P -77 QRSd 88 QRS -29 QT 409 T 51 QTc 437 Conclusion SINUS RHYTHM VOLTAGE CRITERIA FOR LVH [MEETS CRITERIA IN ONE OF: R(aVL), S(V1), R(V5), R(V5/V6)+S(V1)] POSSIBLE SEPTAL MYOCARDIAL INFARCTION , PROBABLY OLD [30 ms Q WAVE IN V1/V2] ABNORMAL ECG INTERPRETATION BASED ON A DEFAULT AGE OF 41 YEARS UNCONFIRMED REPORT Electronically signed by : KEYSHAWN WU, 09/11/2025 05:40:45
--- OUTSIDE RECORDS SUMMARY | 2025-09-10 19:47 | XMS_ITS | Patient Health Record ---
Author Organization [facility] Address [address] [place] [address] Care Team Providers Care District Administrative Assistant Name Role Phone Lc Mcginnis Primary Care Provider Anastasiia Murillo Unavailable [phone] Migration, Provider Unavailable Unavailable Allergies Allergen (clinical [...] Notes CBC (INCLUDES DIFF/PLT) (639 9) Reviewed date:11/26/2024 02:42:52 PM Interpretation: Performing Lab:[facility], [facility], [facility] HospitalDncfSX[address] [place] Notes/Report: NON-FASTING; NON-FASTING; NON-FASTING; NON-FASTING [...] MPV 10.0 7.5-12.5 fL ABSOLUTE NEUTROPHILS [phone] cells/uL ABSOLUTE LYMPHOCYTES 2215 850-3900 cells/uL ABSOLUTE MONOCYTES 856 200-950 cells/uL ABSOLUTE EOSINOPHILS 290 15-500 cells/uL ABSOLUTE BASOPHILS 104 0-200 cells/uL NEUTROPHILS 49.8 LYMPHOCYTES 32.1 MONOCYTES 12.4 EOSINOPHILS 4.2 BASOPHILS 1.5 MAGNESIUM (622) Reviewed date:11/26/2024 02:42:52 PM Interpretation: Performing Lab:[facility] [id number] [facility] [employer], EmboMedicsTlabTF[address] [place] Notes/Report: NON-FASTING; NON-FASTING; NON-FASTING; NON-FASTING MAGNESIUM 2.1 1.5-2.5 mg/dL [facility] METABOLIC [facility] (42419) Reviewed date:11/26/2024 02:42:52 PM Interpretation: Performing Lab:[facility] [id number] [facility] [employer], EmboMedicsKtlgFE[address] [place] Notes/Report: NON-FASTING; NON-FASTING; NON-FASTING; NON-FASTING [...] ) Reviewed date:11/26/2024 02:42:52 PM Interpretation: Performing Lab:KHUSHI, [facility] [id number] [facility] [employer] [facility], mInfo TpjrYS[address] [place] Notes/Report: NON-FASTING; NON-FASTING; NON-FASTING; NON-FASTING T3 UPTAKE 33 22-35 % T4 (THYROXINE), TOTAL 10.0 4.9-10.5 mcg/dL FREE T4 INDEX (T7) 3.3 1.4-3.8 TSH 0.29 0.40-4.50 mIU/L Urinalysis Reviewed date:08/07/2025 07:38:59 PM Interpretation: Performing Lab: Notes/Report: Color/Clarity yellow Leuk neg Nitrite neg Urobili 2.0 Protein trace pH 7.0 Blood neg Sp. Gr. 1.020 Ketone trace Bili neg Glucose neg COMPREHENSIVE METABOLIC PANE L (42265) Reviewed date:08/05/2025 12:08:47 PM Interpretation: Performing Lab:[facility] [id number] [employer], [facility] HospitalHxtjEK[address] [place] Notes/Report: NON-FASTING; NON-FASTING; NON-FASTING PATIENT [...] date:08/05/2025 12:08:47 PM Interpretation: Performing Lab:CB, [facility], [facility] HospitalSzurBE[address] [place] Notes/Report: NON-FASTING; NON-FASTING; NON-FASTING PATIENT [...] MPV 10.0 7.5-12.5 fL ABSOLUTE NEUTROPHILS 2844 8156-1193 cells/uL ABSOLUTE LYMPHOCYTES 1805 833-2648 cells/uL ABSOLUTE MONOCYTES 677 200-950 cells/uL ABSOLUTE EOSINOPHILS 402 15-500 cells/uL ABSOLUTE BASOPHILS 99 0-200 cells/uL NEUTROPHILS 51.7 LYMPHOCYTES 26.9 MONOCYTES 12.3 EOSINOPHILS 7.3 BASOPHILS 1.8 Medications Medication SIG (Take, Route, Frequency, Duration) [...] Vaccine Route Administration Date Status Comme nts Adacel (Tdap) IM Intramuscular 04/15/2016 Administered Arexvy ID Intradermal 10/08/2023 Administered Fluvirin (MEDICARE ONLY) IM Intramuscular 06/22/2015 Admin istered Fluvirin--Influenza vaccine 3+ year Unknown 08/04/2007 Administered Fluvirin--Influenza vaccine 3+ year IM Intramuscular 09/01/2008 Administered Fluvirin--Influenza vaccine 3+ year IM Intramuscular 08/31/2009 Administered Fluvirin--Influenza vaccine 3+ year IM Intramuscular 07/19/2010 Administered Fluzone High Dose IM Intramuscular 06/15/2018 Administered Fluzone High Dose IM Intramuscular 07/22/2019 Administered Fluzone High Dose IM Intramuscular 08/15/2021 Administered Fluzone High Dose IM Intramuscular 07/07/2023 Administered Fluzone High Dose IM Intramuscular 06/22/2024 Administered Fluzone High Dose IM Intramuscular 07/21/2025 Administered Influenza (Fluzone)--Medicare only IM Intramuscular 06/28/2013 Administered Influenza (Fluzone)--Medicare only IM Intramuscular 08/21/2017 Administered Pneumococcal Vaccine Unknown 11/09/2007 Administered Prevnar PCV-13 (Pneumococcal conjugate 13) IM Intramuscular 08/21/2017 Administered Prevnar PCV-20 (Pneumococcal conjugate 20) IM Intramuscular 06/22/2024 Administered Social History Tobacco Use: Social History Observation Description Date Details (start date - stop date) Never Smoker NA - NA Smoking: Question Answer Notes Are you a: nonsmoker Additional Findings: Tobacco Non-User Current no n-smoker Section Notes: history of alcohol abuse Problems Problem Type SNOMED Code ICD Code Onset Dates Problem Status W/U Status Risk Notes Problem Hypocalcemia (6393937) Hypocalcemia (E83.51) Active confirmed Problem Anxiety disorder (155869676) Anxiety disorder, unspecified (F41.9) Active confirmed Problem Alzheimer's disease (53016299) Alzheimer's disease, unspecified (G30.9) Active confirmed Problem Insomnia (370996243) Other insomnia (G47.09) Active confirmed Problem Chronic respiratory failure (52045228) Chronic respiratory failure with hypoxia (J96.11) Active confirmed Problem Gastro-esophageal reflux disease without esophagitis (440684886) Gastro-esophageal reflux disease without esophagitis (K21.9) Active confirmed Problem Allergy to penicillin (05695034) Allergy status to penicillin (Z88.0) Active confirmed Problem Hyperlipidaemia (34348463) HLD (hyperlipidemia) (E78.5) Active confirmed Problem COPD - Chronic obstructive pulmonary disease (28940779) COPD (chronic obstructive pulmonary disease) (J44.9) Active confirmed Problem Hypothyroidism (98122176) Hypothyroidism (E03.9) Active confirmed Problem Vitamin D deficiency (21443397) Vitamin D deficiency (E55.9) Active confirmed Problem Essential hypertension (00118021) HTN (hypertension), benign (I10) Active confirmed Problem BMI 30+ - obesity (574563128) BMI 32.0-32.9,adult (Z68.32) Active confirmed Problem Senile debility (49636745) Senile debility (R54) Active confirmed Problem Recurrent falls (196384387) Falls frequently (R29.6) Active confirmed Problem Functional urinary incontinence (146724387) Urinary incontinence due to cognitive impairment (R39.81) Active confirmed Problem Urinary incontinence (996513119) Urinary incontinence, unspecified type (R32) Active confirmed Problem Allergy to sulfa drugs (64307567) Allergy to sulfa drugs (Z88.2) Active confirmed Problem Dementia with behavioral disturbance (4990996411827) Dementia with behavioral disturbance (F03.918) Active confirmed Vital Signs Heart Rate 81 /min 08/23/2025 Temperature 98.7 degrees Fahrenheit 08/23/2025 Blood pressure diastolic 61 mm Hg 08/23/2025 Height 65 in 08/23/2025 Blood pressure systolic 142 mm Hg 08/23/2025 Weight 147.6 lbs 08/23/2025 BMI 24.56 kg/m2 08/23/2025 Encounters Encounter Location Date Provider Diagnosis Crist[facility] [address] [address] [address] 12/25/2024 Provider Migration [facility] [address] [address] 11/25/2024 Lcpamela Mcginnis HTN (hypertension), benign I10 ; Hypothyroidism E03.9 and Chronic renal failure, stage 3b N18.32 [facility] [address] [place] [facility] [address] [address] 04/27/2025 Lc Besson HTN (hypertension), benign I10 ; Hypothyroidism E03.9 ; HLD (hyperlipidemia) E78.5 ; Gastro-esophageal reflux disease without esophagitis K21.9 ; COPD (chronic obstructive pulmonary disease) J44.9 ; Chronic kidney disease (CKD), stage 2 N18.2 and Routine medical exam Z00.00 [facility] [address] [address] 07/21/2025 Lcpamela Mcginnis HTN (hypertension), benign I10 ; Alzheimer's disease, unspecified G30.9 ; Lower extremity edema R60.0 and Immunization(s) administered Z23 [facility] [address] [address] 08/04/2025 Lc Mcginnis Falls frequently R29 .6 ; Weakness R53.1 and Urinary incontinence, unspecified type R32 [address] [address] 08/23/2025 Anastasiia Lidia Dementia with behavioral disturbance F03.918 ; COPD (chronic obstructive pulmonary disease) J44.9 ; Senile debility R54 ; Hypothyroidism E03.9 ; Gastro-esophageal reflux disease without esophagitis K21.9 ; Vitamin D deficiency E55.9 ; Chronic respiratory failure with hypoxia J96.11 ; Falls frequently R29.6 ; Urinary incontinence due to cognitive impairment R39.81 and Other insomnia G47.09 [facility] [address] [place] [address] 03/31/2025 Lc Besson [facility] [address] [place] [address] [place] [address] 08/10/2025 Lc Besson [facility] [address] [facility] [address] [place] [address] 08/15/2025 Lc Besson [facility] [address] [place] [address] [place] [address] 08/23/2025 Lcpamela Mcginnis Assessments Encounter Date Diagnosis [...] I had a long discussion with son, [id number] and daughter about options. He is not [...] not use oxygen any longer. Has improved 08/23/2025 Vitamin D deficiency (ICD-10 - E55.9) continue oral replacement 04/27/2025 Chronic kidney disease (CKD), stage 2 (ICD-10 - N18.2) With better blood pressure control nutrition CKD has improved, previously stage IIIb now stage II. Continue good hydration and current medication 08/23/2025 Chronic respiratory failure with hypoxia (ICD-10 [...] Without Contrast Physical Therapy 12/11/2015 Physical Therapy 11/16/2008 Physical Therapy 03/05/2012 CT Scan : Chest with Contrast 04/04/2020 N-PSA Screening 03/16/2008 H-CBC with AUTO DIFF 11/14/2010 H-CBC with AUTO DIFF 04/29/2011 H-CBC with AUTO DIFF 05/30/2009 H-CBC with AUTO DIFF 10/02/2017 H-VITAMIN B12 06/05/2009 H-VITAMIN B12 11/15/2010 H-BMP 11/14/2010 H-BMP 04/29/2011 H-CMP 05/30/2009 H-CMP 11/17/2013 H-CMP 10/02/2017 H-LIPID PANEL 10/02/2017 H-LIPID PANEL 11/17/2013 H-LIPID PANEL 05/30/2009 H-PSA SCREEN 05/30/2009 H-TSH 11/17/2013 H-TSH 10/02/2017 H-VALPROIC ACID (DEPAKENE) 10/02/2017 H-SED RATE 11/14/2010 C-THYROGLOBULIN ANTIBODIES 01/01/2012 C-CBC 12/14/2012 C-CBC 08/29/2016 C-CMP 08/29/2016 C-CMP 12/14/2012 C-CMP 06/22/2015 C-CMP 01/22/2012 C-LIPID PANEL 12/14/2012 C-LIPID PANEL 06/22/2015 C-LIPID PANEL 08/29/2016 C-TSH 08/29/2016 C-TSH 06/22/2015 C-TSH 12/14/2012 C-TSH 01/22/2012 C-THYROID PEROXIDASE AB 01/01/2012 C-DEPAKOTE 12/14/2012 spirometry 07/19/2010 M-Complete Blood Count Auto Diff 020 M-Complete Blood Count Auto Diff 018 M-Complete Blood Count Auto Diff 022 M-Comprehensive Metabolic Panel 08/26/20 22 M-Comprehensive Metabolic Panel 06/15/20 18 M-Comprehensive Metabolic Panel 04/04/20 20 M-Hemoglobin A1C 08/26/2022 M-Ferritin 07/13/2018 M-Lipid Panel 08/26/2022 M-Lipid Panel 06/15/2018 M-Thyroid Stimulating Hormone 06/15/2018 M-Thyroid Stimulating Hormone 08/26/2022 M-Vitamin B12 11/17/2020 M-Vitamin B12 07/13/2018 M-Folate 09/02/2018 M-Valproic Acid Total 08/15/2021 M-Valproic Acid, (Depakene) 06/15/2018 M-Iron and TIBC 07/13/2018 CULTURE, URINE, ROUTINE (395) 08/04/2025 Insurance Providers Payer Name Payer Address Payer Phone Subscriber Number Group Number Insured Name Patient Relationship to Insured Coverage Start Date Coverage End Date [employer] MED[employer]ARE [address] [address] [place] [address] [id number] Terell Jimenez Self - patient is the [...] Hospitalization History Reason Date(Month/Year) Low potassium 08/2023 H 01/2023 [facility]- AMS and dehydration 01/2021 [facility] 12/2017 psychological reasons 09/2015 pneumonia 10/2014 Gall stones
--- OUTSIDE RECORDS SUMMARY | 2025-09-10 19:47 | XMS_ITS | Clinical Summary ---
Author Organization [facility] Address [facility] [place] [address] Phone Care Team Providers Care Boiler Tenders Supervisor Name Role Phone Lc Mcginnis MD Primary Care Provider [phone] Allergies Active Allergy Reactions Criticality Noted Date [...] daily. Active fluticasone (FLONASE) 50 mcg/actuation Nasl [place], Suspension 2 Sprays by Nasal route 2 [...] age to complete this topic Insurance [place]ARE [place] B [place] MEDICARE [place] PART A AND B [place] Advance Directives For more information, please contact: [phone] Documents on File Type Date Recorded Patient Gas Flow Regulator Expl anation Power of Head Of Mobile 11/18/2015 5:11 PM Advance Directives/DNR 11/18/2015 5:11 PM * Full Code (Latest Code Status on File) Date Activated Date Inactivated Comments 10/21/2015 1:52 AM 11/15/2015 6:30 PM Care Teams Boiler Tenders Supervisor Relationship Specialty Start Date End Date Lc Mcginnis MD [address] [place] [id number] PCP - General Internal Medicine-Adolescent Medicine 10/20/15
--- OUTSIDE RECORDS SUMMARY | 2025-09-10 19:48 | XMS_ITS ---
Author Organization [facility] Care Team Providers Care Software Support Analyst Name Role Phone Lc Mcginnis Unavailable Unavailable Care Team Name Role Address Phone Organization Dates Lc Mcginnis PCP [address] , [place], [address], [place] (Office): : [facility] 10/16/2017 - [...] information 2017 Code: 51 Code System OID:2.16.840.1 .722115.3.221. 5 Code System Name: Source of Payment Typology (PHDSC) Display: Managed Care (Private) Translation: Code: HM Code System: OID:2.16.840.1 .290379.6.255. 1336 Code System Name: Insurance Type Code ([id number]) Display Name: Health Maintenance Organization (HMO) Plan Code: SELF Code System Name: HL7 RoleCode Code System OID:2.16.840.1 .747588.5.111 Display Name: Self [id number] Root: [id number] Payer Identifier: Root: [id number] Extension: [id number] Address: [address] [place] [address] City: [place] State: [place] Country: [place] Code: 81 Code System OID:2.16.840.1 .036191.3.221. 5 Code System Name: Source of Payment Typology (PHDSC) Display: Self Pay Translation: Code: 09 Code System: OID:2.16.840.1 .813514.6.255. 1336 Code System Name: Insurance Type Code ([id number]) Display Name: Self-pay Problems Problem # Description Date of onset Resolved Date Code CodeSystem Concern Status 1 ANXIETY DISORDER, UNSPECIFIED [address] active 2 ATAXIA, UNSPECIFIED [address] active 3 ESSENTIAL (PRIMARY) HYPERTENSION [address] active 4 GASTRO-ESOPHAGEAL REFLUX DISEASE WITHOUT ESOPHAGITIS [address] active 5 HALLUCINATIONS, UNSPECIFIED [address] active 6 HISTORY OF FALLING [address] active 7 HYPOTHYROIDISM, UNSPECIFIED [address] active 8 INSOMNIA DUE TO OTHER MENTAL DISORDER [address] active 9 OTHER CHRONIC ALLERGIC CONJUNCTIVITIS [address] active 10 OTHER RECURRENT DEPRESSIVE DISORDERS [address] active 11 PNEUMONIA, UNSPECIFIED ORGANISM [address] active 12 UNSPECIFIED DEMENTIA WITH BEHAVIORAL DISTURBANCE [address] active Reason for Referral No Reasons for Referral Entered Social History Social History Observation Description Start Date End Date Code Code System Current Smoking Status Tobacco smoking consumption unknown 927923252 SNOMED CT Sex Assigned At Male 1935 [address] [facility] Gender Identity Sexual Orientation Vital Signs Code Code System Vitals Name Values and Units Timing Information 81214-0 INC Weight Ytzzh=723.6 Units=Lbs 03/2018
[2025-09-10 19:51] VITALS: BP 124/78; PULSE 74; RESP 18; TEMP 36.6; O2SAT 98
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
[2025-09-10 20:17] VITALS: BP 163/67; PULSE 71; O2SAT 97
[2025-09-10 20:20] LABS: Hematocrit 43.3 % (42.0-52.0); Hemoglobin 14.3 g/dL (14.1-18.0); Immature Granulocytes % 0.7 %; Mean Corpuscular HGB Conc 33.0 g/dL (31.8-35.4); Mean Corpuscular Hemoglobin 31.2 pg (27.0-31.2); Mean Corpuscular Volume 94.3 fl (80-94); Nucleated Red Blood Cells % 0 %; Platelet Count 232 K/mm3 (142-424); Red Blood Count 4.59 M/mm3 (4.60-6.20); Red Cell Distribution Width-SD 46.3 fL; White Blood Count 5.9 K/mm3 (4.8-10.8)
[2025-09-10 20:26] LABS: Albumin Level 4.0 g/dl (3.5-5.0); Chloride 103 mmol/L (98-107)
[2025-09-10 20:27] LABS: Potassium 3.7 mmoL/L (3.5-5.1); Sodium 140 mmol/L (136-145)
[2025-09-10 20:29] LABS: Alanine Aminotransferase 23 U/L (12-78); Albumin/Globulin Ratio 0.9 (1.1-1.8); Alkaline Phosphatase 81 U/L (38-126); Anion Gap 17.7 mEq/L (5-15); Aspartate Amino Transferase 34 U/L (17-59); Bilirubin,Total 0.4 mg/dl (0.2-1.3); Blood Urea Nitrogen 14 mg/dl (9-20); Carbon Dioxide 23 mmol/L (22.0-30.0); Creatinine Clearance Estimated 41 mL/min (50-200); Creatinine,Serum 1.20 mg/dl (0.66-1.25); Estimated Glomerular Filt Rate 57 ml/min (>60); GFR (African American) 69 ML/MIN (>60); Globulin 4.4 g/dL (1.3-3.2); Total Protein,Serum 8.4 g/dl (6.3-8.2)
[2025-09-10 20:30] LABS: Calcium 9.3 mg/dl (8.4-10.2); Glucose 111 mg/dl (74-100); Lipase 44 U/L (23-300); Magnesium 1.9 mg/dl (1.6-2.3)
[2025-09-10 20:31] LABS: Acetaminophen < 10 ug/ml (10-30); Salicylate < 1.0 mg/dL (2.0-20.0)
[2025-09-10 22:31] LABS: Microscopic, Urine URINE MICROSCOPIC (MICROSCOPIC)
[2025-09-10 22:33] LABS: Color,Urine YELLOW (Yellow); Glucose,Urine (UA) Negative (Negative); Ketones,Urine 1+ (Negative); Leukocyte Esterase,Urine Negative (Negative); PH,Urine 6.5 (5.0-8.5); Protein,Urine TRACE (Negative); Specific Gravity, Urine 1.025 (1.005-1.030); Urobilinogen,Urine 1.0 EU/dl (0.2)
[2025-09-10 22:45] LABS: Barbiturates Screen,Urine Negative ng/ml (<200)
[2025-09-10 22:46] LABS: Amphetamine/Metha Screen,Urine Negative ng/ml (<1000); Benzodiazepines Screen,Urine Negative ng/ml (<200)
[2025-09-10 22:48] LABS: Methadone Screen,Urine Negative ng/ml (<300)
[2025-09-10 22:49] LABS: Opiate Screen,Urine Negative ng/ml (<300); Phencyclidine Screen,Urine Negative ng/ml (<25)
[2025-09-10 22:51] LABS: Bilirubin,Urine 1+ (Negative)
[2025-09-10 22:53] LABS: Bacteria,Urine 1+ /lpf; Squamous Epithelial Cell,Urine Occasional #/hpf (0-5)
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
[2025-09-11] MEDS: TRAZODONE 50MG TABLET 100 MG PO (03:14)
[2025-09-11] MEDS: QUETIAPINE 25MG TABLET 50 MG PO (04:25)
[2025-09-11 04:30] VITALS: BP 119/79; PULSE 74; RESP 20; TEMP 36.6; O2SAT 98
== END 2025-09-11 04:34 | disposition home or self-care (01) ==
PROVIDERS: Nurse Practitioner; Emergency Provider Emergency Medicine; PCP Internal Medicine Adolescent Medicine
DX: F03.918 Unspecified dementia, unspecified severity, with other behavioral disturbance (principal); R45.6 Violent behavior
CPT/HCPCS: 71045; 80053; 80307; 80329; 81001; 83690; 83735; 85025; 93005; 96372; 99285; J1200